=== PATIENT | female | born 1940 | race Caucasian/White ===

== ENCOUNTER 2016-11-18 12:55 | Emergency (ER) | payer OTHER ==
[~2016-11-18] VITALS: Ht 170.2 cm; Wt 93.0 kg
[~2016-11-18 12:55] MED LIST: ACETYLCYST200 MG/1 M INH; ALBUTEROL2.5 MG/3 M INH/SOL; AMOXICILLIN500 M1 PO; ANTIVERT 12.512.5 MG PO; ASPIRIN CHILDRE81 MG PO; ATIVAN 0.5MG T0.5 MG PO; AUGMENTIN 500M500 MG PO; AUGMENTIN 875 M1 TAB PO; AUGMENTIN 875875 MG PO; AVELOX400 M1 PO; AZITHROMYCIN500 M3 PO; BACITRACIN OINT30 GM EXT; COUMADIN 1 MG TA1 MG PO; COUMADIN 2 MG TA2 MG PO; COZAAR 50MG TAB50 MG PO; DULCOLAX10 M1 RC; FLOVENT HF0.11 MG/Ac INH; GLYBURIDE5 MG PO; GOOD SENSE ASP325 MG PO; LIORESAL 10MG T10 MG PO; LOSARTAN POTASS50 M1 PO; METFORMIN ER500 MG PO; METFORMIN HCL500 M4 PO; METFORMIN500 MG PO; MIRALAX17 G1 PO; Mucinex PO; NOVAPLUS V0.09 MG/Ac INH; OMEPRAZOLE20 MG PO; PERCOCET 325 MG1 TA1 PO; PERCOCET 5-3251 EACH PO; PLAVIX 75MG TAB75 MG PO; PRAVASTATIN SOD80 M2 PO; PRAVASTATIN SOD80 MG PO; PREDNISONE 20MG20 MG PO; PREDNISONE10 M2 PO; PRILOSEC OTC20 M1 PO; PRINIVIL 5MG5 MG PO; RIVA15T PO; SENNA S TABLET1 EACH PO; SYMBICORT 160/41 PUF INH; SYMBICORT 16010.2 GM INH; TESSALON PERLE100 MG PO; VENTOLIN HFA18 GM INH; VESICARE 10MG10 MG PO; VESICARE10 MG PO; VICTOZA 2-0.6 MG/0.1 SC; VICTOZA6 MG/ML SC; XARELTO15 M1 PO; XARELTO20 M2 PO; ZOFRAN 4 MG TABL4 MG PO; ZOFRAN ODT4 MG PO
[2016-11-18 14:14] LABS: ABSOLUTE BASOPHIL COUNT 0 /CUMM (0.0-0.2); ABSOLUTE EOSINOPHIL COUNT 0 /CUMM (0.0-0.7); ABSOLUTE GRANULOCYTE CT 4.7 /CUMM (1.4-6.5); ABSOLUTE MONOCYTE COUNT 0.3 /CUMM (0.10-0.60); BASOPHIL % 0.5 % (0.0-2.0); EOSINOPHIL % 0.7 % (0-5); GRANULOCYTE % 77.5 % (42.2-75.2); HEMATOCRIT 35.6 % (37-47); MEAN CORPUSCULAR HGB 19.6 PG (27.0-31.0); MEAN CORPUSCULAR HGB CONC 31.4 G/DL (33.0-37.0); MEAN CORPUSCULAR VOLUME 62.4 FL (81.0-99.0); MEAN PLATELET VOLUME 9.8 FL (7.4-10.4); PLATELET COUNT 156 /CUMM (130-400); RBC DISTRIBUTION WIDTH 14.1 % (11.5-14.5); RED BLOOD CELL CT 5.71 /CUMM (4.20-5.40); WHITE BLOOD CELL COUNT 6.1 /CUMM (4.8-10.8)
--- NOTE | 2016-11-18 14:26 | RADIOLOGY REPORT ---
EXAMINATION: XR PORTABLE CHEST CLINICAL INFORMATION: Cough, weakness COMPARISON: 08/24/2016 TECHNIQUE: Portable view of the chest was obtained. FINDINGS: Increasing opacity at the right base consistent with ongoing right basilar infiltrate. Left lung is grossly clear. There is volume loss on the right here. No failure. No effusion. IMPRESSION: Increasing right basilar infiltrate/atelectasis. No failure.
[2016-11-18 14:54] VITALS: BP 154/87
[2016-11-18] MEDS ORDERED: AUGMENTIN 875-1 EACH PO (14:54)
[2016-11-18] MEDS ORDERED: ZOFRAN ODT4 M1 SL (14:54)
--- NOTE | 2016-11-18 14:55 | ED GI/GU/ABDOMINAL COMPLAINT ---
History of Present Illness General Chief Complaint: General Adult Stated Complaint: VOMTING,LIGHTHEADED,CHEST PRESSURE Source: patient, family, old records Exam Limitations: no limitations Vital Signs & Intake/Output Vital Signs & Intake/Output Vital Signs Date Time Temp Pulse Resp B/P Pulse O2 O2 Flow FiO2 Ox Delivery Rate 11/18 1454 98.0 78 20 154/87 96 Room Air 11/18 1307 98.1 92 18 169/69 95 Room Air Allergies Coded Allergies: methylprednisolone (From Solu-Medrol) (Intermediate, HIVES AND PALPITATIONS 01/14) clove (HIVES 12/29/15) kimberli (HIVES 12/29/15) thyme (HIVES 12/29/15) hydrocodone (NAUSEA 12/29/15) ibuprofen (GI UPSET 12/29/15) lisinopril (DRY COUGH 12/29/15) nitrofurantoin (MAKES HER CRAZY 05/03/16) Uncoded Allergies: CHIVES (HIVES 01/05/16) Reconcile Medications Acetylcysteine (Acetylcysteine) (Unknown Strength) VIAL 5 ML INH BID RESPIRATORY (Reported) Albuterol Sulfate 2.5 MG/3 ML (0.083 %) VIAL.NEB 1 Vial INH/EDDIE BID RESPIRATORY (Reported) Amoxicillin/Potassium Clav (Augmentin 875-125 Tablet) 875 MG-125 MG TABLET 1 TAB PO BID pneumonia Azithromycin 500 MG TABLET 1 TAB PO Wednesday S/P PNEUMONIA (Reported ) Budesonide/Formoterol Fumarate (Symbicort 160-4.5 Mcg Inhaler) 160 MCG-4.5 MCG/ ACTUATION HFA.AER.AD 2 PUF INH PRN RESPIRATORY (Reported) Liraglutide (Victoza 2-Kuldeep) 0.6 MG/0.1 ML (18 MG/3 ML) PEN.INJCTR 1.2 MG SC DAILY DM (Reported) Losartan Potassium 50 MG TABLET 1 TAB PO DAILY BP (Reported) Metformin HCl (Metformin HCl ER) 500 MG TAB.ER.24H 2 TAB PO BID DIABETES ( Reported) Omeprazole (Prilosec) 20 MG CAPSULE.DR 1 CAP PO DAILY AC GI (Reported) Ondansetron (Zofran Odt) 4 MG TAB.RAPDIS 1 TAB SL TID nausea Pravastatin Sodium 80 MG TABLET 1 TAB PO DAILY CHOLESTEROL (Reported) Rivaroxaban (Xarelto) 20 MG TABLET 1 TAB PO DAILY PE with food Solifenacin Succinate (Vesicare) 10 MG TABLET 1 TAB PO DAILY BLADDER ( Reported) Triage Note: 76 Y/O FEMALE C/O NOT FEELING WELL SINCE THIS AM; STATES SHE WAS "FINE AFTER BREAKFAST ..WENT SHOPPING AND THEN ALL OF A SUDDEN GOT SICK". PT REPORTS EPISODES N/V AND DIZZINESS. FELT "PRESSURE" IN CHEST AFTER VOMITING. AT PRESENT, C/O CONTINUED NAUSEA. DENIES PAIN. AFEBRILE EKG COMPLETE AND SIGNED BY MD. Triage Nurses Notes Reviewed? yes LMP (ages 10-50): post menopausal ? n Is pt currently ? No Onset: Just prior to arrival Duration: minute(s):, better, constant, continues in ED Timing: recent history Quality/Severity: aching, moderate, vomiting Location: generalized abdomen Radiation: no radiation Activities at Onset: physical activity Prior Abdominal Problems: none Past Sexual History: Unobtainable at this time Modifying Factors: Improves With: rest. HPI: 1 day prior to admission patient complains of chills. Prior to admission while shopping at the grocery store he felt weak dizzy with episodes of nausea vomiting dizziness and weakness. She denies fever chest pain cough shortness of breath headache dysuria rash bleeding Past History Travel History Traveled to [place] past 21 day No Medical History Any Pertinent Medical History? 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 Other Medical Hx: Hypertension, dyslipidemia, diabetes mellitus, CHF, asthma, prior transient ischemic attack versus CVA, sigmoid diverticulosis, internal hemorrhoids, gastroesophageal reflux disease, gastritis, positional vertigo, left carpal tunnel release, hysterectomy, right knee surgery for a meniscal tear, and recent foot surgery History of MRSA: No History of VRE: No History of CDIFF: No Pneumonia Vaccine: 08/10/13 Influenza Vaccine: 08/25/16 Tetanus Vaccine: 09/23/15 Surgical History Surgical History: R WRIST,TOE, HYSTERECTOMY BLADDER,RECTUM LIFTED right knee surgery for a meniscal tear left carpal tunnel release Psychosocial History Who do you live with Patient/Self Services at Home None What is your primary language Wolof Tobacco Use: Quit >30 days ago Family History Family History, If Any: BROTHER FH: throat cancer SISTER (atrial fibrillation). FH: lung cancer FH: thyroid cancer SISTER (permanent pacemaker placement). FH: melanoma FHx: breast cancer MOTHER (coronary artery disease in her 50's s/p CABG). FH: diabetes mellitus FH: myocardial infarction FH: stroke FATHER FH: kidney disease Hx Contributory? No Review of Systems Review of Systems Constitutional: Reports: see HPI, malaise, weakness. EENTM: Reports: no symptoms. Respiratory: Reports: no symptoms. Cardiovascular: Reports: no symptoms. GI: Reports: see HPI, nausea, vomiting. Genitourinary: Reports: no symptoms. Musculoskeletal: Reports: no symptoms. Skin: Reports: no symptoms. Neurological/Psychological: Reports: no symptoms. Hematologic/Endocrine: Reports: no symptoms. Immunologic/Allergic: Reports: no symptoms. All Other Systems: Reviewed and Negative Physical Exam Physical Exam General Appearance: well developed/nourished, alert, awake, anxious, mild distress Head: atraumatic, normal appearance Eyes: Bilateral: normal appearance, PERRL, EOMI, normal inspection. Ears, Nose, Throat, Mouth: hearing grossly normal, moist mucous membrane Neck: normal inspection, supple, full range of motion, normal alignment Respiratory: chest non-tender, no respiratory distress, quiet respiration, decreased breath sounds Cardiovascular: regular rate/rhythm, normal peripheral pulses, norml femoral pulses equa Peripheral Pulses: 4+ carotid (R), 4+ carotid (L) Gastrointestinal: normal bowel sounds, soft, non-tender, no organomegaly Back: normal inspection, normal range of motion, no vertebral tenderness Extremities: normal range of motion, no ligament instability Neurologic/Psych: no motor/sensory deficits, awake, alert, oriented x 3, normal gait, normal mood/affect, respiratory coordinator II-XII nml as tested Skin: intact, normal color, warm/dry Core Measures ACS in differential dx? Yes Severe Sepsis Present: No Septic Shock Present: No Progress Differential Diagnosis: AMI, gastritis, pancreatitis Plan of Care: Orders Procedure Date/time Status Consistent Carbohydrate 3 11/18 D Active TROPONIN LEVEL 11/18 1340 Complete LIPASE 11/18 1340 Complete COMPREHENSIVE METABOLIC PANEL 11/18 1340 Complete CBC WITHOUT DIFFERENTIAL 11/18 1340 Complete EKG 11/18 1256 Active Laboratory Tests 11/18/16 1402: Anion Gap 10, Estimated GFR > 60, BUN/Creatinine Ratio 17.5, Glucose 136 H, Calcium 9.4, Total Bilirubin 0.6, AST 17, ALT 22, Alkaline Phosphatase 53, Troponin I < 0.01, Total Protein 6.4, Albumin 3.6, Globulin 2.8, Albumin/ Globulin Ratio 1.3, Lipase 35, CBC w Diff NO MAN DIFF REQ, RBC 5.71 H, MCV 62.4 L, MCH 19.6 L, RDW 14.1, MPV 9.8, Gran % 77.5 H, Lymphocytes % 17.1 L, Monocytes % 4.2, Eosinophils % 0.7, Basophils % 0.5, Absolute Granulocytes 4.7, Absolute Lymphocytes 1.0 L, Absolute Monocytes 0.3, Absolute Eosinophils 0, Absolute Basophils 0, PUBS MCHC 31.4 L Diagnostic Imaging: Viewed by Me: Radiology Read. Discussed w/RAD: Radiology Read. CXR Impression: RLL infiltrate Initial ED EKG: normal axis, normal intervals, normal p-waves, normal QRS complex, normal sinus rhythm, nonspecific ST T wave chg Prior EKG: unchanged Rhythm Strip: normal sinus rhythm Departure Departure Time of Disposition: 1451 Disposition: HOME OR SELF CARE Condition: Stable Clinical Impression Primary Impression: Pneumonia Qualifiers: Pneumonia type: due to unspecified organism Laterality: right Lung location: lower lobe of lung Qualified Code: J18.1 - Lobar pneumonia, unspecified organism Secondary Impressions: Nausea and vomiting Qualifiers: Vomiting type: unspecified Vomiting Intractability: non-intractable Qualified Code: R11.2 - Nausea with vomiting, unspecified Referrals: BUCK EUSEBIA SHOOK (PCP/Family) Departure Forms: Customer Survey General Discharge Information Prescriptions: Current Visit Scripts Ondansetron (Zofran Odt) 1 TAB SL TID #15 TAB Amoxicillin/Potassium Clav (Augmentin 875-125 Tablet) 1 TAB PO BID #20 TAB
== END 2016-11-18 16:05 ==
LOC: ERH 12:55
PROVIDERS: Emergency Medicine
DX: J18.9 Pneumonia, unspecified organism (principal); R11.2 Nausea with vomiting, unspecified; Z87.891 Personal history of nicotine dependence; R53.1 Weakness
CPT/HCPCS: 93005; 93010; 96361; 96374; J0696

== ENCOUNTER 2016-11-22 04:33 | Emergency (ER) | payer OTHER ==
[~2016-11-22] VITALS: Ht 144.8 cm; Wt 90.7 kg
[~2016-11-22 04:33] MED LIST changes: +AUGMENTIN 875-1 EACH PO; +ZOFRAN ODT4 M1 SL
[2016-11-22 05:43] LABS: ABSOLUTE BASOPHIL COUNT 0 /CUMM (0.0-0.2); ABSOLUTE EOSINOPHIL COUNT 0.1 /CUMM (0.0-0.7); ABSOLUTE GRANULOCYTE CT 4.4 /CUMM (1.4-6.5); ABSOLUTE LYMPH COUNT 1.5 /CUMM (1.2-3.4); ABSOLUTE MONOCYTE COUNT 0.5 /CUMM (0.10-0.60); BASOPHIL % 0.7 % (0.0-2.0); EOSINOPHIL % 1.8 % (0-5); HEMATOCRIT 33.3 % (37-47); MEAN CORPUSCULAR HGB 19.5 PG (27.0-31.0); MEAN CORPUSCULAR HGB CONC 30.8 G/DL (33.0-37.0); MEAN CORPUSCULAR VOLUME 63.3 FL (81.0-99.0); MEAN PLATELET VOLUME 9.7 FL (7.4-10.4); PLATELET COUNT 160 /CUMM (130-400); RBC DISTRIBUTION WIDTH 14.2 % (11.5-14.5); RED BLOOD CELL CT 5.26 /CUMM (4.20-5.40); WHITE BLOOD CELL COUNT 6.5 /CUMM (4.8-10.8)
--- NOTE | 2016-11-22 05:54 | ED CARDIAC/CP/PALPITATIONS ---
See Addendum History of Present Illness General Chief Complaint: Chest Pain Stated Complaint: BIBA, CHEST PAIN Source: patient Exam Limitations: no limitations Vital Signs & Intake/Output Vital Signs & Intake/Output Vital Signs Date Time Temp Pulse Resp B/P Pulse O2 O2 Flow FiO2 Ox Delivery Rate 11/22 0935 97.7 80 20 134/62 97 Room Air 11/22 0640 97.5 76 20 108/56 94 Room Air 11/22 0447 97.0 80 18 146/78 98 Room Air Allergies Coded Allergies: methylprednisolone (From Solu-Medrol) (Intermediate, HIVES AND PALPITATIONS 01/14) clove (HIVES 12/29/15) kimberli (HIVES 12/29/15) thyme (HIVES 12/29/15) hydrocodone (NAUSEA 12/29/15) ibuprofen (GI UPSET 12/29/15) lisinopril (DRY COUGH 12/29/15) nitrofurantoin (MAKES HER CRAZY 05/03/16) Uncoded Allergies: CHIVES (HIVES 01/05/16) Reconcile Medications Acetylcysteine (Acetylcysteine) (Unknown Strength) VIAL 5 ML INH BID RESPIRATORY (Reported) Albuterol Sulfate 2.5 MG/3 ML (0.083 %) VIAL.NEB 1 Vial INH/EDDIE BID RESPIRATORY (Reported) Azithromycin 500 MG TABLET 1 TAB PO Wednesday S/P PNEUMONIA (Reported ) Budesonide/Formoterol Fumarate (Symbicort 160-4.5 Mcg Inhaler) 160 MCG-4.5 MCG/ ACTUATION HFA.AER.AD 2 PUF INH PRN RESPIRATORY (Reported) Liraglutide (Victoza 2-Kuldeep) 0.6 MG/0.1 ML (18 MG/3 ML) PEN.INJCTR 1.2 MG SC DAILY DM (Reported) Losartan Potassium 50 MG TABLET 1 TAB PO DAILY BP (Reported) Metformin HCl (Metformin HCl ER) 500 MG TAB.ER.24H 2 TAB PO BID DIABETES ( Reported) Omeprazole (Prilosec) 20 MG CAPSULE.DR 1 CAP PO DAILY AC GI (Reported) Pravastatin Sodium 80 MG TABLET 1 TAB PO DAILY CHOLESTEROL (Reported) Rivaroxaban (Xarelto) 20 MG TABLET 1 TAB PO DAILY PE with food Solifenacin Succinate (Vesicare) 10 MG TABLET 1 TAB PO DAILY BLADDER ( Reported) Triage Note: PT BIBA COMPLAINING OF CP. PT WAS HERE A FEW DAYS AGO FOR PNEUMONIA. PT STATES SHE HAS BEEN TAKING AMOXICILLIN AND ZOFRAN PRESCRIBED. PER PT SHE WOKE UP THIS AM WITH L SIDED CHEST PAIN AND NUMBNESS IN L ARM, PT ALSO COMPLAINS OF DIARRHEA. UPON ED ARRIVAL PT ALERT, ORIENTED AND HAVING CONVERSATION. PT PLACED ON HEART MONITOR, NORMAL SINUS. O2 SAT 94% RA. Triage Nurses Notes Reviewed? yes HPI: Presents for evaluation of left chest pain radiating into the left back with associated left arm numbness that began about 3:00 this morning awakening her from sleep while at home. The pains have been sharp severe and intermittent. She was evaluated here on Wednesday and began treatment for pneumonia. She has had a mild nonproductive cough along with episodes of dizziness and dyspnea. No associated fever or leg swelling. (CHRIS SHOOK,RUBI Mejia) Past History Travel History Traveled to [place] past 21 day No Medical History Any Pertinent Medical History? 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 Other Medical Hx: Hypertension, dyslipidemia, diabetes mellitus, CHF, asthma, prior transient ischemic attack versus CVA, sigmoid diverticulosis, internal hemorrhoids, gastroesophageal reflux disease, gastritis, positional vertigo, left carpal tunnel release, hysterectomy, right knee surgery for a meniscal tear, and recent foot surgery History of MRSA: No History of VRE: No History of CDIFF: No Tetanus Vaccine: 09/23/15 Surgical History Surgical History: R WRIST,TOE, HYSTERECTOMY BLADDER,RECTUM LIFTED right knee surgery for a meniscal tear left carpal tunnel release Psychosocial History Who do you live with Patient/Self Services at Home None What is your primary language Polish Family History Family History, If Any: BROTHER FH: throat cancer SISTER (atrial fibrillation). FH: lung cancer FH: thyroid cancer SISTER (permanent pacemaker placement). FH: melanoma FHx: breast cancer MOTHER (coronary artery disease in her 50's s/p CABG). FH: diabetes mellitus FH: myocardial infarction FH: stroke FATHER FH: kidney disease Hx Contributory? No (CHRIS SHOOK,RUBI Mejia) Review of Systems Review of Systems Constitutional: Reports: no symptoms. EENTM: Reports: no symptoms. Respiratory: Reports: see HPI. Cardiovascular: Reports: no symptoms. GI: Reports: no symptoms. Genitourinary: Reports: no symptoms. Musculoskeletal: Reports: no symptoms. Skin: Reports: no symptoms. Neurological/Psychological: Reports: no symptoms. Hematologic/Endocrine: Reports: no symptoms. Immunologic/Allergic: Reports: no symptoms. All Other Systems: Reviewed and Negative (CHRIS SHOOK,RUBI Mejia) Physical Exam Physical Exam Cardiovascular: see below Comments: Gen.: Well-nourished, well-developed, no acute respiratory distress. Head: Normocephalic, atraumatic. Eyes: Normal inspection bilaterally Ears: Normal inspection bilaterally Nose: Normal inspection Throat/mouth : Moist mucosa Neck: Supple, full range of motion, no goiter Heart: Regular rate and rhythm, no murmurs rubs or gallops Lungs: Bilateral rhonchi and scattered wheezes with paroxysms of loose cough Chest: Nontender Back: Normal range of motion Abdomen: Soft, nontender, nondistended, normal bowel sounds Extremities: Normal range of motion grossly, equal radial pulses, no cyanosis clubbing or edema Neurologic: Cranial nerves grossly intact, speech is clear Skin: warm and dry Psychiatric: Calm, cooperative, no apparent delusions or hallucinations (CHRIS SHOOK,RUBI Mejia) Core Measures ACS in differential dx? Yes Severe Sepsis Present: No Septic Shock Present: No (DEYSI DESAI MD) Progress Differential Diagnosis: CHF/pulm edema, pneumonia, COPD Plan of Care: Orders Procedure Date/time Status Consistent Carbohydrate 2 11/22 L Active EKG 11/22 1015 Active TROPONIN LEVEL 11/22 0930 Complete TROPONIN LEVEL 11/22 0532 Complete LIPASE 11/22 0532 Complete COMPREHENSIVE METABOLIC PANEL 11/22 0532 Complete CBC WITHOUT DIFFERENTIAL 11/22 0532 Complete AMYLASE 11/22 0532 Complete EKG 11/22 0437 Active Laboratory Tests 11/22/16 0930: Troponin I < 0.01 11/22/16 0536: Anion Gap 8, Estimated GFR > 60, BUN/Creatinine Ratio 15.6, Glucose 185 H, Calcium 8.6, Total Bilirubin 0.3, AST 14, ALT 23, Alkaline Phosphatase 58, Troponin I < 0.01, Total Protein 5.7 L, Albumin 3.1 L, Globulin 2.6, Albumin/ Globulin Ratio 1.2, Amylase < 30 L, Lipase 33, CBC w Diff NO MAN DIFF REQ, RBC 5.26, MCV 63.3 L, MCH 19.5 L, RDW 14.2, MPV 9.7, Gran % 67.0, Lymphocytes % 23.1, Monocytes % 7.4, Eosinophils % 1.8, Basophils % 0.7, Absolute Granulocytes 4.4, Absolute Lymphocytes 1.5, Absolute Monocytes 0.5, Absolute Eosinophils 0.1, Absolute Basophils 0, PUBS MCHC 30.8 L Diagnostic Imaging: Viewed by Me: Radiology Read. Discussed w/RAD: Radiology Read. CXR Impression: There is persistent stable mild right base linear scar/ subsegmental atelectasis. No new focal infiltrate or congestive heart failure is seen. Initial ED EKG: normal axis, normal intervals, normal p-waves, normal QRS complex, normal sinus rhythm, no ST T wave changes Prior EKG: unchanged Rhythm Strip: normal sinus rhythm Comments: 2nd troponin <0.01 (DEYSI DESAI MD) Departure Departure Condition: Stable Departure Forms: Customer Survey General Discharge Information (CHRIS SHOOK,RUBI Mejia) Departure Time of Disposition: 1016 Disposition: HOME OR SELF CARE Clinical Impression Primary Impression: Chest pain syndrome Secondary Impressions: COPD (chronic obstructive pulmonary disease) Qualifiers: COPD type: unspecified COPD Qualified Code: J44.9 - Chronic obstructive pulmonary disease, unspecified Referrals: EUSEBIA BUCK MD (PCP/Family) (DEYSI DESAI MD) Critical Care Note Critical Care Note Critical Care Time: 30-74 min (40) (DEYSI DESAI MD)
--- NOTE | 2016-11-22 08:11 | RADIOLOGY REPORT ---
EXAMINATION: XR PORTABLE CHEST CLINICAL INFORMATION: Chest pain. COMPARISON: Prior chest radiographs, most recently 11/18/2016. TECHNIQUE: An AP portable upright view of the chest was obtained. FINDINGS: The heart, great vessels, pulmonary vasculature and mediastinum are stable. There is mild lateral right base linear scar/subsegmental atelectasis. This is stable from multiple prior examinations The left lung field appears clear. There is no pleural effusion or pneumothorax. No acute osseous abnormality is seen. There are degenerative changes of the shoulders. IMPRESSION: There is persistent stable mild right base linear scar/subsegmental atelectasis. No new focal infiltrate or congestive heart failure is seen.
[2016-11-22 09:35] VITALS: BP 134/62
== END 2016-11-22 10:29 ==
LOC: ERH 04:33
PROVIDERS: Emergency Medicine
DX: R07.9 Chest pain, unspecified (principal); J44.9 Chronic obstructive pulmonary disease, unspecified
CPT/HCPCS: 1263; 93005; 93010

== ENCOUNTER → 2016-12-18 | Day surgery (SDC) | payer OTHER ==
[~2016-12-18] VITALS: Ht 170.2 cm; Wt 93.0 kg
[~2016-12-18] MED LIST changes: +ASPIRIN81 M4 PO; +CIPRO500 M1 PO; +PREDNISONE20 M1 PO; +PREDNISONE50 M1 PO; +PROAIR HFA8.5 GM INH; +TYLENOL ARTHRI650 M1 PO
--- NOTE | 2016-12-19 13:44 | Operative Report ---
Operative/Inv Procedure Report Surgery Date: 12/18/16 Name of Procedure: cystocele repair with mesh, rectocele repair with mesh and urethral sling, cystoscopy Pre-Operative Diagnosis: cystocele, rectocele and CARROL Post-Operative Diagnosis: same Estimated Blood Loss: 150cc Surgeon/Horticulture/Floriculture Teacher: JUDITH SNOW MD Anesthesia: laryngeal mask airway Implants: vaginal mesh x 3 Drains: 16fr downing Complications: none Condition: stable Operative Indication: cystocele, rectocele, CARROL symptomatic and bothersome Operative/Procedure Note Note: This an operative dictation on patient Sindhu Rodriguez. Patient was identified in the holding area and consented for cystocele repair with mesh urethral sling cystoscopy and rectocele repair with mesh. All the risks benefits and alternatives of the surgery were given and all questions were answered. Patient was taken to the operating room placed on the operating table in supine position. Once timeout was performed general anesthesia was given with LMA and IV antibiotics were infused. Patient was placed in the dorsal lithotomy position. She was prepped and draped in the standard sterile fashion. Downing catheter was placed at the beginning of the surgery and the bladder was drained. The Downing was placed on the patient's abdomen. Prosser retractor was then placed for vaginal vault visualization. The cystocele portion of the surgery was started first. 1% lidocaine with epinephrine was infiltrated into the anterior vaginal wall from the bladder neck to the cervix. An incision was made and the vaginal flaps are created on the patient's right and left side taking care not to injure the bladder. Once the bladder was completely dissected free the retropubic space was entered with blunt and sharp dissection. The sacrospinous ligament was palpated on each side and cleaned. The Capio thin device was then used to place the Prolene sutures at the sacrospinous ligaments on the patient's right and left side. The Capio thin device was then used to place 2 sutures at the level of the bladder neck on the patient's right and left side as well. The Restoril mesh was then opened and used to place through the 4 Prolene sutures that was previously placed. The distal proximal portions were secured with 2-0 Vicryl suture. The mesh was then secured in place over there is Prolene sutures and tied down. This mesh was seen to be in a nice tension- free manner and reduced the cystocele nicely. The area was copiously irrigated bacitracin irrigation. The incision site was closed using running locking 2-0 Vicryl suture. Attention was then turned to the sling portion of the case. 1% lidocaine with epinephrine was infiltrated into the subcutaneous urethral region. An incision was made and the vaginal flaps are created taking care not to injure the urethra. The Altis Sling kit was then opened and used to place the sling in the patient's left and right side with the trochars provided. The sling was then tightened and was seen to be in a nice tension-free manner. Area was grossly irrigated with bacitracin irrigation and then closed with running locking 3-0 Vicryl suture. A cystoscopy was then performed. Methylene blue had been given prior to the cystoscopy at the time of the 6 spinous ligament suture placement. The bladder was globally inspected there was no mesh in the bladder or the urethra. The ureteral orifices were easily identified in the normal anatomic position. These were seen to have good ureteral reflux creating color on both sides. The bladder was emptied and the Downing was placed back into the bladder. Attention was turned to the rectocele portion of the case. The posterior vagina was infiltrated with 1% lidocaine with epinephrine. The knife was used to make an incision at the posterior fourchette. The Metzenbaum scissors then used to create the posterior vaginal flaps taking care not to injure the rectum. Periodic rectal exams were performed to ensure that the rectum was not injured. Once the rectum seal was entirely dissected free from the vaginal flaps the fascial defect was then closed using interrupted 2-0 Vicryl sutures with a piece of Acell mesh incorporated into the repair. This was seen to nicely reduced the rectocele. There were no injuries to the rectum that were appreciated. There was copiously irrigated with bacitracin irrigation. The incision site was closed using running locking 2-0 Vicryl sutures followed by 3-0 Vicryl running suture for the perineorrhaphy. The sponge and needle count were correct and of the case. Patient tolerated the procedure well. Findings: no mesh in bladder or urethra or vaginal fornices. Good blue efflux from both ureteral orifices. No bladder injury or rectgal injury. Findings: no mesh in bladder or urethra or vaginal fornices. Discharge Disposition: PACU
== END ==
LOC: STS 01:13
DX: N39.3 Stress incontinence (female) (male) (principal); N81.10 Cystocele, unspecified; N81.6 Rectocele; E11.9 Type 2 diabetes mellitus without complications; Z79.84 Long term (current) use of oral hypoglycemic drugs; E78.5 Hyperlipidemia, unspecified
CPT/HCPCS: C1771; C1781; J0131; J0690; J1100; J2250; J2405

== ENCOUNTER 2016-12-19 08:44 | Emergency (ER) | payer OTHER ==
[~2016-12-19] VITALS: Ht 170.2 cm; Wt 93.0 kg
[~2016-12-19 08:44] MED LIST changes: -ASPIRIN81 M4 PO; -CIPRO500 M1 PO; -PREDNISONE20 M1 PO; -PREDNISONE50 M1 PO; -PROAIR HFA8.5 GM INH; -TYLENOL ARTHRI650 M1 PO
[2016-12-19 08:48] VITALS: BP 102/62
--- NOTE | 2016-12-19 09:15 | ED GENERAL ADULT ---
History of Present Illness General Chief Complaint: General Adult Stated Complaint: MULI COMPLAINTS Source: patient, family Exam Limitations: no limitations Vital Signs & Intake/Output Vital Signs & Intake/Output Vital Signs Date Time Temp Pulse Resp B/P Pulse O2 O2 Flow FiO2 Ox Delivery Rate 12/19 0904 Room Air Room Air 12/19 0848 95.0 83 20 102/62 94 Room Air Room Air Allergies Coded Allergies: methylprednisolone (From Solu-Medrol) (Intermediate, HIVES AND PALPITATIONS 01/14) clove (HIVES 12/29/15) kimberli (HIVES 12/29/15) thyme (HIVES 12/29/15) hydrocodone (NAUSEA 12/29/15) ibuprofen (GI UPSET 12/29/15) lisinopril (DRY COUGH 12/29/15) nitrofurantoin (MAKES HER CRAZY 05/03/16) Uncoded Allergies: CHIVES (HIVES 01/05/16) Triage Note: PT TO ED "I HAD BLADDER SURGERY YESTERDAY, AND THEY GAVE ME A SYRINGE TO TAKE THE FLUID OUT OF THE BALLOON IN THE SIMS SO I COULD TAKE IT OUT BUT IT'S NOT WORKING". Triage Nurses Notes Reviewed? yes HPI: 76 year old woman seen for evaluation after undergoing pelvic surgery yesterday with Dr. Rowley for placement of a pelvic sling/mesh. She was discharged to home with a sims catheter and instructed to remove the catheter this morning with the syringe provided. She and her son attempted to do this but were unsuccessful for which they came to the [facility] for evaluation. Otherwise she reports that she tolerated the procedure well and reports associated pelvic pain. Additionally she denies any headache, fever, chills, chest pain, palpitations, shortness of breath, cough, nausea, vomiting, diarrhea, bloody urine. (ALEX SHOOK,ELIAN) Reconcile Medications Acetylcysteine (Acetylcysteine) (Unknown Strength) VIAL 5 ML INH BID RESPIRATORY (Reported) Albuterol Sulfate 2.5 MG/3 ML (0.083 %) VIAL.NEB 1 Vial INH/EDDIE BID RESPIRATORY (Reported) Budesonide/Formoterol Fumarate (Symbicort 160-4.5 Mcg Inhaler) 160 MCG-4.5 MCG/ ACTUATION HFA.AER.AD 2 PUF INH PRN RESPIRATORY (Reported) Liraglutide (Victoza 2-Kuldeep) 0.6 MG/0.1 ML (18 MG/3 ML) PEN.INJCTR 1.2 MG SC DAILY DM (Reported) Losartan Potassium 50 MG TABLET 1 TAB PO DAILY BP (Reported) Metformin HCl (Metformin HCl ER) 500 MG TAB.ER.24H 2 TAB PO BID DIABETES ( Reported) Omeprazole Magnesium (Prilosec Otc) 20 MG TABLET.DR 1 TAB PO DAILY GI ( Reported) Pravastatin Sodium 80 MG TABLET 1 TAB PO DAILY CHOLESTEROL (Reported) Rivaroxaban (Xarelto) 20 MG TABLET 1 TAB PO DAILY PE with food Solifenacin Succinate (Vesicare) 10 MG TABLET 1 TAB PO DAILY BLADDER ( Reported) (CHRIS SHOOK,RUBI Mejia) Past History Travel History Traveled to [place] past 21 day No Medical History Any Pertinent Medical History? 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 Other Medical Hx: Hypertension, dyslipidemia, diabetes mellitus, CHF, asthma, prior transient ischemic attack versus CVA, sigmoid diverticulosis, internal hemorrhoids, gastroesophageal reflux disease, gastritis, positional vertigo, left carpal tunnel release, hysterectomy, right knee surgery for a meniscal tear, and recent foot surgery History of MRSA: No History of VRE: No History of CDIFF: No Tetanus Vaccine: 09/23/15 Surgical History Surgical History: R WRIST,TOE, HYSTERECTOMY BLADDER,RECTUM LIFTED right knee surgery for a meniscal tear left carpal tunnel release Psychosocial History Who do you live with Patient/Self Services at Home None What is your primary language French Tobacco Use: Never used ETOH Use: denies use Illicit Drug Use: denies illicit drug use Family History Family History, If Any: BROTHER FH: throat cancer SISTER (atrial fibrillation). FH: lung cancer FH: thyroid cancer SISTER (permanent pacemaker placement). FH: melanoma FHx: breast cancer MOTHER (coronary artery disease in her 50's s/p CABG). FH: diabetes mellitus FH: myocardial infarction FH: stroke FATHER FH: kidney disease Hx Contributory? No (ALEX MD,ELIAN) Review of Systems Review of Systems Constitutional: Reports: see HPI, diaphoresis. (ELIAN JOHNSON MD) Physical Exam Physical Exam General Appearance: well developed/nourished, no apparent distress, alert, awake , comfortable Core Measures ACS in differential dx? No CVA/TIA Diagnosis: No Severe Sepsis Present: No Septic Shock Present: No (ELIAN JOHNSON MD) Progress Differential Diagnoses I considered the following diagnoses in my evaluation of the patient: recent pelvic surgery, sims catheter placement Plan of Care: Placement of Sims catheter was assessed and it appeared to be atraumatic draining clear yellow/green urine are presented of of dye from the surgical procedure. Nursing staff removed the Sims catheter without any difficulty. Patient reports relief with removal of the Sims catheter. She reports that she has a follow-up appointment with Dr. Rowley in her office in 2 weeks to assess any further intervention required and has an adequate amount of Percocet at home for pain relief associated with her recent pelvic surgery. She is to be discharged home with instruction to follow up with her previously scheduled appointment and to return to the ED or call 911 should her condition worsen or if she develops any fever or signs of infection. Initial ED EKG: none (ELIAN JOHNSON MD) Departure Departure Disposition: HOME OR SELF CARE Condition: Stable Clinical Impression Primary Impression: Problem with Sims catheter Qualifiers: Encounter type: initial encounter Qualified Code: T83.9XXA - Unspecified complication of genitourinary prosthetic device, implant and graft, initial encounter Referrals: EUSEBIA BUCK MD (PCP/Family) Additional Instructions: Follow-up with your previously scheduled appointment with Dr. Rowley in 2 weeks for further care. Call 911 or return to the ED should your clinical condition worsen or if you develop fever or signs of infection. Departure Forms: Customer Survey General Discharge Information (ELIAN JOHNSON MD) Resident Co-Sign Statement Statement: ED Attending supervision documentation- [x] I saw and evaluated the patient. I have also reviewed all the pertinent lab results and diagnostic results. I agree with the findings and the plan of care as documented in the Resident's documentation. [] I have reviewed the ED Record and agree with the Resident's documentation. [] Additions or exceptions (if any) to the Resident's note and plan are summarized below: [] (CHRIS SHOOK,RUBI Mejia) Critical Care Note Critical Care Note Critical Care Time: non-applicable (ALEX SHOOK,ELIAN)
== END 2016-12-19 09:25 ==
LOC: ERH 08:44
DX: T83.9XXA Unspecified complication of genitourinary prosthetic device, implant and graft, initial encounter (principal)

== ENCOUNTER 2016-12-21 10:49 | Emergency (ER) | payer OTHER ==
[~2016-12-21] VITALS: Ht 170.2 cm; Wt 93.0 kg
--- NOTE | 2016-12-21 11:00 | ED GENERAL ADULT ---
History of Present Illness General Chief Complaint: Dyspnea (COPD, CHF, Other) Stated Complaint: SOB/VAG BLEED S/P SURG ON WEDNESDAY Source: patient Exam Limitations: no limitations Vital Signs & Intake/Output Vital Signs & Intake/Output Vital Signs Date Time Temp Pulse Resp B/P Pulse O2 O2 Flow FiO2 Ox Delivery Rate 12/21 1530 98.9 66 18 158/67 98 Room Air 12/21 1435 98.2 66 18 180/78 95 Nasal 2.0L Cannula 12/21 1249 100 Nasal 2.0L Cannula 12/21 1103 98.1 70 24 152/67 100 Nasal 3.0L Cannula Allergies Coded Allergies: methylprednisolone (From Solu-Medrol) (Intermediate, HIVES AND PALPITATIONS 01/14) clove (HIVES 12/29/15) kimberli (HIVES 12/29/15) thyme (HIVES 12/29/15) hydrocodone (NAUSEA 12/29/15) ibuprofen (GI UPSET 12/29/15) lisinopril (DRY COUGH 12/29/15) nitrofurantoin (MAKES HER CRAZY 05/03/16) Uncoded Allergies: CHIVES (HIVES 01/05/16) Reconcile Medications Acetylcysteine (Acetylcysteine) (Unknown Strength) VIAL 5 ML INH BID RESPIRATORY (Reported) Albuterol Sulfate 2.5 MG/3 ML (0.083 %) VIAL.NEB 1 Vial INH/EDDIE BID RESPIRATORY (Reported) Budesonide/Formoterol Fumarate (Symbicort 160-4.5 Mcg Inhaler) 160 MCG-4.5 MCG/ ACTUATION HFA.AER.AD 2 PUF INH PRN RESPIRATORY (Reported) Ciprofloxacin HCl (Cipro) 500 MG TABLET 1 TAB PO BID UTI Liraglutide (Victoza 2-Kuldeep) 0.6 MG/0.1 ML (18 MG/3 ML) PEN.INJCTR 1.2 MG SC DAILY DM (Reported) Losartan Potassium 50 MG TABLET 1 TAB PO DAILY BP (Reported) Metformin HCl (Metformin HCl ER) 500 MG TAB.ER.24H 2 TAB PO BID DIABETES ( Reported) Omeprazole Magnesium (Prilosec Otc) 20 MG TABLET.DR 1 TAB PO DAILY GI ( Reported) Pravastatin Sodium 80 MG TABLET 1 TAB PO DAILY CHOLESTEROL (Reported) Rivaroxaban (Xarelto) 20 MG TABLET 1 TAB PO DAILY PE with food Solifenacin Succinate (Vesicare) 10 MG TABLET 1 TAB PO DAILY BLADDER ( Reported) Triage Nurses Notes Reviewed? yes Onset: Abrupt Duration: hour(s): Timing: recent history HPI: 12/21/16 12:23 PM 76-year-old female presents to the emergency department complaining of left lower extremity pain and swelling, rash and itching, dysuria, shortness of breath, and constipation. The patient is is status post bladder sling procedure (cystocele repair with mesh, rectocele repair with mesh and urethral sling, cystoscopy) done by Dr. Rowley in the OR at [facility] on Wednesday. Now she presents with the above complaints. The onset of the symptoms were abrupt, the duration has been since Wednesday, the severity is significant as her symptoms required her to come to the emergency department for care She admits to some vaginal bleeding. On physical examination she does have some left lower extremity swelling and tenderness. No identifiable rash was seen but she does have exacerbations. She has no obstructed stool in the rectum and she was guaiac negative. Her abdomen is soft and nontender. There is no active vaginal bleeding. Past History Travel History Traveled to [place] past 21 day No Medical History Any Pertinent Medical History? 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 Other Medical Hx: Hypertension, dyslipidemia, diabetes mellitus, CHF, asthma, prior transient ischemic attack versus CVA, sigmoid diverticulosis, internal hemorrhoids, gastroesophageal reflux disease, gastritis, positional vertigo, left carpal tunnel release, hysterectomy, right knee surgery for a meniscal tear, and recent foot surgery History of MRSA: No History of VRE: No History of CDIFF: No Tetanus Vaccine: 09/23/15 Surgical History Surgical History: R WRIST,TOE, HYSTERECTOMY BLADDER,RECTUM LIFTED right knee surgery for a meniscal tear left carpal tunnel release Psychosocial History Who do you live with Patient/Self Services at Home None What is your primary language Maori Tobacco Use: Never used ETOH Use: denies use Illicit Drug Use: denies illicit drug use Family History Family History, If Any: BROTHER FH: throat cancer SISTER (atrial fibrillation). FH: lung cancer FH: thyroid cancer SISTER (permanent pacemaker placement). FH: melanoma FHx: breast cancer MOTHER (coronary artery disease in her 50's s/p CABG). FH: diabetes mellitus FH: myocardial infarction FH: stroke FATHER FH: kidney disease Hx Contributory? No Review of Systems Review of Systems Constitutional: Denies: fever. EENTM: Denies: visual changes. Respiratory: Reports: short of breath. Cardiovascular: Denies: chest pain. GI: Reports: constipation. Denies: abdominal pain, vomiting. Genitourinary: Reports: dysuria. Musculoskeletal: Reports: back pain. Skin: Reports: rash. Neurological/Psychological: Reports: no symptoms. Hematologic/Endocrine: Reports: bleeding. Physical Exam Physical Exam General Appearance: alert, awake, anxious, mild distress Head: atraumatic, normal appearance Eyes: Bilateral: normal appearance, PERRL, EOMI. Ears, Nose, Throat: normal pharynx, normal ENT inspection Neck: normal inspection, supple Respiratory: no respiratory distress, decreased breath sounds Cardiovascular: regular rate/rhythm Peripheral Pulses: 4+ radial (R), 4+ radial (L) Gastrointestinal: non-tender Rectal: heme negative stool Back: decreased range of motion Extremities: pedal edema Neurologic/Psych: no motor/sensory deficits, awake, alert, oriented x 3 Skin: excoriations, no rash Comments: On physical exam the patient is awake alert oriented 3. Her oxygen saturation is 97% on room air. Her abdomen is soft and nontender on skin exam she does have excoriations but no definite rash she says she had urticaria and took Benadryl, rectal exam was guaiac-negative Core Measures ACS in differential dx? No CVA/TIA Diagnosis: No Severe Sepsis Present: No Septic Shock Present: No Progress Differential Diagnoses I considered the following diagnoses in my evaluation of the patient: [Adverse drug reaction, allergic reaction, UTI, pneumonia, aspiration pneumonia, pulmonary embolism, DVT, postop hemorrhage,] Plan of Care: Orders Procedure Date/time Status URINALYSIS 12/21 1257 Complete ARTERIAL BLOOD GAS (GEN) 12/21 1206 Complete CULTURE,URINE 12/21 1206 Active TROPONIN LEVEL 12/21 1206 Complete D-DIMER 12/21 1206 Complete COMPREHENSIVE METABOLIC PANEL 12/21 1206 Complete CBC WITHOUT DIFFERENTIAL 12/21 1206 Complete EKG 12/21 1051 Active Laboratory Tests 12/21/16 1300: Urinalysis LIGHT H, Urine Color GREEN H, Urine Clarity HAZY H, Urine pH 6.5, Ur Specific [place] 1.020, Urine Protein TRACE H, Urine Ketones NEG, Urine Nitrite NEG, Urine Bilirubin NEG@ICTO, Urine Urobilinogen 0.2, Ur Leukocyte Esterase NEG, Ur Microscopic SEDIMENT EXAMINED, Urine RBC 15-25 H, Urine WBC 10 -15 H, Ur Epithelial Cells FEW, Urine Mucus FEW, Urine Hemoglobin MOD H, Urine Glucose NEG 12/21/16 1230: pH 7.50 H, pCO2 33 L, pO2 135 H, HCO3 25, ABG O2 Sat (Measured) 99.0, Carboxyhemoglobin 0.3 L, O2 Concentration % 3L, O2 Delivery Method NC, Phlebotomy Draw Site LEFT RADIAL 12/21/16 1215: Anion Gap 7, Estimated GFR > 60, BUN/Creatinine Ratio 18.6, Glucose 148 H, Calcium 9.0, Total Bilirubin 0.7, AST 15, ALT 28, Alkaline Phosphatase 55, Troponin I < 0.01, Total Protein 5.8 L, Albumin 3.2 L, Globulin 2.6, Albumin/ Globulin Ratio 1.2, D-Dimer 226, CBC w Diff NO MAN DIFF REQ, RBC 5.00, MCV 63.6 L, MCH 19.8 L, RDW 13.9, MPV 9.2, Gran % 58.5, Lymphocytes % 30.8, Monocytes % 7.7, Eosinophils % 2.4, Basophils % 0.6, Absolute Granulocytes 3.2, Absolute Lymphocytes 1.7, Absolute Monocytes 0.4, Absolute Eosinophils 0.1, Absolute Basophils 0, PUBS MCHC 31.1 L Microbiology 12/21 1300 URINE ROUT: Urine Culture - RECD Initial ED EKG: NSR Prior EKG: unchanged Departure Departure Disposition: HOME OR SELF CARE Condition: Stable Clinical Impression Primary Impression: Leg cramps Secondary Impressions: Allergic reaction, Atelectasis, History of cystocele, History of rectocele, UTI (urinary tract infection) Referrals: BUCK EUSEBIA SHOOK (PCP/Family) Departure Forms: Customer Survey General Discharge Information Prescriptions: Current Visit Scripts Ciprofloxacin HCl (Cipro) 1 TAB PO BID #14 TAB Comments Chest x-ray shows atelectasis Left lower extremity ultrasound negative for DVT D-dimer was negative. Labs essentially unremarkable. EKG no acute changes. She did have pyuria and hematuria The case was discussed with the on-call urologist doctor Adriana He is in agreement with the plan. We'll treat with Cipro. Benadryl as needed for the itching. MiraLAX as needed. Return to the emergency department if worse. Critical Care Note Critical Care Note Critical Care Time: non-applicable
[2016-12-21 12:28] LABS: ABSOLUTE BASOPHIL COUNT 0 /CUMM (0.0-0.2); ABSOLUTE EOSINOPHIL COUNT 0.1 /CUMM (0.0-0.7); ABSOLUTE GRANULOCYTE CT 3.2 /CUMM (1.4-6.5); ABSOLUTE LYMPH COUNT 1.7 /CUMM (1.2-3.4); ABSOLUTE MONOCYTE COUNT 0.4 /CUMM (0.10-0.60); BASOPHIL % 0.6 % (0.0-2.0); EOSINOPHIL % 2.4 % (0-5); GRANULOCYTE % 58.5 % (42.2-75.2); HEMATOCRIT 31.8 % (37-47); MEAN CORPUSCULAR HGB 19.8 PG (27.0-31.0); MEAN CORPUSCULAR HGB CONC 31.1 G/DL (33.0-37.0); MEAN CORPUSCULAR VOLUME 63.6 FL (81.0-99.0); MEAN PLATELET VOLUME 9.2 FL (7.4-10.4); PLATELET COUNT 187 /CUMM (130-400); RBC DISTRIBUTION WIDTH 13.9 % (11.5-14.5); WHITE BLOOD CELL COUNT 5.5 /CUMM (4.8-10.8)
--- NOTE | 2016-12-21 14:03 | ULTRASOUND REPORT ---
EXAMINATION: LEFT LOWER EXTREMITY VENOUS ULTRASOUND CLINICAL INFORMATION: Left lower extremity swelling COMPARISON: None. TECHNIQUE: Doppler spectral analysis and color flow Doppler imaging was performed of the left lower extremity. Compression and augmentation maneuvers were performed. FINDINGS: The left common femoral, femoral, popliteal and calf veins were well-identified and normal. They demonstrate normal compressibility and color fill-in. A lymph node measuring 1.6 x 0.5 x 1.6 cm is present in the groin. IMPRESSION: No evidence for left lower extremity deep vein thrombosis.
--- NOTE | 2016-12-21 14:36 | RADIOLOGY REPORT ---
EXAMINATION: XR PORTABLE CHEST CLINICAL INFORMATION: Shortness of breath. Evaluate for aspiration pneumonia COMPARISON: Multiple chest x-rays most recent prior dated 11/22/2016 TECHNIQUE: Portable AP view of the chest was obtained. FINDINGS: Stable cardiomediastinal silhouette. Linear subsegmental atelectatic changes noted in the right midlung. No evidence of pneumonia. Bony thorax is intact.. IMPRESSION: Minor subsegmental atelectasis right midlung. No plain radiographic evidence of pneumonia.
[2016-12-21] MEDS ORDERED: CIPRO500 M1 PO (15:15)
[2016-12-21 15:30] VITALS: BP 158/67
== END 2016-12-21 15:32 ==
LOC: ERH 10:49
PROVIDERS: Emergency Medicine
DX: R25.2 Cramp and spasm (principal); N39.0 Urinary tract infection, site not specified; J98.11 Atelectasis; T78.40XA Allergy, unspecified, initial encounter; X58.XXXA Exposure to other specified factors, initial encounter
CPT/HCPCS: 81001; 87086; 93005; 93010; 96374; 96375; J0131; J1200

== ENCOUNTER 2017-03-30 06:29 | Inpatient (IN) | payer OTHER ==
[~2017-03-30] VITALS: Ht 170.2 cm; Wt 92.5 kg
[~2017-03-30 06:29] MED LIST changes: +CIPRO500 M1 PO
--- NOTE | 2017-03-30 06:57 | ED DYSPNEA/ASTHMA COMPLAINT ---
History of Present Illness General Chief Complaint: Abdominal Pain/Flank Pain Stated Complaint: URI SYMPTOMS,VOMITING AND ABD PAIN Source: patient, family Exam Limitations: no limitations Vital Signs & Intake/Output Vital Signs & Intake/Output Vital Signs Date Time Temp Pulse Resp B/P B/P Pulse O2 O2 Flow FiO2 Mean Ox Delivery Rate 03/30 0842 97.2 85 20 172/77 96 Room Air 03/30 0640 94 Room Air 03/30 0638 96.7 99 20 140/81 95 Room Air Allergies Coded Allergies: methylprednisolone (From Solu-Medrol) (Intermediate, HIVES AND PALPITATIONS 01/14) clove (HIVES 12/29/15) kimberli (HIVES 12/29/15) thyme (HIVES 12/29/15) hydrocodone (NAUSEA 12/29/15) ibuprofen (GI UPSET 12/29/15) lisinopril (DRY COUGH 12/29/15) nitrofurantoin (MAKES HER CRAZY 05/03/16) Uncoded Allergies: CHIVES (HIVES 01/05/16) Triage Note: PT TO ED WITH COMPLAINTS OF MID-EPIGASTRIC PAIN THAT CAME ON YESTERDAY AND SUBSIDED. PT WAS AWAKENED THIS MORNING BY THE SAME PAIN AND EXPERIENCED SOME SPITTING UP OF WHITE MUCOUS. PT ARRIVES ALERT AND ORIENTED. Triage Nurses Notes Reviewed? yes Onset: Gradual Duration: hour(s): Timing: recent history Severity: mild, moderate Activities at Onset: none Prior Episodes/Possible Cause: occasional episodes Modifying Factors: Improves With: rest. Associated Symptoms: cough, wheezing HPI: 76 yo woman, h/oe PE, on xarelto, in prior good health presents with cough and wheezing. "I woke up and I was perfectly fine... and then I threw up... and started coughing.... Now I can't stop coughing... There's a bunch of yellow phlegm that comes up..." She notes that she is on cipro for a UTI, finishing her course today. She has no fever, chills, chest pain, syncopal symptoms. She is otherwise well. (MICHAEL SHOOK,PAIGE Gudino) Reconcile Medications Acetylcysteine (Acetylcysteine) (Unknown Strength) VIAL 5 ML INH BID RESPIRATORY (Reported) Albuterol Sulfate 2.5 MG/3 ML (0.083 %) VIAL.NEB 1 Vial INH/EDDIE BID RESPIRATORY (Reported) Albuterol Sulfate (Proair Hfa) 90 MCG HFA.AER.AD 2 PUF INH Q4-6 PRN PRN DYSPNEA Amoxicillin/Potassium Clav (Augmentin 875-125 Tablet) 875 MG-125 MG TABLET 1 TAB PO BID INFECTION Budesonide/Formoterol Fumarate (Symbicort 160-4.5 Mcg Inhaler) 160 MCG-4.5 MCG/ ACTUATION HFA.AER.AD 2 PUF INH PRN RESPIRATORY (Reported) Ciprofloxacin HCl (Cipro) 500 MG TABLET 1 TAB PO BID UTI Liraglutide (Victoza 2-Kuldeep) 0.6 MG/0.1 ML (18 MG/3 ML) PEN.INJCTR 1.2 MG SC DAILY DM (Reported) Losartan Potassium 50 MG TABLET 1 TAB PO DAILY BP (Reported) Metformin HCl (Metformin HCl ER) 500 MG TAB.ER.24H 2 TAB PO BID DIABETES ( Reported) Omeprazole Magnesium (Prilosec Otc) 20 MG TABLET.DR 1 TAB PO DAILY GI ( Reported) Pravastatin Sodium 80 MG TABLET 1 TAB PO DAILY CHOLESTEROL (Reported) Prednisone 20 MG TABLET 2 TAB PO D BRONCHITIS Rivaroxaban (Xarelto) 20 MG TABLET 1 TAB PO DAILY PE with food Solifenacin Succinate (Vesicare) 10 MG TABLET 1 TAB PO DAILY BLADDER ( Reported) (RK SHOOK,[facility]) Past History Travel History Traveled to [place] past 21 day No Medical History Any Pertinent Medical History? 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 EENT: cataracts, hearing loss Cardiovascular: CHF, hypertension, hyperlipidemia Respiratory: pulmonary embolism, ASTHMA, PNEUMONIA Gastrointestinal: GERD, sigmoid diverticulosis Hepatic: NONE Renal: BLADDER SLING 2017 Musculoskeletal: osteoarthritis, FOOT SURGERY RIGHT Psychiatric: NONE Endocrine: diabetes Blood Disorders: DVT Cancer(s): NONE [employer] ATTENDANT/Reproductive: HYSTERECTOMY Other Medical Hx: Hypertension, dyslipidemia, diabetes mellitus, CHF, asthma, prior transient ischemic attack versus CVA, sigmoid diverticulosis, internal hemorrhoids, gastroesophageal reflux disease, gastritis, positional vertigo, left carpal tunnel release, hysterectomy, right knee surgery for a meniscal tear, and recent foot surgery History of MRSA: No History of VRE: No History of CDIFF: No Tetanus Vaccine: 11/23/15 Surgical History Surgical History: R WRIST,TOE, HYSTERECTOMY BLADDER,RECTUM LIFTED right knee surgery for a meniscal tear left carpal tunnel release Psychosocial History Who do you live with Patient/Self Services at Home None What is your primary language Bulgarian Tobacco Use: Never used ETOH Use: denies use Illicit Drug Use: denies illicit drug use Family History Family History, If Any: BROTHER FH: throat cancer SISTER (atrial fibrillation). FH: lung cancer FH: thyroid cancer SISTER (permanent pacemaker placement). FH: melanoma FHx: breast cancer MOTHER (coronary artery disease in her 50's s/p CABG). FH: diabetes mellitus FH: myocardial infarction FH: stroke FATHER FH: kidney disease Hx Contributory? No (MICHAEL SHOOK,PAIGE Gudino) Review of Systems Review of Systems Constitutional: Reports: no symptoms. EENTM: Reports: no symptoms. Respiratory: Reports: no symptoms. Cardiovascular: Reports: no symptoms. GI: Reports: no symptoms. Genitourinary: Reports: no symptoms. Musculoskeletal: Reports: no symptoms. Skin: Reports: no symptoms. Neurological/Psychological: Reports: no symptoms. Hematologic/Endocrine: Reports: no symptoms. Immunologic/Allergic: Reports: no symptoms. All Other Systems: Reviewed and Negative (PAIGE RODRIGUEZ MD) Physical Exam Physical Exam General Appearance: well developed/nourished, mild distress Head: atraumatic, normal appearance Eyes: Bilateral: normal appearance. Ears, Nose, Throat: normal pharynx, normal ENT inspection Neck: normal inspection, supple, full range of motion Respiratory: rhonchi Cardiovascular: regular rate/rhythm Gastrointestinal: normal bowel sounds, soft, non-tender, no organomegaly Extremities: normal inspection, normal capillary refill, normal range of motion, no edema Neurologic/Psych: no motor/sensory deficits, awake, alert, oriented x 3 Skin: intact, normal color, warm/dry Core Measures ACS in differential dx? No Severe Sepsis Present: No Septic Shock Present: No (MICHAEL SHOOK,PAIGE Gudino) Progress Differential Diagnosis: asthma, bronchitis, CHF, COPD, pneumonia Plan of Care: Orders Procedure Date/time Status Heart Healthy Diet 03/30 L Active ED Holding Orders 03/30 910 Active Admit to inpatient 03/30 910 Active Vital Signs 03/30 910 Active Code Status 05/30 0910 Active AEROSOL (GEN) 03/30 0853 Complete RT ED ORDERS 03/30 0802 Active B-TYPE NATRIURETIC PEP (BNP) 03/30 0658 Complete LOWER RESPIRATORY CULTURE 03/30 0657 Active TROPONIN LEVEL 03/30 06 Complete COMPREHENSIVE METABOLIC PANEL 03/30 649 Complete CBC WITHOUT DIFFERENTIAL 03/30 649 Complete EKG 03/30 0632 Active Laboratory Tests 03/30/17 0658: Xyi-P-Vxrqcpeczpj Pept Cancelled 03/30/17 0658: Anion Gap 10, Estimated GFR > 60, BUN/Creatinine Ratio 25.0, Glucose 188 H, Calcium 9.1, Total Bilirubin 0.4, AST 16, ALT 36, Alkaline Phosphatase 68, Troponin I < 0.01, Ypw-J-Thwnvujggnc Pept 195 H, Total Protein 6.1 L, Albumin 3.5, Globulin 2.6, Albumin/Globulin Ratio 1.3, CBC w Diff NO MAN DIFF REQ, RBC 5.66 H, MCV 63.0 L, MCH 19.3 L, RDW 13.1, MPV 9.9, Gran % 66.5, Lymphocytes % 23.9, Monocytes % 6.8, Eosinophils % 2.2, Basophils % 0.6, Absolute Granulocytes 4.3, Absolute Lymphocytes 1.5, Absolute Monocytes 0.4, Absolute Eosinophils 0.1, Absolute Basophils 0, PUBS MCHC 30.6 L Microbiology 03/30 645 LOWER RESP: Respiratory Culture - RES 03/30 645 LOWER RESP: Gram Stain - RES 7:27 AM PENDING LABS, XRAY. 9:12 AM PATIENT RECEIVED 2ND NEB. CXR NEGATIVE. AMBULATED 10 FEET AND BECAME VERY SHORT OF BREATH, O2SAT 94%, HEART RATE 120'S, INCREASED WORK OF BREATHING. D/W DR WILLAMS FOR ADMISSION. (RK SHOOK,JORDANA) Diagnostic Imaging: Viewed by Me: Radiology Read. Discussed w/RAD: Radiology Read. Initial ED EKG: normal axis, normal intervals, normal p-waves, normal QRS complex, normal sinus rhythm Hand-Off Endorsed To: JORDANA BECKMAN MD (MICHAEL SHOOK,PAIGE Gudino) CXR Impression: PATIENT: ADARSH BOYD PRESENT AGE: 76 PATIENT ACCOUNT NO: [id number] : 42 LOCATION: ER ORDERING PHYSICIAN: PAIGE RODRIGUEZ MD SERVICE DATE: 03/30/17 EXAM TYPE: RAD - XRY-CHEST XRAY, PA AND LATERAL EXAMINATION: XR CHEST CLINICAL INFORMATION: Cough. COMPARISON: Chest radiograph dated December 28, 2016. TECHNIQUE: 2 views of the chest were obtained. FINDINGS: The cardiac silhouette is stable in size and configuration. There is uncoiling of the thoracic aorta. There is right lower lobe linear atelectasis. No definite pneumonia. No pneumothorax or pleural effusion. There are degenerative changes throughout the thoracic spine. IMPRESSION: No pneumonia. Right lower lobe subsegmental atelectasis. DICTATED BY : FABIOLA PATEL MD DATE/TIME DICTATED:03/30/17750 GAS OR PETROLEUM OPERATOR:FLORI DATE/TIME TRANSCRIBED:03/30/17750 CONFIDENTIAL, DO NOT COPY WITHOUT APPROPRIATE AUTHORIZATION. <Electronically signed in Other Vendor System> SIGNED BY: FABIOLA PATEL MD 03/30/17 0759 (JORDANA BECKMAN MD) Departure Departure Condition: Stable Clinical Impression Primary Impression: Bronchitis Referrals: EUSEBIA BUCK MD (PCP/Family) Departure Forms: Customer Survey General Discharge Information (MICHAEL SHOOK,PAIGE Gudino) Departure Time of Disposition: 909 Disposition: STILL A PATIENT Additional Instructions: Take the Augmentin, prednisone and use the inhaler as directed. Please drink plenty of fluids. Follow up with your doctor in the office. Return to the ER for any changing or worsening symptoms. Prescriptions: Current Visit Scripts Amoxicillin/Potassium Clav (Augmentin 875-125 Tablet) 1 TAB PO BID #20 TAB Albuterol Sulfate (Proair Hfa) 2 PUF INH Q4-6 PRN PRN DYSPNEA #1 INHAL Prednisone 2 TAB PO D #10 TAB Admission Note Spoke With: FOUZIA WILLAMS MD Documentation of Exam: Documentation of any treatments & extenuating circumstances including Concerns Regarding Discharge (functional status, medication knowledge or non-compliance, living conditions, etc.) that warrant an admission rather than observation: [ STEROIDS, TRC/NEBS, ABX, PULMONARY CONSULT, MONITOR I/O] (JORDANA BECKMAN MD) Critical Care Note Critical Care Note Critical Care Time: non-applicable (MICHAEL SHOOK,PAIGE Gudino)
[2017-03-30] MEDS ORDERED: PREDNISONE50 M1 PO (07:03)
[2017-03-30] MEDS ORDERED: AUGMENTIN 875-1 EACH PO ×2 (07:03→08:19)
[2017-03-30] MEDS ORDERED: VENTOLIN HFA18 GM INH (07:03)
[2017-03-30 07:27] LABS: ABSOLUTE BASOPHIL COUNT 0 /CUMM (0.0-0.2); ABSOLUTE EOSINOPHIL COUNT 0.1 /CUMM (0.0-0.7); ABSOLUTE GRANULOCYTE CT 4.3 /CUMM (1.4-6.5); ABSOLUTE LYMPH COUNT 1.5 /CUMM (1.2-3.4); ABSOLUTE MONOCYTE COUNT 0.4 /CUMM (0.10-0.60); BASOPHIL % 0.6 % (0.0-2.0); EOSINOPHIL % 2.2 % (0-5); GRANULOCYTE % 66.5 % (42.2-75.2); HEMATOCRIT 35.6 % (37-47); MEAN CORPUSCULAR HGB 19.3 PG (27.0-31.0); MEAN CORPUSCULAR HGB CONC 30.6 G/DL (33.0-37.0); MEAN PLATELET VOLUME 9.9 FL (7.4-10.4); PLATELET COUNT 199 /CUMM (130-400); RBC DISTRIBUTION WIDTH 13.1 % (11.5-14.5); RED BLOOD CELL CT 5.66 /CUMM (4.20-5.40); WHITE BLOOD CELL COUNT 6.5 /CUMM (4.8-10.8)
--- NOTE | 2017-03-30 07:59 | RADIOLOGY REPORT ---
EXAMINATION: XR CHEST CLINICAL INFORMATION: Cough. COMPARISON: Chest radiograph dated December 28, 2016. TECHNIQUE: 2 views of the chest were obtained. FINDINGS: The cardiac silhouette is stable in size and configuration. There is uncoiling of the thoracic aorta. There is right lower lobe linear atelectasis. No definite pneumonia. No pneumothorax or pleural effusion. There are degenerative changes throughout the thoracic spine. IMPRESSION: No pneumonia. Right lower lobe subsegmental atelectasis.
[2017-03-30] MEDS ORDERED: PROAIR HFA8.5 GM INH (08:19)
[2017-03-30] MEDS ORDERED: PREDNISONE20 M1 PO (08:20)
[2017-03-30] MEDS ORDERED: AZITHROMYCIN500 M3 PO (09:35)
--- NOTE | 2017-03-30 10:27 | History & Physical ---
[facility] 03/30/17 1027: General Information and HPI MD Statement: I have seen and personally examined ADARSH BOYD and documented this H&P. The patient is a 76 year old F who presented with a patient stated chief complaint of [Cough, epigastric pain]. 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 Patient report that today when she woke up at 5 AM she started to have continuous productive cough of white sputum with no blood which later became yellow in color, she also feels sharp, 10 over 10, epigastric pain with no radiation. Yesterday at afternoon she experienced the same epigastric pain which few minutes and then completely resolved, today at a.m. she vomits one time of clear fluid. She reports chills but denies fever or sweating. Patient denies any change in bowel habits, however she recently had urological procedure done by Dr. Rowley, and she still have urological problem, recently she finished a course of antibiotic for UTI. Patient also reports sore throat, she denies any sick contact and there is no recent travel. She denies chest pain, dizziness, palpitation, leg swelling or pain. Allergies/Medications Allergies: Coded Allergies: methylprednisolone (From Solu-Medrol) (Intermediate, HIVES AND PALPITATIONS 01/14) clove (HIVES 12/29/15) kimberli (HIVES 12/29/15) thyme (HIVES 12/29/15) hydrocodone (NAUSEA 12/29/15) ibuprofen (GI UPSET 12/29/15) lisinopril (DRY COUGH 12/29/15) nitrofurantoin (MAKES HER CRAZY 05/03/16) Uncoded Allergies: CHIVES (HIVES 01/05/16) Home Med list Acetylcysteine (Acetylcysteine) (Unknown Strength) VIAL 5 ML INH BID RESPIRATORY (Reported) Albuterol Sulfate 2.5 MG/3 ML (0.083 %) VIAL.NEB 1 Vial INH/EDDIE BID RESPIRATORY (Reported) Albuterol Sulfate (Proair Hfa) 90 MCG HFA.AER.AD 2 PUF INH Q4-6 PRN PRN DYSPNEA Azithromycin 500 MG TABLET 500 MG PO SI SOB (Reported) PER PT LIST, TAKES FBD-IOU-LENLUY Budesonide/Formoterol Fumarate (Symbicort 160-4.5 Mcg Inhaler) 160 MCG-4.5 MCG/ ACTUATION HFA.AER.AD 2 PUF INH PRN RESPIRATORY (Reported) Liraglutide (Victoza 2-Kuldeep) 0.6 MG/0.1 ML (18 MG/3 ML) PEN.INJCTR 1.2 MG SC DAILY DM (Reported) Losartan Potassium 50 MG TABLET 1 TAB PO DAILY BP (Reported) Metformin HCl (Metformin HCl ER) 500 MG TAB.ER.24H 2 TAB PO BID DIABETES ( Reported) Omeprazole Magnesium (Prilosec Otc) 20 MG TABLET.DR 1 TAB PO DAILY GI ( Reported) Pravastatin Sodium 80 MG TABLET 1 TAB PO DAILY CHOLESTEROL (Reported) Rivaroxaban (Xarelto) 20 MG TABLET 1 TAB PO DAILY PE with food Solifenacin Succinate (Vesicare) 10 MG TABLET 1 TAB PO DAILY BLADDER ( Reported) Past History Travel History Traveled to [place] past 21 day No Medical History Neurological: TIA, vertigo, STROKE `11 RESIDUAL L. 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 EENT: cataracts, hearing loss Cardiovascular: CHF, hypertension, hyperlipidemia Respiratory: pulmonary embolism, ASTHMA, PNEUMONIA Gastrointestinal: GERD, sigmoid diverticulosis Hepatic: NONE Renal: BLADDER SLING 2017 Musculoskeletal: osteoarthritis, FOOT SURGERY RIGHT Psychiatric: NONE Endocrine: diabetes Blood Disorders: DVT Cancer(s): NONE COLD HEADER/Reproductive: HYSTERECTOMY Other Medical Hx: Hypertension, dyslipidemia, diabetes mellitus, CHF, asthma, prior transient ischemic attack versus CVA, sigmoid diverticulosis, internal hemorrhoids, gastroesophageal reflux disease, gastritis, positional vertigo, left carpal tunnel release, hysterectomy, right knee surgery for a meniscal tear, and recent foot surgery History of MRSA: No History of VRE: No History of CDIFF: No Tetanus Vaccine: 09/23/15 Surgical History Surgical History: R WRIST,TOE, HYSTERECTOMY BLADDER,RECTUM LIFTED right knee surgery for a meniscal tear left carpal tunnel release Past Family/Social History Family History Relations & Conditions if any BROTHER FH: throat cancer SISTER (atrial fibrillation). FH: lung cancer FH: thyroid cancer SISTER (permanent pacemaker placement). FH: melanoma FHx: breast cancer MOTHER (coronary artery disease in her 50's s/p CABG). FH: diabetes mellitus FH: myocardial infarction FH: stroke FATHER FH: kidney disease Psychosocial History Services at Home: None ETOH Use: denies use Illicit Drug Use: denies illicit drug use Functional Ability ADLs Independent: dressing, eating, toileting, bathing. Ambulation: independent IADLs Independent: shopping, housework, finances, food prep, telephone, transportation , medication admin. Review of Systems Review of Systems Constitutional: Reports: chills, malaise, weakness. EENTM: Reports: no symptoms. Cardiovascular: Reports: no symptoms. Respiratory: Reports: cough, short of breath. GI: Reports: abdominal pain, vomiting. Genitourinary: Reports: no symptoms. Musculoskeletal: Reports: no symptoms. Skin: Reports: no symptoms. Neurological/Psychological: Reports: no symptoms. Hematologic/Endocrine: Reports: no symptoms. Immunologic/Allergic: Reports: no symptoms. All Other Systems: Reviewed and Negative Exam & Diagnostic Data Last 24 Hrs of Vital Signs/I&O Vital Signs Date Time Temp Pulse Resp B/P B/P Pulse O2 O2 Flow FiO2 Mean Ox Delivery Rate 03/30 1125 97.8 97 20 150/70 96 Room Air 03/30 1023 97.2 97 16 162/98 97 Room Air 03/30 0845 96 03/30 0842 97.2 85 20 172/77 96 Room Air 03/30 0640 94 Room Air 03/30 0638 96.7 99 20 140/81 95 Room Air Intake & Output 03/30 1600 03/30 0800 03/30 0000 Intake Total 0 Output Total Balance 0 Intake, Oral 0 Patient 204 lb 204 lb Weight Weight Reported by Patient Reported by Patient Measurement Method Physical Exam General Appearance Alert, Oriented X3, Cooperative, Moderate Distress Skin No Rashes, No Breakdown, No Significant Lesion Skin Temp/Moisture Exam: Warm/Dry HEENT Atraumatic, PERRLA, EOMI, Mucous Membr. moist/pink Neck Supple, No JVD, No thryomegaly Lymphatic Axillary nl, Cervical nl Cardiovascular Normal S1, Normal S2, No Murmurs Lungs Decrease air entry B/L with B/L wheezing and rhonchi Abdomen Normal Bowel Sounds, Soft, Tenderness over the epigastric area and LLQ Extremities No Edema, Normal Pulses Vascular Normal Pulses, Pulses Symmetrical Last 24 Hrs of Labs/Robert: Laboratory Tests 03/30/17657: Zzc-S-Eyzitphqmnj Pept Cancelled 03/30/17657: Anion Gap 10, Estimated GFR > 60, BUN/Creatinine Ratio 25.0, Glucose 188 H, Calcium 9.1, Total Bilirubin 0.4, AST 16, ALT 36, Alkaline Phosphatase 68, Troponin I < 0.01, Smi-F-Ynpqlkbspxm Pept 195 H, Total Protein 6.1 L, Albumin 3.5, Globulin 2.6, Albumin/Globulin Ratio 1.3, CBC w Diff NO MAN DIFF REQ, RBC 5.66 H, MCV 63.0 L, MCH 19.3 L, RDW 13.1, MPV 9.9, Gran % 66.5, Lymphocytes % 23.9, Monocytes % 6.8, Eosinophils % 2.2, Basophils % 0.6, Absolute Granulocytes 4.3, Absolute Lymphocytes 1.5, Absolute Monocytes 0.4, Absolute Eosinophils 0.1, Absolute Basophils 0, PUBS MCHC 30.6 L Microbiology 03/30 645 LOWER RESP: Respiratory Culture - RES 03/30 645 LOWER RESP: Gram Stain - RES Diagnostic Data CXR Results IMPRESSION: No pneumonia. Right lower lobe subsegmental atelectasis. 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 Vitals, examiantion, labs and imaging as above Assessment: #Productive cough and B/L wheezing 2/2 asthma exacerbation, no signs or symptoms of infection #Epigastric pain: which could be 2/2 GERD #Hx. of HTN, HLD #Hx. of DM #Hx. of PE/DVT on Xarelto #Hx. of CVA with residual LT. side weakness Plan: -Will admit the patient to general medicine floor -[facility] neb -Solu-Medrol 40 mg every 6 for now, reevaluate at a.m. -Pulmonology consult with Dr. Mitchell -We'll order d-dimer to rule outs possibility of PE (low probability) -Sputum culture was sent at ED, will add urine Ligionella and Strept. -We'll continue PPI for epigastric pain -We'll continue Xarelto -We'll continue losartan, pravastatin -We'll hold on antibiotic for now as the x-ray doesn't show any infiltration and she is not spiking fever and no leukocytosis -We will hold on metformin and Victoza and we will start insulin sliding scale with Accu-Chek 3 times a day before meals at bedtime -Consistent carb 3 diet -Pain management pathway DVT prophylaxis with Xarelto Full code As Ranked By This Provider Problem List: 1. Asthma 2. CVA 3. Diabetes mellitus 4. GERD Core Measures/Miscellaneous Acute Coronary Syndrome ACS Diagnosis: No Cerebrovascular Accident CVA/TIA Diagnosis: No Congestive Heart Failure CHF Diagnosis: No Venous Thromboembolism VTE Risk Factors: Acute medical illness, Age > 40 No [facility] VTE prophylaxis d/t: No contraindications No VTE Pharm Prophylaxis d/t: No contraindications VTE Diagnosis: No VTE Type: NONE VTE Confirmed by (Test): NONE Severe Sepsis Severe Sepsis Present: No Septic Shock Septic Shock Present: No Miscellaneous Documentation Attending Case Discussed With: VIJAYA MELTON MD Primary Care Physician: EUSEBIA BUCK MD Patient sees these Specialists Level of Patient Care: General Medicine VIJAYA MELTON MD 03/30/17 1309: Attending MD Review Statement Attending Statement Attending Statement: examined this patient, discuss w/resident/PA/INSTALLMENT ACCOUNT CHECKER, agreed w/resident/PA/INSTALLMENT ACCOUNT CHECKER, reviewed EMR data (avail) Attending Assessment/Plan: 76F PMH HTN, T2DM, history of CVA, history of bilateral pulmonary embolism on Xarelto, recurrent Pseudomonal pneumonia, COPD, asthma presenting with shortness of breath, dyspnea on exertion, and cough with productive white sputum for two days. Patient feels weak but otherwise well. She is speaking in complete sentences but does appear short of breath. Exam reveals wheezing bilaterall with bilateral lower lobe rhonchi. Labs show chronic anemia. Afebrile, stable vitals. Patient recently completed course of Cipro for UTI. No evidence of pneumonia on CXR. 1. Asthma exacerbation 2. Productive cough 3. History of PE 4. History of CVA Plan - Admit to general medicine - Will start Solumedrol, monitor for adverse effects, may switch to Prednisone if not tolerated - TRC/nebulizer treatments - Hold on antibiotics for now unless febrile or positive culture - Obtain sputum culture - Pulmonary consult with Dr. Mitchell - Continue home medications - DVT PPx ADDENDUM: Patient complained of LLE weakness that started abruptly. She reports decreased sensation in the LLE. She does report pain on knee palpation. She is unable to bend the knee due to pain. Her strength is decreased at the left hip and knee, however her foot strength is intact. Patient refused reflex exam. Will obtain head CT, transfer to telemetry, neurology consult, continue ASA and statin.
[2017-03-30 11:25] VITALS: BP 150/70
--- NOTE | 2017-03-30 13:04 | Admission Certification ---
Admission Certification Certification Statement - As attending physician, I certify that at the time of - admission, based on clinical presentation, severity of - symptoms, need for further diagnostic testing and - therapeutic interventions, and risk of adverse outcomes - without in-hospital treatment, in my clinical assessment, - this patient requires an acute hospital stay for a minimum - of two nights or longer. I have also considered psychsocial - factors such as support system, advanced age, financial - issues, cognitive issues, and failed out-patient treatments, - past re-admission history, safety of patient, and lack of - compliance as applicable. Specific rationale supporting this admission is: Asthma exacerbation with severe dyspnea and tachycardia on exertion
[2017-03-30 15:25] VITALS: BP 144/80
--- NOTE | 2017-03-30 16:45 | CT SCAN REPORT ---
EXAMINATION: CT HEAD WITHOUT CONTRAST CLINICAL INFORMATION: Left-sided weakness. COMPARISON: 08/25/2016. TECHNIQUE: Contiguous axial images of the brain were obtained without IV contrast. DLP: 612 mGy-cm. FINDINGS: There are no pathologic extra-axial fluid collections. The lateral, third, fourth ventricles are mildly prominent, but age-appropriate, stable and concordant with the appearance of the sulci. There is no evidence for acute intraparenchymal hemorrhage or infarct. There is mild periventricular low-attenuation indicative of small vessel disease. There is neither mass nor mass effect. There is no shift of midline structures. The paranasal sinuses and mastoid air cells are clear. There are no osseous lesions. IMPRESSION: No evidence for acute intracranial injury. Stable age-appropriate appearance of the brain.
[2017-03-30 17:27] VITALS: BP 140/80
--- NOTE | 2017-03-30 17:32 | Event Note ---
Event Note Event Note: Situation: Called to see patient around 3:30 pm complaing of sudden onset weakness in her left lower limb with associated numbness. 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 However she was able to ambulate without assistance prior to this new weakness. Now she feels she cannot lift her left leg out of bed. She was admitted just this afternoon for a COPD exacerbation. Assessment: Physical exam General: Very anxious elderly woman, not in distress Head: atraumatic, normal appearance Eyes: PERRLA, pupils 4 mm bilaterally, EOMI, No nystagmus noted Ears, Nose, Throat: normal pharynx Neck: normal inspection, supple, full range of motion Respiratory: Bilateral scattered rhonchi Cardiovascular: Regular rate/rhythm Gastrointestinal: normal bowel sounds, soft, non-tender, no organomegaly Extremities: Normal inspection, no edema Neurologic exam: Left lower limb power 2/5, left upper limb power 4/5, no sensory deficit in bilateral lowr limbs, brisk and equal DTRs in both limbs, hypertonia/spasm noted in left leg, normal tone in right leg and both upper limbs. Skin: intact, normal color, warm/dry. Stat: CT scan of head showed no intracranial bleed or lesion. Assessment: Concern for evolving CVA Response: -Discussed with attending Dr. Baird -Transfer to telemetry for close monitoring -EKG stat -Neurochecks Q 4 hours -Aspirin 81 mg stat -Patient is on Xarelto for PE -Continue pravastatin 80 mg daily at 1700 -Urgent neurology consult
[2017-03-31 00:23] VITALS: BP 152/74
[2017-03-31 07:54] LABS: ABSOLUTE BASOPHIL COUNT 0 /CUMM (0.0-0.2); ABSOLUTE EOSINOPHIL COUNT 0.1 /CUMM (0.0-0.7); ABSOLUTE GRANULOCYTE CT 8.6 /CUMM (1.4-6.5); ABSOLUTE LYMPH COUNT 0.7 /CUMM (1.2-3.4); ABSOLUTE MONOCYTE COUNT 0.2 /CUMM (0.10-0.60); BASOPHIL % 0.2 % (0.0-2.0); EOSINOPHIL % 1.2 % (0-5); HEMATOCRIT 34.7 % (37-47); MEAN CORPUSCULAR HGB 19.5 PG (27.0-31.0); MEAN CORPUSCULAR HGB CONC 30.9 G/DL (33.0-37.0); MEAN CORPUSCULAR VOLUME 63.2 FL (81.0-99.0); MEAN PLATELET VOLUME 9.9 FL (7.4-10.4); PLATELET COUNT 218 /CUMM (130-400); RBC DISTRIBUTION WIDTH 13.4 % (11.5-14.5); RED BLOOD CELL CT 5.49 /CUMM (4.20-5.40); WHITE BLOOD CELL COUNT 9.6 /CUMM (4.8-10.8)
[2017-03-31 08:23] VITALS: BP 140/76
--- NOTE | 2017-03-31 08:25 | Cons- Neurology ---
General Information and HPI Consulting Request Date of Consult: 03/31/17 Requested By: VIJAYA MELTON MD Reason for Consult: L LE weakness Source of Information: patient, EMR History of Present Illness: 76 with a history of multiple episodes of left body sensory disturbance. Review of EMR shows that she was seen by our service for this reason in 2010, 2012, 2013, 2014 (motor deficit, received TPA), and twice in 2016. At one point left- sided hemifacial spasm was suspected but has apparently not recurred. Past brain MRIs have been unrevealing She has been on aspirin, Aggrenox, and Plavix. Most recently she has been on Xarelto but the indication appears to be due to a history of pulmonary emboli. On this admission she presented with shortness of breath and productive cough. She is being treated for an asthma exacerbation with IV Solu-Medrol and nebulizer treatment. Yesterday afternoon while she was here as an inpatient she developed sudden onset numbness extending from just below her left knee down to her foot. He states that her left knee was "banged" (reflex testing?) After which she experienced pain. She also feels as if her left knee is warm and swollen although admittedly this is hard to appreciate at this time. Allergies/Medications Allergies: Coded Allergies: methylprednisolone (From Solu-Medrol) (Intermediate, HIVES AND PALPITATIONS 01/14) clove (HIVES 12/29/15) kimberli (HIVES 12/29/15) thyme (HIVES 12/29/15) hydrocodone (NAUSEA 12/29/15) ibuprofen (GI UPSET 12/29/15) lisinopril (DRY COUGH 12/29/15) nitrofurantoin (MAKES HER CRAZY 05/03/16) Uncoded Allergies: CHIVES (HIVES 01/05/16) Home Med List: Acetylcysteine (Acetylcysteine) (Unknown Strength) VIAL 5 ML INH BID RESPIRATORY (Reported) Albuterol Sulfate 2.5 MG/3 ML (0.083 %) VIAL.NEB 1 Vial INH/EDDIE BID RESPIRATORY (Reported) Albuterol Sulfate (Proair Hfa) 90 MCG HFA.AER.AD 2 PUF INH Q4-6 PRN PRN DYSPNEA Azithromycin 500 MG TABLET 500 MG PO SI SOB (Reported) PER PT LIST, TAKES [id number] Budesonide/Formoterol Fumarate (Symbicort 160-4.5 Mcg Inhaler) 160 MCG-4.5 MCG/ ACTUATION HFA.AER.AD 2 PUF INH PRN RESPIRATORY (Reported) Liraglutide (Victoza 2-Kuldeep) 0.6 MG/0.1 ML (18 MG/3 ML) PEN.INJCTR 1.2 MG SC DAILY DM (Reported) Losartan Potassium 50 MG TABLET 1 TAB PO DAILY BP (Reported) Metformin HCl (Metformin HCl ER) 500 MG TAB.ER.24H 2 TAB PO BID DIABETES ( Reported) Omeprazole Magnesium (Prilosec Otc) 20 MG TABLET.DR 1 TAB PO DAILY GI ( Reported) Pravastatin Sodium 80 MG TABLET 1 TAB PO DAILY CHOLESTEROL (Reported) Rivaroxaban (Xarelto) 20 MG TABLET 1 TAB PO DAILY PE with food Solifenacin Succinate (Vesicare) 10 MG TABLET 1 TAB PO DAILY BLADDER ( Reported) Current Medications: Current Medications Sig/Bull Start time Last Medication Dose Route Stop Time Status Admin Acetaminophen 650 MG Q6P PRN 03/30 1100 AC PO Acetylcysteine 4 ML BID 03/30 2200 AC INH Albuterol Sulfate 3 ML BID 03/30 2200 AC INH Albuterol Sulfate 3 ML EVERY 4 HRS/AWAKE 03/30 2000 AC 03/30 INH 2052 Albuterol Sulfate 2 PUF Q4-6 PRN PRN 03/30 1130 AC INH Alprazolam 0.25 MG ONCE ONE 03/30 1645 CAN PO 03/30 1646 Aspirin 81 MG ONCE ONE 03/30 1700 DC 03/30 PO 03/30 1701 1940 Atorvastatin Calcium 80 MG ONCE ONE 03/30 1700 CAN PO 03/30 1701 Budesonide/ 2 PUF DAILY PRN 03/30 1130 AC Formoterol Fumarate INH Dexamethasone 8 MG Q6 03/30 1800 AC 03/31 Dextrose/Water 50 ML IV 0607 Guaifenesin 10 ML Q4P PRN 03/30 1045 AC PO Insulin Aspart 0 TIDAC/HS 03/31 0800 DC SC Insulin Aspart 0 TIDAC/HS 03/30 2345 AC 03/30 SC 2348 Insulin Aspart 0 TIDAC 03/30 1700 DC 03/30 SC 1411 Ipratropium [place] 2.5 ML EVERY 4 HRS/AWAKE 03/30 2000 AC 03/30 INH 2053 Lorazepam 0.5 MG ONCE ONE 03/30 1700 DC 03/30 PO 03/30 1701 1656 Losartan Potassium 50 MG DAILY 03/30 1123 AC 03/30 PO 1412 Methylprednisolone 40 MG Q6 03/30 1800 CAN IV 04/01 0000 Omeprazole 40 MG DAILY AC 03/30 1338 AC 03/31 PO 0607 Oxybutynin Chloride 5 MG BID 03/30 2200 AC 03/30 PO 2144 Pravastatin Sodium 80 MG 1700 03/30 1700 AC 03/30 PO 1656 Rivaroxaban 20 MG DAILY 03/30 1123 AC 03/30 PO 1412 Review of Systems Review of Systems: REVIEW OF SYSTEMS: (-) = negative / normal blank = not discussed Neurologic: see HPI Eyes: (-) ENT: (-) Constitutional: (-) CV: (-) Respiratory: As per HPI /Renal: (-) Musculoskeletal: (-) Skin: (-) Psychiatric: (-) Heme: (-) GI: (-) Allergy/Immune: (-) Endocrine: (-) Other: (-) Past History Travel History Traveled to [place] past 21 day No Medical History Blood Transfusion Hx: No Neurological: TIA, vertigo, STROKE `11 RESIDUAL L. 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 EENT: cataracts, hearing loss Cardiovascular: CHF, hypertension, hyperlipidemia Respiratory: pulmonary embolism, ASTHMA, PNEUMONIA Gastrointestinal: GERD, sigmoid diverticulosis Hepatic: NONE Renal: BLADDER SLING 2017 Musculoskeletal: osteoarthritis, FOOT SURGERY RIGHT Psychiatric: NONE Endocrine: diabetes Blood Disorders: DVT Cancer(s): NONE TOBACCO DIPPER/Reproductive: HYSTERECTOMY Other Medical Hx: Hypertension, dyslipidemia, diabetes mellitus, CHF, asthma, prior transient ischemic attack versus CVA, sigmoid diverticulosis, internal hemorrhoids, gastroesophageal reflux disease, gastritis, positional vertigo, left carpal tunnel release, hysterectomy, right knee surgery for a meniscal tear, and recent foot surgery Surgical History Surgical History: R WRIST,TOE, HYSTERECTOMY BLADDER,RECTUM LIFTED right knee surgery for a meniscal tear left carpal tunnel release Family History Relations & Conditions If Any: BROTHER FH: throat cancer SISTER (atrial fibrillation). FH: lung cancer FH: thyroid cancer SISTER (permanent pacemaker placement). FH: melanoma FHx: breast cancer MOTHER (coronary artery disease in her 50's s/p CABG). FH: diabetes mellitus FH: myocardial infarction FH: stroke FATHER FH: kidney disease Psychosocial History Where Do You Live? Home Services at Home: None Primary Language: Malawian Smoking Status: Former Smoker ETOH Use: denies use Illicit Drug Use: denies illicit drug use Functional Ability ADLs Independent: dressing, eating, toileting, bathing. Ambulation: independent IADLs Independent: shopping, housework, finances, food prep, telephone, transportation , medication admin. Exam & Diagnostic Data Vital Signs and I&O Vital Signs Date Time Temp Pulse Resp B/P B/P Pulse O2 O2 Flow FiO2 Mean Ox Delivery Rate 03/31 0023 98.9 111 16 152/74 95 Room Air 03/31 0000 Room Air 03/30 2055 96 Room Air 03/30 1822 Room Air Room Air 03/30 1727 97.8 94 16 140/80 93 Room Air 03/30 1700 Room Air 03/30 1600 Room Air 03/30 1525 97.8 104 20 144/80 96 Room Air 03/30 1412 97 150/70 03/30 1125 97.8 97 20 150/70 96 Room Air 03/30 1023 97.2 97 16 162/98 97 Room Air 03/30 0845 96 03/30 0842 97.2 85 20 172/77 96 Room Air Intake & Output 03/31 1600 03/31 0800 03/31 0000 Intake Total 304 240 Output Total 550 400 Balance -246 -160 Intake, IV 104 Intake, Oral 200 240 Output, Urine 550 400 Physical Exam: PHYSICAL EXAMINATION: nl = normal NT or blank = not tested GENERAL Appearance: nl Head: nl Eyes: nl ENT: nl Neck: nl Carotids: nl Lungs: nl Heart: nl Extremities: nl NEUROLOGIC MENTAL STATUS Level of consciousness: nl Orientation: nl Attention / Concentration: nl Memory: nl Fund of Knowledge: nl Speech / Language: nl NEUROLOGIC CRANIAL NERVES I: Olfaction: NT II: Optic nerves: nl Visual vogel: nl III: Pupils: nl Levator palpebrae: nl III, IV, : Ocular alignment: nl Extraocular motility: nl Pursuits/ saccades: nl V: Facial sensation: nl Masseter/Pterygoids: nl VII: Facial Motor: nl VIII: Hearing (finger rub): nl IX, X: Uvula and palate: nl XI: SCM, Upper trap.: nl XII: Tongue: nl MOTOR / NEUROMUSCULAR Bulk: nl Tone: nl Strength: Normal with the exception of left iliopsoas weakness versus pain related muscle inhibition Rapid alternating movements: nl Fine motor movements: nl Abnormal / involuntary movements: none CEREBELLAR / COORDINATION: intact SENSATION: intact to light touch, vibration, pinprick, and joint position Deep tendon reflexes symmetrically trace to absent DELGADO'S: (-) PLANTARS: flexor GAIT: Not tested Last 48 Hours of Lab Results: Laboratory Tests 03/31 03/30 03/30 0624 1320 0658 Chemistry Sodium (137 - 145 mmol/L) 138 Potassium (3.5 - 5.1 mmol/L) 4.8 Chloride (98 - 107 mmol/L) 103 Carbon Dioxide (22 - 30 mmol/L) 23 Anion Gap (5 - 16) 11 BUN (7 - 17 mg/dL) 21 H Creatinine (0.5 - 1.0 mg/dL) 0.9 Estimated GFR (>60 ml/min) > 60 BUN/Creatinine Ratio (7 - 25 %) 23.3 Qia-X-Jptxzsuuhdg Pept Cancelled Coagulation D-Dimer (70 - 232 ng/ml) 348 H Hematology CBC w Diff Pending WBC Pending RBC Pending Hgb Pending Hct Pending MCV Pending MCH Pending RDW Pending Plt Count Pending MPV Pending Gran % Pending Lymphocytes % Pending Monocytes % Pending Eosinophils % Pending Basophils % Pending Absolute Granulocytes Pending Absolute Lymphocytes Pending Absolute Monocytes Pending Absolute Eosinophils Pending Absolute Basophils Pending PUBS MCHC Pending 03/30 0658 Chemistry Sodium (137 - 145 mmol/L) 139 Potassium (3.5 - 5.1 mmol/L) 4.2 Chloride (98 - 107 mmol/L) 107 Carbon Dioxide (22 - 30 mmol/L) 22 Anion Gap (5 - 16) 10 BUN (7 - 17 mg/dL) 20 H Creatinine (0.5 - 1.0 mg/dL) 0.8 Estimated GFR (>60 ml/min) > 60 BUN/Creatinine Ratio (7 - 25 %) 25.0 Glucose (65 - 99 mg/dL) 188 H Calcium (8.4 - 10.2 mg/dL) 9.1 Total Bilirubin (0.2 - 1.3 mg/dL) 0.4 AST (14 - 36 U/L) 16 ALT (9 - 52 U/L) 36 Alkaline Phosphatase (<127 U/L) 68 Troponin I (< 0.11 ng/ml) < 0.01 [id number] Pept (<125 pg/mL) 195 H Total Protein (6.3 - 8.2 g/dL) 6.1 L Albumin (3.5 - 5.0 g/dL) 3.5 Globulin (1.9 - 4.2 gm/dL) 2.6 Albumin/Globulin Ratio (1.1 - 2.2 %) 1.3 Triglycerides (<150 mg/dL) 115 Cholesterol (<200 MG/DL) 128 LDL Cholesterol, Calc (65 - 129 mg/dL) 65 HDL Cholesterol (40 - 60 mg/dL) 40 Cholesterol/HDL Ratio (0.00 - 4.23 %) 3 Hematology CBC w Diff NO MAN DIFF REQ WBC (4.8 - 10.8 /CUMM) 6.5 RBC (4.20 - 5.40 /CUMM) 5.66 H Hgb (12.0 - 16.0 G/DL) 10.9 L Hct (37 - 47 %) 35.6 L MCV (81.0 - 99.0 FL) 63.0 L MCH (27.0 - 31.0 PG) 19.3 L RDW (11.5 - 14.5 %) 13.1 Plt Count (130 - 400 /CUMM) 199 MPV (7.4 - 10.4 FL) 9.9 Gran % (42.2 - 75.2 %) 66.5 Lymphocytes % (20.5 - 51.1 %) 23.9 Monocytes % (1.7 - 9.3 %) 6.8 Eosinophils % (0 - 5 %) 2.2 Basophils % (0.0 - 2.0 %) 0.6 Absolute Granulocytes (1.4 - 6.5 /CUMM) 4.3 Absolute Lymphocytes (1.2 - 3.4 /CUMM) 1.5 Absolute Monocytes (0.10 - 0.60 /CUMM) 0.4 Absolute Eosinophils (0.0 - 0.7 /CUMM) 0.1 Absolute Basophils (0.0 - 0.2 /CUMM) 0 PUBS MCHC (33.0 - 37.0 G/DL) 30.6 L Imaging/Other Studies: Hd CT 5-30 COMPARISON: 08/25/2016. TECHNIQUE: Contiguous axial images of the brain were obtained without IV contrast. DLP: 612 mGy-cm. FINDINGS: There are no pathologic extra-axial fluid collections. The lateral, third, fourth ventricles are mildly prominent, but age-appropriate, stable and concordant with the appearance of the sulci. There is no evidence for acute intraparenchymal hemorrhage or infarct. There is mild periventricular low-attenuation indicative of small vessel disease. There is neither mass nor mass effect. There is no shift of midline structures. The paranasal sinuses and mastoid air cells are clear. There are no osseous lesions. IMPRESSION: No evidence for acute intracranial injury. Stable age-appropriate appearance of the brain. DICTATED BY: FOUZIA IRWIN MD DATE/TIME DICTATED:03/30/178 Carotid ultrasound 05/02/2016: IMPRESSION: 1. The right internal carotid artery shows no hemodynamically significant stenosis. 2. The left internal carotid artery shows no hemodynamically significant stenosis. 3. The Doppler velocities is consistent with less than 50% stenosis. 4. The vertebral bodies are patent and show antegrade flow. Assessment/Plan Assessment: Possible TIA in a 76-year-old woman with a history of multiple TIA-like episodes affecting the left body, unremarkable carotid Doppler ultrasound in the past, has been on aspirin, Aggrenox, Plavix in the past, currently on Xarelto due to a history of pulmonary emboli, no known history of atrial fibrillation. She is also on statin therapy at home Recommendations: Add aspirin 81 mg Continue statin Check carotid ultrasound Consult physical therapy Ice/heat/analgesics when necessary left knee pain Consult Acknowledgment - Thank you for your consult request.
--- NOTE | 2017-03-31 08:34 | PN- Housestaff ---
ISAI BARRIOS 03/31/17 0818: Subjective Follow-up For: 1. Asthma exacerbation 2. Productive cough 3. History of PE 4. History of CVA Tele-Events Since Last Visit: Sinus rhythm Subjective: Reports much improved breathing. Improved cough symptoms, still bringing up phlegm. No further episodes of numbness/tingling or leg weakness. No CP,SOB, lightheadedness or dizziness. No fevers or chills. Review of Systems Constitutional: Reports: see HPI. Objective Last 24 Hrs of Vital Signs/I&O Vital Signs Date Time Temp Pulse Resp B/P B/P Pulse O2 O2 Flow FiO2 Mean Ox Delivery Rate 03/31 0023 98.9 111 16 152/74 95 Room Air 03/31 0000 Room Air 03/30 2055 96 Room Air 03/30 1822 Room Air Room Air 03/30 1727 97.8 94 16 140/80 93 Room Air 03/30 1700 Room Air 03/30 1600 Room Air 03/30 1525 97.8 104 20 144/80 96 Room Air 03/30 1412 97 150/70 03/30 1125 97.8 97 20 150/70 96 Room Air 03/30 1023 97.2 97 16 162/98 97 Room Air 03/30 0845 96 03/30 0842 97.2 85 20 172/77 96 Room Air Intake & Output 03/31 1600 03/31 0800 03/31 0000 Intake Total 304 240 Output Total 550 400 Balance -246 -160 Intake, IV 104 Intake, Oral 200 240 Output, Urine 550 400 Physical Exam General Appearance: Alert, Oriented X3, Cooperative HEENT: Atraumatic, PERRLA Cardiovascular: Regular Rate, Normal S1, Normal S2 Lungs: Clear to Auscultation, Normal Air Movement Abdomen: Normal Bowel Sounds, Soft, No Tenderness Neurological: Normal Speech, Strength at 5/5 X4 Ext (except LLE 4/5) Extremities: No Clubbing, No Cyanosis, No Edema Vascular: Normal Pulses, Pulses Symmetrical Current Medications: Current Medications Sig/Bull Start time Last Medication Dose Route Stop Time Status Admin Acetaminophen 650 MG Q6P PRN 03/30 1100 AC PO Acetylcysteine 4 ML BID 03/30 2200 AC INH Albuterol Sulfate 3 ML BID 03/30 2200 AC INH Albuterol Sulfate 3 ML EVERY 4 HRS/AWAKE 03/30 2000 AC 03/30 INH 2052 Albuterol Sulfate 2 PUF Q4-6 PRN PRN 03/30 1130 AC INH Alprazolam 0.25 MG ONCE ONE 03/30 1645 CAN PO 03/30 1646 Aspirin 81 MG ONCE ONE 03/30 1700 DC 03/30 PO 03/30 1701 1940 Atorvastatin Calcium 80 MG ONCE ONE 03/30 1700 CAN PO 03/30 1701 Budesonide/ 2 PUF DAILY PRN 03/30 1130 AC Formoterol Fumarate INH Dexamethasone 8 MG Q6 03/30 1800 AC 03/31 Dextrose/Water 50 ML IV 0607 Guaifenesin 10 ML Q4P PRN 03/30 1045 AC PO Insulin Aspart 0 TIDAC/HS 03/31 0800 DC SC Insulin Aspart 0 TIDAC/HS 03/30 2345 AC 03/30 SC 2348 Insulin Aspart 0 TIDAC 03/30 1700 DC 03/30 SC 1411 Ipratropium [place] 2.5 ML EVERY 4 HRS/AWAKE 03/30 2000 AC 03/30 INH 2052 Lorazepam 0.5 MG ONCE ONE 03/30 1700 DC 03/30 PO 03/30 1701 1656 Losartan Potassium 50 MG DAILY 03/30 1123 AC 03/30 PO 1412 Methylprednisolone 40 MG Q6 03/30 1800 CAN IV 04/01 0000 Omeprazole 40 MG DAILY AC 03/30 1338 AC 03/31 PO 0607 Oxybutynin Chloride 5 MG BID 03/30 2200 AC 03/30 PO 2144 Pravastatin Sodium 80 MG 1700 03/30 1700 AC 03/30 PO 1656 Rivaroxaban 20 MG DAILY 03/30 1123 AC 03/30 PO 1412 Last 24 Hrs of Lab/Robert Results Last 24 Hrs of Labs/Mics: Laboratory Tests 03/31/17 0624: Anion Gap 11, Estimated GFR > 60, BUN/Creatinine Ratio 23.3, CBC w Diff Pending, WBC Pending, RBC Pending, Hgb Pending, Hct Pending, MCV Pending, MCH Pending, RDW Pending, Plt Count Pending, MPV Pending, PUBS MCHC Pending 03/30/17 1320: D-Dimer 348 H Assessment/Plan Assessment: 76 year old woman with worsening breathing symptoms admitted yesterday, now with much improved breathing status with IV steroids and nebulizers. Also, had an episode of numbness/tingling and LLE weakness prompting her transfer to tele for close monitoring. 1. Asthma exacerbation: Improved. May switch to PO steroids. Mucinex ER. Continue holding abx. resp cultures pending. [facility] nebs. 2. Left knee pain: No trauma, or falls. Likely age related OA. Check knee X-ray. Tylenol 500 ATC x 8 doses, may decrease to BID thereafter. PT/OT. 3. H/o PE: Continue Xarelto. 4. ? CVA/TIA: No concerning cardiac events on monitor overnight. Continue ASA, statin. No concerning weaknesses in LLE today. Await neuro input. PT. May DC Tele post Neuro evalutaion. 5. Elevated BP: Continue to monitor, may need a low dose of anti hypertensive. Full code DVT proph adressed by Xarelto use. Problem List: 1. Hypertension Pain Ratin Pain Location: Left knee Pain Goal: Pain 4 or less Pain Plan: Tylenol ATC Tomorrow's Labs & Rationales: Not needed. PILAR SHOOK,[facility] 03/31/17 1314: Attending MD Review Statement Attending Statement Attending MD Statement: examined this patient, discuss w/resident/PA/PATTERNMAKER SAMPLE, agreed w/resident/PA/PATTERNMAKER SAMPLE, reviewed EMR data (avail), discussed with nursing, discussed with case mgmt, reviewed images, amended to note Attending Assessment/Plan: Patient seen and examined, feeling overall better. Breathing is improved. The left lower extremity is still weak but now she is able to at least move it. Vital Signs Date Time Temp Pulse Resp B/P B/P Pulse O2 O2 Flow FiO2 Mean Ox Delivery Rate 03/31 0952 95 140/76 03/31 0923 98 Room Air Room Air 03/31 0823 98.1 95 18 140/76 96 Room Air 03/31 0023 98.9 111 16 152/74 95 Room Air 03/31 0000 Room Air 03/30 2055 96 Room Air 03/30 1822 Room Air Room Air 03/30 1727 97.8 94 16 140/80 93 Room Air 03/30 1700 Room Air 03/30 1600 Room Air 03/30 1525 97.8 104 20 144/80 96 Room Air 03/30 1412 97 150/70 on exam; aox3, nad. cv; s1,s2, rrr resp; clear abd; soft, nt, bs+ ext; no edema. neuro; 4.5/5 strength in lle. Laboratory Tests 03/31 03/30 0624 1320 Chemistry Sodium (137 - 145 mmol/L) 138 Potassium (3.5 - 5.1 mmol/L) 4.8 Chloride (98 - 107 mmol/L) 103 Carbon Dioxide (22 - 30 mmol/L) 23 Anion Gap (5 - 16) 11 BUN (7 - 17 mg/dL) 21 H Creatinine (0.5 - 1.0 mg/dL) 0.9 Estimated GFR (>60 ml/min) > 60 BUN/Creatinine Ratio (7 - 25 %) 23.3 Coagulation D-Dimer (70 - 232 ng/ml) 348 H Hematology CBC w Diff NO MAN DIFF REQ WBC (4.8 - 10.8 /CUMM) 9.6 RBC (4.20 - 5.40 /CUMM) 5.49 H Hgb (12.0 - 16.0 G/DL) 10.7 L Hct (37 - 47 %) 34.7 L MCV (81.0 - 99.0 FL) 63.2 L MCH (27.0 - 31.0 PG) 19.5 L RDW (11.5 - 14.5 %) 13.4 Plt Count (130 - 400 /CUMM) 218 MPV (7.4 - 10.4 FL) 9.9 Gran % (42.2 - 75.2 %) 89.4 H Lymphocytes % (20.5 - 51.1 %) 7.3 L Monocytes % (1.7 - 9.3 %) 1.9 Eosinophils % (0 - 5 %) 1.2 Basophils % (0.0 - 2.0 %) 0.2 Absolute Granulocytes (1.4 - 6.5 /CUMM) 8.6 H Absolute Lymphocytes (1.2 - 3.4 /CUMM) 0.7 L Absolute Monocytes (0.10 - 0.60 /CUMM) 0.2 Absolute Eosinophils (0.0 - 0.7 /CUMM) 0.1 Absolute Basophils (0.0 - 0.2 /CUMM) 0 PUBS MCHC (33.0 - 37.0 G/DL) 30.9 L A/P; 76F PMH HTN, T2DM, history of CVA, history of bilateral pulmonary embolism on Xarelto, recurrent Pseudomonal pneumonia, COPD, asthma, originally admitted with acute asthma exacerbation and later on developed some weakness in the left lower extremity at concern for possible TIA/CVA. Evaluated by neurology and there is a possibility off a TIA happened yesterday. CT head negative. Patient already on Xarelto with history of PE. Neurology recommends add a baby aspirin. We'll also get carotid Doppler, echocardiogram. Keep on telemetry for another 24 hours. Please keep blood pressure in 150s to 160s range. Please do not lower the blood pressure too much. Can likely switch her to oral prednisone starting at 40 mg and doing every 2 day taper. Continue TRC nebs. DVT prophylaxis: Xarelto. PT/OT eval.
[2017-03-31 08:54] LABS: GRANULOCYTE % 89.4 % (42.2-75.2)
--- NOTE | 2017-03-31 12:59 | RADIOLOGY REPORT ---
EXAMINATION: XR KNEE, LEFT CLINICAL INFORMATION: Pain left knee. COMPARISON: Knee x-ray 02/07/2016. TECHNIQUE: Four views of the left knee. FINDINGS: The study redemonstrates the narrowing of the medial compartment of the knee joint with loss of joint space. This appears similar compared to the prior study. Marginal medial osteophytes are also seen. There is moderate narrowing of the lateral compartment of the knee joint, and there is severe narrowing of the patellofemoral joint. There are prominent patellar osteophytes. No fractures are demonstrated and there is normal alignment of the bones. No definite effusions are demonstrated on the current study. There are no radiopaque foreign bodies. IMPRESSION: 1. The study redemonstrates tricompartmental degenerative changes, similar compared to prior imaging. 2. There are no fractures or acute subluxations. 3. No large effusions are demonstrated on the current study.
[2017-03-31] MEDS ORDERED: ASPIRIN81 M4 PO (14:40)
--- NOTE | 2017-03-31 14:43 | Patient Discharge Instructions ---
Discharge Instructions General Discharge Information You were seen/treated for: COPD exacerbation Left leg weakness Watch for these problems: Worsening left leg weakness Worsenig numbness/tingling Worsening breathing status Special Instructions: Please follow-up with primary care physician in 1-2 weeks of discharge. Please follow-up with neurologist in 1-2 weeks of discharge. Please follow-up with primary doctor in 1-2 weeks of discharge. Please take Tylenol 650 mg two times a day for 5 days upon discharge, then once in the morning for 5 days and then on as needed basis thereafter. Diet Continue normal diet: No Activity Full Activity/No Limits: Yes Acute Coronary Syndrome Inclusion Criteria At DC or during hospital stay patient has or had the following: ACS DIAGNOSIS No Discharge Core Measures Meds if any: Prescribed or Continued at Discharge Meds if any: NOT Prescribed or Continued at Discharge Congestive Heart Failure Inclusion Criteria At DC or during hospital stay patient has or had the following: CHF DIAGNOSIS No Discharge Core Measures Meds if any: Prescribed or Continued at Discharge Meds if any: NOT Prescribed or Continued at Discharge Cerebrovascular accident Inclusion Criteria At DC or during hospital stay patient has or had the following: CVA/TIA Diagnosis Yes Discharge Core Measures Meds if any: Prescribed or Continued at Discharge Antithrombotic Yes Statin (required if LDL =>70) Yes Anticoagulant Yes Meds if any: NOT Prescribed or Continued at Discharge Venous thromboembolism Inclusion Criteria VTE Diagnosis No VTE Type NONE VTE Confirmed by (Test) NONE Discharge Core Measures - Per Current guidelines, there needs to be overlap - treatment for the first 5 days of Warfarin therapy. - If discharged on Warfarin prior to 5 days of - overlap therapy, the patient will need to be - assessed for post discharge needs including - *Post discharge parental anticoagulation - *Warfarin and/or parental anticoagulation education - *Follow up date to check INR post discharge At least 5 days overlap therapy as Inpatient No Meds if any: Prescribed or Continued at Discharge Note: Overlap Therapy is Warfarin and Anticoagulant Meds if any: NOT Prescribed or Continued at Discharge
[2017-03-31] MEDS ORDERED: PREDNISONE10 M2 PO (14:49)
[2017-03-31 16:11] VITALS: BP 136/74
--- NOTE | 2017-03-31 19:09 | Cons- Pulmonary ---
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 Patient report that today when she woke up at 5 AM she started to have continuous productive cough of white sputum with no blood which later became yellow in color, she also feels sharp, 10 over 10, epigastric pain with no radiation. Yesterday at afternoon she experienced the same epigastric pain which few minutes and then completely resolved, today at a.m. she vomits one time of clear fluid. She reports chills but denies fever or sweating. Patient denies any change in bowel habits, however she recently had urological procedure done by Dr. Rowley, and she still have urological problem, recently she finished a course of antibiotic for UTI. Patient also reports sore throat, she denies any sick contact and there is no recent travel. She denies chest pain, dizziness, palpitation, leg swelling or pain. Allergies/Medications Allergies: Coded Allergies: methylprednisolone (From Solu-Medrol) (Intermediate, HIVES AND PALPITATIONS 01/14) clove (HIVES 12/29/15) kimberli (HIVES 12/29/15) thyme (HIVES 12/29/15) hydrocodone (NAUSEA 12/29/15) ibuprofen (GI UPSET 12/29/15) lisinopril (DRY COUGH 12/29/15) nitrofurantoin (MAKES HER CRAZY 05/03/16) Uncoded Allergies: CHIVES (HIVES 01/05/16) Home Med List: Acetylcysteine (Acetylcysteine) (Unknown Strength) VIAL 5 ML INH BID RESPIRATORY (Reported) Albuterol Sulfate 2.5 MG/3 ML (0.083 %) VIAL.NEB 1 Vial INH/EDDIE BID RESPIRATORY (Reported) Albuterol Sulfate (Proair Hfa) 90 MCG HFA.AER.AD 2 PUF INH Q4-6 PRN PRN DYSPNEA Aspirin (Aspirin*) 81 MG TAB.CHEW 81 MG PO DAILY TIA Azithromycin 500 MG TABLET 500 MG PO SI SOB (Reported) PER PT LIST, TAKES [id number] Budesonide/Formoterol Fumarate (Symbicort 160-4.5 Mcg Inhaler) 160 MCG-4.5 MCG/ ACTUATION HFA.AER.AD 2 PUF INH PRN RESPIRATORY (Reported) Liraglutide (Victoza 2-Kuldeep) 0.6 MG/0.1 ML (18 MG/3 ML) PEN.INJCTR 1.2 MG SC DAILY DM (Reported) Losartan Potassium 50 MG TABLET 1 TAB PO DAILY BP (Reported) Metformin HCl (Metformin HCl ER) 500 MG TAB.ER.24H 2 TAB PO BID DIABETES ( Reported) Omeprazole Magnesium (Prilosec Otc) 20 MG TABLET.DR 1 TAB PO DAILY GI ( Reported) Pravastatin Sodium 80 MG TABLET 1 TAB PO DAILY CHOLESTEROL (Reported) Prednisone 10 MG TABLET 0 PO DAILY BREATHING On Take 03/31-04/01 40 MG /2-04/03 30 MG /-04/05 20 MG /6-04/07 10 MG Then Stop Rivaroxaban (Xarelto) 20 MG TABLET 1 TAB PO DAILY PE with food Solifenacin Succinate (Vesicare) 10 MG TABLET 1 TAB PO DAILY BLADDER ( Reported) Review of Systems Review of Systems Constitutional: Reports: see HPI. Past History Travel History Traveled to [place] past 21 day No Medical History Blood Transfusion Hx: No Neurological: TIA, vertigo, STROKE `11 RESIDUAL L. 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 EENT: cataracts, hearing loss Cardiovascular: CHF, hypertension, hyperlipidemia Respiratory: pulmonary embolism, ASTHMA, PNEUMONIA Gastrointestinal: GERD, sigmoid diverticulosis Hepatic: NONE Renal: BLADDER SLING 2017 Musculoskeletal: osteoarthritis, FOOT SURGERY RIGHT Psychiatric: NONE Endocrine: diabetes Blood Disorders: DVT Cancer(s): NONE COPPER PLATER/Reproductive: HYSTERECTOMY Other Medical Hx: Hypertension, dyslipidemia, diabetes mellitus, CHF, asthma, prior transient ischemic attack versus CVA, sigmoid diverticulosis, internal hemorrhoids, gastroesophageal reflux disease, gastritis, positional vertigo, left carpal tunnel release, hysterectomy, right knee surgery for a meniscal tear, and recent foot surgery Surgical History Surgical History: R WRIST,TOE, HYSTERECTOMY BLADDER,RECTUM LIFTED right knee surgery for a meniscal tear left carpal tunnel release Family History Relations & Conditions If Any: BROTHER FH: throat cancer SISTER (atrial fibrillation). FH: lung cancer FH: thyroid cancer SISTER (permanent pacemaker placement). FH: melanoma FHx: breast cancer MOTHER (coronary artery disease in her 50's s/p CABG). FH: diabetes mellitus FH: myocardial infarction FH: stroke FATHER FH: kidney disease Psychosocial History Where Do You Live? Home Services at Home: None Primary Language: Romanian Smoking Status: Former Smoker ETOH Use: denies use Illicit Drug Use: denies illicit drug use Functional Ability ADLs Independent: dressing, eating, toileting, bathing. Ambulation: independent IADLs Independent: shopping, housework, finances, food prep, telephone, transportation , medication admin. Exam & Diagnostic Data Last 24 Hrs of Vital Signs/I&O Vital Signs Date Time Temp Pulse Resp B/P B/P Pulse O2 O2 Flow FiO2 Mean Ox Delivery Rate 03/31 1611 97.5 90 18 136/74 99 Room Air 03/31 1610 98 Room Air Room Air 03/31 0952 95 140/76 03/31 0923 98 Room Air Room Air 03/31 0823 98.1 95 18 140/76 96 Room Air 03/31 0023 98.9 111 16 152/74 95 Room Air 03/31 0000 Room Air 03/30 2055 96 Room Air Intake & Output 03/31 1600 03/31 0800 03/31 0000 Intake Total 1740 304 240 Output Total 1600 550 400 Balance 140 -246 -160 Intake, IV 300 104 Intake, Oral 1440 200 240 Number 2 Bowel Movements Output, Urine 1600 550 400 Last 48 Hrs of Labs/Robert: Laboratory Tests 03/31/17 0624: Anion Gap 11, Estimated GFR > 60, BUN/Creatinine Ratio 23.3, CBC w Diff NO MAN DIFF REQ, RBC 5.49 H, MCV 63.2 L, MCH 19.5 L, RDW 13.4, MPV 9.9, Gran % 89.4 H, Lymphocytes % 7.3 L, Monocytes % 1.9, Eosinophils % 1.2, Basophils % 0.2, Absolute Granulocytes 8.6 H, Absolute Lymphocytes 0.7 L, Absolute Monocytes 0.2, Absolute Eosinophils 0.1, Absolute Basophils 0, PUBS MCHC 30.9 L 03/30/17 1320: D-Dimer 348 H 03/30/17 0658: Rfm-D-Mevhupnrgnv Pept Cancelled 03/30/17 0658: Anion Gap 10, Estimated GFR > 60, BUN/Creatinine Ratio 25.0, Glucose 188 H, Calcium 9.1, Total Bilirubin 0.4, AST 16, ALT 36, Alkaline Phosphatase 68, Troponin I < 0.01, Fzb-L-Pneqxbmzexq Pept 195 H, Total Protein 6.1 L, Albumin 3.5, Globulin 2.6, Albumin/Globulin Ratio 1.3, Triglycerides 115, Cholesterol 128, LDL Cholesterol, Calc 65, HDL Cholesterol 40, Cholesterol/HDL Ratio 3, CBC w Diff NO MAN DIFF REQ, RBC 5.66 H, MCV 63.0 L, MCH 19.3 L, RDW 13.1, MPV 9.9 , Gran % 66.5, Lymphocytes % 23.9, Monocytes % 6.8, Eosinophils % 2.2, Basophils % 0.6, Absolute Granulocytes 4.3, Absolute Lymphocytes 1.5, Absolute Monocytes 0.4, Absolute Eosinophils 0.1, Absolute Basophils 0, PUBS MCHC 30.6 L Assessment/Plan Impression/Plan: Physical Exam General Appearance: Alert, Oriented X3, Cooperative HEENT: Atraumatic, PERRLA Cardiovascular: Regular Rate, Normal S1, Normal S2 Lungs: Clear to Auscultation, Normal Air Movement Abdomen: Normal Bowel Sounds, Soft, No Tenderness Neurological: Normal Speech, Strength at 5/5 X4 Ext (except LLE 4/5) Extremities: No Clubbing, No Cyanosis, No Edema Vascular: Normal Pulses, Pulses Symmetrical This is an elderly lady with morbid obesity, probable upper airway resistance syndrome versus sleep apnea, hypertension, dyslipidemia, diabetes, significant bronchiectasis in the right middle lobe and 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 She does have bronchiectasis with previous pseudomonas colonization she also has copd with asthma and significant bronchomalacia with recurrent atelectasis especially of the right middle lobe now with lower lobe atx. She is having acute asthma and copd exacerbation. * Previous history of provoked pulmonary embolism which had resolved with multiple CTs in the past showing no pulmonary embolism now has extensive bilateral pulmonary embolism. No evidence of malignancy. No significant hereditary thrombophilia by history. No copd exacerbation at this time. * Previous lung nodules with ct chest neg in nov * Hypertension, hyperlipidemia, diabetes which appears to be relatively under control * diastolic heart disease * Knee pain and djd with prob tia REC cont steroids wean slowly IF stable will hold abx nebs atc ambulate Ok to dc soon cont xeralto will follow Consult Acknowledgment - Thank you for your consult request.
--- NOTE | 2017-03-31 22:00 | ULTRASOUND REPORT ---
EXAMINATION: DUPLEX BILATERAL CAROTID ULTRASOUND CLINICAL INFORMATION: Left-sided weakness/numbness. TIA.. COMPARISON: Carotid ultrasound 05/02/2016 TECHNIQUE: Real-time ultrasound and Doppler techniques (integrating B-mode 2D vascular images, Doppler spectral analysis and color flow Doppler imaging) were utilized to interrogate the extracranial carotid and vertebral arteries bilaterally. The degree of stenosis determined by criteria similar to NASCET. FINDINGS: Right side: 1. Mild amount of heterogeneous plaque is seen in the ECA/ICA region. 2. The common carotid artery velocity is 101 cm/s. 3. The internal carotid artery velocities are 66 cm/s systolic and 13 cm/s diastolic. 4. The external carotid artery velocity is 136 cm/s. Left side: 1. No appreciable plaque is seen in the ECA/ICA region. 2. The common carotid artery velocity is 92 cm/s. 3. The internal carotid artery velocities are 51 cm/s systolic and 12 cm/s diastolic. 4. The external carotid artery velocity is 155 cm/s. ADDITIONAL FINDINGS: 1. The vertebral arteries show antegrade flow. IMPRESSION: 1. RIGHT: Minimal, nonhemodynamically significant stenosis of the proximal right internal carotid artery corresponding to a 0-49% stenosis by velocity criteria. 2. LEFT: No significant stenosis of the proximal left internal carotid artery by velocity criteria. 3. No evidence for hemodynamically significant stenosis in the external carotid arteries.
[2017-04-01 00:50] VITALS: BP 108/60
[2017-04-01 08:07] VITALS: BP 124/70
--- NOTE | 2017-04-01 09:17 | PN- Housestaff ---
ISAI BARRIOS 04/01/17 0911: Subjective Follow-up For: 1. Asthma exacerbation 2. Productive cough 3. History of PE 4. History of CVA Tele-Events Since Last Visit: Sinus rhythm Subjective: Reports much improved breathing. Improved cough symptoms. No further episodes of numbness/tingling or leg weakness. No CP,SOB, lightheadedness or dizziness. No fevers or chills. Review of Systems Constitutional: Reports: see HPI. Objective Last 24 Hrs of Vital Signs/I&O Vital Signs Date Time Temp Pulse Resp B/P B/P Pulse O2 O2 Flow FiO2 Mean Ox Delivery Rate 04/01 0834 98 Room Air Room Air 04/01 0807 98.1 70 18 124/70 98 Room Air 04/01 0050 98.1 88 18 108/60 99 Room Air 04/01 0000 Room Air 03/31 1611 97.5 90 18 136/74 99 Room Air 03/31 1610 98 Room Air Room Air 03/31 0952 95 140/76 03/31 0923 98 Room Air Room Air Intake & Output 04/01 1600 04/01 0800 04/01 0000 Intake Total 100 720 Output Total 3 Balance 100 717 Intake, Oral 100 720 Number 0 Bowel Movements Output, Other 3 Physical Exam General Appearance: Alert, Oriented X3, Cooperative Cardiovascular: Regular Rate, Normal S1, Normal S2 Lungs: Clear to Auscultation, Normal Air Movement Abdomen: Normal Bowel Sounds, Soft, No Tenderness Neurological: Normal Speech, Strength at 5/5 X4 Ext Extremities: No Clubbing, No Cyanosis Vascular: Normal Pulses, Pulses Symmetrical Current Medications: Current Medications Sig/Bull Start time Last Medication Dose Route Stop Time Status Admin Acetaminophen 650 MG Q6 03/31 1200 AC 04/01 PO 04/02 0601 0619 Acetaminophen 650 MG Q6P PRN 03/30 1100 AC 03/31 PO 0952 Acetylcysteine 4 ML BID 03/30 2200 DC INH Albuterol Sulfate 3 ML BID 03/30 2200 DC INH Albuterol Sulfate 3 ML EVERY 4 HRS/AWAKE 03/30 2000 AC 04/01 INH 0833 Albuterol Sulfate 2 PUF Q4-6 PRN PRN 03/30 1130 AC INH Aspirin 81 MG DAILY 03/31 1310 AC 03/31 PO 1721 Budesonide/ 2 PUF DAILY PRN 03/30 1130 AC Formoterol Fumarate INH Dexamethasone 8 MG Q6 03/30 1800 DC 03/31 Dextrose/Water 50 ML IV 1212 Guaifenesin 600 MG Q12 03/31 1000 AC 03/31 PO 2116 Guaifenesin 10 ML Q4P PRN 03/30 1045 AC PO Insulin Aspart 0 TIDAC/HS 03/30 2345 AC 04/01 SC 0754 Ipratropium [place] 2.5 ML EVERY 4 HRS/AWAKE 03/30 2000 AC 04/01 INH 0833 Losartan Potassium 50 MG DAILY 03/30 1123 AC 03/31 PO 0952 Omeprazole 40 MG DAILY AC 03/30 1338 AC 04/01 PO 0620 Oxybutynin Chloride 5 MG BID 03/30 2200 AC 03/31 PO 2116 Patient Medication 1 ED .STK-MED ONE 03/31 1416 DC Teaching ED 03/31 1417 Pravastatin Sodium 80 MG 1700 03/30 1700 AC 03/31 PO 1721 Prednisone 10 MG 1600 / 1600 AC PO 04/07 1601 Prednisone 20 MG 1600 / 1600 AC PO 04/05 1601 Prednisone 30 MG 1600 /02 1600 AC PO 04/03 1601 Prednisone 40 MG 1600 03/31 1600 AC 03/31 PO 04/01 1601 2116 Prednisone 40 MG DAILY 03/31 1500 CAN PO 04/08 1459 Rivaroxaban 20 MG DAILY 03/30 1123 AC 03/31 PO 0952 Assessment/Plan Assessment: 76 year old woman with worsening breathing symptoms admitted yesterday, now with much improved breathing status with IV steroids, switched to PO and nebulizers. Also, had an episode of numbness/tingling and LLE weakness prompting her transfer to [facility] for close monitoring. 1. Asthma exacerbation: Improved. Continue PO steroid taper. Follow up with Pulm upon discharge. TR nebs. Stable for discharge. Home with PT. 2. Left knee pain: No trauma, or falls. Likely age related OA, imaging evidence suggesting the same. Tylenol 500 ATC x 4 doses, may decrease to BID thereafter, and then PRN. Home PT. 3. H/o PE: Continue Xarelto. 4. ? CVA/TIA: No concerning cardiac events on monitor overnight. Carotid US reviewed. Continue ASA, statin. No concerning weaknesses in LLE today. PT. Discharge later today. 5. Elevated BP: Improved. Full code DVT proph adressed by Xarelto use. Problem List: 1. COPD (chronic obstructive pulmonary disease) Pain Ratin Pain Location: Left knee Pain Goal: Remain pain free Pain Plan: Tylenol Tomorrow's Labs & Rationales: Not needed. PILAR SHOOK,CINDA 04/01/17 1131: Attending MD Review Statement Attending Statement Attending MD Statement: examined this patient, discuss w/resident/PA/SLABBING MACHINE OPERATOR, agreed w/resident/PA/SLABBING MACHINE OPERATOR, reviewed EMR data (avail), discussed with nursing, discussed with case mgmt, reviewed images, amended to note Attending Assessment/Plan: Patient seen and examined, feeling overall better. She worked with physical therapy today but could not do the stairs. She has a number of stairs at home and as per physical therapy, she needs to do those stairs before she will be able to go home safely. Vital Signs Date Time Temp Pulse Resp B/P B/P Pulse O2 O2 Flow FiO2 Mean Ox Delivery Rate 04/01 0956 76 124/70 04/01 0834 98 Room Air Room Air 04/01 0807 98.1 70 18 124/70 98 Room Air 04/01 0050 98.1 88 18 108/60 99 Room Air 04/01 0000 Room Air 03/31 1611 97.5 90 18 136/74 99 Room Air 03/31 1610 98 Room Air Room Air on exam; aox3, nad. cv; s1,s2, rrr resp; clear abd; soft, nt, bs+ ext; no edema. no labs today. A/P; 76F PMH HTN, T2DM, history of CVA, history of bilateral pulmonary embolism on Xarelto, recurrent Pseudomonal pneumonia, COPD, asthma, originally admitted with acute asthma exacerbation and later on developed some weakness in the left lower extremity and concern for possible TIA. Now also has steroid-induced hyperglycemia. Aspirin has been added per neurology recommendations. Patient has been followed by neurology. Carotid Doppler ultrasound does not show any significant stenosis. Echocardiogram results are pending. Continue prednisone taper. Patient has steroid-induced hyperglycemia currently. Continue the sliding scale insulin. Upon discharge, patient should be resumed back on her home oral hypoglycemics. Continue all other current medications, TRC nebs. Patient has been followed by Dr. Micthell. DVT prophylaxis:Xarelto.
--- NOTE | 2017-04-01 10:14 | Discharge Summary ---
See Addendum Visit Information Visit Dates Admission Date: 03/30/17 Discharge Date: 04/02/2017 Hospital Course Course Attending Physician: VIJAYA MELTON MD Primary Care Physician: EUSEBIA BUCK MD Hospital Course: Ms. Rodriguez with PMH TIA, CVA with residual left sided weakness, hearing loss, CHF, HTN, hyperlipidemia, GERD, osteoarthritis knees, COPD not on home oxygen, PE on Xarelto presented to the ED with chief complaint of epigastric pain and productive cough, associated with shortness of breath. At the time of admission, patient reported that she had continuous productive cough of white sputum and started experiencing sharp 10/10 epigastric pain with no radiation. Patient was admitted to general medicine floors with the primary diagnosis of asthma exacerbation. The patient was started on IV Solu-Medrol and around-the- clock total respiratory care. It was felt, given the lack of fevers and normal white count that the patient would not be started on antibiotics. Sputum culture was obtained. 1. Asthma exacerbation: Patient was started on IV steroids, later switched to by mouth prednisone taper during her stay, per her clinical improvement. Patient was given [id number] TRC nebulizers. Patient's breathing status improved significantly by the second of her admission. Patient remains stable to be discharged today and follow up with pulmonary as an outpatient. Sputum cultures remained negative and patient was watched off any antibiotics. 2. Transient ischemic attack: On the day of admission, patient started experiencing left leg numbness and tingling and weakness, that was worse in comparison to her baseline weakness. A head CT was obtained which did not show any acute pathology. The patient was transferred to telemetry for rhythm monitoring. The patient was started on aspirin, in addition to her statin and Xarelto. An ultrasound of the carotids was checked, normal. Patient will be discharged with instructions to follow-up with neurology as an outpatient. 3. Left knee pain: Left knee x-ray obtained showed degenerative changes, suggestive of degenerative osteoarthritis. Patient was given Tylenol for her pain, with optimal pain control. Patient worked with physical therapy to regain back her lost strength, and she will be discharged to home with physical therapy for further strengthening. Allergies: Coded Allergies: methylprednisolone (From Solu-Medrol) (Intermediate, HIVES AND PALPITATIONS 01/14) clove (HIVES 12/29/15) kimberli (HIVES 12/29/15) thyme (HIVES 12/29/15) hydrocodone (NAUSEA 12/29/15) ibuprofen (GI UPSET 12/29/15) lisinopril (DRY COUGH 12/29/15) nitrofurantoin (MAKES HER CRAZY 05/03/16) Uncoded Allergies: CHIVES (HIVES 01/05/16) Disposition Summary Disposition Principal Diagnosis: Acute asthma exacerbation Additional Diagnosis: Transient ischemic attack Discharge Disposition: home health services Discharge Instructions General Discharge Information Code Status: Full Code Patient's Diet: Consistent carb 3 Patient's Activity: As tolerated Follow-Up Instructions/Appts: Follow up with PCP, pulmonary, neurology as an outpatient. Medications at Discharge Discharge Medications: Continue taking these medications: Losartan Potassium (Losartan Potassium) 50 MG TABLET 1 Tablet ORAL DAILY Qty = 90 Comments: Last Taken: 08/27/16 Time: 10 AM Metformin HCl (Metformin HCl ER) 500 MG TAB.ER.24H 2 Tablet ORAL TWICE DAILY Qty = 240 Comments: NOT GIVEN IN HOSPITAL, INSULIN GIVEN Omeprazole Magnesium (Prilosec Otc) 20 MG TABLET.DR 1 Tablet ORAL DAILY Comments: DOCUMENTED PER CMR DURING PRE-SX INTERVIEW Pravastatin Sodium (Pravastatin Sodium) 80 MG TABLET 1 Tablet ORAL DAILY Comments: DOCUMENTED PER CMR DURING PRE-SX INTERVIEW Solifenacin Succinate (Vesicare) 10 MG TABLET 1 Tablet ORAL DAILY Comments: Last Taken: 08/27/16 Time: 10AM DITROPAN GIVEN SUBSTITUTION Rivaroxaban (Xarelto) 20 MG TABLET 1 Tablet ORAL DAILY Qty = 30 Instructions: with food Comments: Last Taken: 08/26/16 Time: 5 PM Acetylcysteine (Acetylcysteine) (Unknown Strength) VIAL 5 Milliliters Inhale through mouth TWICE DAILY Comments: TAKEN WITH ALBUTEROL DOCUMENTED PER CMR DURING PRE-SX INTERVIEW Albuterol Sulfate (Albuterol Sulfate) 2.5 MG/3 ML (0.083 %) VIAL.NEB 1 Vial Inhale Solution TWICE DAILY Comments: TAKES WITH ALBUTEROL DOCUMENTED PER CMR DURING PRE-SX INTERVIEW Liraglutide (Victoza 2-Kuldeep) 0.6 MG/0.1 ML (18 MG/3 ML) PEN.INJCTR 1.2 Milligram Inject into fatty tissue DAILY Comments: DOCUMENTED PER CMR DURING PRE-SX INTERVIEW Budesonide/Formoterol Fumarate (Symbicort 160-4.5 Mcg Inhaler) 160 MCG-4.5 MCG/ ACTUATION HFA.AER.AD 2 Puff Inhale through mouth as needed for RESPIRATORY Comments: DOCUMENTED PER CMR DURING PRE-SX INTERVIEW Azithromycin (Azithromycin) 500 MG TABLET 500 Milligram ORAL See Instructions Qty = 20 Instructions: PER PT LIST, TAKES [id number] Start taking the following new medications: Aspirin (Aspirin*) 81 MG TAB.CHEW 81 Milligram ORAL DAILY Days = 30 No Refills Albuterol Sulfate (Proair Hfa) 90 MCG HFA.AER.AD 2 Puff Inhale through mouth EVERY 4-6 HOURS NEEDED as needed for DYSPNEA Qty = 1 No Refills Prednisone (Prednisone) 10 MG TABLET 0 ORAL DAILY Qty = 16 No Refills Instructions: On Take 03/31-04/01 40 MG 6/2-6/ 30 MG 04/04-6 20 MG 6/6-6/ 10 MG Then Stop Copies To: RENETTA SHOOK,CARLTON Rodriguez; HANNA SHOOK,BRIANDA Mathur Attending MD Review Statement Documenting Attending: PILAR SHOOK,CINDA
--- NOTE | 2017-04-01 11:13 | PN- Neurology ---
Subjective Subjective: Still feels as if her left knee is swollen No recurrence of left lower leg numbness Ambulated with physical therapy Objective Vital Signs and I&Os Vital Signs Date Time Temp Pulse Resp B/P B/P Pulse O2 O2 Flow FiO2 Mean Ox Delivery Rate 04/01 0956 76 124/70 04/01 0834 98 Room Air Room Air 04/01 0807 98.1 70 18 124/70 98 Room Air 04/01 0050 98.1 88 18 108/60 99 Room Air 04/01 0000 Room Air 03/31 1611 97.5 90 18 136/74 99 Room Air 03/31 1610 98 Room Air Room Air Intake & Output 04/01 1600 04/01 0800 04/01 0000 03/31 1600 03/31 0800 03/31 0000 Intake Total 219 879 5397 304 240 Output Total 3 1600 550 400 Balance 100 717 140 -246 -160 Intake, IV 300 104 Intake, Oral 569 660 0918 200 240 Number 0 2 Bowel Movements Output, Other 3 Output, Urine 1600 550 400 Current Medications: Current Medications Sig/Bull Start time Last Medication Dose Route Stop Time Status Admin Acetaminophen 650 MG Q6 03/31 1200 AC 04/01 PO 04/02 0601 0619 Acetaminophen 650 MG Q6P PRN 03/30 1100 AC 03/31 PO 0952 Albuterol Sulfate 3 ML EVERY 4 HRS/AWAKE 03/30 2000 AC 04/01 INH 0833 Albuterol Sulfate 2 PUF Q4-6 PRN PRN 03/30 1130 INH Aspirin 81 MG DAILY 03/31 1310 AC 04/01 PO 0953 Budesonide/ 2 PUF DAILY PRN 03/30 1130 Formoterol Fumarate INH Dexamethasone 8 MG Q6 03/30 1800 DC 03/31 Dextrose/Water 50 ML IV 1212 Guaifenesin 600 MG Q12 03/31 1000 AC 04/01 PO 0954 Guaifenesin 10 ML Q4P PRN 03/30 1045 AC PO Insulin Aspart 0 TIDAC/HS 03/30 2345 AC 04/01 SC 0754 Ipratrop[address] [place] 2.5 ML EVERY 4 HRS/AWAKE 03/30 2000 AC 04/01 INH 0833 Losartan Potassium 50 MG DAILY 03/30 1123 AC 04/01 PO 0956 Omeprazole 40 MG DAILY AC 03/30 1338 AC 04/01 PO 0620 Oxybutynin Chloride 5 MG BID 03/30 2200 AC 04/01 PO 0953 Patient Medication 1 ED .STK-MED ONE 03/31 1416 DC Teaching ED 03/31 1417 Pravastatin Sodium 80 MG 1700 03/30 1700 AC 03/31 PO 1721 Prednisone 10 MG 1600 04/06 1600 AC PO 04/07 1601 Prednisone 20 MG 1600 04/04 1600 AC PO 04/05 1601 Prednisone 30 MG 1600 04/02 1600 AC PO 04/03 1601 Prednisone 40 MG 1600 03/31 1600 AC 03/31 PO 04/01 1601 2116 Prednisone 40 MG DAILY 03/31 1500 CAN PO 04/08 1459 Rivaroxaban 20 MG DAILY 03/30 1123 AC 04/01 PO 0954 Results Recent Imaging Studies: Carotid ultrasounds show 0-49% right internal carotid artery stenosis, no left internal carotid artery stenosis Assessment/Plan Assessment: Possible TIA in a 76-year-old woman with a history of recurrent left body numbness/weakness, multiple episodes over the past 6 years Plan: Continue baby aspirin, which was added on this admission Continue statin PT Neuro follow-up prn
[2017-04-01 17:06] VITALS: BP 110/56
--- NOTE | 2017-04-01 17:37 | ECHOCARDIOGRAM REPORT ---
ADARSH BOYD Age: 76 : 1940 Gender: F Exam Date: 03/31/2017 19:34 Exam Location: [address] Ht (in): 67 Wt (lb): 204 BSA: 2.12 BP: 136 / 74 Ordering Physician: ISAI BARRIOS MD Referring Physician: Shabbir Gonzales MD, PhD Technologist: Zora Martin [facility] [place] Room Number: [id number] Indications: STROKE Rhythm: Sinus Technical Quality: good FINDINGS Left Ventricle Normal left ventricular size, wall thickness and systolic function with no obvious regional wall motion abnormalities. Normal left ventricular diastolic filling pattern for age. The ejection fraction is visually estimated at 65%. Right Ventricle The right ventricle is normal in size and function. Right Atrium The right atrium is normal in size. Left Atrium The left atrium is normal in size. The interatrial septum is intact. Mitral Valve The mitral valve is normal in structure and function. There is trace to mild mitral regurgitation. Aortic Valve Structurally normal aortic valve without significant sclerosis or stenosis. There is no aortic regurgitation. Tricuspid Valve The tricuspid valve is normal in structure and function. There is mild tricuspid regurgitation. Pulmonary artery systolic pressure is normal. Pulmonic Valve Structurally normal pulmonic valve. There is no pulmonic regurgitation. Pericardium Normal pericardium without effusion. No pleural effusion. Great Vessels Normal aortic root dimension. The aortic arch and great vessels are well seen and are normal. CONCLUSIONS 1. Normal EF of 65%. 2. Trace to mild mitral regurgitation. 3. Mild tricuspid regurgitation. Shabbir Gonzales M.D. (Electronically Signed) Final Date: 01 April 2017 17:36 MEASUREMENTS (Male / Female) Normal Values 2D ECHO LV Diastolic Diameter PLAX 4.3 cm 4.2 - 5.9 / 3.9 - 5.3 cm LV Systolic Diameter PLAX 2.7 cm 2.1 - 4.0 cm LV Fractional Shortening PLAX 37.2 % 25 - 46 % LV Ejection Fraction 2D Teich 67.5 % IVS Diastolic Thickness 0.9 cm LVPW Diastolic Thickness 1.0 cm LV Relative Wall Thickness 0.4 RV Internal Dim ED PLAX 2.9 cm 1.9 - 3.8 cm LVOT Diameter 1.8 cm Aortic Root Diameter 2.7 cm LA Systolic Diameter LX 3.0 cm 3.0 - 4.0 / 2.7 - 3.8 cm LA Volume 47.0 cm 18 - 58 / 22 - 52 cm Ascending Aorta Diameter 2.7 cm DOPPLER AV Peak Velocity 198.0 cm/s AV Peak Gradient 15.7 mmHg AV Mean Velocity 140.0 cm/s AV Mean Gradient 9.0 mmHg AV Velocity Time Integral 44.9 cm LVOT Peak Velocity 141.0 cm/s LVOT Peak Gradient 8.0 mmHg LVOT Mean Velocity 96.9 cm/s LVOT Mean Gradient 4.0 mmHg LVOT Velocity Time Integral 29.4 cm LVOT Stroke Volume 74.8 cm AV Area Cont Eq vti 1.7 cm AV Area Cont Eq pk 1.8 cm MV Peak Velocity 137.0 cm/s MV Peak Gradient 7.5 mmHg MV Mean Velocity 85.4 cm/s MV Mean Gradient 3.0 mmHg Mitral E Point Velocity 106.0 cm/s Mitral A Point Velocity 111.0 cm/s Mitral E to A Ratio 1.0 MV PHT Velocity 129.0 cm/s MV Deceleration [place] 506.0 cm/s MV Pressure Half Time 76.5 ms MV Area PHT 2.9 cm MV Deceleration Time 198.0 ms TR Peak Velocity 261.0 cm/s TR Peak Gradient 27.2 mmHg Right Atrial Pressure 5.0 mmHg Pulmonary Artery Systolic Pressu 32.2 mmHg Right Ventricular Systolic Press 32.2 mmHg PV Peak Velocity 109.0 cm/s PV Peak Gradient 4.8 mmHg PV Mean Velocity 76.3 cm/s PV Mean Gradient 3.0 mmHg PV Velocity Time Integral 25.8 cm LV E' Lateral Velocity 9.0 cm/s Mitral E to LV E' Lateral Ratio 11.8 LV E' Septal Velocity 7.3 cm/s Mitral E to LV E' Septal Ratio 14.4
--- NOTE | 2017-04-01 21:44 | PN- Pulmonary ---
Subjective HPI/Critical Care Issues: DOing well afebrile vss chest mild crackles abd soft Objective Current Medications: Current Medications Sig/Bull Start time Last Medication Dose Route Stop Time Status Admin Acetaminophen 650 MG Q6 03/31 1200 AC 04/01 PO 04/02 0601 0619 Acetaminophen 650 MG Q6P PRN 03/30 1100 AC 03/31 PO 0952 Albuterol Sulfate 3 ML EVERY 4 HRS/AWAKE 03/30 2000 AC 04/01 INH 2015 Albuterol Sulfate 2 PUF Q4-6 PRN PRN 03/30 1130 AC INH Aspirin 81 MG DAILY 03/31 1310 AC 04/01 PO 0953 Budesonide/ 2 PUF DAILY PRN 03/30 1130 AC Formoterol Fumarate INH Guaifenesin 600 MG Q12 03/31 1000 AC 04/01 PO 0954 Guaifenesin 10 ML Q4P PRN 03/30 1045 AC PO Insulin Aspart 0 TIDAC 04/01 1700 AC 04/01 SC 1726 Insulin Aspart 4 UNITS ONCE ONE 04/01 1345 DC 04/01 SC 04/01 1346 1340 Insulin Aspart 0 TIDAC/HS 03/30 2345 DC 04/01 SC 1240 Ipratropium [place] 2.5 ML EVERY 4 HRS/AWAKE 03/30 2000 AC 04/01 INH 2015 Losartan Potassium 50 MG DAILY 03/30 1123 AC 04/01 PO 0956 Omeprazole 40 MG DAILY AC 03/30 1338 AC 04/01 PO 0620 Oxybutynin Chloride 5 MG BID 03/30 2200 AC 04/01 PO 0953 Pravastatin Sodium 80 MG 1700 03/30 1700 AC 04/01 PO 1727 Prednisone 10 MG 1600 04/06 1600 AC PO 04/07 1601 Prednisone 20 MG 1600 04/04 1600 AC PO 04/05 1601 Prednisone 30 MG 1600 04/02 1600 AC PO 04/03 1601 Prednisone 40 MG 1600 03/31 1600 DC 04/01 PO 04/01 1601 1726 Rivaroxaban 20 MG DAILY 03/30 1123 AC 04/01 PO 0954 Vital Signs & I&O Last 24 Hrs of Vitals and I&O: Vital Signs Date Time Temp Pulse Resp B/P B/P Pulse O2 O2 Flow FiO2 Mean Ox Delivery Rate 04/01 1706 97.3 77 18 110/56 97 Room Air Room Air 04/01 1625 98 Room Air 04/01 0956 76 124/70 04/01 0834 98 Room Air Room Air 04/01 0807 98.1 70 18 124/70 98 Room Air 04/01 0050 98.1 88 18 108/60 99 Room Air 04/01 0000 Room Air Intake & Output 04/01 1600 06/01 0800 06/ 0000 Intake Total 900 100 720 Output Total 3 Balance 900 100 717 Intake, Oral 900 100 720 Number 0 Bowel Movements Output, Other 3 Impression/Plan Impression/Plan Impression/Plan: Physical Exam General Appearance: Alert, Oriented X3, Cooperative HEENT: Atraumatic, PERRLA Cardiovascular: Regular Rate, Normal S1, Normal S2 Lungs: Clear to Auscultation, Normal Air Movement Abdomen: Normal Bowel Sounds, Soft, No Tenderness Neurological: Normal Speech, Strength at 5/5 X4 Ext (except LLE 4/5) Extremities: No Clubbing, No Cyanosis, No Edema Vascular: Normal Pulses, Pulses Symmetrical This is an elderly lady with morbid obesity, probable upper airway resistance syndrome versus sleep apnea, hypertension, dyslipidemia, diabetes, significant bronchiectasis in the right middle lobe and 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 She does have bronchiectasis with previous pseudomonas colonization she also has copd with asthma and significant bronchomalacia with recurrent atelectasis especially of the right middle lobe now with lower lobe atx. She is having acute asthma and copd exacerbation. * Previous history of provoked pulmonary embolism which had resolved with multiple CTs in the past showing no pulmonary embolism now has extensive bilateral pulmonary embolism. No evidence of malignancy. No significant hereditary thrombophilia by history. No copd exacerbation at this time. * Previous lung nodules with ct chest neg in nov * Hypertension, hyperlipidemia, diabetes which appears to be relatively under control * diastolic heart disease * Knee pain and djd with prob tia REC cont steroids wean slowly over 8 days IF stable will hold abx nebs atc ambulate Ok to dc soon cont xeralto will follow
[2017-04-01 23:36] VITALS: BP 124/64
[2017-04-02 08:23] VITALS: BP 124/72
[2017-04-02] MEDS ORDERED: TYLENOL ARTHRI650 M1 PO (09:23)
--- NOTE | 2017-04-02 10:23 | PN- Housestaff ---
ISAI BARRIOS 04/02/17 1021: Subjective Follow-up For: 1. Asthma exacerbation 2. Productive cough 3. History of PE 4. History of CVA Subjective: Reports much improved breathing. Improved cough symptoms. No further episodes of numbness/tingling or leg weakness. No CP,SOB, lightheadedness or dizziness. No fevers or chills. Review of Systems Constitutional: Reports: see HPI. Objective Last 24 Hrs of Vital Signs/I&O Vital Signs Date Time Temp Pulse Resp B/P B/P Pulse O2 O2 Flow FiO2 Mean Ox Delivery Rate 04/02 0930 98 Room Air Room Air 04/02 0836 64 124/72 04/02 0823 97.9 64 18 124/72 98 Room Air 06 0000 96 Room Air 04/01 2336 97.9 68 18 124/64 98 Room Air 04/01 1706 97.3 77 18 110/56 97 Room Air Room Air 04/01 1625 98 Room Air Intake & Output 04/02 1600 04/02 0800 04/02 0000 Intake Total 400 480 Output Total Balance 400 480 Intake, Oral 400 480 Physical Exam General Appearance: Alert, Oriented X3, Cooperative Cardiovascular: Regular Rate, Normal S1, Normal S2 Lungs: Clear to Auscultation, Normal Air Movement Abdomen: Normal Bowel Sounds, Soft Extremities: No Clubbing, No Cyanosis, No Edema Current Medications: Current Medications Sig/Bull Start time Last Medication Dose Route Stop Time Status Admin Acetaminophen 650 MG Q6 03/31 1200 DC 04/01 PO 04/02 0601 2155 Acetaminophen 650 MG Q6P PRN 03/30 1100 AC 04/02 PO 0836 Albuterol Sulfate 3 ML EVERY 4 HRS/AWAKE 03/30 2000 AC 04/02 INH 0929 Albuterol Sulfate 2 PUF Q4-6 PRN PRN 03/30 1130 AC INH Aspirin 81 MG DAILY 03/31 1310 AC 04/02 PO 0836 Budesonide/ 2 PUF DAILY PRN 03/30 1130 AC Formoterol Fumarate INH Guaifenesin 600 MG Q12 03/31 1000 AC 04/02 PO 0836 Guaifenesin 10 ML Q4P PRN 03/30 1045 AC PO Insulin Aspart 0 TIDAC 04/01 1700 AC 04/02 SC 0835 Insulin Aspart 4 UNITS ONCE ONE 04/01 1345 DC 04/01 SC 04/01 1346 1340 Insulin Aspart 0 TIDAC/HS 03/30 2345 DC 04/01 SC 1240 Ipratropium [place] 2.5 ML EVERY 4 HRS/AWAKE 03/30 2000 AC 04/02 INH 0929 Losartan Potassium 50 MG DAILY 03/30 1123 AC 04/02 PO 0836 Omeprazole 40 MG DAILY AC 03/30 1338 AC 04/02 PO 0836 Oxybutynin Chloride 5 MG BID 03/30 2200 AC 04/02 PO 0836 Pravastatin Sodium 80 MG 1700 03/30 1700 AC 04/01 PO 1727 Prednisone 10 MG 1600 04/06 1600 AC PO 04/07 1601 Prednisone 20 MG 1600 04/04 1600 AC PO 04/05 1601 Prednisone 30 MG 1600 04/02 1600 AC PO 04/03 1601 Prednisone 40 MG 1600 03/31 1600 DC 04/01 PO 04/01 1601 1726 Rivaroxaban 20 MG DAILY 03/30 1123 AC 04/02 PO 0835 Assessment/Plan Assessment: 76 year old woman with worsening breathing symptoms admitted yesterday, now with much improved breathing status with IV steroids, switched to PO and nebulizers. Also, had an episode of numbness/tingling and LLE weakness prompting her transfer to [facility] for close monitoring. 1. Asthma exacerbation: Improved. Continue PO steroid taper. Follow up with Pulm upon discharge. [facility] nebs. Stable for discharge. Home with PT. 2. Left knee pain: No trauma, or falls. Likely age related OA, imaging evidence suggesting the same. Tylenol 500 ATC x 4 doses, may decrease to BID thereafter, and then PRN. Home PT. 3. H/o PE: Continue Xarelto. 4. ? CVA/TIA: No concerning cardiac events on monitor overnight. Carotid US reviewed. Continue ASA, statin. No concerning weaknesses in LLE today. PT. Discharge later today. 5. Elevated BP: Improved. Full code DVT proph adressed by Xarelto use. Problem List: 1. Asthma Pain Ratin Pain Location: Left knee Pain Goal: Remain pain free Pain Plan: Tylenol Tomorrow's Labs & Rationales: Not needed PILAR SHOOK,CINDA 04/02/17 1217: Attending MD Review Statement Attending Statement Attending MD Statement: examined this patient, discuss w/resident/PA/DISTANCE LEARNING PROGRAM COORDINATOR, agreed w/resident/PA/DISTANCE LEARNING PROGRAM COORDINATOR, reviewed EMR data (avail), discussed with nursing, discussed with case mgmt, reviewed images, amended to note Attending Assessment/Plan: Patient seen and examined, overall feeling much better. Breathing has improved. Patient was able to work with physical therapy and did stairs. Breathing and oxygen saturations remained stable. Patient has been switched to oral prednisone. She is medically stable for discharge home today on a prednisone taper. Aspirin was also added for TIA episode that happened in the hospital. Patient already on high-dose statin. Patient will follow with primary care doctor, neurology and pulmonology as an outpatient.
--- NOTE | 2017-04-02 10:38 | PN- Pulmonary ---
Subjective HPI/Critical Care Issues: Reports much improved breathing. Improved cough symptoms. No further episodes of numbness/tingling or leg weakness. No CP,SOB, lightheadedness or dizziness. No fevers or chills. Review of Systems Constitutional: Reports: see HPI. Objective Current Medications: Current Medications Sig/Bull Start time Last Medication Dose Route Stop Time Status Admin Acetaminophen 650 MG Q6 03/31 1200 DC 04/01 PO 04/02 0601 2155 Acetaminophen 650 MG Q6P PRN 03/30 1100 AC 04/02 PO 0836 Albuterol Sulfate 3 ML EVERY 4 HRS/AWAKE 03/30 2000 AC 04/02 INH 0929 Albuterol Sulfate 2 PUF Q4-6 PRN PRN 03/30 1130 AC INH Aspirin 81 MG DAILY 03/31 1310 AC 04/02 PO 0836 Budesonide/ 2 PUF DAILY PRN 03/30 1130 AC Formoterol Fumarate INH Guaifenesin 600 MG Q12 03/31 1000 AC 04/02 PO 0836 Guaifenesin 10 ML Q4P PRN 03/30 1045 AC PO Insulin Aspart 0 TIDAC 04/01 1700 AC 04/02 SC 0835 Insulin Aspart 4 UNITS ONCE ONE 04/01 1345 DC 04/01 SC 04/01 1346 1340 Insulin Aspart 0 TIDAC/HS 03/30 2345 DC 04/01 SC 1240 Ipratropium [place] 2.5 ML EVERY 4 HRS/AWAKE 03/30 2000 AC 04/02 INH 0929 Losartan Potassium 50 MG DAILY 03/30 1123 AC 04/02 PO 0836 Omeprazole 40 MG DAILY AC 03/30 1338 AC 04/02 PO 0836 Oxybutynin Chloride 5 MG BID 03/30 2200 AC 04/02 PO 0836 Pravastatin Sodium 80 MG 1700 03/30 1700 AC 04/01 PO 1727 Prednisone 10 MG 1600 04/06 1600 AC PO 04/07 1601 Prednisone 20 MG 1600 04/04 1600 AC PO 04/05 1601 Prednisone 30 MG 1600 04/02 1600 AC PO 04/03 1601 Prednisone 40 MG 1600 03/31 1600 DC 04/01 PO 04/01 1601 1726 Rivaroxaban 20 MG DAILY 03/30 1123 AC 04/02 PO 0835 Vital Signs & I&O Last 24 Hrs of Vitals and I&O: Vital Signs Date Time Temp Pulse Resp B/P B/P Pulse O2 O2 Flow FiO2 Mean Ox Delivery Rate 04/02 0930 98 Room Air Room Air 04/02 0836 64 124/72 06/02 0823 97.9 64 18 124/72 98 Room Air 06/ 0000 96 Room Air 04/01 2336 97.9 68 18 124/64 98 Room Air 04/01 1706 97.3 77 18 110/56 97 Room Air Room Air 04/01 1625 98 Room Air Intake & Output 04/02 1600 /02 0800 06 0000 Intake Total 400 480 Output Total Balance 400 480 Intake, Oral 400 480 Impression/Plan Impression/Plan Impression/Plan: Physical Exam General Appearance: Alert, Oriented X3, Cooperative HEENT: Atraumatic, PERRLA Cardiovascular: Regular Rate, Normal S1, Normal S2 Lungs: Clear to Auscultation, Normal Air Movement Abdomen: Normal Bowel Sounds, Soft, No Tenderness Neurological: Normal Speech, Strength at 5/5 X4 Ext (except LLE 4/5) Extremities: No Clubbing, No Cyanosis, No Edema Vascular: Normal Pulses, Pulses Symmetrical This is an elderly lady with morbid obesity, probable upper airway resistance syndrome versus sleep apnea, hypertension, dyslipidemia, diabetes, significant bronchiectasis in the right middle lobe and 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 She does have bronchiectasis with previous pseudomonas colonization she also has copd with asthma and significant bronchomalacia with recurrent atelectasis especially of the right middle lobe now with lower lobe atx. She is having acute asthma and copd exacerbation. * Previous history of provoked pulmonary embolism which had resolved with multiple CTs in the past showing no pulmonary embolism now has extensive bilateral pulmonary embolism. No evidence of malignancy. No significant hereditary thrombophilia by history. No copd exacerbation at this time. * Previous lung nodules with ct chest neg in nov * Hypertension, hyperlipidemia, diabetes which appears to be relatively under control * diastolic heart disease * Knee pain and djd with prob tia REC cont steroids wean slowly over 7days nebs atc ambulate Ok to dc soon on home pulm meds cont xeralto will follow
[2017-04-02 16:02] VITALS: BP 112/64
== END 2017-04-02 18:12 | DRG 191 ==
LOC: DELPENDDIS → ERH 06:29 → 1NO 09:10 → ERHI 09:10 → 1NO 09:10 → ENRESERV 09:45 → ENTRNSPT 10:30 → EDTRNSPTTYP 10:54 → 2NB 11:02 → CMPTRNSPT 11:17 → 2NB 12:07 → 1NO 17:00 → ENPENDDIS 04-01 09:42 → 1NO 04-02 18:12
PROVIDERS: Pediatrics; Student in an Organized Health Care Education/Training Program; ADMIT Internal Medicine
DX: J44.1 Chronic obstructive pulmonary disease with (acute) exacerbation (principal); I69.354 Hemiplegia and hemiparesis following cerebral infarction affecting left non-dominant side; I11.0 Hypertensive heart disease with heart failure; I50.32 Chronic diastolic (congestive) heart failure; G45.9 Transient cerebral ischemic attack, unspecified; E66.01 Morbid (severe) obesity due to excess calories; I65.21 Occlusion and stenosis of right carotid artery; Z86.718 Personal history of other venous thrombosis and embolism; K21.9 Gastro-esophageal reflux disease without esophagitis; E78.5 Hyperlipidemia, unspecified; Z87.891 Personal history of nicotine dependence; Z68.31 Body mass index [BMI] 31.0-31.9, adult; M17.12 Unilateral primary osteoarthritis, left knee; Z86.711 Personal history of pulmonary embolism; E11.9 Type 2 diabetes mellitus without complications; Z79.84 Long term (current) use of oral hypoglycemic drugs
CPT/HCPCS: 1NP; 36415; 73560-LT; 82436; 87070; 93005; 93010; 93306; 97110-GO; 97116-GO; 97161-GP; 97530-GO; J1100; J2920; J3490; J7512; J7608

== ENCOUNTER 2017-11-21 11:28 | Observation (INO) | payer OTHER ==
[~2017-11-21] VITALS: Ht 165.1 cm; Wt 92.1 kg
[~2017-11-21 11:28] MED LIST changes: +ASPIRIN81 M4 PO; +DOCUSATE SODIU100 M3 PO; +ELIQUIS2.5 M1 PO; +GLIMEPIRIDE1 M1 PO; +HYDROMORPHONE HC2 M1 PO; +KEFLEX500 M1 PO; +METFORMIN HCL500 M3 PO; +PREDNISONE20 M1 PO; +PREDNISONE50 M1 PO; +PROAIR HFA8.5 GM INH; +SENNA PLUS TAB1 EACH PO; +TYLENOL ARTHRI650 M1 PO; +VESICARE5 M1 PO
--- NOTE | 2017-11-21 11:39 | ED DYSPNEA/ASTHMA COMPLAINT ---
History of Present Illness General Chief Complaint: Dyspnea (COPD, CHF, Other) Stated Complaint: BIBA, SOB Source: patient, old records, EMS Exam Limitations: no limitations Vital Signs & Intake/Output Vital Signs & Intake/Output Vital Signs Date Time Temp Pulse Resp B/P B/P Pulse O2 O2 Flow FiO2 Mean Ox Delivery Rate 11/21 1428 96.0 83 20 140/60 99 Room Air 11/21 1318 97.6 80 20 138/64 97 Room Air 11/21 1240 98 Room Air 11/21 1132 97.4 84 20 123/86 98 Room Air Allergies Coded Allergies: methylprednisolone (From Solu-Medrol) (Intermediate, HIVES AND PALPITATIONS 01/14) clove (HIVES 12/29/15) kimberli (HIVES 12/29/15) thyme (HIVES 12/29/15) hydrocodone (NAUSEA 12/29/15) ibuprofen (GI UPSET 12/29/15) lisinopril (DRY COUGH 12/29/15) nitrofurantoin (MAKES HER CRAZY 05/03/16) Uncoded Allergies: CHIVES (HIVES 01/05/16) Triage Nurses Notes Reviewed? yes Onset: Abrupt Duration: hour(s):, constant, continues in ED Timing: single episode today Severity: moderate, severe HPI: 77-year-old female comes into the emergency room for further evaluation of shortness of breath and a syncopal episode. Patient reports that she felt fine this morning when she woke up. She reports that she went to scientology and while she was at scientology she started to cough and felt she cannot catch her breath. She then proceeded to feel lightheaded and dizzy and like she was going to pass out. According to her she lost consciousness for a brief amount of time. She cannot recall exactly what happened. He denied any chest pain. Denies any fever. Nothing seems to make the symptoms better. (Mikey Molina) Reconcile Medications Aspirin (Ecotrin*) 81 MG TABLET.DR 1 TAB PO DAILY HEART/BLOOD (Reported) Budesonide/Formoterol Fumarate (Symbicort 160-4.5 Mcg Inhaler) 160 MCG-4.5 MCG/ ACTUATION HFA.AER.AD 2 PUF INH PRN ASTHMA (Reported) Glimepiride 1 MG TABLET 1 TAB PO DAILY GM (Reported) Liraglutide (Victoza 2-Kuldeep) 0.6 MG/0.1 ML (18 MG/3 ML) PEN.INJCTR 1.2 MG SC DAILY DM (Reported) Losartan Potassium 50 MG TABLET 1 TAB PO DAILY BP (Reported) Metformin HCl (Metformin HCl ER) 500 MG TAB.ER.24H 2 TAB PO BID DM (Reported) Omeprazole Magnesium (Prilosec Otc) 20 MG TABLET.DR 1 TAB PO DAILY GI ( Reported) Pravastatin Sodium 80 MG TABLET 1 TAB PO DAILY CHOLESTEROL (Reported) Rivaroxaban (Xarelto) 20 MG TABLET 1 TAB PO DAILY BLOOD THINNER (Reported) with food Solifenacin Succinate (Vesicare) 5 MG TABLET 1 TAB PO BID BLADDER (Reported) (Mag SHOOK,Kari Alfaro) Past History Travel History Traveled to [place] past 21 day No Medical History Any Pertinent Medical History? 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 Other Medical Hx: Hypertension, dyslipidemia, diabetes mellitus, CHF, asthma, prior transient ischemic attack versus CVA, sigmoid diverticulosis, internal hemorrhoids, gastroesophageal reflux disease, gastritis, positional vertigo, left carpal tunnel release, hysterectomy, right knee surgery for a meniscal tear, and recent foot surgery History of MRSA: No History of VRE: No History of CDIFF: No Tetanus Vaccine: 09/23/15 Surgical History Surgical History: R WRIST,TOE, HYSTERECTOMY BLADDER,RECTUM LIFTED right knee surgery for a meniscal tear left carpal tunnel release Psychosocial History Who do you live with Patient/Self Services at Home None What is your primary language Martiniquais Tobacco Use: Quit >30 days ago ETOH Use: denies use Illicit Drug Use: denies illicit drug use Family History Family History, If Any: BROTHER FH: throat cancer SISTER (atrial fibrillation). FH: lung cancer FH: thyroid cancer SISTER (permanent pacemaker placement). FH: melanoma FHx: breast cancer MOTHER (coronary artery disease in her 50's s/p CABG). FH: diabetes mellitus FH: myocardial infarction FH: stroke FATHER FH: kidney disease Hx Contributory? No (Mikey Moilna) Review of Systems Review of Systems Constitutional: Reports: no symptoms. EENTM: Reports: see HPI. Respiratory: Reports: see HPI. Cardiovascular: Reports: see HPI. GI: Reports: no symptoms. Genitourinary: Reports: no symptoms. Musculoskeletal: Reports: no symptoms. Skin: Reports: no symptoms. Neurological/Psychological: Reports: no symptoms. Hematologic/Endocrine: Reports: no symptoms. Immunologic/Allergic: Reports: no symptoms. All Other Systems: Reviewed and Negative (Mikey Molina) Physical Exam Physical Exam General Appearance: well developed/nourished, alert, awake, mild distress Head: atraumatic, normal appearance Eyes: Bilateral: normal appearance. Ears, Nose, Throat: normal ENT inspection, hearing grossly normal Neck: normal inspection Respiratory: no respiratory distress, wheezing Cardiovascular: regular rate/rhythm Extremities: normal inspection, no edema Neurologic/Psych: awake, alert, oriented x 3 Skin: intact, normal color Core Measures ACS in differential dx? Yes CVA/TIA Diagnosis No Sepsis Present: No Sepsis Focused Exam Completed? No (Mikey Molina) Progress Differential Diagnosis: asthma, AMI, bronchitis, costochondritis, CHF, COPD, pulmonary embolism, pneumonia, unstable angina Plan of Care: Orders Procedure Date/time Status Heart Healthy Diet 11/21 L Complete Heart Healthy Diet 11/21 D Active Patient Data 11/[address] in observation 11/21 1336 Active ED Holding Orders 11/21 1336 Active Vital Signs 11/21 1336 Active RAPID VIRAL INFLUENZA A 11/21 1336 Active Code Status 11/21 1336 Active Intake & Output 11/21 1131 Active TROPONIN LEVEL 11/21 1131 Complete COMPREHENSIVE METABOLIC PANEL 11/21 1131 Complete CBC WITHOUT DIFFERENTIAL 11/21 1131 Complete EKG 11/21 1131 Active Laboratory Tests 11/21/17 1149: Anion Gap 16, Estimated GFR > 60, BUN/Creatinine Ratio 24.4, Glucose 155 H, Calcium 9.0, Total Bilirubin 0.3, AST 14, ALT 23, Alkaline Phosphatase 81, Troponin I < 0.01, Total Protein 6.7, Albumin 3.9, Globulin 2.8, Albumin/ Globulin Ratio 1.4, CBC w Diff NO MAN DIFF REQ, RBC 5.90 H, MCV 63.4 L, MCH 19.6 L, RDW 15.3 H, MPV 9.8, Gran % 75.7 H, Lymphocytes % 17.6 L, Monocytes % 5.5, Eosinophils % 0.8, Basophils % 0.4, Absolute Granulocytes 6.4, Absolute Lymphocytes 1.5, Absolute Monocytes 0.5, Absolute Eosinophils 0.1, Absolute Basophils 0, PUBS MCHC 31.0 L Microbiology 11/21 1420 NASOPHARYN: Influenza Virus A & B Rapid Smear - RECD Diagnostic Imaging: Viewed by Me: Radiology Read. Discussed w/RAD: Radiology Read. Radiology Impression: PATIENT: ADARSH BOYD PRESENT AGE: 77 PATIENT ACCOUNT NO: [id number] : 42 LOCATION: [facility] ORDERING PHYSICIAN: Mikey SMITH SERVICE DATE: 11/21/17113 EXAM TYPE : RAD - XRY-PORTABLE CHEST XRAY EXAMINATION: XR PORTABLE CHEST CLINICAL INFORMATION: SOB. COMPARISON: None TECHNIQUE: Portable frontal view of the chest was obtained. FINDINGS: Lungs are fairly well-expanded and clear. The heart size and pulmonary vascularity is normal. There is mild spondylosis dorsal spine. No lytic process. No gross bony abnormality seen. IMPRESSION: No acute cardiopulmonary process seen. There is moderate spondylosis mid and lower dorsal spine. DICTATED BY: Sonido Glover MD DATE/TIME DICTATED:11/21/171222 CLOTH SPONGER:FLORI DATE/TIME TRANSCRIBED:11/21/171222 CONFIDENTIAL, DO NOT COPY WITHOUT APPROPRIATE AUTHORIZATION. <Electronically signed in Other Vendor System> SIGNED BY: Sonido Glover MD 11/21/171226 Initial ED EKG: normal sinus rhythm, rate (80) (Mikey Molina) Departure Departure Disposition: STILL A PATIENT Condition: Stable Clinical Impression Primary Impression: Syncope and collapse Secondary Impressions: Bronchitis Referrals: Shabbir Trevino MD (PCP/Family) Departure Forms: Customer Survey General Discharge Information (Mikey Molina) Observation Note Spoke With: Arturo Mendoza MD Physician Advisor Notified: MAG SHOOK,KARI Alfaro Place Patient In: Non-ED OBS Care Area Rationale for Observation: My rational for observation is as follows [telemetry monitoring, serial enzymes, cardiology consultation]. PA/INVESTIGATOR FRAUD Co-Sign Statement Statement: ED Attending supervision documentation- [X] I saw and evaluated the patient. I have also reviewed all the pertinent lab results and diagnostic results. I agree with the findings and the plan of care as documented in the PA's/INVESTIGATOR FRAUD's documentation. [X] I have reviewed the ED Record and agree with the PA's/INVESTIGATOR FRAUD's documentation. [] Additions or exceptions (if any) to the PAs/INVESTIGATOR FRAUD's note and plan are summarized below: ]Patient presents after a syncopal episode at [employer]ology. Patient will require telemetry observation for serial enzymes and telemetry monitoring to evaluate for potential dysrhythmia. She would benefit from a cardiology consultation. (Mag SHOOK,Kari Alfaro) Critical Care Note Critical Care Note Critical Care Time: non-applicable (Mikey Molina)
[2017-11-21 12:00] LABS: ABSOLUTE BASOPHIL COUNT 0 /CUMM (0.0-0.2); ABSOLUTE EOSINOPHIL COUNT 0.1 /CUMM (0.0-0.7); ABSOLUTE GRANULOCYTE CT 6.4 /CUMM (1.4-6.5); ABSOLUTE LYMPH COUNT 1.5 /CUMM (1.2-3.4); ABSOLUTE MONOCYTE COUNT 0.5 /CUMM (0.10-0.60); BASOPHIL % 0.4 % (0.0-2.0); EOSINOPHIL % 0.8 % (0-5); GRANULOCYTE % 75.7 % (42.2-75.2); HEMATOCRIT 37.4 % (37-47); MEAN CORPUSCULAR HGB 19.6 PG (27.0-31.0); MEAN CORPUSCULAR VOLUME 63.4 FL (81.0-99.0); MEAN PLATELET VOLUME 9.8 FL (7.4-10.4); PLATELET COUNT 143 /CUMM (130-400); RBC DISTRIBUTION WIDTH 15.3 % (11.5-14.5); WHITE BLOOD CELL COUNT 8.4 /CUMM (4.8-10.8)
[2017-11-21] MEDS ORDERED: XARELTO20 M2 PO (12:24)
[2017-11-21] MEDS ORDERED: ASPIRIN EC81 M1 PO (12:24)
[2017-11-21] MEDS ORDERED: METFORMIN HCL500 M4 PO (12:26)
--- NOTE | 2017-11-21 12:27 | RADIOLOGY REPORT ---
EXAMINATION: XR PORTABLE CHEST CLINICAL INFORMATION: SOB. COMPARISON: None TECHNIQUE: Portable frontal view of the chest was obtained. FINDINGS: Lungs are fairly well-expanded and clear. The heart size and pulmonary vascularity is normal. There is mild spondylosis dorsal spine. No lytic process. No gross bony abnormality seen. IMPRESSION: No acute cardiopulmonary process seen. There is moderate spondylosis mid and lower dorsal spine.
--- NOTE | 2017-11-21 14:29 | CT SCAN REPORT ---
EXAMINATION: CT HEAD WITHOUT CONTRAST CLINICAL INFORMATION: Syncope COMPARISON: None TECHNIQUE: Contiguous axial imaging was performed from the skull base to vertex without intravenous administration of contrast. DLP: 620 mGy-cm FINDINGS: There is no evidence of acute intracranial hemorrhage or territorial infarction. No abnormal mass effect or midline shift is seen. Quintana to white matter differentiation is well preserved. No extra-axial fluid collections are identified. The ventricles are mildly enlarged with mild prominence of cortical sulci. There is periventricular hypodensity in both cerebral hemispheres suggestive of chronic small vessel ischemic changes. The osseous structures and soft tissues are normal. The mastoid air cells and visualized portions of the paranasal sinuses are well aerated. IMPRESSION: No acute intracranial process seen.
--- NOTE | 2017-11-21 15:40 | History & Physical ---
Chester SHOOK,Oswald 11/21/17 1520: General Information and HPI MD Statement: I have seen and personally examined ADARSH BOYD and documented this H&P. The patient is a 77 year old F who presented with a patient stated chief complaint of [Syncope]. Source of Information: patient, family, old records Exam Limitations: no limitations History of Present Illness: Patient is a 77-year-old female, BIBA from the [facility] for sudden onset of shortness of breath, followed by an episode of syncope. According to the patient, she was relatively alright since last 1 week. On Wednesday after her physical therapy, she had an episode of severe vomiting which was followed by generalized weakness. She checked her blood sugar which was only 52, and she talked to her PCP for that, and he advised to stop the glimepiride at the same time. She was okay yesterday and today in the morning,till she went to the [facility]ian[facility]. She had an episode of sudden onset of severe shortness of breath which lasted for 30 seconds, which is followed by bouts of cough and complete recovery within a minute. She remained asymptomatic for a 1 minute, but later she again started having episode of severe cough, followed by shortness of breath, which was followed by blackening in front of eyes and she slipped from 1 chair to another chair. They called the EMS who brought her here to the [facility]. She denies of any fever, nausea, chest pain, palpitation, abdominal pain, urinary incontinence, increase in weight gain, swelling in both limbs. She occasionally had episodes of chills. Of note, she recently had right knee arthroplasty on September 17. She was On Eliquis since last week when they change Eliquis to Xarelto. She is going to physical therapy twice a week and every time after physical therapy, she is having Episodes of Severe Vomiting with Complete Recovery. 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 Family history-is bladder Cancer, sister lung cancer/thyroid cancer, mother - diabetes, NE, stroke, father - kidney disease Allergies/Medications Allergies: Coded Allergies: methylprednisolone (From Solu-Medrol) (Intermediate, HIVES AND PALPITATIONS 01/14) clove (HIVES 12/29/15) kimberli (HIVES 12/29/15) thyme (HIVES 12/29/15) hydrocodone (NAUSEA 12/29/15) ibuprofen (GI UPSET 12/29/15) lisinopril (DRY COUGH 12/29/15) nitrofurantoin (MAKES HER CRAZY 05/03/16) Uncoded Allergies: CHIVES (HIVES 01/05/16) Home Med list Aspirin (Ecotrin*) 81 MG TABLET.DR 1 TAB PO DAILY HEART/BLOOD (Reported) Budesonide/Formoterol Fumarate (Symbicort 160-4.5 Mcg Inhaler) 160 MCG-4.5 MCG/ ACTUATION HFA.AER.AD 2 PUF INH PRN ASTHMA (Reported) Glimepiride 1 MG TABLET 1 TAB PO DAILY GM (Reported) Liraglutide (Victoza 2-Kuldeep) 0.6 MG/0.1 ML (18 MG/3 ML) PEN.INJCTR 1.2 MG SC DAILY DM (Reported) Losartan Potassium 50 MG TABLET 1 TAB PO DAILY BP (Reported) Metformin HCl (Metformin HCl ER) 500 MG TAB.ER.24H 2 TAB PO BID DM (Reported) Omeprazole Magnesium (Prilosec Otc) 20 MG TABLET.DR 1 TAB PO DAILY GI ( Reported) Pravastatin Sodium 80 MG TABLET 1 TAB PO DAILY CHOLESTEROL (Reported) Rivaroxaban (Xarelto) 20 MG TABLET 1 TAB PO DAILY BLOOD THINNER (Reported) with food Solifenacin Succinate (Vesicare) 5 MG TABLET 1 TAB PO BID BLADDER (Reported) Observation Initial Note - I have personally examined ADARSH BOYD on 11/21/17 at 1520. The disposition of ADARSH BOYD is uncertain at this time and before a determination can be made, she requires a period of observation for the following reasons [Syncope] Past History Travel History Traveled to [place] past 21 day No Medical History Neurological: TIA, vertigo, STROKE `11 RESIDUAL L. 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 Other Medical Hx: Hypertension, dyslipidemia, diabetes mellitus, CHF, asthma, prior transient ischemic attack versus CVA, sigmoid diverticulosis, internal hemorrhoids, gastroesophageal reflux disease, gastritis, positional vertigo, left carpal tunnel release, hysterectomy, right knee surgery for a meniscal tear, and recent foot surgery History of MRSA: No History of VRE: No History of CDIFF: No Tetanus Vaccine: 09/23/15 Surgical History Surgical History: R WRIST,TOE, HYSTERECTOMY BLADDER,RECTUM LIFTED right knee surgery for a meniscal tear left carpal tunnel release Past Family/Social History Family History Relations & Conditions if any BROTHER FH: throat cancer SISTER (atrial fibrillation). FH: lung cancer FH: thyroid cancer SISTER (permanent pacemaker placement). FH: melanoma FHx: breast cancer MOTHER (coronary artery disease in her 50's s/p CABG). FH: diabetes mellitus FH: myocardial infarction FH: stroke FATHER FH: kidney disease Psychosocial History Services at Home: None Primary Language: Kazakh ETOH Use: denies use Illicit Drug Use: denies illicit drug use Functional Ability ADLs Independent: dressing, eating, toileting, bathing. Ambulation: independent IADLs Independent: shopping, housework, finances, food prep, telephone, transportation , medication admin. Review of Systems Review of Systems Constitutional: Reports: no symptoms, malaise, weakness (chills). Exam & Diagnostic Data Last 24 Hrs of Vital Signs/I&O Vital Signs Date Time Temp Pulse Resp B/P B/P Pulse O2 O2 Flow FiO2 Mean Ox Delivery Rate 11/21 1753 98.4 74 16 138/71 96 Room Air 11/21 1616 98.5 87 16 136/63 98 Room Air 11/21 1428 96.0 83 20 140/60 99 Room Air 11/21 1337 95 11/21 1318 97.6 80 20 138/64 97 Room Air 11/21 1240 98 Room Air 11/21 1132 97.4 84 20 123/86 98 Room Air Intake & Output 11/21 1600 11/21 0800 01/21 0000 Intake Total Output Total Balance Patient 92.079 kg Weight Weight Reported by Patient Measurement Method Physical Exam General Appearance Alert, Oriented X3, Cooperative, No Acute Distress Neck Supple, No JVD Cardiovascular Normal S1, Normal S2 Lungs Clear to Auscultation, Normal Air Movement Abdomen Soft, No Tenderness Neurological Normal Speech Extremities No Clubbing, No Cyanosis, No Edema, right knee, tender, swelling, erythema Vascular Normal Pulses, Pulses Symmetrical Body Front and Back (Adult) 1) Tender, swollen erythema Last 24 Hrs of Labs/Robert: Laboratory Tests 11/21/17 1149: Anion Gap 16, Estimated GFR > 60, BUN/Creatinine Ratio 24.4, Glucose 155 H, Calcium 9.0, Total Bilirubin 0.3, AST 14, ALT 23, Alkaline Phosphatase 81, Troponin I < 0.01, Total Protein 6.7, Albumin 3.9, Globulin 2.8, Albumin/ Globulin Ratio 1.4, D-Dimer High Sensitivty 317 H, CBC w Diff NO MAN DIFF REQ, RBC 5.90 H, MCV 63.4 L, MCH 19.6 L, RDW 15.3 H, MPV 9.8, Gran % 75.7 H, Lymphocytes % 17.6 L, Monocytes % 5.5, Eosinophils % 0.8, Basophils % 0.4, Absolute Granulocytes 6.4, Absolute Lymphocytes 1.5, Absolute Monocytes 0.5, Absolute Eosinophils 0.1, Absolute Basophils 0, PUBS MCHC 31.0 L Microbiology 11/21 1420 NASOPHARYN: Influenza Virus A & B Rapid Smear - COMP Diagnostic Data CXR Results Chest x-ray -did not show any acute cardiopulmonary process.There is moderate spondylosis mid and lower dorsal spine. Assessment/Plan Assessment: Patient is a 77-year-old female, BIBA from the [facility] for sudden onset of shortness of breath, followed by an episode of syncope. ED course - Vital signs at the time of presentation, temperature 97.4, pulse 84, respiratory 20, blood pressure 122/86, SPO2 98% on room air. Orthostatic vitals-blood pressure lying 130/60, blood pressure in sitting 120/70, blood pressure in standing 140/80. Blood workup showed hemoglobin 9.6, hematocrit 37.4, MCV 63.4, platelet count 143, granulocyte 75.7, sodium 135, potassium 4.5, chloride 106, anion gap 16, BUN 22, creatinine 0.9, glucose 155, troponin less than 0.01, total protein 6.7, albumin 3.9, globulin 2.8 EKG showed -will follow Flu Swab -negative for flu CT scan of the head -No acute intracranial process seen. Chest x-ray -did not show any acute cardiopulmonary process.There is moderate spondylosis mid and lower dorsal spine. Echocardiogram(04/01/2017)-LVEF 65%, mild MR, mild TR Assessment and plan - Patient presented with sudden onset of severe shortness of breath, followed by Dr. polanco. According to her, she stopped taking Symbicort, as it was not needed. We did a d-dimer, which was 317, not very conclusive. She was compliant with anticoagulant. It doesn't seems to be PE. She denies for any anorexia, diarrhea, fever, and her orthostatic blood pressure was also normal, so it to rule out dehydration. She also denies of any chest pain and troponins were negative which ruled out acute NE. We'll admit her into telemetry floor, watch for any episodes of arrhythmia, continue her home medication and start on TRC/nebulization. Syncope under evaluation, possible vasovagal * We'll observe the patient to telemetry floor * We will do serial troponins and EKG * We will consider cardiology if needed. Right knee swelling, possible septic arthritis * Blood workup did not show any evidence of infection/septicemia. We will follow off antibiotic * We will follow orthopedic recommendations * PT * Pain medication according to the pain scale History of DVT/PE * We'll continue tablet Xarelto 20 milligrams once daily. * Patient is still having IVC filter and she was told to remove the IVC filter in December. * We discussed with the orthopedics/dog catcher for further evaluation/removal of IVC filter. COPD not on home oxygen - * TRC/nebulization * Continue Symbicort as before Microcytic hypochromic anemia -AVINASH * Continue iron supplementation Type 2 diabetes - * We'll hold all oral medication. * Insulin according to the sliding scale. * Fingerstick 3 times a day/at bedtime CODE STATUS-full code. DVT prophylaxis-Xarelto Diet - heart healthy diet/type II carbohydrate diet As Ranked By This Provider Problem List: 1. History of arthroplasty of right knee 2. S/P total knee arthroplasty 3. Syncope and collapse Core Measures/Misc (07/18) Acute Coronary Syndrome ACS Diagnosis: No Congestive Heart Failure Congestive Heart Failure Diagnosis No Cerebrovascular Accident CVA/TIA Diagnosis: No VTE (View Protocol) VTE Risk Factors Age>40 No Mechanical VTE Prophylaxis d/t N/A MechProphylax Ordered No VTE Pharm Prophylaxis d/t NA PharmProphylax ordered Sepsis (View protocol) Sepsis Present: No Arturo Mendoza MD 11/21/17 2303: Attending MD Review Statement Attending Statement Attending MD Statement: examined this patient, discuss w/resident/PA/DEVELOPMENT REPRESENTATIVE, agreed w/resident/PA/DEVELOPMENT REPRESENTATIVE, discussed with family, reviewed EMR data (avail) Attending Assessment/Plan: Patient is a 77-year-old female who will be monitored in observation status due to complaints of sudden onset SOB with an episode of syncope. Happened while the patient was sitting in the [facility]. CT head negative. Rapid flu negative. CXR negative for acute CP process. Echo in 04/01/2017 - showed EF of 65%. OBS patient - initial troponins negative. Also found to have right knee swelling - ?septic joint - s/p knee replacement on Sep 2017 - follow up on orthopedic recommendations. Repeat EKG and telemetry monitoring. Consider US carotids and holter monitoring (As outpatient if needed)
[2017-11-21 21:32] VITALS: BP 150/68
[2017-11-22 06:24] VITALS: BP 150/70
[2017-11-22 07:14] VITALS: BP 142/72
--- NOTE | 2017-11-22 08:27 | PN- Housestaff ---
Assessment/Plan Assessment: Patient is a 77-year-old female, BIBA from the [facility] for sudden onset of shortness of breath, followed by an episode of syncope. ED course - Vital signs at the time of presentation, temperature 97.4, pulse 84, respiratory 20, blood pressure 122/86, SPO2 98% on room air. Orthostatic vitals-blood pressure lying 130/60, blood pressure in sitting 120/70, blood pressure in standing 140/80. Blood workup showed hemoglobin 9.6, hematocrit 37.4, MCV 63.4, platelet count 143, granulocyte 75.7, sodium 135, potassium 4.5, chloride 106, anion gap 16, BUN 22, creatinine 0.9, glucose 155, troponin less than 0.01, total protein 6.7, albumin 3.9, globulin 2.8 EKG showed -will follow Flu Swab -negative for flu CT scan of the head -No acute intracranial process seen. Chest x-ray -did not show any acute cardiopulmonary process.There is moderate spondylosis mid and lower dorsal spine. Echocardiogram(04/01/2017)-LVEF 65%, mild MR, mild TR Assessment and plan - Patient presented with sudden onset of severe shortness of breath, followed by Dr. polanco. According to her, she stopped taking Symbicort, as it was not needed. We did a d-dimer, which was 317, not very conclusive. She was compliant with anticoagulant. It doesn't seems to be PE. She denies for any anorexia, diarrhea, fever, and her orthostatic blood pressure was also normal, so it to rule out dehydration. She also denies of any chest pain and troponins were negative which ruled out acute [place]. We'll admit her into telemetry floor, watch for any episodes of arrhythmia, continue her home medication and start on TRC/nebulization. Syncope under evaluation, possible vasovagal * We'll admit the patient to telemetry floor * We will do serial troponins and EKG * We will consider cardiology if needed. Right knee swelling, possible septic arthritis * Blood workup did not show any evidence of infection/septicemia. We will follow off antibiotic * We will follow orthopedic recommendations * PT * Pain medication according to the pain scale History of DVT/PE * We'll continue tablet Xarelto 20 milligrams once daily. * Patient is still having IVC filter and she was told to remove the IVC filter in December. 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 COPD not on home oxygen - * TRC/nebulization * Continue Symbicort as before Microcytic hypochromic anemia -AVINASH * Continue iron supplementation Type 2 diabetes - * We'll hold all oral medication. * Insulin according to the sliding scale. * Fingerstick 3 times a day/at bedtime CODE STATUS-full code. DVT prophylaxis-Xarelto Diet - heart healthy diet/type II carbohydrate diet
--- NOTE | 2017-11-22 08:44 | PN- Orthopedic ---
Surgical Brief Attending Note Brief Attending Note: Patient seen us morning. Complaining of some right knee discomfort. She status post right total knee arthroplasty in [place] [address] Rojas. She's noticed swelling and pain. She denies fever or chills. She was given to the hospital for a syncopal episode. She's last seen Dr. Rojas in October. On pills and the patient awake alert and oriented. Examination right knee reveals a 1+ effusion. The knee is slightly warm to touch. She is tender to palpation medially about the knee and medial femoral condyle. She is able to passively range her motion with mild discomfort. There is no gross instability on examination of the knee. The extremity is or rest intact. There is no Swelling or erythema. Assessment status post right total knee plastic with knee swelling. I will speak with Dr. Rojas about what he would like to do as far as treatment options.
[2017-11-22 09:41] VITALS: BP 130/62
--- NOTE | 2017-11-22 10:14 | Cons- Orthopedic ---
General Information and HPI Consulting Request Date of Consult: 11/22/17 Requested By: Princess SHOOK,Kiley Rodriguez History of Present Illness: 77 yr old female with right knee pain s/p syncopal episode. patient was seated and had syncopal episode yesterday. since then patient has right knee pain. patient is approximately 2months s/p right tka. states had no issues with knee until yesterday. states can weight bear on leg no issues. no elevated wbc or fevers. Allergies/Medications Allergies: Coded Allergies: methylprednisolone (From Solu-Medrol) (Intermediate, HIVES AND PALPITATIONS 01/14) clove (HIVES 12/29/15) kimberli (HIVES 12/29/15) thyme (HIVES 12/29/15) hydrocodone (NAUSEA 12/29/15) ibuprofen (GI UPSET 12/29/15) lisinopril (DRY COUGH 12/29/15) nitrofurantoin (MAKES HER CRAZY 05/03/16) Uncoded Allergies: CHIVES (HIVES 01/05/16) Home Med List: Aspirin (Ecotrin*) 81 MG TABLET.DR 1 TAB PO DAILY HEART/BLOOD (Reported) Budesonide/Formoterol Fumarate (Symbicort 160-4.5 Mcg Inhaler) 160 MCG-4.5 MCG/ ACTUATION HFA.AER.AD 2 PUF INH PRN ASTHMA (Reported) Glimepiride 1 MG TABLET 1 TAB PO DAILY GM (Reported) Liraglutide (Victoza 2-Kuldeep) 0.6 MG/0.1 ML (18 MG/3 ML) PEN.INJCTR 1.2 MG SC DAILY DM (Reported) Losartan Potassium 50 MG TABLET 1 TAB PO DAILY BP (Reported) Metformin HCl (Metformin HCl ER) 500 MG TAB.ER.24H 2 TAB PO BID DM (Reported) Omeprazole Magnesium (Prilosec Otc) 20 MG TABLET.DR 1 TAB PO DAILY GI ( Reported) Pravastatin Sodium 80 MG TABLET 1 TAB PO DAILY CHOLESTEROL (Reported) Rivaroxaban (Xarelto) 20 MG TABLET 1 TAB PO DAILY BLOOD THINNER (Reported) with food Solifenacin Succinate (Vesicare) 5 MG TABLET 1 TAB PO BID BLADDER (Reported) Past History Medical History Blood Transfusion Hx: Yes Neurological: TIA, vertigo, STROKE `11 RESIDUAL L. 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 FH: lung cancer FH: thyroid cancer SISTER (permanent pacemaker placement). FH: melanoma FHx: breast cancer MOTHER (coronary artery disease in her 50's s/p CABG). FH: diabetes mellitus FH: myocardial infarction FH: stroke FATHER FH: kidney disease Psychosocial History Services at Home: None Primary Language: Greek Smoking Status: Former Smoker ETOH Use: denies use Illicit Drug Use: denies illicit drug use Functional Ability ADLs Independent: dressing, eating, toileting, bathing. Ambulation: independent IADLs Independent: shopping, housework, finances, food prep, telephone, transportation , medication admin. Review of Systems Review of Systems: see chart Exam & Diagnostic Data Vital Signs and I&O Vital Signs Date Time Temp Pulse Resp B/P B/P Pulse O2 O2 Flow FiO2 Mean Ox Delivery Rate 11/22 0941 63 130/62 11/22 0800 Room Air 11/22 0714 97.6 95 18 142/72 100 Room Air 11/22 0624 97.9 74 18 150/70 98 Room Air 11/21 2132 97.5 101 18 150/68 91 11/21 1843 98.7 77 16 154/82 96 Room Air 11/21 1753 98.4 74 16 138/71 96 Room Air 11/21 1616 98.5 87 16 136/63 98 Room Air 11/21 1428 96.0 83 20 140/60 99 Room Air 11/21 1337 95 11/21 1318 97.6 80 20 138/64 97 Room Air 11/21 1240 98 Room Air 11/21 1132 97.4 84 20 123/86 98 Room Air Intake & Output 11/22 0800 11/22 0000 11/21 1600 11/21 0811/21 0000 Intake Total 200 240 Output Total Balance 200 240 Intake, Oral 200 240 Patient 203 lb 203 lb Weight Weight Reported by Patient Measurement Method Physical Exam: 0-110 arom of right knee. mild warmth no erythema. incision c/d/i. tender over medial condyle. no effusion. no ligamentous instability. Assessment/Plan Assessment/Plan s/p right tka -obtain x-rays right knee ap/lat -f/u in our office as outpatient no clinical signs of septic arthritis Consult Acknowledgment - Thank you for your consult request.
--- NOTE | 2017-11-22 11:48 | Cons- Cardiology ---
General Information and HPI Consulting Request Date of Consult: 11/22/17 Requested By: Kiley Sánchez MD Reason for Consult: Syncope. Source of Information: patient, old records Exam Limitations: poor historian History of Present Illness: Mrs. 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 She states that she had been feeling well prior to going to [facility] and had breakfast with her son, but while in [facility] began to feel poorly and told her son that she thought she might pass out and shortly thereafter she slumped in her chair, but did not hit the floor as her son kept this from happening. When she "came to" she was initially unaware of her surroundings, but shortly thereafter her mental faculties returned. She also states that on several occasions last week following physical therapy, which she is undergoing for her right total knee replacement performed 2016, she became nauseated and lightheaded. When this occurred on Wednesday (11/19) she returned home at ~1:00 p.m. she took a nap and when she awakened at ~ 3:00 p.m she checked her sugar and found it to be 52 mg/dl and 42 mg/dl when she rechecked it. This prompted a call to her PCP (Shabbir Trevino M.D.) who had her change her diabetic regimen and set up an appointment with her salesforce administrator ( Juan Daniel M.D.). Cardiac catheterization was performed on 02/10/2012 following a positive imaging stress test that revealed: LM-short and patent, LAD-proximal 30% stenosis followed by luminal irregularities, LCx luminal irregularities, RCA-dominant with mid segment luminal irregularities, and EF=55%. Allergies/Medications Allergies: Coded Allergies: methylprednisolone (From Solu-Medrol) (Intermediate, HIVES AND PALPITATIONS 01/14) clove (HIVES 12/29/15) kimberli (HIVES 12/29/15) thyme (HIVES 12/29/15) hydrocodone (NAUSEA 12/29/15) ibuprofen (GI UPSET 12/29/15) lisinopril (DRY COUGH 12/29/15) nitrofurantoin (MAKES HER CRAZY 05/03/16) Uncoded Allergies: CHIVES (HIVES 01/05/16) Home Med List: Aspirin (Ecotrin*) 81 MG TABLET.DR 1 TAB PO DAILY HEART/BLOOD (Reported) Budesonide/Formoterol Fumarate (Symbicort 160-4.5 Mcg Inhaler) 160 MCG-4.5 MCG/ ACTUATION HFA.AER.AD 2 PUF INH PRN ASTHMA (Reported) Glimepiride 1 MG TABLET 1 TAB PO DAILY GM (Reported) Liraglutide (Victoza 2-Kuldeep) 0.6 MG/0.1 ML (18 MG/3 ML) PEN.INJCTR 1.2 MG SC DAILY DM (Reported) Losartan Potassium 50 MG TABLET 1 TAB PO DAILY BP (Reported) Metformin HCl (Metformin HCl ER) 500 MG TAB.ER.24H 2 TAB PO BID DM (Reported) Omeprazole Magnesium (Prilosec Otc) 20 MG TABLET.DR 1 TAB PO DAILY GI ( Reported) Pravastatin Sodium 80 MG TABLET 1 TAB PO DAILY CHOLESTEROL (Reported) Rivaroxaban (Xarelto) 20 MG TABLET 1 TAB PO DAILY BLOOD THINNER (Reported) with food Solifenacin Succinate (Vesicare) 5 MG TABLET 1 TAB PO BID BLADDER (Reported) Review of Systems Review of Systems: A 14 point system review was obtained and was noncontributory, other than as above. Past History Travel History Traveled to [place] past 21 day No Medical History Blood Transfusion Hx: Yes Neurological: TIA, vertigo, STROKE `11 RESIDUAL L. 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 FH: lung cancer FH: thyroid cancer SISTER (permanent pacemaker placement). FH: melanoma FHx: breast cancer MOTHER (coronary artery disease in her 50's s/p CABG). FH: diabetes mellitus FH: myocardial infarction FH: stroke FATHER FH: kidney disease Psychosocial History Services at Home: None Primary Language: Kinyarwanda Smoking Status: Former Smoker ETOH Use: denies use Illicit Drug Use: denies illicit drug use Functional Ability ADLs Independent: dressing, eating, toileting, bathing. Ambulation: independent IADLs Independent: shopping, housework, finances, food prep, telephone, transportation , medication admin. Exam & Diagnostic Data Vital Signs and I&O Vital Signs Date Time Temp Pulse Resp B/P B/P Pulse O2 O2 Flow FiO2 Mean Ox Delivery Rate 11/22 1039 63 130/62 11/22 0941 63 130/62 11/22 0800 Room Air 11/22 0714 97.6 95 18 142/72 100 Room Air 11/22 0624 97.9 74 18 150/70 98 Room Air 11/21 2132 97.5 101 18 150/68 91 11/21 1843 98.7 77 16 154/82 96 Room Air 11/21 1753 98.4 74 16 138/71 96 Room Air 11/21 1616 98.5 87 16 136/63 98 Room Air 11/21 1428 96.0 83 20 140/60 99 Room Air 11/21 1337 95 11/21 1318 97.6 80 20 138/64 97 Room Air 11/21 1240 98 Room Air Intake & Output 11/22 1600 11/22 0800 11/22 0000 11/21 1600 11/21 0800 11/21 0000 Intake Total 200 240 Output Total Balance 200 240 Intake, Oral 200 240 Patient 203 lb 203 lb Weight Weight Reported by Patient Measurement Method Physical Exam: Well-developed, overweight elderly female in no acute distress. Vital signs: See above. HEENT: Normocephalic, atraumatic, EOMI, slightly dry mucous membranes. Neck: No JVD, no bruits. Lungs: Clear to auscultation bilaterally. Heart: S1, S2 with a grade 1-2/6 systolic murmur best heard at the base. No gallop or rub. PMI 5th ICS at [facility]. Abdomen: Soft, nontender, positive bowel sounds. Extremities: No edema. Labs/Robert Results: Laboratory Tests 11/22 11/21 11/21 1045 1810 1149 Chemistry Sodium (137 - 145 mmol/L) Pending 145 Potassium (3.5 - 5.1 mmol/L) Pending 4.5 Chloride (98 - 107 mmol/L) Pending 106 Carbon Dioxide (22 - 30 mmol/L) Pending 23 Anion Gap (5 - 16) Pending 16 BUN (7 - 17 mg/dL) Pending 22 H Creatinine (0.5 - 1.0 mg/dL) Pending 0.9 Estimated GFR (>60 ml/min) > 60 BUN/Creatinine Ratio (7 - 25 %) Pending 24.4 Glucose (65 - 99 mg/dL) 155 H Calcium (8.4 - 10.2 mg/dL) 9.0 Iron (37 - 170 ug/dL) 43 TIBC (265 - 497 ug/dL) 381 Ferritin (11.1 - 264 ng/mL) 16.4 Total Bilirubin (0.2 - 1.3 mg/dL) 0.3 AST (14 - 36 U/L) 14 ALT (9 - 52 U/L) 23 Alkaline Phosphatase (<127 U/L) 81 Troponin I (< 0.11 ng/ml) 0.01 < 0.01 Total Protein (6.3 - 8.2 g/dL) 6.7 Albumin (3.5 - 5.0 g/dL) 3.9 Globulin (1.9 - 4.2 gm/dL) 2.8 Albumin/Globulin Ratio (1.1 - 2.2 %) 1.4 Coagulation D-Dimer High Sensitivty (0 - 243 ng/ml) 317 H Hematology CBC w Diff Pending NO MAN DIFF REQ WBC (4.8 - 10.8 /CUMM) Pending 8.4 RBC (4.20 - 5.40 /CUMM) Pending 5.90 H Hgb (12.0 - 16.0 G/DL) Pending 11.6 L Hct (37 - 47 %) Pending 37.4 MCV (81.0 - 99.0 FL) Pending 63.4 L MCH (27.0 - 31.0 PG) Pending 19.6 L RDW (11.5 - 14.5 %) Pending 15.3 H Plt Count (130 - 400 /CUMM) Pending 143 MPV (7.4 - 10.4 FL) Pending 9.8 Gran % (42.2 - 75.2 %) 75.7 H Lymphocytes % (20.5 - 51.1 %) 17.6 L Monocytes % (1.7 - 9.3 %) 5.5 Eosinophils % (0 - 5 %) 0.8 Basophils % (0.0 - 2.0 %) 0.4 Absolute Granulocytes (1.4 - 6.5 /CUMM) 6.4 Absolute Lymphocytes (1.2 - 3.4 /CUMM) 1.5 Absolute Monocytes (0.10 - 0.60 /CUMM) 0.5 Absolute Eosinophils (0.0 - 0.7 /CUMM) 0.1 Absolute Basophils (0.0 - 0.2 /CUMM) 0 PUBS MCHC (33.0 - 37.0 G/DL) Pending 31.0 L ESR Westergren Pending Diagnostic Data EKG Results 11/21/2017: Normal sinus rhythm and otherwise within normal limits. CXR Results CXR: 11/21/2017: No acute cardiopulmonary process seen. There is moderate spondylosis mid and lower dorsal spine. Other Results Carotid ultrasound (11/22/2617: No acute findings within the carotid arteries compared to 05/02/2016. No interval development of significant atherosclerotic plaque or hemodynamically significant ICA stenosis. Head CT 11/21/2017: No acute intracranial process. Assessment/Plan Assessment/Plan 77 [id number] w/ hx of COPD, recurrent PNA, GERD, OA, HTN, HLD, DM, TIA, CVA s/p thrombolytic therapy w/ residual L-sided weakness, DVT/PE on AC, LVH, mild CAD, previous "HFpEF" & syncope who presented to the ED w/ c/o SOB & syncope. Based on her prodromal symptoms one has to suspect vasovagal etiology for her presentation, especially since she has had previous episodes. Unfortunately, she also has a risk equivalent and multiple risk factors for coronary artery disease so the possibility of malignant or potentially malignant dysrhythmia has to be included in the differential diagnosis. Finally, she also had relatively recent knee surgery which precluded normal activity and has a history of pulmonary embolism so need to consider the possibility of deep venous thrombosis, even though she is on anticoagulation. Her last echocardiogram was performed on 03/31/2017 and revealed normal systolic and diastolic ventricular function and no impediment to left ventricular outflow i.e. HOCM or . Recommendations: * Telemetry admission, follow-up troponins, follow-up ECG. * Gently hydrate. * Endocrine consultation with Nadia Daniel M.D. for diabetes management. * Consider repeat echocardiogram to reassess left ventricular systolic/diastolic function, right ventricular function, estimated PA pressure, etc. * Check glycosylated hemoglobin A1c, free T4, TSH, magnesium, etc. * Exclude DVT/PE. * DVT prophylaxis. Further recommendations will follow, Thank you. Consult Acknowledgment - Thank you for your consult request. - Thank you for your consult request.
--- NOTE | 2017-11-22 14:06 | ULTRASOUND REPORT ---
EXAMINATION: US DUPLEX CAROTID AND VERTEBRAL CLINICAL INFORMATION: Syncope. Evaluate for carotid stenosis. COMPARISON: Carotid ultrasound from 05/02/2016. TECHNIQUE: Real-time ultrasound and Doppler techniques (integrating B-mode 2D vascular images, Doppler spectral analysis and color flow Doppler imaging) were utilized to interrogate the extracranial carotid and vertebral arteries bilaterally. The degree of stenosis determined by criteria similar to NASCET. FINDINGS: RIGHT VESSELS - There is normal antegrade flow within the carotid and vertebral arteries. Again noted is minimal atherosclerotic plaque of the carotid bulb. There is mild intimal thickening of the wall of the CCA. The examined vessels of the neck are widely patent. Doppler derived peak systolic velocity measurements (cm/sec) were as follows: Distal CCA: 76 ICA: 53 (with end diastolic of 19) ECA: 66 Vertebral: 80 ICA/CCA ratio is 0.7 LEFT VESSELS - There is normal antegrade flow within the carotid and vertebral arteries. There is intimal thickening of the wall of the CCA and there is no significant plaque deposition identified in the carotid bulb or proximal ICA. The examined vessels of the neck are widely patent. Doppler derived peak systolic velocity measurements (cm/sec) were as follows: Distal CCA: 60 ICA: 77 (with end diastolic of 20) ECA: 99 Vertebral: 55 ICA/CCA ratio is 1.28 IMPRESSION: No acute findings within the carotid arteries compared to 05/02/2016. No interval development of significant atherosclerotic plaque or hemodynamically significant ICA stenosis.
[2017-11-22 14:14] LABS: ABSOLUTE BASOPHIL COUNT 0 /CUMM (0.0-0.2); ABSOLUTE EOSINOPHIL COUNT 0.1 /CUMM (0.0-0.7); ABSOLUTE GRANULOCYTE CT 2.6 /CUMM (1.4-6.5); ABSOLUTE LYMPH COUNT 1.8 /CUMM (1.2-3.4); ABSOLUTE MONOCYTE COUNT 0.3 /CUMM (0.10-0.60); BASOPHIL % 0.7 % (0.0-2.0); EOSINOPHIL % 2.5 % (0-5); GRANULOCYTE % 53.5 % (42.2-75.2); HEMATOCRIT 33.2 % (37-47); MEAN CORPUSCULAR HGB 19.5 PG (27.0-31.0); MEAN CORPUSCULAR HGB CONC 30.7 G/DL (33.0-37.0); MEAN CORPUSCULAR VOLUME 63.3 FL (81.0-99.0); MEAN PLATELET VOLUME 10.2 FL (7.4-10.4); PLATELET COUNT 183 /CUMM (130-400); RBC DISTRIBUTION WIDTH 15.1 % (11.5-14.5); RED BLOOD CELL CT 5.25 /CUMM (4.20-5.40); WHITE BLOOD CELL COUNT 4.9 /CUMM (4.8-10.8)
[2017-11-22 14:35] VITALS: BP 138/70
--- NOTE | 2017-11-22 16:43 | PN-Observation ---
Garth Winchester MD,Ami 11/22/17 1633: Observation Note Observation Note _ I have personally examined ADARSH BOYD. her disposition is uncertain at this time. Before a determination can be made, she requires continued observation for the following reasons syncope. Assessment/Plan Assessment: Patient is a 77-year-old female, BIBA from the [facility] for sudden onset of shortness of breath, followed by an episode of syncope. ED course - Vital signs at the time of presentation, temperature 97.4, pulse 84, respiratory 20, blood pressure 122/86, SPO2 98% on room air. Orthostatic vitals-blood pressure lying 130/60, blood pressure in sitting 120/70, blood pressure in standing 140/80. Blood workup showed hemoglobin 9.6, hematocrit 37.4, MCV 63.4, platelet count 143, granulocyte 75.7, sodium 135, potassium 4.5, chloride 106, anion gap 16, BUN 22, creatinine 0.9, glucose 155, troponin less than 0.01, total protein 6.7, albumin 3.9, globulin 2.8 EKG showed -will follow Flu Swab -negative for flu CT scan of the head -No acute intracranial process seen. Chest x-ray -did not show any acute cardiopulmonary process.There is moderate spondylosis mid and lower dorsal spine. Echocardiogram(04/01/2017)-LVEF 65%, mild MR, mild TR Assessment and plan - Patient presented with sudden onset of severe shortness of breath, followed by Dr. polanco. According to her, she stopped taking Symbicort, as it was not needed. We did a d-dimer, which was 317, not very conclusive. She was compliant with anticoagulant. It doesn't seems to be PE. She denies for any anorexia, diarrhea, fever, and her orthostatic blood pressure was also normal, so it to rule out dehydration. She also denies of any chest pain and troponins were negative which ruled out acute MD. We'll admit her into telemetry floor, watch for any episodes of arrhythmia, continue her home medication and start on TRC/nebulization. Syncope under evaluation, possible vasovagal serial troponins and EKG were done and ACS ruled out. * extend observation in telemetry floor for another 24 hours * Follow cardiology * Repeat echo * Hb A1c, TFT Right knee swelling, possible septic arthritis Blood workup did not show any evidence of infection/septicemia. We will follow off antibiotic, ortho consulted and septic arthritis was not considered. * We will follow orthopedic recommendations * PT History of DVT/PE We'll continue tablet Xarelto 20 milligrams once daily. * Patient is still having IVC filter and she was told to remove the IVC filter in December. * Consider further evaluation/removal of IVC filter. COPD not on home oxygen - * TRC/nebulization * Continue Symbicort as before Microcytic hypochromic anemia -AVINASH * Continue iron supplementation Type 2 diabetes - * We'll hold all oral medication. * Insulin according to the sliding scale. * Fingerstick 3 times a day/at bedtime CODE STATUS-full code. DVT prophylaxis-Xarelto Diet - heart healthy diet/type II carbohydrate diet Problem List: 1. Syncope and collapse Plan: as noted above DVT/Prophylaxis: mechanical, pharmacological Subjective Follow-up For: Syncope Subjective: Patient visited today, was lying in bed comfortably in no acute distress, was alert and oriented. No fever or chills, no shortness of breathing, no chest pain, no other events. Ortho consulted and septic arthritis was ruled out. Review of Systems Constitutional: Reports: see HPI. Objective Last 24 Hrs of Vital Signs/I&O Vital Signs Date Time Temp Pulse Resp B/P B/P Pulse O2 O2 Flow FiO2 Mean Ox Delivery Rate 11/22 1435 98.0 66 20 138/70 97 Room Air 11/22 1039 63 130/62 11/22 0941 63 130/62 11/22 0800 Room Air 11/22 0714 97.6 95 18 142/72 100 Room Air 11/22 0624 97.9 74 18 150/70 98 Room Air 11/21 2132 97.5 101 18 150/68 91 11/21 1843 98.7 77 16 154/82 96 Room Air 11/21 1753 98.4 74 16 138/71 96 Room Air Intake & Output 11/22 1600 11/22 0800 11/22 0000 Intake Total 540 200 240 Output Total Balance 540 200 240 Intake, Oral 540 200 240 Patient 203 lb Weight Physical Exam General Appearance: Alert, Oriented X3, Cooperative, No Acute Distress Skin: No Significant Lesion Skin Temp/Moisture Exam: Warm/Dry Sepsis Skin Exam (color): Normal for Ethnicity HEENT: Atraumatic, EOMI, Mucous Membr. moist/pink Cardiovascular: Regular Rate, Normal S1, Normal S2 Lungs: Clear to Auscultation Abdomen: Soft, No Tenderness Neurological: Normal Speech Extremities: Right knee increased swelling Current Medications: Current Medications Sig/Bull Start time Last Medication Dose Route Stop Time Status Admin Aspirin Buffered 81 MG DAILY 11/21 1542 AC 11/22 PO 1039 Budesonide/ 2 PUF Q12 11/21 1543 AC 11/22 Formoterol Fumarate INH 1039 Ferrous Sulfate 325 MG TID 11/21 1826 AC 11/22 PO 1602 Hydromorphone HCl 1 MG ONCE ONE 11/22 0500 DC 11/22 PO 11/22 0501 0513 Hydromorphone HCl 1 MG ONCE ONE 11/21 2130 DC 11/21 PO 11/21 2130 214 Insulin Aspart 0 TIDAC 11/21 1700 AC SC Losartan Potassium 50 MG DAILY 11/22 1000 AC 11/22 PO 1039 Omeprazole 20 MG DAILY AC 11/22 0700 AC 11/22 PO 0513 Oxybutynin Chloride 5 MG BID 11/21 1544 AC 11/22 PO 1038 Pravastatin Sodium 80 MG DAILY 11/22 1000 AC 11/22 PO 1039 Rivaroxaban 20 MG DAILY 11/22 1000 AC 11/22 PO 1039 Sodium Chloride 1,000 ML Q13H 11/22 1630 AC IV Last 24 Hrs of Labs/Mics: Laboratory Tests 11/22/17 1045: Anion Gap 12, Estimated GFR > 60, BUN/Creatinine Ratio 20.0, Hemoglobin A1c Pending, Magnesium Pending, TSH Pending, Free T4 Pending, CBC w Diff MAN DIFF ORDERED, RBC 5.25, MCV 63.3 L, MCH 19.5 L, RDW 15.1 H, MPV 10.2, Gran % 53.5, Lymphocytes % 36.2, Monocytes % 7.1, Eosinophils % 2.5, Basophils % 0.7, Absolute Granulocytes 2.6, Absolute Lymphocytes 1.8, Absolute Monocytes 0.3, Absolute Eosinophils 0.1, Absolute Basophils 0, Platelet Estimate VERIFIED BY SMEAR, Hypochromic-Microcytic 2+, Poikilocytosis 1+, Anisocytosis 1+, Microcytic Cells 2+, Ovalocytes 1+, PUBS MCHC 30.7 L, ESR Westergren 8 11/21/17 1810: Iron 43, TIBC 381, Ferritin 16.4, Troponin I 0.01 Kiley Sánchez 11/22/17 1707: Attending MD Review Statement Attending Statement Attending MD Statement: examined this patient, discuss w/resident/PA/BREAKER OFF, agreed w/resident/PA/BREAKER OFF, reviewed EMR data (avail), discussed w/nursing, discussed w/ case mgmt Attending Assessment/Plan: carotid ultraousnd negative for acute abnormaility. cardio input appreciated. will see ow she does by tomorrow. if stable and no overnight events on telemetry will dc her home. pt already on xarelto for dvt /pe , will not do any further imaging as pt not a high risk for treatment failure.
--- NOTE | 2017-11-22 17:19 | RADIOLOGY REPORT ---
EXAMINATION: XR KNEE, RIGHT CLINICAL INFORMATION: Status post TKA with knee swelling COMPARISON: 10/02/2017 TECHNIQUE: Two views of the right knee. FINDINGS: There is a total right knee arthroplasty. The distal femoral component articulates appropriately with the tibial plateau and patellar components. No periprosthetic lucency or fracture. Small joint effusion noted. Mild anterior soft tissue swelling. IMPRESSION: Total right knee arthroplasty in typical positioning and alignment. Small joint effusion with mild soft tissue swelling noted.
[2017-11-22 22:15] VITALS: BP 110/70
[2017-11-23 07:39] VITALS: BP 148/66
[2017-11-23 07:51] LABS: ABSOLUTE BASOPHIL COUNT 0 /CUMM (0.0-0.2); ABSOLUTE EOSINOPHIL COUNT 0.1 /CUMM (0.0-0.7); ABSOLUTE GRANULOCYTE CT 3.1 /CUMM (1.4-6.5); ABSOLUTE LYMPH COUNT 1.4 /CUMM (1.2-3.4); ABSOLUTE MONOCYTE COUNT 0.3 /CUMM (0.10-0.60); BASOPHIL % 0.7 % (0.0-2.0); EOSINOPHIL % 1.7 % (0-5); GRANULOCYTE % 62.7 % (42.2-75.2); HEMATOCRIT 32.9 % (37-47); MEAN CORPUSCULAR HGB 19.5 PG (27.0-31.0); MEAN CORPUSCULAR VOLUME 63.1 FL (81.0-99.0); MEAN PLATELET VOLUME 10.4 FL (7.4-10.4); PLATELET COUNT 132 /CUMM (130-400); RBC DISTRIBUTION WIDTH 14.8 % (11.5-14.5); RED BLOOD CELL CT 5.22 /CUMM (4.20-5.40); WHITE BLOOD CELL COUNT 4.9 /CUMM (4.8-10.8)
--- NOTE | 2017-11-23 08:44 | PN-Observation ---
Garth Winchester MD,Ami 11/23/17 0844: Observation Note Observation Note _ I have personally examined ADARSH BOYD. her disposition is uncertain at this time. Before a determination can be made, she requires continued observation for the following reasons syncope. Assessment/Plan Assessment: Patient is a 77-year-old female, BIBA from the [facility] for sudden onset of shortness of breath, followed by an episode of syncope. ED course - Vital signs at the time of presentation, temperature 97.4, pulse 84, respiratory 20, blood pressure 122/86, SPO2 98% on room air. Orthostatic vitals-blood pressure lying 130/60, blood pressure in sitting 120/70, blood pressure in standing 140/80. Blood workup showed hemoglobin 9.6, hematocrit 37.4, MCV 63.4, platelet count 143, granulocyte 75.7, sodium 135, potassium 4.5, chloride 106, anion gap 16, BUN 22, creatinine 0.9, glucose 155, troponin less than 0.01, total protein 6.7, albumin 3.9, globulin 2.8 EKG showed -will follow Flu Swab -negative for flu CT scan of the head -No acute intracranial process seen. Chest x-ray -did not show any acute cardiopulmonary process.There is moderate spondylosis mid and lower dorsal spine. Echocardiogram(04/01/2017)-LVEF 65%, mild MR, mild TR Assessment and plan - Patient presented with sudden onset of severe shortness of breath, followed by Dr. polanco. According to her, she stopped taking Symbicort, as it was not needed. We did a d-dimer, which was 317, not very conclusive. She was compliant with anticoagulant. It doesn't seems to be PE. She denies for any anorexia, diarrhea, fever, and her orthostatic blood pressure was also normal, so it to rule out dehydration. She also denies of any chest pain and troponins were negative which ruled out acute IL. We'll admit her into telemetry floor, watch for any episodes of arrhythmia, continue her home medication and start on TRC/nebulization. Syncope under evaluation, possible vasovagal serial troponins and EKG were done and ACS ruled out. * Follow cardiology * Follow repeat echo * Hb A1c, TFT Right knee swelling, possible septic arthritis Blood workup did not show any evidence of infection/septicemia. We will follow off antibiotic, ortho consulted and septic arthritis was not considered. * We will follow orthopedic recommendations in outpatient * PT History of DVT/PE We'll continue tablet Xarelto 20 milligrams once daily. * Patient is still having IVC filter and she was told to remove the IVC filter in December. * Will continue to follow in outpatient evaluation/removal of IVC filter. COPD not on home oxygen - * TRC/nebulization * Continue Symbicort as before Microcytic hypochromic anemia -AVINASH * Continue iron supplementation Type 2 diabetes - * We'll hold all oral medication. * Insulin according to the sliding scale. * Fingerstick 3 times a day/at bedtime - will holed one of meds (Glip) considering low blood sugar on wednesday with recommendations to follow with Dr Daniel and PCP regarding restarting meds. CODE STATUS-full code. DVT prophylaxis-Xarelto Diet - heart healthy diet/type II carbohydrate diet Problem List: 1. Syncope and collapse Plan: as noted above DVT/Prophylaxis: mechanical, pharmacological Subjective Follow-up For: syncope Tele-Events Since Last Visit: nsr 60-62 Subjective: Patient visited today, was lying in bed comfortably in no acute distress, was alert and oriented. No fever or chills, no shortness of breathing, no chest pain, no other events. Ortho consulted and septic arthritis was ruled out. Magnesium level was low, could be related to PPI, was planned to discharge today with Magnesium tab. Dr Gonzales called for recommendations regarding discharge. At 3:50 materials and processes manager infromed me that Dr Gonzales's office called and talked with Nurse Mena, recommended no further interventation and current medications. Patient was then discharged with recommendations below: Please follow-up with your PCP within one week of discharge. Please follow with the orthopedic surgeon within 1 week of discharge regarding any swelling Please follow-up with your teacher tutor within 1 week of discharge regarding adjustment of your medication, please note on a few medicationS was stopped temporarily Review of Systems Constitutional: Reports: no symptoms. Objective Last 24 Hrs of Vital Signs/I&O Vital Signs Date Time Temp Pulse Resp B/P B/P Pulse O2 O2 Flow FiO2 Mean Ox Delivery Rate 11/23 0918 74 140/74 11/23 0915 74 140/74 11/23 0800 Room Air 11/23 0739 97.5 75 20 148/66 97 Room Air 11/22 2215 97.6 70 20 110/70 94 11/22 1435 98.0 66 20 138/70 97 Room Air Intake & Output 11/23 1600 11/23 0800 11/23 0000 Intake Total 700 790 Output Total Balance 700 790 Intake, IV 600 310 Intake, Oral 100 480 Physical Exam General Appearance: Alert, Oriented X3, Cooperative, No Acute Distress Skin: No Significant Lesion Skin Temp/Moisture Exam: Warm/Dry Sepsis Skin Exam (color): Normal for Ethnicity HEENT: Atraumatic, EOMI, Mucous Membr. moist/pink Cardiovascular: Regular Rate, Normal S1, Normal S2 Lungs: Clear to Auscultation Abdomen: Soft, No Tenderness Extremities: Right knee swelling mild and midl redness, scar of surgery Current Medications: Current Medications Sig/Bull Start time Last Medication Dose Route Stop Time Status Admin Aspirin Buffered 81 MG DAILY 11/21 1542 11/23 PO 0918 Budesonide/ 2 PUF Q12 11/21 1543 11/23 Formoterol Fumarate INH 0913 Ferrous Sulfate 325 MG TID 11/21 1826 AC 11/23 PO 0935 Insulin Aspart 0 TIDAC 11/21 1700 AC 11/22 SC 1757 Losartan Potassium 50 MG DAILY 11/22 1000 AC 11/23 PO 0915 Magnesium Oxide 400 MG BID 11/22 1700 11/23 PO 0916 Magnesium Sulfate 1 GM Q2H 11/23 0900 AC 11/23 Dextrose/Water 100 ML IV 11/23 1259 1141 Omeprazole 20 MG DAILY AC 11/22 0700 AC 11/23 PO 0616 Oxybutynin Chloride 5 MG BID 11/21 1544 11/23 PO 0914 Pravastatin Sodium 80 MG DAILY 11/22 1000 AC 11/23 PO 0916 Rivaroxaban 20 MG DAILY 11/22 1000 AC 11/23 PO 0916 Sodium Chloride 1,000 ML Q13H 11/22 1630 DC 11/23 IV 0640 Last 24 Hrs of Labs/Mics: Laboratory Tests 11/23/17 0705: Anion Gap 14, Estimated GFR > 60, BUN/Creatinine Ratio 21.3, Magnesium 1.2 L, CBC w Diff NO MAN DIFF REQ, RBC 5.22, MCV 63.1 L, MCH 19.5 L, RDW 14.8 H, MPV 10.4, Gran % 62.7, Lymphocytes % 27.8, Monocytes % 7.1, Eosinophils % 1.7, Basophils % 0.7, Absolute Granulocytes 3.1, Absolute Lymphocytes 1.4, Absolute Monocytes 0.3, Absolute Eosinophils 0.1, Absolute Basophils 0, PUBS MCHC 31.0 L Kiley Sánchez 11/23/17 1330: Attending MD Review Statement Attending Statement Attending MD Statement: examined this patient, discuss w/resident/PA/INFORMATION CODER, agreed w/resident/PA/INFORMATION CODER, reviewed EMR data (avail) Attending Assessment/Plan: pt seen and examined. Cardiology input appreciated. Await repeat echo results. Carotid ultrasound - no hemodynamic stenosis. Hypomagnesemia- replace aggressively. given iv and po. pt will be dced on po supplementation. if echo results are ok then plan will be to dc her . ambulate and see how she does before discharge. d/w pt the care plan.
[2017-11-23 09:18] VITALS: BP 140/74
[2017-11-23] MEDS ORDERED: MAGNESIUM OXID400 M1 PO ×2 (10:33→15:58)
--- NOTE | 2017-11-23 10:35 | PN- Cardiology ---
Subjective Subjective: * Minimal lightheadedness today. * sinus rhythm Objective Vital Signs and I&Os Vital Signs Date Time Temp Pulse Resp B/P B/P Pulse O2 O2 Flow FiO2 Mean Ox Delivery Rate 11/23 0918 74 140/74 11/23 0915 74 140/74 11/23 0800 Room Air 11/23 0739 97.5 75 20 148/66 97 Room Air 11/22 2215 97.6 70 20 110/70 94 11/22 1435 98.0 66 20 138/70 97 Room Air 11/22 1039 63 130/62 Intake & Output 11/23 1600 11/23 0800 11/23 0000 11/22 1600 11/22 0800 11/22 0000 Intake Total 700 790 540 200 240 Output Total Balance 700 790 540 200 240 Intake, IV 600 310 Intake, Oral 100 480 540 200 240 Patient 203 lb Weight Physical Exam: General: WD/WN female in NAD; alert and oriented x 3 Neck: no JVD Heart: RRR Lungs: clear bilaterally Extremities: no edema Assessment/Plan Assessment/Plan * Patient reports variable blood glucose measurements lately. If elevated she could have become dehydrated and if low she may have had a hypoglycemic reaction with nausea. As such, this patient may have experienced either dehydration or dehydration combined with a vasavagal event following her episode of nausea. No arrhythmias have been noted on telemetry. Unfortunately, I do not see orthostatic BP measurements of blood glucose upon presentation to the ER. The patient is improved after receiving saline. Continue her current dose of Losartan. Continue telemetry? Yes
--- NOTE | 2017-11-23 10:42 | Patient Discharge Instructions ---
Discharge Instructions General Discharge Information You were seen/treated for: Syncope Hypomagnesemia Watch for these problems: Increased swelling, pain, redness of the knee, severe dizziness, shortness of breathing, palpitation, chest pain, shaking or worsening of any other symptoms Special Instructions: Please follow-up with your PCP within one week of discharge. Please follow with the orthopedic surgeon within 1 week of discharge regarding any swelling Please follow-up with your die assembler within 1 week of discharge regarding adjustment of your medication, please note on a few medicationS was stopped temporarily Diet Continue normal diet: No Recommended Diet: Diabetic Activity Full Activity/No Limits: No Activity Self Limited: Yes Acute Coronary Syndrome Inclusion Criteria At DC or during hospital stay patient has or had the following: ACS DIAGNOSIS No Discharge Core Measures Meds if any: Prescribed or Continued at Discharge Meds if any: NOT Prescribed or Continued at Discharge Congestive Heart Failure Inclusion Criteria At DC or during hospital stay patient has or had the following: CHF DIAGNOSIS No Discharge Core Measures Meds if any: Prescribed or Continued at Discharge Meds if any: NOT Prescribed or Continued at Discharge Cerebrovascular accident Inclusion Criteria At DC or during hospital stay patient has or had the following: CVA/TIA Diagnosis No Discharge Core Measures Meds if any: Prescribed or Continued at Discharge Meds if any: NOT Prescribed or Continued at Discharge Venous thromboembolism Inclusion Criteria VTE Diagnosis No VTE Type NONE VTE Confirmed by (Test) NONE Discharge Core Measures - Per Current guidelines, there needs to be overlap - treatment for the first 5 days of Warfarin therapy. - If discharged on Warfarin prior to 5 days of - overlap therapy, the patient will need to be - assessed for post discharge needs including - *Post discharge parental anticoagulation - *Warfarin and/or parental anticoagulation education - *Follow up date to check INR post discharge At least 5 days overlap therapy as Inpatient No Meds if any: Prescribed or Continued at Discharge Note: Overlap Therapy is Warfarin and Anticoagulant Meds if any: NOT Prescribed or Continued at Discharge
[2017-11-23 14:27] VITALS: BP 102/66
--- NOTE | 2017-11-24 16:42 | ECHOCARDIOGRAM REPORT ---
ADARSH BOYD Age: 77 : 1940 Gender: F Exam Date: 11/22/2017 18:52 Exam Location: [place] Ht (in): 65 Wt (lb): 203 BSA: 2.09 BP: 138 / 70 Ordering Physician: Candis Campbell MD Referring Physician: Connor Montgomery MD Technologist: Zora Martin [facility] Room Number: 180-01 Indications: STRUCTURAL HEART DISEASE Rhythm: Sinus Technical Quality: Fair FINDINGS Left Ventricle Normal size left ventricle. Borderline concentric left ventricular hypertrophy. No obvious regional wall motion abnormalities. Normal left ventricular ejection fraction visually estimated at >60%. Abnormal relaxation filling pattern of the left ventricle for age (stage 1 diastolic dysfunction). Mildly increased resting left ventricular outflow tract velocity (1.4 m/s). Right Ventricle Normal right ventricular size and function. Right Atrium Normal right atrial size. Left Atrium Normal left atrial size. Mitral Valve Moderate mitral annular calcification. Mitral valve mildly thickened. Mild mitral regurgitation. Aortic Valve Aortic valve not well visualized. Diffuse mild thickening of the aortic valve cusps with mildly reduced excursion. No hemodynamically significant aortic stenosis. No aortic regurgitation. Tricuspid Valve Structurally normal aortic valve. Trace tricuspid regurgitation. Right ventricular systolic pressure estimated at 33 mmHg. Pulmonic Valve Pulmonic valve not well visualized, grossly normal. Trace pulmonic regurgitation. Pericardium No pericardial effusion. Great Vessels Normal size aortic root. Normal size inferior vena cava. CONCLUSIONS Normal size left ventricle. Borderline concentric left ventricular hypertrophy. Normal left ventricular ejection fraction visually estimated at > 60%. Abnormal relaxation filling pattern of the left ventricle for age (stage 1 diastolic dysfunction). Mildly increased resting left ventricular outflow tract velocity (1.4 m/s). Normal right ventricular size and function. Normal atrial size. Mild mitral regurgitation. Trace tricuspid regurgitation. Right ventricular systolic pressure estimated at 33 mmHg. Trace pulmonic regurgitation. Connor Montgomery M.D. (Electronically Signed) Final Date: 24 November 2017 16:42 MEASUREMENTS (Male / Female) Normal Values 2D ECHO LV Diastolic Diameter PLAX 4.1 cm 4.2 - 5.9 / 3.9 - 5.3 cm LV Systolic Diameter PLAX 2.5 cm 2.1 - 4.0 cm LV Fractional Shortening PLAX 39.0 % 25 - 46 % LV Ejection Fraction 2D Teich 69.9 % IVS Diastolic Thickness 1.1 cm LVPW Diastolic Thickness 1.1 cm LV Relative Wall Thickness 0.5 RV Internal Dim ED PLAX 3.2 cm 1.9 - 3.8 cm LVOT Diameter 2.0 cm Aortic Root Diameter 2.9 cm LA Systolic Diameter LX 3.3 cm 3.0 - 4.0 / 2.7 - 3.8 cm LA Volume 34.0 cm 18 - 58 / 22 - 52 cm Ascending Aorta Diameter 2.8 cm DOPPLER AV Peak Velocity 183.0 cm/s AV Peak Gradient 13.4 mmHg AV Mean Velocity 121.0 cm/s AV Mean Gradient 7.0 mmHg AV Velocity Time Integral 39.2 cm LVOT Peak Velocity 142.0 cm/s LVOT Peak Gradient 8.1 mmHg LVOT Mean Velocity 98.9 cm/s LVOT Mean Gradient 4.0 mmHg LVOT Velocity Time Integral 31.0 cm LVOT Stroke Volume 97.4 cm AV Area Cont Eq vti 2.5 cm AV Area Cont Eq pk 2.4 cm MV Peak Velocity 107.0 cm/s MV Peak Gradient 4.6 mmHg MV Mean Velocity 55.0 cm/s MV Mean Gradient 1.0 mmHg Mitral E Point Velocity 81.9 cm/s Mitral A Point Velocity 103.0 cm/s Mitral E to A Ratio 0.8 MV PHT Velocity 89.8 cm/s MV Deceleration Baxter 263.0 cm/s MV Pressure Half Time 102.4 ms MV Area PHT 2.1 cm MV Deceleration Time 314.0 ms TR Peak Velocity 262.0 cm/s TR Peak Gradient 27.5 mmHg Right Atrial Pressure 5.0 mmHg Pulmonary Artery Systolic Pressu 32.5 mmHg Right Ventricular Systolic Press 32.5 mmHg PV Peak Velocity 106.0 cm/s PV Peak Gradient 4.5 mmHg PV Mean Velocity 69.4 cm/s PV Mean Gradient 2.0 mmHg PV Velocity Time Integral 21.6 cm LV E' Lateral Velocity 10.4 cm/s Mitral E to LV E' Lateral Ratio 7.9 LV E' Septal Velocity 6.3 cm/s Mitral E to LV E' Septal Ratio 12.9
== END 2017-11-23 18:25 ==
LOC: ERH 11:28 → 1NO 13:36 → ERHI 13:36 → ENRESERV 18:01 → ENTRNSPT 18:38 → EDTRNSPTSTS 19:01 → EDTRNSPT 19:01 → CMPTRNSPT 19:13 → 1NO 19:20 → ENTRNSPT 11-23 18:01 → 1NO 11-23 18:25 → CMPTRNSPT 11-23 18:27
PROVIDERS: Physician Assistant Medical; Radiology Vascular & Interventional Radiology
DX: R55 Syncope and collapse (principal); E11.9 Type 2 diabetes mellitus without complications; Z79.4 Long term (current) use of insulin; J44.9 Chronic obstructive pulmonary disease, unspecified; D50.9 Iron deficiency anemia, unspecified; Z86.718 Personal history of other venous thrombosis and embolism; Z79.01 Long term (current) use of anticoagulants; M25.461 Effusion, right knee
CPT/HCPCS: 1263; 36415; 71045; 73560-RT; 82436; 87804; 87804-59; 93005; 93010; 93306; 96374; G0378; J3490

== ENCOUNTER 2017-12-27 17:04 | Inpatient (IN) | payer OTHER ==
[~2017-12-27] VITALS: Ht 165.1 cm; Wt 91.6 kg
[~2017-12-27 17:04] MED LIST changes: +ASPIRIN EC81 M1 PO; +MAGNESIUM OXID400 M1 PO
--- NOTE | 2017-12-27 17:44 | ED GENERAL ADULT ---
History of Present Illness General Chief Complaint: Abdominal Pain/Flank Pain Stated Complaint: +V,ABD PAIN,SOB Source: patient Exam Limitations: no limitations Vital Signs & Intake/Output Vital Signs & Intake/Output Vital Signs Date Time Temp Pulse Resp B/P B/P Pulse O2 O2 Flow FiO2 Mean Ox Delivery Rate 12/27 1852 98 Room Air 12/27 1850 97.4 82 20 178/70 100 Room Air 12/27 1718 97.9 73 22 214/97 99 Room Air Allergies Coded Allergies: methylprednisolone (From Solu-Medrol) (Intermediate, HIVES AND PALPITATIONS 01/14) clove (HIVES 12/29/15) kimberli (HIVES 12/29/15) thyme (HIVES 12/29/15) hydrocodone (NAUSEA 12/29/15) ibuprofen (GI UPSET 12/29/15) lisinopril (DRY COUGH 12/29/15) nitrofurantoin (MAKES HER CRAZY 05/03/16) Uncoded Allergies: CHIVES (HIVES 01/05/16) Reconcile Medications Aspirin (Ecotrin*) 81 MG TABLET.DR 1 TAB PO DAILY HEART/BLOOD (Reported) Budesonide/Formoterol Fumarate (Symbicort 160-4.5 Mcg Inhaler) 160 MCG-4.5 MCG/ ACTUATION HFA.AER.AD 2 PUF INH PRN ASTHMA (Reported) Liraglutide (Victoza 2-Kuldeep) 0.6 MG/0.1 ML (18 MG/3 ML) PEN.INJCTR 1.2 MG SC DAILY DM (Reported) Losartan Potassium 50 MG TABLET 1 TAB PO DAILY BP (Reported) Magnesium Oxide 400 MG TABLET 400 MG PO BID lOW MAGNESIUM . Metformin HCl (Metformin HCl ER) 500 MG TAB.ER.24H 2 TAB PO BID DM (Reported) Omeprazole Magnesium (Prilosec Otc) 20 MG TABLET.DR 1 TAB PO DAILY GI ( Reported) Pravastatin Sodium 80 MG TABLET 1 TAB PO DAILY CHOLESTEROL (Reported) Rivaroxaban (Xarelto) 20 MG TABLET 1 TAB PO DAILY BLOOD THINNER (Reported) with food Solifenacin Succinate (Vesicare) 5 MG TABLET 1 TAB PO BID BLADDER (Reported) Triage Note: 77F WITH N/V TODAY SINCE EATING A MEAT LOVERS OMELOETTE AT 1300. Triage Nurses Notes Reviewed? yes Onset: Gradual Duration: hour(s): (4) Timing: no prior history Injury Environment: home Severity: severe Severity Numbers: 10 No Modifying Factors: none HPI: Patient is a 77-year-old female with history of diabetes, hypertension, TIA, STROKE, presenting to the emergency department with chief complaint of severe diffuse abdominal pain that started suddenly approximately 2 PM this afternoon. Patient reports that she was not to lunch and had a meat levers omelette. Positive for episodes of emesis since then. Denies diarrhea. Pain has been constant but the severity of the pain fluctuates. No blood in the emesis. She has not taken anything for pain prior to arrival. History of similar pain in the past. Patient denying any shortness of breath or palpitations. Denies any urinary frequency urgency or dysuria. (Arelis SMITH,Erin) Past History Travel History Traveled to [place] past 21 day No Medical History Any Pertinent Medical History? 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 EENT: cataracts, hearing loss Cardiovascular: CHF, hypertension, hyperlipidemia Respiratory: pulmonary embolism, ASTHMA, PNEUMONIA Gastrointestinal: GERD, sigmoid diverticulosis Hepatic: NONE Renal: BLADDER SLING 2017 Musculoskeletal: osteoarthritis, FOOT SURGERY RIGHT RIGHT TKA Psychiatric: NONE Endocrine: diabetes Blood Disorders: DVT Cancer(s): NONE JET PILOT/Reproductive: HYSTERECTOMY Other Medical Hx: Hypertension, dyslipidemia, diabetes mellitus, CHF, asthma, prior transient ischemic attack versus CVA, sigmoid diverticulosis, internal hemorrhoids, gastroesophageal reflux disease, gastritis, positional vertigo, left carpal tunnel release, hysterectomy, right knee surgery for a meniscal tear, and recent foot surgery History of MRSA: No History of VRE: No History of CDIFF: No Influenza Vaccine: 08/01/17 Tetanus Vaccine: 09/23/15 Surgical History Surgical History: R WRIST,TOE, HYSTERECTOMY BLADDER,RECTUM LIFTED right knee surgery for a meniscal tear left carpal tunnel release Psychosocial History Who do you live with Patient/Self Services at Home None What is your primary language Icelandic Family History Family History, If Any: BROTHER FH: throat cancer SISTER (atrial fibrillation). FH: lung cancer FH: thyroid cancer SISTER (permanent pacemaker placement). FH: melanoma FHx: breast cancer MOTHER (coronary artery disease in her 50's s/p CABG). FH: diabetes mellitus FH: myocardial infarction FH: stroke FATHER FH: kidney disease Hx Contributory? No (Erin Calero) Review of Systems Review of Systems Constitutional: Reports: no symptoms. Comments Review of systems: See HPI, All other systems negative. Constitutional, no chills fever or weight loss HEENT: No visual changes no sore throat no congestion Cardiovascular: No palpitation , orthopnea or ankle swelling Skin, no jaundice no rashes Respiratory: No dyspnea cough sputum or hemoptysis GI: No diarrhea : No dysuria No hematuria Muscle skeletal: no back pain, no neck pain, Neurologic: No numbness no confusion , NO headaches Psych: No stress anxiety or depression,. Heme/endocrine: No bruising no bleeding no polyuria or polydipsia Immunology: No splenectomy or history of AIDS (Erin Calero) Physical Exam Physical Exam General Appearance: alert, awake, anxious, moderate distress Comments: OBESE person in moderate to severe distress HEENT: Pupils equally round and reactive to light and accommodation. Nose is atraumatic. External auditory canal and Tympanic membranes clear. Pharynx normal. No swelling or edema. Neck: NORMAL inspection Back: Nontender, no CVA tenderness. Cardiovascular: Regular rate and rhythms no murmurs rubs or gallops, normal JVP Respiratory: Chest nontender. No respiratory distress.breath sounds clear to auscultation bilaterally Abdomen: Soft, diffusely tender with guarding, nondistended, no appreciable organomegaly. NHYPOACTIVE bowel sounds. No ascites Extremity: No edema, no calf tenderness to palpation, normal and equal pulses. Neuro: Alert oriented x3 Skin: No appreciable rash on exposed skin, skin is warm and dry. Psych: ANXIOUS, memory and judgment is normal. Core Measures ACS in differential dx? Yes CVA/TIA Diagnosis: No Sepsis Present: No Sepsis Focused Exam Completed? No (Erin Calero) Progress Differential Diagnoses I considered the following diagnoses in my evaluation of the patient: Aortic dissection, gastritis, pancreatitis, cholecystitis, enteritis, small bowel obstruction Plan of Care: Orders Procedure Date/time Status NGT 12/27 2141 Active Add-on Test (ER Only) 12/27 2131 Active Add-on Test (ER Only) 12/27 2017 Active MAGNESIUM 12/27 182 Complete LACTIC ACID 12/27 1824 Complete Telemetry/Bed Manager 12/27 1745 Active TROPONIN LEVEL 12/27 174 Complete PARTIAL THROMBOPLASTIN TIME 12/27 174 Complete PROTHROMBIN TIME 12/27 1743 Complete LIPASE 12/27 1743 Complete COMPREHENSIVE METABOLIC PANEL 12/27 174 Complete CBC WITHOUT DIFFERENTIAL 12/27 174 Complete AMYLASE 12/27 174 Complete TYPE & SCREEN (NOT X-MATCH) 12/27 1742 Complete EKG 12/27 1707 Active Current Medications Sig/Bull Start time Last Medication Dose Stop Time Status Admin Sodium Chloride 1,000 ML BOLUS ONE 12/27 2144 AC (Normal Saline 0.9%) 12/27 2243 Sodium Chloride 1,000 ML BOLUS ONE 12/27 2144 AC 12/27 (Normal Saline 0.9%) 12/27 Laboratory Tests 12/27/17 1825: Anion Gap 8, Estimated GFR > 60, BUN/Creatinine Ratio 25.0, Glucose 136 H, Lactic Acid 1.3, Calcium 9.7, Magnesium 1.3 L, Total Bilirubin 0.4, AST 11 L, ALT 20, Alkaline Phosphatase 71, Troponin I < 0.01, Total Protein 6.3, Albumin 3.7, Globulin 2.6, Albumin/Globulin Ratio 1.4, Amylase 39, Lipase 34, PT 23.1 H , INR 2.22 H, APTT 38 H, CBC w Diff NO MAN DIFF REQ, RBC 5.80 H, MCV 62.8 L, MCH 19.0 L, MCHC 30.2 L, RDW 14.7 H, MPV 9.9, Gran % 81.0 H, Lymphocytes % 12.4 L, Monocytes % 5.2, Eosinophils % 1.0, Basophils % 0.4, Absolute Granulocytes 7.4 H, Absolute Lymphocytes 1.1 L, Absolute Monocytes 0.5, Absolute Eosinophils 0.1, Absolute Basophils 0 On arrival patient medicated with subcutaneous morphine prior to IV initiated. Patient reports moderate relief. Resting comfortably with some continuation of the pain. Pending labs at this time and imaging. Patient will go for CT of the chest abdomen and pelvis secondary to diffuse pain. 12/27/2017 9:43:50 PM just received a phone call from radiology. They report bowel obstruction in the right lower quadrant and surrounding fluid. Surgical physician surveyor's assistant in to see the patient at this time. She will consult with the on-call surgeon. Patient receiving IV hydration, patient requiring a THRID DOSE OF morphine, another dose of IV Zofran. SON INFORMED patient will likely be going to the operating room this evening. Diagnostic Imaging: Viewed by Me: CT Scan. Discussed w/RAD: CT Scan. Radiology Impression: PATIENT: ADARSH BOYD PRESENT AGE: 77 PATIENT ACCOUNT NO: [id number] : 42 LOCATION: [facility] ORDERING PHYSICIAN: Erin SMITH SERVICE DATE: 12/27/17 EXAM TYPE: CAT - CT ABD & PELVIS ANGIOGRAM; CTA CHEST-AORTIC DISSECTION EXAMINATION: CT ANGIOGRAM CHEST, ABDOMEN, AND PELVIS CLINICAL INFORMATION: Pain. Evaluate for aortic dissection. COMPARISON: No relevant prior imaging available. TECHNIQUE: Multiple axial images were obtained through the chest abdomen and pelvis were performed the administration of 100 mL of Optiray 320 intravenous contrast. Images were reviewed on a dedicated 3-D workstation. DLP: 1622.19 mGy-cm FINDINGS: Vascular: The dedicated noncontrast CT images of the chest reveal no evidence of aortic mural hemorrhage. Scattered foci of atheromatous calcification are visualized at the aortic arch apex. Origins of major aortic branches are widely patent. No evidence of aortic aneurysm and no evidence of aortic dissection. The timing of the contrast injection provides adequate opacification of the pulmonary arterial vasculature. No central luminal filling defect to suggest the presence of an acute pulmonary embolism. There is a shallow penetrating ulcer located along the right lateral aspect of the suprarenal abdominal aorta best illustrated on axial image 505 of 1031 series 4. No evidence of infrarenal abdominal aortic aneurysm or dissection. Nonvascular: There is abnormal distention of a loop of small bowel within the right lower quadrant and there is very little mural enhancement. There is inflammatory stranding within the adjacent mesenteric fat. The remainder of the small bowel is normal. There is a small sliding gastroesophageal hernia. The colon and appendix are unremarkable. There is minimal subsegmental atelectasis. No pleural effusion. The heart size is normal. No pericardial effusion. Visualized portions of the thoracic outlet including the thyroid gland are normal. There is no acute osseous finding. No acute osseous finding. Liver attenuation is homogeneous with no evidence of a hepatic parenchymal mass. Calculi layers within the gallbladder neck. Grossly no intrahepatic or extrahepatic biliary duct dilatation. The spleen and pancreas are normal. There is a 4.7 cm left adrenal mass that demonstrates macroscopic lipid characteristics best illustrated on axial image 476 of 1031. Kidneys are demonstrate symmetric corticomedullary enhancement characteristics. No hydronephrosis. No worrisome mass or calcification is visualized along the expected course of the right or left ureters. The urinary bladder is unremarkable. There is a filter within the infrarenal IVC. Numerous diverticula are visualized primarily involving the descending colon and sigmoid colon. No evidence of acute diverticulitis. Abdominal wall is intact. No mesenteric or retroperitoneal adenopathy is visualized. There is no acute osseous finding. IMPRESSION: There are findings consistent with a closed loop obstruction within the right lower quadrant. Diminished relative mural enhancement associated with this loop of distended fluid-filled bowel suggests ischemia. Normal appendix. Numerous diverticula are visualized primarily within the descending and sigmoid colon. No evidence of acute diverticulitis. Of note there is a 4.7 cm lipid density mass that appears to arise from the left adrenal gland that presumably represents an adrenal myelolipoma. The vascular component of this examination reveals no evidence of acute aortic dissection. This critical result was discussed with Erin Infante at 12/27/2017 9:30 PM and it was ascertained that the content and urgency of the report was understood at the time of direct communication. DICTATED BY: Miguel Alvares MD DATE/TIME DICTATED:12/27/172123 FIRE HYDRANT OPERATOR:FLORI DATE/TIME TRANSCRIBED:2123 CONFIDENTIAL, DO NOT COPY WITHOUT APPROPRIATE AUTHORIZATION. < Electronically signed in Other Vendor System> SIGNED BY: Miguel Alvares MD 12/27/172148 Initial ED EKG: NSR (68 BPM) Prior EKG: unchanged (Erin Calero) Departure Departure Time of Disposition: 2214 Disposition: STILL A PATIENT Condition: Stable Clinical Impression Primary Impression: Bowel obstruction Qualifiers: Intestinal obstruction type: unspecified Intestinal obstruction extent: unspecified extent Qualified Code: K56.609 - Unspecified intestinal obstruction, unspecified as to partial versus complete obstruction Referrals: Shabbir Trevino MD (PCP/Family) Departure Forms: Customer Survey General Discharge Information Admission Note Documentation of Exam: Documentation of any treatments & extenuating circumstances including Concerns Regarding Discharge (functional status, medication knowledge or non-compliance, living conditions, etc.) that warrant an admission rather than observation: OR/GI Note Spoke With: Giuseppe Hummel DO ED Treatment Decision: ADARSH BOYD requires urgent operative management or an emergent procedure that cannot be performed in the Emergency Room setting. Patient requiring emergent surgical intervention for close follow-up obstruction. Transport To: [facility] (Erin Calero) PA/[employer] Co-Sign Statement Statement: ED Attending supervision documentation- [X] I saw and evaluated the patient. I have also reviewed all the pertinent lab results and diagnostic results. I agree with the findings and the plan of care as documented in the PA's/[employer]'s documentation. [X] I have reviewed the ED Record and agree with the PA's/[employer]'s documentation. [] Additions or exceptions (if any) to the PAs/[employer]'s note and plan are summarized below: [TO OR FOR CLOSED LOOP OBSTRUCTION] (Sangita SHOOK,Roland Alfaro) Critical Care Note Critical Care Note Critical Care Time: 30-74 min (Erin Calero)
[2017-12-27 18:59] LABS: ABSOLUTE BASOPHIL COUNT 0 /CUMM (0.0-0.2); ABSOLUTE EOSINOPHIL COUNT 0.1 /CUMM (0.0-0.7); ABSOLUTE GRANULOCYTE CT 7.4 /CUMM (1.4-6.5); ABSOLUTE LYMPH COUNT 1.1 /CUMM (1.2-3.4); ABSOLUTE MONOCYTE COUNT 0.5 /CUMM (0.10-0.60); BASOPHIL % 0.4 % (0.0-2.0); HEMATOCRIT 36.4 % (37-47); MEAN CORPUSCULAR HGB CONC 30.2 G/DL (33.0-37.0); MEAN CORPUSCULAR VOLUME 62.8 FL (81.0-99.0); MEAN PLATELET VOLUME 9.9 FL (7.4-10.4); PLATELET COUNT 219 /CUMM (130-400); RBC DISTRIBUTION WIDTH 14.7 % (11.5-14.5); WHITE BLOOD CELL COUNT 9.2 /CUMM (4.8-10.8)
[2017-12-27 19:00] LABS: PT 23.1 SEC (9.4-12.5); PTT 38 SEC (25-37)
--- NOTE | 2017-12-27 21:49 | CT SCAN REPORT ---
EXAMINATION: CT ANGIOGRAM CHEST, ABDOMEN, AND PELVIS CLINICAL INFORMATION: Pain. Evaluate for aortic dissection. COMPARISON: No relevant prior imaging available. TECHNIQUE: Multiple axial images were obtained through the chest abdomen and pelvis were performed the administration of 100 mL of Optiray 320 intravenous contrast. Images were reviewed on a dedicated 3-D workstation. DLP: 1622.19 mGy-cm FINDINGS: Vascular: The dedicated noncontrast CT images of the chest reveal no evidence of aortic mural hemorrhage. Scattered foci of atheromatous calcification are visualized at the aortic arch apex. Origins of major aortic branches are widely patent. No evidence of aortic aneurysm and no evidence of aortic dissection. The timing of the contrast injection provides adequate opacification of the pulmonary arterial vasculature. No central luminal filling defect to suggest the presence of an acute pulmonary embolism. There is a shallow penetrating ulcer located along the right lateral aspect of the suprarenal abdominal aorta best illustrated on axial image 505 of 1031 series 4. No evidence of infrarenal abdominal aortic aneurysm or dissection. Nonvascular: There is abnormal distention of a loop of small bowel within the right lower quadrant and there is very little mural enhancement. There is inflammatory stranding within the adjacent mesenteric fat. The remainder of the small bowel is normal. There is a small sliding gastroesophageal hernia. The colon and appendix are unremarkable. There is minimal subsegmental atelectasis. No pleural effusion. The heart size is normal. No pericardial effusion. Visualized portions of the thoracic outlet including the thyroid gland are normal. There is no acute osseous finding. No acute osseous finding. Liver attenuation is homogeneous with no evidence of a hepatic parenchymal mass. Calculi layers within the gallbladder neck. Grossly no intrahepatic or extrahepatic biliary duct dilatation. The spleen and pancreas are normal. There is a 4.7 cm left adrenal mass that demonstrates macroscopic lipid characteristics best illustrated on axial image 476 of 1031. Kidneys are demonstrate symmetric corticomedullary enhancement characteristics. No hydronephrosis. No worrisome mass or calcification is visualized along the expected course of the right or left ureters. The urinary bladder is unremarkable. There is a filter within the infrarenal IVC. Numerous diverticula are visualized primarily involving the descending colon and sigmoid colon. No evidence of acute diverticulitis. Abdominal wall is intact. No mesenteric or retroperitoneal adenopathy is visualized. There is no acute osseous finding. IMPRESSION: There are findings consistent with a closed loop obstruction within the right lower quadrant. Diminished relative mural enhancement associated with this loop of distended fluid-filled bowel suggests ischemia. Normal appendix. Numerous diverticula are visualized primarily within the descending and sigmoid colon. No evidence of acute diverticulitis. Of note there is a 4.7 cm lipid density mass that appears to arise from the left adrenal gland that presumably represents an adrenal myelolipoma. The vascular component of this examination reveals no evidence of acute aortic dissection. This critical result was discussed with Erin Infante at 12/27/2017 9:30 PM and it was ascertained that the content and urgency of the report was understood at the time of direct communication.
--- NOTE | 2017-12-27 23:03 | History & Physical Pre-Op ---
Diya Stevens 12/27/17 9644: General Information and HPI MD Statement: I have seen and personally examined ADARSH BOYD and documented this H&P. The patient is a 77 year old F who presented with a patient stated chief complaint of [ACUTE ABD PAIN]. History of Present Illness: 77YOf WITH ACUTE ONSET SHARP CRAMPY ABDOMINAL PAIN AT 3PM. She was feeling well this am, last bm and last meal this am. Pain started acutely while sitting on the couch, says she was doubled over in pain at home and came to ED. +nausea, + vomiting. last dose xarelto this am. PSHx: vaginal hyst, prolapsed rectum repair x2 (transrectal approach), R TKR 2016 (kel) PMHX: DM (julien), hx cva/tia, hx pe/dvt on xarelto (ceferino), sp IVC filter 2016, copd (joni) pcp: song Allergies/Medications Allergies: Coded Allergies: methylprednisolone (From Solu-Medrol) (Intermediate, HIVES AND PALPITATIONS 01/14) clove (HIVES 12/29/15) kimberli (HIVES 12/29/15) thyme (HIVES 12/29/15) hydrocodone (NAUSEA 12/29/15) ibuprofen (GI UPSET 12/29/15) lisinopril (DRY COUGH 12/29/15) nitrofurantoin (MAKES HER CRAZY 05/03/16) Uncoded Allergies: CHIVES (HIVES 01/05/16) Home Med list Aspirin (Ecotrin*) 81 MG TABLET.DR 1 TAB PO DAILY HEART/BLOOD (Reported) Budesonide/Formoterol Fumarate (Symbicort 160-4.5 Mcg Inhaler) 160 MCG-4.5 MCG/ ACTUATION HFA.AER.AD 2 PUF INH PRN ASTHMA (Reported) Liraglutide (Victoza 2-Kuldeep) 0.6 MG/0.1 ML (18 MG/3 ML) PEN.INJCTR 1.2 MG SC DAILY DM (Reported) Losartan Potassium 50 MG TABLET 1 TAB PO DAILY BP (Reported) Magnesium Oxide 400 MG TABLET 400 MG PO BID lOW MAGNESIUM . Metformin HCl (Metformin HCl ER) 500 MG TAB.ER.24H 2 TAB PO BID DM (Reported) Omeprazole Magnesium (Prilosec Otc) 20 MG TABLET.DR 1 TAB PO DAILY GI ( Reported) Pravastatin Sodium 80 MG TABLET 1 TAB PO DAILY CHOLESTEROL (Reported) Rivaroxaban (Xarelto) 20 MG TABLET 1 TAB PO DAILY BLOOD THINNER (Reported) with food Solifenacin Succinate (Vesicare) 5 MG TABLET 1 TAB PO BID BLADDER (Reported) Past History Medical History Neurological: TIA, vertigo, STROKE `11 RESIDUAL L. 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 TELEMETRY/Reproductive: HYSTERECTOMY, vaginal Other Medical Hx: Hypertension, dyslipidemia, diabetes mellitus, CHF, asthma, prior transient ischemic attack versus CVA, sigmoid diverticulosis, gastroesophageal reflux disease, positional vertigo, hysterectomy, History of MRSA: No History of VRE: No History of CDIFF: No Pneumonia Vaccine: 08/01/17 Influenza Vaccine: 08/01/17 Tetanus Vaccine: 09/23/15 Surgical History Pertinent Surgical History: R WRIST,TOE, HYSTERECTOMY BLADDER,RECTUM LIFTED right knee surgery for a meniscal tear left carpal tunnel release Past Family/Social History Family History Relations & Conditions if any BROTHER FH: throat cancer SISTER (atrial fibrillation). FH: lung cancer FH: thyroid cancer SISTER (permanent pacemaker placement). FH: melanoma FHx: breast cancer MOTHER (coronary artery disease in her 50's s/p CABG). FH: diabetes mellitus FH: myocardial infarction FH: stroke FATHER FH: kidney disease Psychosocial History Services at Home None Primary Language: Tristanian Smoking Status: Former Smoker ETOH Use: denies use Illicit Drug Use: denies illicit drug use Functional Ability ADLs Independent: dressing, eating, toileting, bathing. Ambulation: independent IADLs Independent: shopping, housework, finances, food prep, telephone, transportation , medication admin. Exam & Diagnostic Data Last 24 Hrs of Vital Signs/I&O Vital Signs Date Time Temp Pulse Resp B/P B/P Pulse O2 O2 Flow FiO2 Mean Ox Delivery Rate 12/277 98.0 86 18 166/76 99 Room Air 12/27 1852 98 Room Air 12/27 1850 97.4 82 20 178/70 100 Room Air 12/27 1718 97.9 73 22 214/97 99 Room Air Physical Exam: gen- actively vomiting, hunched over in pain card- s1s2 rrr pulm- ctab abd- diffusly tender, +guarding, distended, firm mass lower abd, no incisions noted ext- calves soft nt bl Last 24 Hrs of Labs/Robert: Laboratory Tests 12/27/17 1825: Anion Gap 8, Estimated GFR > 60, BUN/Creatinine Ratio 25.0, Glucose 136 H, Lactic Acid 1.3, Calcium 9.7, Magnesium 1.3 L, Total Bilirubin 0.4, AST 11 L, ALT 20, Alkaline Phosphatase 71, Troponin I < 0.01, Total Protein 6.3, Albumin 3.7, Globulin 2.6, Albumin/Globulin Ratio 1.4, Amylase 39, Lipase 34, PT 23.1 H , INR 2.22 H, APTT 38 H, CBC w Diff NO MAN DIFF REQ, RBC 5.80 H, MCV 62.8 L, MCH 19.0 L, MCHC 30.2 L, RDW 14.7 H, MPV 9.9, Gran % 81.0 H, Lymphocytes % 12.4 L, Monocytes % 5.2, Eosinophils % 1.0, Basophils % 0.4, Absolute Granulocytes 7.4 H, Absolute Lymphocytes 1.1 L, Absolute Monocytes 0.5, Absolute Eosinophils 0.1, Absolute Basophils 0 Diagnostic Data Other Results CT: closed loop small bowel obstruction. see rads report for detail Assessment/Plan Assessment/Plan: A/P- 77yoF with closed loop obstruction, to or emergently for surgical exploration, full admission, full code. DW Dr. Hummel As Ranked By This Provider Problem List: 1. Small bowel obstruction Estephanie Giuseppe SPARROW 12/28/17 0103: Attending MD Review Statement Attending Statement Attending MD Statement: examined this patient, discuss w/resident/PA/SMOKED MEAT PREPARER, agreed w/resident/PA/SMOKED MEAT PREPARER, discussed with family, reviewed EMR data (avail), reviewed images Attending Assessment/Plan: Patient seen and examined, agree with above. Acute onset abdominal pain with N/V this afternoon, severe pain in Ed with multiple doses of narcotics w/o relief. AVSS. Abd-soft, +peritoneal signs over RLQ. Labs ok. CT scan - closed loop obstruction with a ?ischemic bowel. Given above a decision was made to perform an emergent laparotomy, NPO/IVF, and plan for OR. I did discuss that given her last dose of Xarelto was in the morning she does have an increased risk of bleeding, but given the urgency of the presentation surgical intervention is indicated despite this risk. All of this was discussed with the patient, family, and ED staff.
--- NOTE | 2017-12-27 23:06 | Admission Core Measures ---
Acute Coronary Syndrome (CM) ACS Core Measures Acute Coronary Syndrome Diagnosis No Congestive Heart Failure (NEW) CHF Core Measures Congestive Heart Failure Diagnosis No Comment history Cerebrovascular Accident (NEW) CVA Core Measures CVA/TIA Diagnosis No (history of) Venous Thromboembolism VTE Core Jayant (View Protocol) VTE Risk Factors Surgery No Mechanical VTE Prophylaxis d/t N/A MechProphylax Ordered No VTE Pharm Prophylaxis d/t NA PharmProphylax ordered Problem List As ranked by this Provider includes Assessment & Plan 1. Small bowel obstruction HOME MEDS Home Med List Aspirin (Ecotrin*) 81 MG TABLET.DR 1 TAB PO DAILY HEART/BLOOD (Reported) Budesonide/Formoterol Fumarate (Symbicort 160-4.5 Mcg Inhaler) 160 MCG-4.5 MCG/ ACTUATION HFA.AER.AD 2 PUF INH PRN ASTHMA (Reported) Liraglutide (Victoza 2-Kuldeep) 0.6 MG/0.1 ML (18 MG/3 ML) PEN.INJCTR 1.2 MG SC DAILY DM (Reported) Losartan Potassium 50 MG TABLET 1 TAB PO DAILY BP (Reported) Magnesium Oxide 400 MG TABLET 400 MG PO BID lOW MAGNESIUM Metformin HCl (Metformin HCl ER) 500 MG TAB.ER.24H 2 TAB PO BID DM (Reported) Omeprazole Magnesium (Prilosec Otc) 20 MG TABLET.DR 1 TAB PO DAILY GI ( Reported) Pravastatin Sodium 80 MG TABLET 1 TAB PO DAILY CHOLESTEROL (Reported) Rivaroxaban (Xarelto) 20 MG TABLET 1 TAB PO DAILY BLOOD THINNER (Reported) Solifenacin Succinate (Vesicare) 5 MG TABLET 1 TAB PO BID BLADDER (Reported)
--- NOTE | 2017-12-28 01:18 | Operative Report ---
Operative/Inv Procedure Report Surgery Date: 12/28/17 Name of Procedure: Exploratory laparotomy, small bowel resection, lysis of adhesions Pre-Operative Diagnosis: Adhesive SBO Post-Operative Diagnosis: Adhesive ischemic SBO Estimated Blood Loss: less than 50ml Surgeon/Marketing Strategy Manager: Giuseppe Cota Anesthesia: general endotracheal tube IV Fluids: 1500 cc Drains: None Specimens: ~50 cm small bowel Complications: None Condition: Stable Operative Indication: This is a 77-year-old female that presented to the emergency room with acute onset of abdominal pain nausea and vomiting. After appropriate workup was completed the patient was diagnosed with possible ischemic small bowel obstruction/closed loop obstruction. Patient has been in severe pain ever since presentation to the emergency room without relief with narcotics. Given the above and emergent exploratory laparotomy and possible bowel resection was discussed in detail with the patient and the patient's family. All risks including but not limited to bleeding, infection, breakdown of anastomosis, possible need for surgery, and injury to surrounding bowel were discussed in detail. The patient and the family understood everything and decided to proceed. Operative/Procedure Note Note: The patient was brought to the operating room and placed on the operating table supine position. Venodyne stockings were placed and adequate general tracheal anesthesia was obtained. Huerta catheter was inserted. The abdomen was prepped and draped in standard surgical fashion. Began the procedure by making an approximately 15 cm incision in the midline going from just above the umbilicus to just below the umbilicus. The incision was carried through the subcutaneous tissue to the fascia. The fascia was opened in the midline the entire length of the incision. Right as the fascia was opened some serosanguineous fluid was suctioned out. Small bowel was then run and as soon as we began running the small bowel was noted a segment of small bowel that appeared ischemic. The small bowel was run from the ligament of Treitz distally. Just proximal to the terminal ileum adhesions were noted to the lower anterior abdominal wall. Those adhesions were lysed using scissors and Bovie electrocautery. The small bowel was then examined and 2 small areas of serosal defects were noted and repaired using interrupted 2-0 silk suture. The rest of the small bowel was run one more time and no abnormalities were noted aside for the segment of approximately 50 cm of ischemic jejunum. The bowel was then divided proximally and distally using 60 mm huff Endo IVELISSE staple load. The mesentery was divided using LigaSure. Specimen was handed off the field. Following this a side to side jejunojejunostomy was created using 60 mm huff Endo IVELISSE staple load, the common enterotomy was closed using another 60 mm load. 2-0 silk sutures were placed in the crotch of the staple line to take tension off and a 2-0 silk suture was placed on the anterior staple line. The anastomosis was inspected and appeared intact and widely patent. No obvious bleeding from the staple line was noted. The mesentery was then closed using 2-0 silk suture in a running fashion. The small bowel was once again run from ligament of Treitz to the terminal ileum and no further adhesions were noted, no abnormalities were noted. The small bowel was then returned back into the abdominal cavity in appropriate anatomic position. Fascia was closed using #1 loop PDS suture. Skin was closed using suzanne. Sterile dressing was placed. The patient was successfully extubated and transferred to the recovery room in stable condition. The patient tolerated the procedure well with no complications. Findings: Lower midline small bowel adhesions, ~50 cm of ischemic jejunum resected, multiple small bowel and large bowel diverticula CC: Uriel SHOOK,Shabbir Gillespie
[2017-12-28 03:39] VITALS: BP 148/70
[2017-12-28 06:20] VITALS: BP 138/60
[2017-12-28 08:29] LABS: ABSOLUTE BASOPHIL COUNT 0 /CUMM (0.0-0.2); ABSOLUTE EOSINOPHIL COUNT 0 /CUMM (0.0-0.7); ABSOLUTE GRANULOCYTE CT 7.9 /CUMM (1.4-6.5); ABSOLUTE LYMPH COUNT 0.5 /CUMM (1.2-3.4); ABSOLUTE MONOCYTE COUNT 0.5 /CUMM (0.10-0.60); BASOPHIL % 0.1 % (0.0-2.0); EOSINOPHIL % 0.1 % (0-5); HEMATOCRIT 32.1 % (37-47); MEAN CORPUSCULAR HGB 19.6 PG (27.0-31.0); MEAN CORPUSCULAR HGB CONC 31.4 G/DL (33.0-37.0); MEAN CORPUSCULAR VOLUME 62.5 FL (81.0-99.0); MEAN PLATELET VOLUME 10.5 FL (7.4-10.4); PLATELET COUNT 117 /CUMM (130-400); RBC DISTRIBUTION WIDTH 14.7 % (11.5-14.5); RED BLOOD CELL CT 5.14 /CUMM (4.20-5.40); WHITE BLOOD CELL COUNT 8.9 /CUMM (4.8-10.8)
--- NOTE | 2017-12-28 11:18 | PN- General Surgery ---
Subjective Subjective: No complaints presently. NGT in place, tolerating. Huerta in place, tolerating. Denies chest pain, shortness of breath and difficulty breathing. Denies nausea. Denies flatus. Objective Vital Signs and I&Os Vital Signs Date Time Temp Pulse Resp B/P B/P Pulse O2 O2 Flow FiO2 Mean Ox Delivery Rate 12/28 0800 96 Nasal 1.0L Cannula 12/28 0620 98.0 87 20 138/60 97 Nasal 1.0L Cannula 12/28 0515 Nasal 1.0L Cannula 12/28 0339 98.0 92 20 148/70 97 Nasal 1.0L Cannula 12/27 2217 98.0 86 18 166/76 99 Room Air 12/27 1852 98 Room Air 12/27 1850 97.4 82 20 178/70 100 Room Air 12/27 1718 97.9 73 22 214/97 99 Room Air Intake & Output 12/28 1600 12/28 0800 12/28 0000 12/27 1600 12/27 0800 12/27 0000 Intake Total 400 Output Total 325 Balance 75 Intake, IV 400 Output, 25 Gastric Drainage Output, Urine 300 Patient 202 lb 202 lb Weight Weight Reported by Patient Measurement Method Physical Exam: General: Alert and oriented x3, no acute distress Cardiac: RRR, s1s2 Pulm: CTA bilaterally ABD: Softly distended, vladislav-incisional tenderness. Dressing with old blood stain, no evidence of active bleeding. No bowel sounds ausculated Extremities: Moves all extremities, distal sensation intact. Skin warm and well perfused. Bilateral calves soft and non-tender. Assessment/Plan Assessment/Plan This is a 77 year old female, POD 0, s/p elap with resection for closed loop sbo. On ngt decompression. Has history of hypomagnesium. -NPO/NGT for now -Huerta cathter today, likely dc tomorrow am -Continue IV hydration, change fluid to D5 1/2NS with 40mEq K -Add chloraseptic spray for sore throat -Can get oob if tolerates to chair -Continue iv ancef for 24 hours post op prophylaxis -IV protonix for gi ppx -Hep sub q for dvt ppx Will discuss poc with Dr. Hummel Core Measures Venous Thromboembolism VTE Risk Factors Surgery No Mechanical VTE Prophylaxis d/t N/A MechProphylax Ordered No VTE Pharm Prophylaxis d/t NA PharmProphylax ordered
[2017-12-28 15:22] VITALS: BP 124/52
[2017-12-28 22:49] VITALS: BP 124/73
[2017-12-29 06:46] VITALS: BP 140/87
--- NOTE | 2017-12-29 07:29 | PN- General Surgery ---
Subjective Subjective: Reports incisional pain improves with morphine. No flatus or bms yet. She is eager to have the ng tube removed. Voiding well s/p downing removal. Out of bed with assistance. No dizziness. No shortness of breath. No chest pains. Objective Vital Signs and I&Os Vital Signs Date Time Temp Pulse Resp B/P B/P Pulse O2 O2 Flow FiO2 Mean Ox Delivery Rate 12/29 0646 99.1 89 18 140/87 100 Nasal 1.0L Cannula 12/29 0000 Nasal 1.0L Cannula 12/28 2249 98.3 88 20 124/73 100 Nasal 2.0L Cannula 12/28 1700 100 124/52 12/28 1522 99.3 100 20 12452 98 Room Air 12/28 0800 96 Nasal 1.0L Cannula Intake & Output 12/29 0800 12/29 0000 12/28 1600 12/28 0800 12/28 0000 12/27 1600 Intake Total 1000 575 400 Output Total 475 375 350 325 Balance 525 -375 225 75 Intake, IV 1000 575 400 Number 0 Bowel Movements Output, 200 300 25 Gastric Drainage Output, Urine 275 75 350 300 Patient 202 lb 202 lb Weight Weight Reported by Patient Measurement Method Physical Exam: General - alert & oriented x 3. comfortable. no acute distress. Lungs - clear bilaterally. no w/r/r. Cardiac - s1s2. reg. Abdomen - soft. midline dressing stained but intact. ng tube with bilious drainage in cannister. expected vladislav-incisional tenderness. Extremities - warm bilaterally. no c/c/e. calves soft and nontender b/l. Current Medications: Current Medications Sig/Bull Start time Last Medication Dose Route Stop Time Status Admin Acetaminophen 1,000 MG Q6P PRN 12/28 0145 AC N/A 1 UNIT IV Cefazolin Sodium 2 GM IQ8 12/28 0800 DC 12/28 N/A 1 UNIT IV 12/28 1629 1600 Dextrose/Lactated 1,000 ML Q10H 12/28 1115 CAN Ringer's IV Dextrose/Sodium 1,000 ML .Q10H 12/28 0145 DC 12/28 Chloride IV 0153 Heparin Sodium 5,000 UNIT Q8 12/28 0600 AC 12/29 (Porcine) SC 0538 Insulin Human Regular 0 Q6 12/28 0600 AC 12/29 SC 0538 Losartan Potassium 50 MG DAILY 12/28 1000 AC PO Magnesium Sulfate 1 GM Q2H 12/28 1800 DC 12/29 Dextrose/Water 100 ML IV 12/28 2159 0257 Morphine Sulfate 2 MG Q3P PRN 12/28 0145 AC 12/28 IV 0318 Morphine Sulfate 4 MG Q3P PRN 12/28 0145 AC 12/28 IV 2111 Ondansetron HCl 4 MG Q6P PRN 12/28 0145 AC 12/28 IV 2104 Oxybutynin Chloride 2.5 MG BID 12/28 1000 AC PO Pantoprazole Sodium 40 MG DAILY 12/28 1000 AC 12/28 IV 0958 Patient Medication 1 ED ONE ONE 12/28 1715 DC 12/28 Teaching ED 12/28 1716 1747 Phenol 2 SPRAY Q2P PRN 12/28 1130 AC EXT Potassium Chloride 40 MEQ 100 MLS/HR 12/28 1115 CAN IV Potassium Chloride 40 MEQ Q10H 12/28 1115 AC 12/28 Dextrose/Sodium 1,000 ML IV 1230 Chloride Results Last 48 Hours of Labs: Laboratory Tests 12/29 12/28 0707 0700 Chemistry Sodium (137 - 145 mmol/L) Pending 140 Potassium (3.5 - 5.1 mmol/L) Pending 3.7 Chloride (98 - 107 mmol/L) Pending 106 Carbon Dioxide (22 - 30 mmol/L) Pending 24 Anion Gap (5 - 16) Pending 10 BUN (7 - 17 mg/dL) Pending 18 H Creatinine (0.5 - 1.0 mg/dL) Pending 0.7 Estimated GFR (>60 ml/min) > 60 BUN/Creatinine Ratio (7 - 25 %) Pending 25.7 H Magnesium (1.6 - 2.3 mg/dL) Pending 1.0 L Hematology CBC w Diff MAN DIFF ORDERED WBC (4.8 - 10.8 /CUMM) 8.9 RBC (4.20 - 5.40 /CUMM) 5.14 Hgb (12.0 - 16.0 G/DL) 10.1 L Hct (37 - 47 %) 32.1 L MCV (81.0 - 99.0 FL) 62.5 L MCH (27.0 - 31.0 PG) 19.6 L MCHC (33.0 - 37.0 G/DL) 31.4 L RDW (11.5 - 14.5 %) 14.7 H Plt Count (130 - 400 /CUMM) 117 L MPV (7.4 - 10.4 FL) 10.5 H Gran % (42.2 - 75.2 %) 89.0 H Lymphocytes % (20.5 - 51.1 %) 5.2 L Monocytes % (1.7 - 9.3 %) 5.6 Eosinophils % (0 - 5 %) 0.1 Basophils % (0.0 - 2.0 %) 0.1 Absolute Granulocytes (1.4 - 6.5 /CUMM) 7.9 H Segmented Neutrophils (42.2 - 75.2 %) 73 Band Neutrophils (0.0 - 5.0 %) 15 H Absolute Lymphocytes (1.2 - 3.4 /CUMM) 0.5 L Lymphocytes (20.5 - 51.1 %) 9 L Monocytes (1.7 - 9.3 %) 3 Absolute Monocytes (0.10 - 0.60 /CUMM) 0.5 Absolute Eosinophils (0.0 - 0.7 /CUMM) 0 Absolute Basophils (0.0 - 0.2 /CUMM) 0 Platelet Estimate (ADEQUATE) DECREASED Hypochromic-Microcytic 2+ Poikilocytosis 2+ Anisocytosis 2+ Microcytic Cells 2+ Ovalocytes 2+ Schistocytes 12/27 1825 Chemistry Sodium (137 - 145 mmol/L) 141 Potassium (3.5 - 5.1 mmol/L) 4.2 Chloride (98 - 107 mmol/L) 103 Carbon Dioxide (22 - 30 mmol/L) 29 Anion Gap (5 - 16) 8 BUN (7 - 17 mg/dL) 20 H Creatinine (0.5 - 1.0 mg/dL) 0.8 Estimated GFR (>60 ml/min) > 60 BUN/Creatinine Ratio (7 - 25 %) 25.0 Glucose (65 - 99 mg/dL) 136 H Lactic Acid (0.7 - 2.1 mmol/L) 1.3 Calcium (8.4 - 10.2 mg/dL) 9.7 Magnesium (1.6 - 2.3 mg/dL) 1.3 L Total Bilirubin (0.2 - 1.3 mg/dL) 0.4 AST (14 - 36 U/L) 11 L ALT (9 - 52 U/L) 20 Alkaline Phosphatase (<127 U/L) 71 Troponin I (< 0.11 ng/ml) < 0.01 Total Protein (6.3 - 8.2 g/dL) 6.3 Albumin (3.5 - 5.0 g/dL) 3.7 Globulin (1.9 - 4.2 gm/dL) 2.6 Albumin/Globulin Ratio (1.1 - 2.2 %) 1.4 Amylase (30 - 110 U/L) 39 Lipase (23 - 300 U/L) 34 Coagulation PT (9.4 - 12.5 SEC) 23.1 H INR (0.90 - 1.19) 2.22 H APTT (25 - 37 SEC) 38 H Hematology CBC w Diff NO MAN DIFF REQ WBC (4.8 - 10.8 /CUMM) 9.2 RBC (4.20 - 5.40 /CUMM) 5.80 H Hgb (12.0 - 16.0 G/DL) 11.0 L Hct (37 - 47 %) 36.4 L MCV (81.0 - 99.0 FL) 62.8 L MCH (27.0 - 31.0 PG) 19.0 L MCHC (33.0 - 37.0 G/DL) 30.2 L RDW (11.5 - 14.5 %) 14.7 H Plt Count (130 - 400 /CUMM) 219 MPV (7.4 - 10.4 FL) 9.9 Gran % (42.2 - 75.2 %) 81.0 H Lymphocytes % (20.5 - 51.1 %) 12.4 L Monocytes % (1.7 - 9.3 %) 5.2 Eosinophils % (0 - 5 %) 1.0 Basophils % (0.0 - 2.0 %) 0.4 Absolute Granulocytes (1.4 - 6.5 /CUMM) 7.4 H Absolute Lymphocytes (1.2 - 3.4 /CUMM) 1.1 L Absolute Monocytes (0.10 - 0.60 /CUMM) 0.5 Absolute Eosinophils (0.0 - 0.7 /CUMM) 0.1 Absolute Basophils (0.0 - 0.2 /CUMM) 0 Assessment/Plan Assessment/Plan This is a 77 year old female hx htn, dm, hx cva, hx pe/dvt s/p ivcf, asthma, POD #2 s/p ex lap with small bowel resection for closed loop sbo currently npo / ivf / ngt decompression, awaiting return of bowel fx continue pain medication as ordered oob/ambulation hep sc - dvt ppx ?restart xeralto soon (to clarify with ) protonix - gi ppx f/u labs will d/w Core Measures Venous Thromboembolism VTE Risk Factors Surgery No Mechanical VTE Prophylaxis d/t N/A MechProphylax Ordered No VTE Pharm Prophylaxis d/t NA PharmProphylax ordered
[2017-12-29 14:08] VITALS: BP 118/60
[2017-12-29 21:13] VITALS: BP 132/54
[2017-12-30 07:28] VITALS: BP 146/74
--- NOTE | 2017-12-30 08:16 | PN- General Surgery ---
See Addendum Subjective Subjective: Patient reports tolerating clears w/o any nausea or vomiting. She reports associated belching. She reports passing flatus and voiding spontanously. OOB to chair yesterday, denies ambulating. Denies pain. NG tube removed yesterday. Objective Vital Signs and I&Os Vital Signs Date Time Temp Pulse Resp B/P B/P Pulse O2 O2 Flow FiO2 Mean Ox Delivery Rate 12/31 835 97 146/74 12/31 727 99.7 97 18 146/74 94 Room Air 12/29 2113 98.4 90 16 132/54 97 Room Air 12/29 1600 93 Room Air 12/29 1408 98.0 91 20 118/60 93 Room Air Intake & Output 12/30 0812/30 0000 12/29 1600 12/29 0812/29 0000 Intake Total 1040 1420 1250 1000 Output Total 350 325 450 475 375 Balance 690 1095 800 525 -375 Intake, IV 800 436 198 9988 Intake, Oral 240 600 600 Output, 200 300 Gastric Drainage Output, Urine 350 325 450 275 75 Physical Exam: General - resting comfortably awake and alert in no acute distress. Lungs - CTAB, diminished at bases Cardiac - S1S2 noted Abd - soft, obese with midline dressing, stained but intact and removed. Incision closed with suzanne healing well with no signs of infection, left tanner rotary drum continuous process, exquisitely tender in mid-right upper quadrant with voluntary guarding Extremities - No edema or calf tenderness B/L Current Medications: Current Medications Sig/Bull Start time Last Medication Dose Route Stop Time Status Admin Acetaminophen 1,000 MG Q6P PRN 12/28 0145 N/A 1 UNIT IV Docusate Sodium 100 MG BID 12/29 2200 12/30 PO 0836 Heparin Sodium 5,000 UNIT Q8 12/[address] 12/29 (Porcine) SC 12/30 0000 2054 Insulin Aspart 0 TIDAC 12/29 1700 12/30 SC 0834 Insulin Human Regular 6 UNITS .STK-MED ONE 12/29 1224 DC IV 12/29 1225 Insulin Human Regular 0 Q6 12/[address] 12/29 SC 1229 Losartan Potassium 50 MG DAILY 12/28 1000 AC 12/30 PO 0836 Magnesium Sulfate 1 GM ONCE ONE 12/[address] 12/29 Dextrose/Water 100 ML IV 12/29 1344 1025 Morphine Sulfate 2 MG Q3P PRN 12/28 0145 AC 12/29 IV 1622 Morphine Sulfate 4 MG Q3P PRN 12/28 0145 12/29 IV 2345 Nystatin 1 OLIVIA BID 12/29 1217 AC 12/30 TOP 0837 Ondansetron HCl 4 MG Q6P PRN 12/28 0145 AC 12/29 IV 2345 Oxybutynin Chloride 2.5 MG BID 12/28 1000 AC 12/30 PO 0837 Pantoprazole Sodium 40 MG DAILY 12/28 1000 AC 12/30 IV 0836 Patient Medication 1 ED ONE ONE 12/29 1145 DC Teaching ED 12/29 1146 Phenol 2 SPRAY Q2P PRN 12/28 1130 AC EXT Potassium Chloride 40 MEQ Q10H 12/28 1115 12/30 Dextrose/Sodium 1,000 ML IV 0610 Chloride Rivaroxaban 20 MG DAILY 12/30 1000 AC 12/30 PO 0836 Results Last 48 Hours of Labs: Laboratory Tests 12/29 0707 Chemistry Sodium (137 - 145 mmol/L) 138 Potassium (3.5 - 5.1 mmol/L) 3.7 Chloride (98 - 107 mmol/L) 103 Carbon Dioxide (22 - 30 mmol/L) 27 Anion Gap (5 - 16) 7 BUN (7 - 17 mg/dL) 14 Creatinine (0.5 - 1.0 mg/dL) 0.7 Estimated GFR (>60 ml/min) > 60 BUN/Creatinine Ratio (7 - 25 %) 20.0 Magnesium (1.6 - 2.3 mg/dL) 1.8 Assessment/Plan Assessment/Plan 77 F POD 3 s/p ex lap with SBR for closed loop SBO with return of bowel function who is tolerating clears Cont clears Decrease IVF rate Pain medication prn Cont ISS Xeralto restarted this morning GI ppx on board Home meds restarted, except for DM meds OOB ambulation Encourage IS Will d/w Core Measures Venous Thromboembolism VTE Risk Factors Surgery No Mechanical VTE Prophylaxis d/t N/A MechProphylax Ordered No VTE Pharm Prophylaxis d/t NA PharmProphylax ordered
[2017-12-30 13:27] VITALS: BP 128/56
[2017-12-30 14:17] LABS: ABSOLUTE BASOPHIL COUNT 0 /CUMM (0.0-0.2); ABSOLUTE EOSINOPHIL COUNT 0.1 /CUMM (0.0-0.7); ABSOLUTE GRANULOCYTE CT 3.7 /CUMM (1.4-6.5); ABSOLUTE MONOCYTE COUNT 0.6 /CUMM (0.10-0.60); BASOPHIL % 0.4 % (0.0-2.0); EOSINOPHIL % 2.1 % (0-5); GRANULOCYTE % 68.3 % (42.2-75.2); HEMATOCRIT 30.3 % (37-47); MEAN CORPUSCULAR HGB 19.3 PG (27.0-31.0); MEAN CORPUSCULAR HGB CONC 30.8 G/DL (33.0-37.0); MEAN CORPUSCULAR VOLUME 62.7 FL (81.0-99.0); MEAN PLATELET VOLUME 9.8 FL (7.4-10.4); RBC DISTRIBUTION WIDTH 14.8 % (11.5-14.5); RED BLOOD CELL CT 4.84 /CUMM (4.20-5.40); WHITE BLOOD CELL COUNT 5.4 /CUMM (4.8-10.8)
[2017-12-30 14:24] LABS: PLATELET COUNT 195 /CUMM (130-400)
[2017-12-30 21:34] VITALS: BP 144/70
[2017-12-31 07:50] VITALS: BP 123/71
--- NOTE | 2017-12-31 09:13 | PN- General Surgery ---
See Addendum Subjective Subjective: Reports tolerating clears. "Hungry". Previously passing flatus, but she hasn't noticed any this morning. No bms yet. Ambulating with rolling walker. No dizziness. No shortness of breath. No chest pains. Voiding well. Eager to try food but understands the need to wait for further bowel function. Objective Vital Signs and I&Os Vital Signs Date Time Temp Pulse Resp B/P B/P Pulse O2 O2 Flow FiO2 Mean Ox Delivery Rate 12/31 0750 98.3 86 18 123/71 96 Room Air 12/30 2134 99.0 86 18 144/70 93 Room Air 12/30 1600 98.9 12/30 1327 99.2 84 20 128/56 93 Room Air 12/30 1203 100.1 Intake & Output 12/31 1600 12/31 0800 12/31 0000 12/30 1600 12/30 0800 12/30 0000 Intake Total 400 1000 1120 1040 1420 Output Total 656 562 4634 650 350 325 Balance -200 50 -150 937 518 8544 Intake, IV 400 400 400 800 820 Intake, Oral 600 720 240 600 Number 0 Bowel Movements Output, Urine 354 428 5469 650 350 325 Patient 202 lb Weight Physical Exam: General - alert & oriented x 3. out of bed to chair. no acute distress. Lungs - clear bilaterally. no w/r/r. Cardiac - s1s2. reg. Abdomen - soft. midline incision approximated with suzanne. no erythema. no exudates. expected vladislav-incisional tenderness. Extremities - warm bilaterally. no c/c/e. calves soft and nontender b/l. Current Medications: Current Medications Sig/Bull Start time Last Medication Dose Route Stop Time Status Admin Acetaminophen 1,000 MG Q6P PRN 12/28 0145 AC N/A 1 UNIT IV Budesonide/ 2 PUF DAILY 12/30 1000 AC 12/30 Formoterol Fumarate INH 1209 Docusate Sodium 100 MG BID 12/29 2200 AC 12/30 PO 2052 Insulin Aspart 0 TIDAC 12/29 1700 AC 12/31 SC 0824 Losartan Potassium 50 MG DAILY 12/28 1000 AC 12/30 PO 0836 Magnesium Oxide 400 MG BID 12/30 1000 AC 12/30 PO 2052 Metoclopramide HCl 10 MG Q8 12/30 1449 AC 12/31 IV 0548 Morphine Sulfate 2 MG Q3P PRN 12/28 0145 AC 12/31 IV 0307 Morphine Sulfate 4 MG Q3P PRN 12/28 0145 AC 12/29 IV 2345 Nystatin 1 OLIVIA BID 12/29 1217 AC 12/30 TOP 2052 Omeprazole 20 MG DAILY AC 12/31 0700 AC 12/31 PO 0548 Ondansetron HCl 4 MG Q6P PRN 12/28 0145 AC 12/29 IV 2345 Oxybutynin Chloride 2.5 MG BID 12/28 1000 AC 12/30 PO 205 Patient Medication 1 ED ONE ONE 12/30 1730 DC Teaching ED 12/30 1731 Phenol 2 SPRAY Q2P PRN 12/28 1130 AC EXT Potassium Chloride 40 MEQ Q20H 12/30 0930 AC 12/30 Dextrose/Sodium 1,000 ML IV 2056 Chloride Pravastatin Sodium 80 MG 5PM 12/30 1700 AC 12/30 PO 1626 Rivaroxaban 20 MG DAILY 12/30 1000 AC 12/30 PO 0836 Results Last 48 Hours of Labs: Laboratory Tests 12/31 12/30 0658 1325 Chemistry Sodium (137 - 145 mmol/L) 137 136 L Potassium (3.5 - 5.1 mmol/L) 5.0 4.7 Chloride (98 - 107 mmol/L) 102 101 Carbon Dioxide (22 - 30 mmol/L) 28 28 Anion Gap (5 - 16) 7 7 BUN (7 - 17 mg/dL) 8 9 Creatinine (0.5 - 1.0 mg/dL) 0.7 0.7 Estimated GFR (>60 ml/min) > 60 > 60 BUN/Creatinine Ratio (7 - 25 %) 11.4 12.9 Magnesium (1.6 - 2.3 mg/dL) 1.5 L 1.6 Hematology CBC w Diff MAN DIFF ORDERED WBC (4.8 - 10.8 /CUMM) 5.4 RBC (4.20 - 5.40 /CUMM) 4.84 Hgb (12.0 - 16.0 G/DL) 9.4 L Hct (37 - 47 %) 30.3 L MCV (81.0 - 99.0 FL) 62.7 L MCH (27.0 - 31.0 PG) 19.3 L MCHC (33.0 - 37.0 G/DL) 30.8 L RDW (11.5 - 14.5 %) 14.8 H Plt Count (130 - 400 /CUMM) 195 MPV (7.4 - 10.4 FL) 9.8 Gran % (42.2 - 75.2 %) 68.3 Lymphocytes % (20.5 - 51.1 %) 18.8 L Monocytes % (1.7 - 9.3 %) 10.4 H Eosinophils % (0 - 5 %) 2.1 Basophils % (0.0 - 2.0 %) 0.4 Absolute Granulocytes (1.4 - 6.5 /CUMM) 3.7 Absolute Lymphocytes (1.2 - 3.4 /CUMM) 1.0 L Absolute Monocytes (0.10 - 0.60 /CUMM) 0.6 Absolute Eosinophils (0.0 - 0.7 /CUMM) 0.1 Absolute Basophils (0.0 - 0.2 /CUMM) 0 Platelet Estimate (ADEQUATE) VERIFIED BY SMEAR Hypochromic-Microcytic 2+ Poikilocytosis 1+ Anisocytosis 1+ Microcytic Cells 2+ Ovalocytes 1+ 03/01 1250 Urines Urine Color (YEL,AMB,STR) YEL Urine Clarity (CLEAR) HAZY H Urine pH (5.0 - 8.0) 6.0 Ur Specific [place] (1.001 - 1.035) <= 1.005 Urine Protein (NEG,<30 MG/DL) NEG Urine Ketones (NEG) NEG Urine Nitrite (NEG) NEG Urine Bilirubin (NEG) NEG Urine Urobilinogen (0.1 - 1.0 EU/dl) 0.2 Ur Leukocyte Esterase (NEG) SMALL H Ur Microscopic SEDIMENT EXAMINED Urine RBC (0 - 5 /HPF) RARE Urine WBC (0 - 2 /HPF) 5-10 H Ur Epithelial Cells (NONE,FEW) FEW Urine Bacteria (NEG/NONE) FEW H Urine Hemoglobin (NEG) NEG Urine Glucose (N MG/DL) NEG Assessment/Plan Assessment/Plan This 77 F is poD#4 s/p ex lap with SBR for closed loop SBO, currently tolerating clears tolerating clears. d/c iv fluids oob/ambulation encouraged instruct/encourage IST f/u labs xeralto restarted yesterday consider advancing diet if passing flatus today and awaiting bm will d/w Core Measures Venous Thromboembolism VTE Risk Factors Surgery No Mechanical VTE Prophylaxis d/t N/A MechProphylax Ordered No VTE Pharm Prophylaxis d/t NA PharmProphylax ordered
[2017-12-31 14:12] VITALS: BP 142/72
[2017-12-31 22:10] VITALS: BP 124/80
[2018-01-01 05:43] VITALS: BP 118/70
--- NOTE | 2018-01-01 10:15 | PN- General Surgery ---
Subjective Subjective: Patient reports a loose BM this morning. She reports pain is well controlled. She reports ambulating. She is tolerating a full liquid diet without nausea or vomiting. She denies cough. Reports that she is using her IS. Objective Vital Signs and I&Os Vital Signs Date Time Temp Pulse Resp B/P B/P Pulse O2 O2 Flow FiO2 Mean Ox Delivery Rate 01/01 1048 76 124/74 01/01 0543 98.3 74 20 118/70 93 Room Air 12/31 2210 98.0 85 20 124/80 94 Intake & Output 01/01 1600 01/01 0800 01/01 0000 12/31 1600 12/31 0812/31 0000 Intake Total 500 991 594 2540 Output Total 450 700 349 126 1649 Balance -450 -200 20 50 -150 Intake, IV 20 150 400 400 Intake, Oral 480 720 600 Output, Urine 450 700 361 979 0981 Physical Exam: General - resting comfortably awake and alert in no acute distress. Lungs - CTAB, diminished at bases Cardiac - S1S2 noted Abd - soft, obese, nondistened, incision closed with suzanne healing well with no signs of infection, nontender throughout Extremities - No edema or calf tenderness B/L Current Medications: Current Medications Sig/Bull Start time Last Medication Dose Route Stop Time Status Admin Acetaminophen 650 MG Q4-6 PRN PRN 01/01 1345 AC PO Acetaminophen 1,000 MG Q6P PRN 12/28 0145 DC N/A 1 UNIT IV Bisacodyl 10 MG ONCE ONE 12/31 2145 DC 01/01 DE 12/31 2146 0620 Budesonide/ 2 PUF DAILY 12/30 1000 AC 01/01 Formoterol Fumarate INH 1048 Docusate Sodium 100 MG BID 12/29 2200 AC 01/01 PO 1048 Insulin Aspart 0 TIDAC 12/29 1700 AC 01/01 SC 1237 Losartan Potassium 50 MG DAILY 12/28 1000 AC 01/01 PO 1048 Magnesium Oxide 400 MG BID 12/30 1000 AC 01/01 PO 1048 Metoclopramide HCl 10 MG Q8 12/30 1449 AC 01/01 IV 1307 Morphine Sulfate 2 MG Q3P PRN 12/28 0145 DC 01/01 IV 1307 Morphine Sulfate 4 MG Q3P PRN 12/28 0145 DC 12/29 IV 2345 Nystatin 1 OLIVIA BID 12/29 1217 AC 01/01 TOP 1048 Omeprazole 20 MG DAILY AC 12/31 0700 AC 01/01 PO 0620 Ondansetron HCl 4 MG Q6P PRN 12/28 0145 AC 12/29 IV 2345 Oxybutynin Chloride 2.5 MG BID 12/28 1000 AC 01/01 PO 1048 Phenol 2 SPRAY Q2P PRN 12/28 1130 AC EXT Pravastatin Sodium 80 MG 5PM 12/30 1700 AC 12/31 PO 1551 Rivaroxaban 20 MG DAILY 12/30 1000 AC 01/01 PO 1048 Tramadol HCl 50 MG Q4-6 PRN PRN 01/01 1345 AC PO Results Last 48 Hours of Labs: Laboratory Tests 01/01 12/31 0738 0658 Chemistry Sodium (137 - 145 mmol/L) 138 137 Potassium (3.5 - 5.1 mmol/L) 4.2 5.0 Chloride (98 - 107 mmol/L) 100 102 Carbon Dioxide (22 - 30 mmol/L) 31 H 28 Anion Gap (5 - 16) 8 7 BUN (7 - 17 mg/dL) 8 8 Creatinine (0.5 - 1.0 mg/dL) 0.8 0.7 Estimated GFR (>60 ml/min) > 60 > 60 BUN/Creatinine Ratio (7 - 25 %) 10.0 11.4 Magnesium (1.6 - 2.3 mg/dL) 1.5 L 1.5 L Assessment/Plan Assessment/Plan 77 F POD 5 s/p ex lap with SBR for closed loop SBO who is recovering well with return of bowel function Advace to low residue diet Transition to non-narcotic po pain meds prn Home meds on board, including xarelto GI ppx on board Cont ISS tidac OOB ambulation Encourage IS PT recommending home PT Anticipate d/c within 1-2 days with [facility] [place] D/w Core Measures Venous Thromboembolism VTE Risk Factors Surgery No Mechanical VTE Prophylaxis d/t N/A MechProphylax Ordered No VTE Pharm Prophylaxis d/t NA PharmProphylax ordered
[2018-01-01 14:33] VITALS: BP 140/72
[2018-01-01 22:22] VITALS: BP 136/80
[2018-01-02 05:54] VITALS: BP 148/60
[2018-01-02 10:28] VITALS: BP 122/74
--- NOTE | 2018-01-02 11:08 | Patient Discharge Instructions ---
Discharge Instructions General Discharge Information You were seen/treated for: a closed loop bowel obstruction You had these procedures: exploratory laparotomy with small bowel resection Watch for these problems: nausea and vomiting fever >101 sudden increase in abdominal pain redness, swelling and/or drainage from wound Call Surgeon to remove: [place] No bath, but you may shower: Yes Other wound care: keep wound clean and dry Diet Recommended Diet: Low Residue Activity Activity Self Limited: Yes Pounds, do NOT lift more than: 10 Acute Coronary Syndrome Inclusion Criteria At DC or during hospital stay patient has or had the following: ACS DIAGNOSIS No Discharge Core Measures Meds if any: Prescribed or Continued at Discharge Meds if any: NOT Prescribed or Continued at Discharge Congestive Heart Failure Inclusion Criteria At DC or during hospital stay patient has or had the following: CHF DIAGNOSIS No Discharge Core Measures Meds if any: Prescribed or Continued at Discharge Meds if any: NOT Prescribed or Continued at Discharge Cerebrovascular accident Inclusion Criteria At DC or during hospital stay patient has or had the following: CVA/TIA Diagnosis No (history of) Discharge Core Measures Meds if any: Prescribed or Continued at Discharge Meds if any: NOT Prescribed or Continued at Discharge Venous thromboembolism Inclusion Criteria VTE Diagnosis No VTE Type NONE VTE Confirmed by (Test) NONE Discharge Core Measures - Per Current guidelines, there needs to be overlap - treatment for the first 5 days of Warfarin therapy. - If discharged on Warfarin prior to 5 days of - overlap therapy, the patient will need to be - assessed for post discharge needs including - *Post discharge parental anticoagulation - *Warfarin and/or parental anticoagulation education - *Follow up date to check INR post discharge At least 5 days overlap therapy as Inpatient No Meds if any: Prescribed or Continued at Discharge Note: Overlap Therapy is Warfarin and Anticoagulant Meds if any: NOT Prescribed or Continued at Discharge
--- NOTE | 2018-01-02 11:14 | PN- General Surgery ---
Subjective Subjective: pt in bed with no complaints. pain under control with just PO tylenol. +BM, voiding. ambulating. Denies n/v, cp/sob, and fevers. Objective Vital Signs and I&Os Vital Signs Date Time Temp Pulse Resp B/P B/P Pulse O2 O2 Flow FiO2 Mean Ox Delivery Rate 01/02 1028 65 122/74 01/02 0554 98.1 74 20 148/60 94 Room Air 01/01 2222 99.0 72 20 136/80 97 Room Air 01/01 1433 97.7 74 20 140/72 96 Room Air Intake & Output 01/02 1600 01/02 0800 01/02 0000 01/01 1600 01/01 0800 01/01 0000 Intake Total 740 750 500 Output Total 400 600 450 700 Balance -400 740 150 -450 -200 Intake, IV 20 30 20 Intake, Oral 720 720 480 Number 1 Bowel Movements Output, Urine 400 600 450 700 Physical Exam: gen-nad resp- clear cardio- rrr abd- nd, soft, nt. [place] in midline incision, no signs of infection or drainage. Assessment/Plan Assessment/Plan 77yo F SP ex lap SBR POD6 for closed loop obstruction. stable Cont low residue diet Cont PO tylenol prn abd pain. pt states she does not need any other pain meds on discharge to home Encourage ambulation and IS Rec FU with Dr Hummel as outpatient in 1 wk for staple removal DC to home today Core Measures Venous Thromboembolism VTE Risk Factors Surgery No Mechanical VTE Prophylaxis d/t N/A MechProphylax Ordered No VTE Pharm Prophylaxis d/t NA PharmProphylax ordered
== END 2018-01-02 13:50 | disposition home health service (06) | DRG 329 ==
LOC: ERH 17:04 → ER-OR 17:52 → CRI 12-28 01:10 → 2NB 12-28 01:10 → ENPENDDIS 01-02 11:27 → ENTRNSPT 01-02 13:28 → 2NB 01-02 13:50 → CMPTRNSPT 01-02 13:57
PROVIDERS: Nurse Practitioner; Physician Assistant; Physician Assistant Surgical
PROC: 0DN80ZZ Release Small Intestine, Open Approach (ICD-10-PCS; principal; 2017-12-27)
PROC: 0DBA0ZZ Excision of Jejunum, Open Approach (ICD-10-PCS; 2017-12-27)
DX: K56.50 Intestinal adhesions [bands], unspecified as to partial versus complete obstruction (principal); K55.011 Focal (segmental) acute (reversible) ischemia of small intestine; E11.8 Type 2 diabetes mellitus with unspecified complications; I69.354 Hemiplegia and hemiparesis following cerebral infarction affecting left non-dominant side; R11.10 Vomiting, unspecified; I10 Essential (primary) hypertension; Z79.84 Long term (current) use of oral hypoglycemic drugs; K21.9 Gastro-esophageal reflux disease without esophagitis; J45.909 Unspecified asthma, uncomplicated; K57.30 Diverticulosis of large intestine without perforation or abscess without bleeding; Z86.711 Personal history of pulmonary embolism; Z86.718 Personal history of other venous thrombosis and embolism
CPT/HCPCS: 2NBSP; 36415; 36592; 74174; 81001; 82436; 87086; 88307; 93005; 93010; 96372; 96374; 96375; 96376; 97110-GO; 97116-GO; 97161-GP; 97530-GO; 99291; C9399; J0131; J0690; J1200; J1644; J1815; J2274; J2405; J2765; J3010; J3490; J7042

== ENCOUNTER 2018-02-04 12:53 | Inpatient (IN) | payer OTHER ==
[~2018-02-04] VITALS: Ht 165.1 cm; Wt 90.9 kg
--- NOTE | 2018-02-04 13:49 | ED GI/GU/ABDOMINAL COMPLAINT ---
History of Present Illness General Chief Complaint: Abdominal Pain/Flank Pain Stated Complaint: ABDOMIANL PAIN,VOMITING Source: patient Exam Limitations: no limitations Allergies Coded Allergies: methylprednisolone (From Solu-Medrol) (Intermediate, HIVES AND PALPITATIONS 01/14) clove (HIVES 12/29/15) kimberli (HIVES 12/29/15) thyme (HIVES 12/29/15) hydrocodone (NAUSEA 12/29/15) ibuprofen (GI UPSET 12/29/15) lisinopril (DRY COUGH 12/29/15) nitrofurantoin (MAKES HER CRAZY 05/03/16) Uncoded Allergies: CHIVES (HIVES 01/05/16) Reconcile Medications Aspirin (Ecotrin*) 81 MG TABLET.DR 1 TAB PO DAILY HEART/BLOOD (Reported) Budesonide/Formoterol Fumarate (Symbicort 160-4.5 Mcg Inhaler) 160 MCG-4.5 MCG/ ACTUATION HFA.AER.AD 2 PUF INH PRN ASTHMA (Reported) Liraglutide (Victoza 2-Kuldeep) 0.6 MG/0.1 ML (18 MG/3 ML) PEN.INJCTR 1.2 MG SC DAILY DM (Reported) Losartan Potassium 50 MG TABLET 1 TAB PO DAILY BP (Reported) Magnesium Oxide 400 MG TABLET 400 MG PO BID lOW MAGNESIUM . Metformin HCl (Metformin HCl ER) 500 MG TAB.ER.24H 2 TAB PO BID DM (Reported) Omeprazole Magnesium (Prilosec Otc) 20 MG TABLET.DR 1 TAB PO DAILY GI ( Reported) Pravastatin Sodium 80 MG TABLET 1 TAB PO DAILY CHOLESTEROL (Reported) Rivaroxaban (Xarelto) 20 MG TABLET 1 TAB PO DAILY BLOOD THINNER (Reported) with food Solifenacin Succinate (Vesicare) 5 MG TABLET 1 TAB PO BID BLADDER (Reported) Triage Note: PT TO ED FOR SUDDEN ONSET OF ABD PAIN/VOMITING AT 1215. HAS HX OF NEED FOR EMERGENT SURGERY FOR BOWL RESECTION 1 MONTH AGO. "FEELS THE SAME THAT TIME" PT REPORTS SHARP EPIGASTRIC PAIN THAT RADIATES TO ENTIRE STOMACH. TOOK MOM AND STOOL SOFTENER AT 1200 "I THOUGHT IT WOULD HELP ME GO" REPORTS LAST BM WAS YESTERDAY AND NORMAL. Triage Nurses Notes Reviewed? yes ? n Is pt currently ? No Onset: Abrupt Duration: hour(s): Timing: single episode today Quality/Severity: severe Severity Numbers: 10 Location: epigastric Radiation: bilateral upper abdomen HPI: 77yo female with hx of bowel obstruction requiring emergent elap with bowel resection on 11/27/[address] Estephanie [facility] on [facility], presents to ED complaining of Abrupt onset abdominal pain 08/10 beginning at 1210 today. Abdominal pain described as epigastric radiating to bilateral upper abdomen. Patient also reports 3 episodes of vomiting with persistent nausea. Last bowel movement yesterday and normal, not passing flatus today. Patient describes pain as similar to previous pain last month with bowel obstruction and ischemia. Patient last ate cereal this morning. Patient denies hemoptysis, fevers, chills , urinary symptoms. (Airam SMITH,Aleta Eldridge) Vital Signs & Intake/Output Vital Signs & Intake/Output Vital Signs Date Time Temp Pulse Resp B/P B/P Pulse O2 O2 Flow FiO2 Mean Ox Delivery Rate 02/04 1940 100.5 124 16 116/57 95 Nasal 2.0L Cannula 02/04 1753 98.2 93 18 181/80 95 Room Air 02/04 1546 97.8 80 18 159/74 96 Room Air 02/04 1316 97.9 74 20 174/78 94 Room Air (Brooke SHOOK,Nj Carcamo) Past History Travel History Traveled to [place] past 21 day No Medical History Any Pertinent Medical History? 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 EENT: cataracts, hearing loss Cardiovascular: hypertension, hyperlipidemia Respiratory: pulmonary embolism, ASTHMA, PNEUMONIA Gastrointestinal: GERD, sigmoid diverticulosis SBO BOWEL RESECTION Renal: BLADDER SLING 2016 Musculoskeletal: osteoarthritis, FOOT SURGERY RIGHT RIGHT TKA Endocrine: diabetes Blood Disorders: DVT, PE FURNACE COOLER/Reproductive: HYSTERECTOMY, vaginal Other Medical Hx: Hypertension, dyslipidemia, diabetes mellitus, CHF, asthma, prior transient ischemic attack versus CVA, sigmoid diverticulosis, gastroesophageal reflux disease, positional vertigo, hysterectomy, History of MRSA: No History of VRE: No History of CDIFF: No Pneumonia Vaccine: 08/01/17 Influenza Vaccine: 08/01/17 Tetanus Vaccine: 09/23/15 Surgical History Surgical History: R WRIST,TOE, HYSTERECTOMY BLADDER,RECTUM LIFTED right knee surgery for a meniscal tear left carpal tunnel release Psychosocial History Who do you live with Patient/Self Services at Home None What is your primary language Syriac Tobacco Use: Quit >30 days ago Family History Family History, If Any: BROTHER FH: throat cancer SISTER (atrial fibrillation). FH: lung cancer FH: thyroid cancer SISTER (permanent pacemaker placement). FH: melanoma FHx: breast cancer MOTHER (coronary artery disease in her 50's s/p CABG). FH: diabetes mellitus FH: myocardial infarction FH: stroke FATHER FH: kidney disease Hx Contributory? No (Aleta Anderson) Review of Systems Review of Systems Constitutional: Reports: no symptoms. EENTM: Reports: no symptoms. Respiratory: Reports: no symptoms. Cardiovascular: Reports: no symptoms. GI: Reports: see HPI. Genitourinary: Reports: no symptoms. Musculoskeletal: Reports: no symptoms. Skin: Reports: no symptoms. Neurological/Psychological: Reports: no symptoms. Hematologic/Endocrine: Reports: no symptoms. Immunologic/Allergic: Reports: no symptoms. All Other Systems: Reviewed and Negative (Aleta Anderson) Physical Exam Physical Exam General Appearance: well developed/nourished, no apparent distress, awake, moderate distress Head: atraumatic, normal appearance Eyes: Bilateral: normal appearance. Ears, Nose, Throat, Mouth: hearing grossly normal Neck: normal inspection, supple, full range of motion Respiratory: normal breath sounds, no respiratory distress, lungs clear Cardiovascular: regular rate/rhythm Gastrointestinal: normal bowel sounds, soft, no organomegaly, epigastric, RUQ, LUQ tenderness with gaurding Back: normal inspection, normal range of motion Extremities: normal range of motion Neurologic/Psych: awake, alert, oriented x 3 Skin: intact, normal color, warm/dry Core Measures ACS in differential dx? Yes Sepsis Present: No Sepsis Focused Exam Completed? No (Aleta Anderson) Progress Differential Diagnosis: AMI, bowel obstruction, cholecystitis, gastritis, hernia , ischemic bowel, inflamm bowel dis, pancreatitis, peptic ulcer, PUD/GERD, SBO, UTI/pyelo, cholangitis, gallstone pancreatitis Diagnostic Imaging: Viewed by Me: CT Scan. Discussed w/RAD: CT Scan. Radiology Impression: PATIENT: ADARSH BOYD PRESENT AGE: 77 PATIENT ACCOUNT NO: [id number] : 42 LOCATION: [facility] ORDERING PHYSICIAN: Aleta SMITH SERVICE DATE: 02/04/188 EXAM TYPE: CAT - CT ABD & PELVIS W IV CONTRAST EXAMINATION: CT ABDOMEN AND PELVIS WITH CONTRAST CLINICAL INFORMATION: Abdominal pain COMPARISON: None TECHNIQUE: Multidetector volumetric imaging was performed of the abdomen and pelvis following IV administration of 95 mL of Omniray 320 intravenous contrast. Sagittal and coronal reformatted images were obtained on the technologist's workstation. DLP: 610.04 mGy-cm FINDINGS: LUNG BASES: Limited images of lower thorax demonstrate developing atelectasis in the right middle lobe. No pleural effusion. LIVER AND BILIARY TREE: The liver is normal in size, shape, and attenuation. No focal hepatic lesion or biliary ductal dilatation is present. Mild hepatic congestion noted. The portal vein opacifies homogeneously. GALLBLADDER: The gallbladder is distended. Calcified gallstones are seen in the dependent part of the gallbladder. There is pericholecystic fluid. There is mild dilatation of the CBD. The CBD measures about 10 mm at the level of head of pancreas. There is increased density of the contents of the CBD at the level of the ampulla, could represent CBD stone. The finding is better seen on axial image 328 from series 3. PANCREAS: Unremarkable. SPLEEN: Unremarkable. ADRENAL GLANDS: There is a 4.6 cm fat density mass arising from the left adrenal gland, can represent an adrenal myolipoma. The right adrenal gland is unremarkable. KIDNEYS AND URETERS: The kidneys are normal in size, shape, and attenuation. No hydronephrosis, hydroureter, or calculi seen. No perinephric stranding. BLADDER: Unremarkable. GASTROINTESTINAL TRACT: The loops of the small bowel and colon are not dilated. Diverticular disease of the left colon noted. No CT evidence of acute diverticulitis. The appendix is not clearly seen; however, there are no inflammatory changes in the expected position of the appendix to suggest acute appendicitis. No free air in the abdomen. ABDOMINAL WALL: No significant hernia is appreciated. LYMPH NODES: Normal. VASCULAR: Atherosclerotic calcifications of the abdominal aorta noted. An infrarenal IVC filter is in place. PELVIC VISCERA: The uterus is absent. No large adnexal mass. OSSEOUS STRUCTURES: Unremarkable. IMPRESSION: Gallstone and CBD stone with mild dilatation of the CBD and CT findings suggestive of acute cholecystitis. Clinical correlation is suggested. A 4.6 cm fat density mass arising from the left adrenal gland. 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 Colon diverticulosis without CT evidence of acute diverticulitis. DICTATED BY: Nadira Romero MD DATE/TIME DICTATED:1542 APARTMENT LOCATOR:FLORI DATE/TIME TRANSCRIBED:02/04/181542 CONFIDENTIAL, DO NOT COPY WITHOUT APPROPRIATE AUTHORIZATION. <Electronically signed in Other Vendor System> SIGNED BY: Nadira Romero MD 02/04/18 1624 Initial ED EKG: sinus rhythm @69bpm, nonspecific ST changes Prior EKG: unchanged (12/27/17) (Airam SMITH,Aleta Eldridge) Plan of Care: Orders Procedure Date/time Status Nothing by Mouth 02/05 B Active CBC WITHOUT DIFFERENTIAL 02/05 600 Active BASIC ELECTROLYTES PLUS BUN&CR 02/05 600 Active OXYGEN SETUP (GEN) 02/04 1919 Active Pathway - chart 02/04 191 Active House Staff 02/04 191 Active Patient Data 02/04 1858 Active Misc Message 02/04 184 Active ED Holding Orders 02/04 1842 Active Admit to inpatient 02/04 1842 Active Vital Signs 02/04 1842 Active Code Status 02/04 1842 Active Intake & Output 02/04 1501 Active TROPONIN LEVEL 02/04 1320 Complete PARTIAL THROMBOPLASTIN TIME 02/04 1320 Complete PROTHROMBIN TIME 02/04 1320 Complete MAGNESIUM 02/04 1320 Complete LIPASE 02/04 1320 Complete COMPREHENSIVE METABOLIC PANEL 02/04 1320 Complete CBC WITHOUT DIFFERENTIAL 02/04 1320 Complete AMYLASE 02/04 1320 Complete EKG 02/04 1254 Active VTE Mechanical Prophylaxis 02/04 UNK Active Vital Signs 02/04 UNK Active Intake & Output 02/04 UNK Active FingerStick- Glucose 02/04 UNK Active Current Medications Sig/Bull Start time Last Medication Dose Stop Time Status Admin Promethazine HCl 12.5 MG ONCE ONE 02/04 1945 AC (Phenergen) 02/04 1946 Laboratory Tests 02/04/18 1355: Anion Gap 11, Estimated GFR > 60, BUN/Creatinine Ratio 18.6, Glucose 128 H, Calcium 9.7, Magnesium 1.7, Total Bilirubin 1.1, AST 74 H, ALT 30, Alkaline Phosphatase 146 H, Troponin I < 0.01, Total Protein 7.0, Albumin 3.7, Globulin 3.3, Albumin/Globulin Ratio 1.1, Amylase 120 H, Lipase 1610 H, PT 26.2 H, INR 2.38 H, APTT 42 H, CBC w Diff NO MAN DIFF REQ, RBC 5.67 H, MCV 62.0 L, MCH 19.1 L, MCHC 30.9 L, RDW 15.0 H, MPV 9.4, Gran % 79.1 H, Lymphocytes % 12.6 L, Monocytes % 6.1, Eosinophils % 1.6, Basophils % 0.6, Absolute Granulocytes 7.7 H, Absolute Lymphocytes 1.2, Absolute Monocytes 0.6, Absolute Eosinophils 0.2, Absolute Basophils 0.[address] Sp[address] with general surgery Dr[address] Wakefield regarding this patient, he recommends ERCP prior to surgical intervention for cholecystitis, surgical PA will evaluate the patient. Spoke with Dr. Silver regarding this patient's gallstone pancreatitis, he is available this weekend for ERCP, perform procedure over the weekend if patient remains stable. He states patient does not require transfer as he is here to perform ERCP. Nj Cox MD present to see and evaluate the patient. Spoke with hospitalist Dr. Kim regarding this patient's general medicine admission. (Aleta Anderson) (Brooke SHOOK,Nj Carcamo) Departure Departure Disposition: STILL A PATIENT Condition: Stable Clinical Impression Primary Impression: Gall stone pancreatitis Secondary Impressions: Cholecystitis Referrals: Shabbir Trevino MD (PCP/Family) Departure Forms: Customer Survey General Discharge Information Admission Note Spoke With: Julio SHOOK,Esha Documentation of Exam: Documentation of any treatments & extenuating circumstances including Concerns Regarding Discharge (functional status, medication knowledge or non-compliance, living conditions, etc.) that warrant an admission rather than observation: [ Acute gallstone pancreatitis with cholecystitis and stone in common bile duct requiring GI consult and general surgery consult for ERCP, possible surgical procedure, IV pain control, IV fluids, premature discharge medically unsafe.] (Aleta Anderson) PA/ROW BOSS Co-Sign Statement Statement: ED Attending supervision documentation- [X] I saw and evaluated the patient. I have also reviewed all the pertinent lab results and diagnostic results. I agree with the findings and the plan of care as documented in the PA's/ROW BOSS's documentation. Patient presents for evaluation of abdominal pain. Physical examination reveals epigastric abdominal tenderness with voluntary guarding but no rebound. [] I have reviewed the ED Record and agree with the PA's/ROW BOSS's documentation. [] Additions or exceptions (if any) to the PAs/ROW BOSS's note and plan are summarized below: [] (Brooke SHOOK,Nj Carcamo)
[2018-02-04 14:14] LABS: ABSOLUTE BASOPHIL COUNT 0.1 /CUMM (0.0-0.2); ABSOLUTE EOSINOPHIL COUNT 0.2 /CUMM (0.0-0.7); ABSOLUTE GRANULOCYTE CT 7.7 /CUMM (1.4-6.5); ABSOLUTE LYMPH COUNT 1.2 /CUMM (1.2-3.4); ABSOLUTE MONOCYTE COUNT 0.6 /CUMM (0.10-0.60); BASOPHIL % 0.6 % (0.0-2.0); EOSINOPHIL % 1.6 % (0-5); GRANULOCYTE % 79.1 % (42.2-75.2); HEMATOCRIT 35.2 % (37-47); MEAN CORPUSCULAR HGB 19.1 PG (27.0-31.0); MEAN CORPUSCULAR HGB CONC 30.9 G/DL (33.0-37.0); MEAN PLATELET VOLUME 9.4 FL (7.4-10.4); PLATELET COUNT 289 /CUMM (130-400); RED BLOOD CELL CT 5.67 /CUMM (4.20-5.40); WHITE BLOOD CELL COUNT 9.7 /CUMM (4.8-10.8)
[2018-02-04 14:31] LABS: PT 26.2 SEC (9.4-12.5); PTT 42 SEC (25-37)
--- NOTE | 2018-02-04 16:24 | CT SCAN REPORT ---
EXAMINATION: CT ABDOMEN AND PELVIS WITH CONTRAST CLINICAL INFORMATION: Abdominal pain COMPARISON: None TECHNIQUE: Multidetector volumetric imaging was performed of the abdomen and pelvis following IV administration of 95 mL of Omniray 320 intravenous contrast. Sagittal and coronal reformatted images were obtained on the technologist's workstation. DLP: 610.04 mGy-cm FINDINGS: LUNG BASES: Limited images of lower thorax demonstrate developing atelectasis in the right middle lobe. No pleural effusion. LIVER AND BILIARY TREE: The liver is normal in size, shape, and attenuation. No focal hepatic lesion or biliary ductal dilatation is present. Mild hepatic congestion noted. The portal vein opacifies homogeneously. GALLBLADDER: The gallbladder is distended. Calcified gallstones are seen in the dependent part of the gallbladder. There is pericholecystic fluid. There is mild dilatation of the CBD. The CBD measures about 10 mm at the level of head of pancreas. There is increased density of the contents of the CBD at the level of the ampulla, could represent CBD stone. The finding is better seen on axial image 328 from series 3. PANCREAS: Unremarkable. SPLEEN: Unremarkable. ADRENAL GLANDS: There is a 4.6 cm fat density mass arising from the left adrenal gland, can represent an adrenal myolipoma. The right adrenal gland is unremarkable. KIDNEYS AND URETERS: The kidneys are normal in size, shape, and attenuation. No hydronephrosis, hydroureter, or calculi seen. No perinephric stranding. BLADDER: Unremarkable. GASTROINTESTINAL TRACT: The loops of the small bowel and colon are not dilated. Diverticular disease of the left colon noted. No CT evidence of acute diverticulitis. The appendix is not clearly seen; however, there are no inflammatory changes in the expected position of the appendix to suggest acute appendicitis. No free air in the abdomen. ABDOMINAL WALL: No significant hernia is appreciated. LYMPH NODES: Normal. VASCULAR: Atherosclerotic calcifications of the abdominal aorta noted. An infrarenal IVC filter is in place. PELVIC VISCERA: The uterus is absent. No large adnexal mass. OSSEOUS STRUCTURES: Unremarkable. IMPRESSION: Gallstone and CBD stone with mild dilatation of the CBD and CT findings suggestive of acute cholecystitis. Clinical correlation is suggested. A 4.6 cm fat density mass arising from the left adrenal gland. 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 Colon diverticulosis without CT evidence of acute diverticulitis.
--- NOTE | 2018-02-04 19:03 | History & Physical ---
[facility] General Information and HPI MD Statement: I have seen and personally examined ADARSH BOYD and documented this H&P. The patient is a 77 year old F who presented with a patient stated chief complaint of [nausea, vomiting]. 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 Patient was in her usual state of health until yesterday afternoon patient suddenly developed severe abdominal pain of 10 x 10 in intensity radiating to the level of umbilicus and to the flanks associated with 6 episodes of bilious vomiting with no blood. Patient had decreased appetite 2 days ago. She also complained of constipation 3 weeks ago which got improved by stool softeners. Patient has chronic cough with whitish sputum production. Patient's son was at the bedside told that patient had difficulty in breathing on and off yesterday. Patient has a diagnosis of COPD and asthma but doesn't use oxygen at home. Patient denies headache, loss of consciousness, fall, fever, chills, chest pain, palpitation, diarrhea. Patient recently had colon resection secondary due to small bowel obstruction in November 2017. Patient also had right knee arthroplasty in September 2017. In August 2017 patient had IVC filter placed following which patient developed pulmonary embolism initially was on Coumadin and then with recurrent PE and started on xeralto. Surgical history -hysterectomy, right knee meniscal tear repair. Family history-is bladder Cancer, sister lung cancer/thyroid cancer, mother - diabetes, CT, stroke, father - kidney disease Allergies/Medications Allergies: Coded Allergies: methylprednisolone (From Solu-Medrol) (Intermediate, HIVES AND PALPITATIONS 01/14) clove (HIVES 12/29/15) kimberli (HIVES 12/29/15) thyme (HIVES 12/29/15) hydrocodone (NAUSEA 12/29/15) ibuprofen (GI UPSET 12/29/15) lisinopril (DRY COUGH 12/29/15) nitrofurantoin (MAKES HER CRAZY 05/03/16) Uncoded Allergies: CHIVES (HIVES 01/05/16) Home Med list Aspirin (Ecotrin*) 81 MG TABLET.DR 1 TAB PO DAILY HEART/BLOOD (Reported) Budesonide/Formoterol Fumarate (Symbicort 160-4.5 Mcg Inhaler) 160 MCG-4.5 MCG/ ACTUATION HFA.AER.AD 2 PUF INH PRN ASTHMA (Reported) Liraglutide (Victoza 2-Kuldeep) 0.6 MG/0.1 ML (18 MG/3 ML) PEN.INJCTR 1.2 MG SC DAILY DM (Reported) Losartan Potassium 50 MG TABLET 1 TAB PO DAILY BP (Reported) Magnesium Oxide 400 MG TABLET 400 MG PO BID lOW MAGNESIUM . Metformin HCl (Metformin HCl ER) 500 MG TAB.ER.24H 2 TAB PO BID DM (Reported) Omeprazole Magnesium (Prilosec Otc) 20 MG TABLET.DR 1 TAB PO DAILY GI ( Reported) Pravastatin Sodium 80 MG TABLET 1 TAB PO DAILY CHOLESTEROL (Reported) Rivaroxaban (Xarelto) 20 MG TABLET 1 TAB PO DAILY BLOOD THINNER (Reported) with food Solifenacin Succinate (Vesicare) 5 MG TABLET 1 TAB PO BID BLADDER (Reported) Compliance With Home Meds: GOOD Past History Travel History Traveled to [place] past 21 day No Medical History Neurological: TIA, vertigo, STROKE `11 RESIDUAL L. 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 EENT: cataracts, hearing loss Cardiovascular: hypertension, hyperlipidemia Respiratory: pulmonary embolism, ASTHMA, PNEUMONIA Gastrointestinal: GERD, sigmoid diverticulosis SBO BOWEL RESECTION Renal: BLADDER SLING 2016 Musculoskeletal: osteoarthritis, FOOT SURGERY RIGHT RIGHT TKA Endocrine: diabetes Blood Disorders: DVT, PE SYSTEM DEVELOPMENT MANAGER/Reproductive: HYSTERECTOMY, vaginal Other Medical Hx: Hypertension, dyslipidemia, diabetes mellitus, CHF, asthma, prior transient ischemic attack versus CVA, sigmoid diverticulosis, gastroesophageal reflux disease, positional vertigo, hysterectomy, History of MRSA: No History of VRE: No History of CDIFF: No Pneumonia Vaccine: 08/01/17 Influenza Vaccine: 08/01/17 Tetanus Vaccine: 09/23/15 Surgical History Surgical History: R WRIST,TOE, HYSTERECTOMY BLADDER,RECTUM LIFTED right knee surgery for a meniscal tear left carpal tunnel release ECHO Results (as available) EF% 60 Past Family/Social History Family History Relations & Conditions if any BROTHER FH: throat cancer SISTER (atrial fibrillation). FH: lung cancer FH: thyroid cancer SISTER (permanent pacemaker placement). FH: melanoma FHx: breast cancer MOTHER (coronary artery disease in her 50's s/p CABG). FH: diabetes mellitus FH: myocardial infarction FH: stroke FATHER FH: kidney disease Psychosocial History Where do you live? Home Who Do You Live With? child Services at Home: None Primary Language: Maltese Smoking Status: Never Smoked ETOH Use: denies use Functional Ability ADLs Independent: dressing, eating, toileting, bathing. Ambulation: independent IADLs Independent: shopping, housework, finances, food prep, telephone, transportation , medication admin. Review of Systems Review of Systems Constitutional: Reports: no symptoms. Cardiovascular: Reports: no symptoms. Respiratory: Reports: no symptoms. GI: Reports: abdominal pain, nausea, vomiting. Genitourinary: Reports: no symptoms. Musculoskeletal: Reports: no symptoms. Skin: Reports: no symptoms. Neurological/Psychological: Reports: no symptoms. Exam & Diagnostic Data Last 24 Hrs of Vital Signs/I&O Vital Signs Date Time Temp Pulse Resp B/P B/P Pulse O2 O2 Flow FiO2 Mean Ox Delivery Rate 02/04 2100 98.3 116 22 135/61 95 Nasal 2.0L Cannula 02/05 2052 95 Nasal 2.0L Cannula 02/04 1940 100.5 124 16 116/57 95 Nasal 2.0L Cannula 02/04 1753 98.2 93 18 181/80 95 Room Air 02/04 1546 97.8 80 18 159/74 96 Room Air 02/04 1316 97.9 74 20 174/78 94 Room Air Intake & Output 02/05 0800 04 0000 02/04 1600 Intake Total 2100 0 Output Total 300 Balance 1800 0 Intake, IV 2100 Intake, Oral 0 Output, Urine 300 Patient 200 lb 200 lb Weight Weight Reported by Patient Reported by Patient Measurement Method Physical Exam General Appearance Alert, Oriented X3, Cooperative, No Acute Distress HEENT Atraumatic, PERRLA, EOMI Cardiovascular Regular Rate, Normal S1, Normal S2, No Murmurs Lungs Clear to Auscultation, Normal Air Movement Abdomen velez's sign Tenderness, in left upper quadrant. No free fluid. Neurological Normal Speech, Strength at 5/5 X4 Ext, Normal Tone, Sensation Intact, Cranial Nerves 3-12 NL Last 24 Hrs of Labs/Robert: Laboratory Tests 02/04/18 1355: Anion Gap 11, Estimated GFR > 60, BUN/Creatinine Ratio 18.6, Glucose 128 H, Calcium 9.7, Magnesium 1.7, Total Bilirubin 1.1, AST 74 H, ALT 30, Alkaline Phosphatase 146 H, Troponin I < 0.01, Total Protein 7.0, Albumin 3.7, Globulin 3.3, Albumin/Globulin Ratio 1.1, Triglycerides 176 H, Amylase 120 H, Lipase 1610 H, PT 26.2 H, INR 2.38 H, APTT 42 H, CBC w Diff NO MAN DIFF REQ, RBC 5.67 H, MCV 62.0 L, MCH 19.1 L, MCHC 30.9 L, RDW 15.0 H, MPV 9.4, Gran % 79.1 H, Lymphocytes % 12.6 L, Monocytes % 6.1, Eosinophils % 1.6, Basophils % 0.6, Absolute Granulocytes 7.7 H, Absolute Lymphocytes 1.2, Absolute Monocytes 0.6, Absolute Eosinophils 0.2, Absolute Basophils 0.1 Microbiology 02/04 2310 BLOOD: Blood Culture - RECD 02/04 2250 BLOOD: Blood Culture - RECD Diagnostic Data EKG Results KG sinus rhythm, heart rate 75, normal axis Other Results CT abdomen and pelvis Gallstone and CBD stone with mild dilatation of the CBD and CT findings suggestive of acute cholecystitis. Clinical correlation is suggested. A 4.6 cm fat density mass arising from the left adrenal gland. 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 Colon diverticulosis without CT evidence of acute diverticulitis. 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 Admission vitals Temperature 98.2, pulse rate 93, respiratory rate 20, blood pressure 174/78---> 181/80, pulse oximeter 95. Admission labs WAC 9.7, hemoglobin 10.9, platelet count 289, INR 2.38, amylase 120, lipase 1610 , alkaline phosphatase 146, AST 74, AST 30, glucose 128 ER treatment Morphine, IV fluids Assessment and plan 1. Acute cholecystitis 2. Gallstone pancreatitis 3. Dehydration * Admitted to general medical floor. Start the patient on IV fluids normal saline/Ringer lactate at 175 mL per hour. Patient appears dehydrated. * Patient has severe 10 x 10 pain-patient pain control with IV morphine. * Nausea-Zofran/Reglan as needed * Surgical consult placed. Patient was seen by surgical PA who suggested to keep nothing by mouth, ERCP, followed by cholecystectomy * Gallstone pancreatitis-gastroenterology consult placed to help us with further management. * Hypertension -admission blood pressure 181/80. Patient blood pressure came down to 116/60 following control of pain. Watch for blood pressure. * Hold antihypertensive medications and XARALTO * During interviewing the patient-patient developed temperature of 100.5. Hence patient was started on ceftriaxone and Flagyl to cover any intra-abdominal abscess. * If patient develops fever, severe abdominal pain, hypertension readdress the need for ICU transfer. Vitals every 4 Code-full code Diet-nothing by mouth Home medication Aspirin 81 mg Symbicort Victoza Losartan 50 mg daily magnesium oxide 400 mg twice a day metformin 500 mg 2 tablets twice a day omeprazole 20 mg daily pravastatin 80 mg daily, Zaroxolyn 20 mg, solifenacin [address] abdomen and pelvis Calcitonin CBD stone with mild agitation of the CBD and CT findings suggestive of acute cholecystitis.A 4.6 cm fat density mass arising from the left adrenal gland. 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 As Ranked By This Provider Problem List: 1. Gall stone pancreatitis 2. Cholecystitis Core Measures/Misc (07/18) Acute Coronary Syndrome ACS Diagnosis: No Congestive Heart Failure Congestive Heart Failure Diagnosis No Cerebrovascular Accident CVA/TIA Diagnosis: No VTE (View Protocol) VTE Risk Factors Age>40 No Mechanical VTE Prophylaxis d/t Other No VTE Pharm Prophylaxis d/t Other Sepsis (View protocol) Sepsis Present: No Sammi Ellington 02/04/18 1903: Resident Review Statement Resident Statement: examined this patient, discussed with general internist and physician leader, agreed with general internist and physician leader, discussed with family, reviewed EMR data (avail), discussed with nursing , discussed with case mgmt, reviewed images, amended to note Other Findings: 77-year-old female with past medical history COPD not on home oxygen, diabetes, hyperlipidemia, TIA, CVA with residual left-sided weakness, CHF, hypertension, hyperlipidemia, GERD, PE on Xarelto as well as IVC filter placed in August 2017 , nonobstructive coronary artery disease, presented to the ED with complaints of sudden onset abdominal pain, vomiting that started around noon today. She has a history of bowel surgery on November 27, [address] Malone. History is obtained from the patient's son as well as the patient however she was given a lot of IV pain medication and seemed to be a little drowsy. According to the patient's son she was in her usual state of health until this morning when the son left for work. He states that around 1215 he returned home and at the time his mother called him saying that she has been vomiting and throwing up consistently together with excruciating epigastric abdominal pain. Patient rates her pain as a 20 out of 10 states that it is bandlike across the lower half of the rib cage. She was also endorsed having about 6-8 episodes of bilious vomiting that was nonbloody. No history of fevers, diarrhea or constipation. She does endorse coughing that is not new for her and bringing up white phlegm. Of note patient had bowel surgery secondary to adhesions and had a bad foot long of her colon resected by Dr. Malone in November. She never had a colostomy placed. She follows up with Dr. Mitchell, Dr. Daniel, Dr. Gonzales, Dr. Cullen and Dr. Malone. She does endorse an episode of being constipated and taking stool softeners about 3 weeks ago. Ever since she had been fine and pooping well. Vitals at the time of admission blood pressure 181/80, respiratory rate of 18, pulse 93, afebrile saturating 95% on room air. Neck On physical exam she is alert, oriented but drowsy from the effects of her morphine. HEENT revealed PERRLA, very dry mucous membranes. Cardiovascular exam pertinent for normal S1, S2, no murmurs rubs or gallops appreciated. Chest was clear to auscultation bilaterally. Abdominal exam pertinent for abdomen that was slightly distended, soft, tender to palpation in the epigastric and left upper quadrant as well as Velez's positive. Bowel sounds were positive in all quadrants. Examination of the lower extremities revealed trace edema. Neuro exam was grossly unremarkable. Labs pertinent for normal white blood cell count of 9700, H&H of 10.9/35.2, MCV of 62, platelet count 2 89,000. Serum chemistries pertinent sodium of 140, potassium 4.1, bicarb of 26, anion gap of 11, BUN 13 with a creatinine of 0.7. Serum glucose 128. LFTs pertinent for an AST/ALT of 70/30, alk phos of 146, first of troponin negative less than 0.01, serum magnesium of 1.7 and total bilirubin of 1.1. Lipase was 1610, amylase 120. INR was 2.38. CAT scan of the abdomen and pelvis showed gallstones and CBD stone with mild dilation of the CBD and CAT scan findings suggestive for acute cholecystitis. There is also 4.6 cm fat density mass arising from the left adrenal gland could represent an adrenal myolipoma. The risk of colon diverticulosis without evidence of acute diverticulitis. EKG normal sinus rhythm with a heart rate of 66, TX interval of 152, QTC of 428 with Q waves in [address]-T changes. In the ER patient received IV Tylenol thousand milligrams 1, morphine 8 mg IV 1, 4 mg IV 2 and Zofran 4 mg IV 2, normal saline bolus of thousand mL 1. Assessment and plan Admit patient to telemetry #Acute cholecystitis Of note patient spiked a temperature of 100.4 while in the ER. We will start her on antibiotics with ceftriaxone and Flagyl, ordered blood cultures 2 We will also keep her n.p.o. for now and obtain general surgery and GI eval for morning Vitals every 4 for now. If she deteriorates further signs of cholangitis will transfer her to telemetry. Meanwhile hydration with IV fluids at 175 mL's per hour Phenergan as needed for nausea Follow-up general surgery and GI recommendations in a.m. for cholecystectomy versus ERCP Pain management with morphine 2 mg every 6 as needed IV Meanwhile will hold her blood pressure medications including losartan 50 mg daily as well as Xarelto in case he undergoes surgery will need to be off of it for at least 48 hours #History of COPD on home oxygen Continue on Symbicort #GERD Continue Protonix 40 mg IV daily next #Hyperlipidemia On pravastatin Diabetes mellitus Continue to hold metformin, Victoza and start patient on Novolin sliding scale while she is n.p.o. DVT prophylaxis Heparin 5000 international units 3 times daily subcu next Diet N.p.o. for now CODE STATUS Full code Benedicto Alexander 02/05/18 0222: Attending MD Review Statement Attending Statement Attending MD Statement: examined this patient, discuss w/resident/PA/FIRE CONTROLMAN, agreed w/resident/PA/FIRE CONTROLMAN, reviewed EMR data (avail), reviewed images, amended to note Attending Assessment/Plan: CC: Abdominal pain and vomiting PMH: CVA with residual left-sided weakness, HFpEF, DM, HTN, HLD, GERD, history of aspiration pneumonia secondary to dilated esophagus, DVT/PE, COPD, bronchiectasis,p IVC filter, S/P small bowel resection Patient came to ER for sudden onset abdominal pain started in the epigastric region, 10 over 10 in intensity, going sides of the abdomen and to worse the umbilicus, started at noontime, progressively worsening. It is associated with nausea and vomiting. Patient vomited 6 times, nonbloody, bilious. Patient denies any fever or chills at home, denies chest pain, palpitations, difficulty breathing, urinary burning or frequency. Otherwise complete ROS unremarkable. Patient had recent small bowel resection surgery, and worried about related complications. She had decreased by mouth intake since last couple of days. Vitals: T max 100.5, pulse 74, RR 20, blood pressure 174/78, saturating 94% 2 L nasal cannula. On exam: A O 3, cooperative, sleepy after pain medications, neck supple, JVD normal, no lymphadenopathy, mucosa dry, complete neuro examination unremarkable except minimally decreased strength on left upper extremity secondary to her residual weakness, no dependent edema, no obvious skin rashes or inflammation CVS: S1-S2, RRR. RS: Clear to auscultate bilaterally. Abdomen: Soft, mild distention, tender to palpate, Velez's sign positive, left upper quadrant tenderness, guarding, decreased bowel sounds, healed incision binh her previous surgery . CT abdomen and pelvis with IV contrast: Gallstone and CBD stone with mild dilatation of the CBD and CT findings suggestive of acute cholecystitis. Clinical correlation is suggested. A 4.6 cm fat density mass arising from the left adrenal gland. 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 Colon diverticulosis without CT evidence of acute diverticulitis. Assessment and plan 77-year-old female with multiple comorbidities present in ER for sudden onset severe epigastric pain, radiating to the umbilicus and to both sides more so on the right side. 6 times nonbloody, bilious vomiting associated with nausea that happened today. Patient did not have any fever or chills at home. She is extremely dehydrated on examination, right upper quadrant tenderness with Velez sign positive, guarding, she also has left upper quadrant tenderness on palpation. Pain is controlled with morphine and she is feeling a little better symptomatically. She is found to have elevated lipase. Bilirubin is 1.1, mild elevation in AST: 74, alkaline phosphatase 146. Patient has gallstone and CBD stone with dilatation and evidence of acute cholecystitis. On CT scan there is no remarkable inflammation of pancreas but given her elevated lipase that could be a possibility. This could be elevated with her vomiting as well. [place] Nailer and surgeon was called from ER. Patient needs ERCP, probably schedule tomorrow. We will hold off xeralto, empirically covered with antibiotics. Low threshold to ICU transfer if blood pressure on the lower side or fever spike or worsening of symptoms. He should be watchful with her fluids even her history of heart failure with preserved ejection fraction, patient doesn't appear to be on Lasix at home. + Acute cholecystitis with the CBD stone + Gallstone pancreatitis + History of CVA with residual left-sided weakness, HFpEF, DM, HTN, HLD, GERD, history of aspiration pneumonia secondary to dilated esophagus, DVT/PE, COPD, bronchiectasis,p IVC filter, S/P small bowel resection - Admit to general medicine - Continue aggressive hydration with normal saline at 175 mL per hour - Vitals every 4 hours - Serial abdominal exam - Nothing by mouth - Hold xeralto - Hold antihypertensives - Blood culture - Ceftriaxone and Flagyl IV - GI consult - Surgical consult - Sliding scale insulin
--- NOTE | 2018-02-04 19:50 | Cons- General Surgery ---
See Addendum Rafy SMITHSadia 02/04/18 1931: General Information and HPI Consulting Request Date of Consult: 02/04/18 Requested By: Benedicto Alexander MD Reason for Consult: gallstone pancreatitis Source of Information: patient, old records History of Present Illness: Pt is a 77 yo female with a past medical history significant for hypertension, hyperlipidemia, DVT/PE (on Xarelto), asthma, TIA/CVA, left-sided residual weakness, diabetes, and GERD, who is status post exploratory laparotomy with small bowel resection and lysis of adhesions by Dr. Hummel on 12/28/2017. She recovered well from that procedure and was subsequently discharged without complication on 01/02/2018. She presents to the ED today with complaints of severe abdominal pain 10 out of 10 since 12:15 PM, with associated nausea and several episodes of vomiting. She admits to chills and decreased appetite for the past 2 days, but denies fever. (Although she states that she "doesn't get fevers.") Workup in the ED revealed acute cholecystitis, with choledocholithiasis and gallstone pancreatitis. Surgical consultation is being requested for recommendations. Patient otherwise denies headache, dizziness, chest pain, shortness of breath, palpitations, diarrhea, constipation, rectal bleeding, oliguria. Last bowel movement was yesterday and was normal. Allergies/Medications Allergies: Coded Allergies: methylprednisolone (From Solu-Medrol) (Intermediate, HIVES AND PALPITATIONS 01/14) clove (HIVES 12/29/15) kimberli (HIVES 12/29/15) thyme (HIVES 12/29/15) hydrocodone (NAUSEA 12/29/15) ibuprofen (GI UPSET 12/29/15) lisinopril (DRY COUGH 12/29/15) nitrofurantoin (MAKES HER CRAZY 05/03/16) Uncoded Allergies: CHIVES (HIVES 01/05/16) Home Med List: Aspirin (Ecotrin*) 81 MG TABLET.DR 1 TAB PO DAILY HEART/BLOOD (Reported) Budesonide/Formoterol Fumarate (Symbicort 160-4.5 Mcg Inhaler) 160 MCG-4.5 MCG/ ACTUATION HFA.AER.AD 2 PUF INH PRN ASTHMA (Reported) Liraglutide (Victoza 2-Kuldeep) 0.6 MG/0.1 ML (18 MG/3 ML) PEN.INJCTR 1.2 MG SC DAILY DM (Reported) Losartan Potassium 50 MG TABLET 1 TAB PO DAILY BP (Reported) Magnesium Oxide 400 MG TABLET 400 MG PO BID lOW MAGNESIUM . Metformin HCl (Metformin HCl ER) 500 MG TAB.ER.24H 2 TAB PO BID DM (Reported) Omeprazole Magnesium (Prilosec Otc) 20 MG TABLET.DR 1 TAB PO DAILY GI ( Reported) Pravastatin Sodium 80 MG TABLET 1 TAB PO DAILY CHOLESTEROL (Reported) Rivaroxaban (Xarelto) 20 MG TABLET 1 TAB PO DAILY BLOOD THINNER (Reported) with food Solifenacin Succinate (Vesicare) 5 MG TABLET 1 TAB PO BID BLADDER (Reported) Past History Medical History Neurological: TIA, vertigo, STROKE `11 RESIDUAL L. 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 EENT: cataracts, hearing loss Cardiovascular: hypertension, hyperlipidemia Respiratory: pulmonary embolism, ASTHMA, PNEUMONIA Gastrointestinal: GERD, sigmoid diverticulosis SBO BOWEL RESECTION Renal: BLADDER SLING 2016 Musculoskeletal: osteoarthritis, FOOT SURGERY RIGHT RIGHT TKA Endocrine: diabetes Blood Disorders: DVT, PE DENTAL SERVICE CHIEF/Reproductive: HYSTERECTOMY, vaginal Other Medical Hx: Hypertension, dyslipidemia, diabetes mellitus, CHF, asthma, prior transient ischemic attack versus CVA, sigmoid diverticulosis, gastroesophageal reflux disease, positional vertigo, hysterectomy, Surgical History Pertinent Surgical History: R WRIST,TOE, HYSTERECTOMY BLADDER,RECTUM LIFTED right knee surgery for a meniscal tear left carpal tunnel release Family History Relations & Conditions If Any: BROTHER FH: throat cancer SISTER (atrial fibrillation). FH: lung cancer FH: thyroid cancer SISTER (permanent pacemaker placement). FH: melanoma FHx: breast cancer MOTHER (coronary artery disease in her 50's s/p CABG). FH: diabetes mellitus FH: myocardial infarction FH: stroke FATHER FH: kidney disease Psychosocial History Services at Home: None Primary Language: German Functional Ability ADLs Independent: dressing, eating, toileting, bathing. Ambulation: independent IADLs Independent: shopping, housework, finances, food prep, telephone, transportation , medication admin. Review of Systems Review of Systems: Positive for abdominal pain, nausea, several episodes of vomiting, decreased appetite, and chills. Negative for fever, headache, dizziness, chest pain, shortness of breath, palpitations, constipation, diarrhea, oliguria, dysuria, joint pain. Exam & Diagnostic Data Vital Signs and I&O Vital Signs Date Time Temp Pulse Resp B/P B/P Pulse O2 O2 Flow FiO2 Mean Ox Delivery Rate 02/04 1940 100.5 124 16 116/57 95 Nasal 2.0L Cannula 02/04 1753 98.2 93 18 181/80 95 Room Air 02/04 1546 97.8 80 18 159/74 96 Room Air 02/04 1316 97.9 74 20 174/78 94 Room Air Intake & Output 02/04 1600 02/04 0800 02/04 0000 02/03 1600 02/03 0800 02/03 0000 Intake Total 0 Output Total Balance 0 Intake, Oral 0 Patient 200 lb Weight Weight Reported by Patient Measurement Method Physical Exam: Gen.: Patient is awake and alert. She appears in distress due to pain. She is oriented 3. Cardiac: Regular. Pulmonary: Lungs are clear bilaterally. Abdomen: Soft and mildly distended. There is significant rebound tenderness throughout the abdomen, but most prominent in the right upper quadrant and epigastric areas. Positive guarding and positive Velez sign. Hypoactive bowel sounds are heard. Infraumbilical midline vertical incision remains intact. There is a small area of erythema and firmness at the superior aspect, may represent a small suture abscess. Assessment/Plan Assessment/Plan Patient is a 77-year-old female recently underwent exploratory laparotomy, small bowel resection, and lysis of adhesions for ischemic bowel. She recovered well from that surgery and now presents with gallstone pancreatitis and CT evidence of common bile duct stone. Recommendations: -Admit to the medical service. -Please keep patient nothing by mouth and provide IV fluid hydration. -Pain control as needed T cane patient comfortable as she is in significant discomfort. -Patient is on Xarelto, which will require a waiting period prior to any intervention. Please hold Xarelto. -Patient will need ERCP. GI consult is pending. -Plan for cholecystectomy after completion of ERCP. -This was discussed with Dr. Hummel, who is in agreement with the plan. Consult Acknowledgment - Thank you for your consult request. Giuseppe Hummel DO 02/05/18 1107: Assessment/Plan Consult Acknowledgment - Thank you for your consult request. Attending MD Review Statement Attending Statement Attending MD Statement: examined this patient, discuss w/resident/PA/[employer] CONSULTANT, agreed w/resident/PA/AS400 CONSULTANT, reviewed EMR data (avail), reviewed images Attending Assessment/Plan: Patient seen and examined, agree with above. Persistent abdominal pain that started acutely yesterday, +N/V. Low grade temp HR 100-110's BP ok. Appears slightly jaundiced, Abd-soft, some epigastric tenderness. Labs increase in LFTs. CT scan likely choledocholithiasis. Darlene pending but apears to have a CBD stone. At this time I believe the patient needs an ERCP to decompress/evaluate the CBD, cholecystectomy would wait till she stabilizes after the above procedure, continue to hold Xarelto, will continue to follow and re-eval for cholecystectomy timing.
[2018-02-04 21:00] VITALS: BP 135/61
[2018-02-05 02:13] VITALS: BP 163/87
--- NOTE | 2018-02-05 02:24 | Admission Certification ---
Admission Certification Certification Statement - As attending physician, I certify that at the time of - admission, based on clinical presentation, severity of - symptoms, need for further diagnostic testing and - therapeutic interventions, and risk of adverse outcomes - without in-hospital treatment, in my clinical assessment, - this patient requires an acute hospital stay for a minimum - of two nights or longer. I have also considered psychsocial - factors such as support system, advanced age, financial - issues, cognitive issues, and failed out-patient treatments, - past re-admission history, safety of patient, and lack of - compliance as applicable. Specific rationale supporting this admission is: acute cholecystitis, gallstone pancreatitis
--- NOTE | 2018-02-05 04:07 | PN- Housestaff ---
Katherine Patel MD 02/05/18 0407: Subjective Follow-up For: Gallstone with Cholecystitis Complaints: no complaints Subjective: Patient seen and examined at bedside. No overnight events. No complaints. Patient is eager to know for further management. She denies abdominal pain, nausea, vomiting, chest pain. Review of Systems Constitutional: Reports: no symptoms. Cardiovascular: Reports: no symptoms. Respiratory: Reports: no symptoms. Gastrointestinal: Reports: abdominal pain, nausea, vomiting. Genitourinary: Reports: no symptoms. Objective Last 24 Hrs of Vital Signs/I&O Vital Signs Date Time Temp Pulse Resp B/P B/P Pulse O2 O2 Flow FiO2 Mean Ox Delivery Rate 02/05 0213 99.7 111 20 163/87 94 Nasal 2.0L Cannula 02/04 2100 98.3 116 22 135/61 95 Nasal 2.0L Cannula 02/04 2052 95 Nasal 2.0L Cannula 02/04 1940 100.5 124 16 116/57 95 Nasal 2.0L Cannula 02/04 1753 98.2 93 18 181/80 95 Room Air 02/04 1546 97.8 80 18 159/74 96 Room Air 02/04 1316 97.9 74 20 174/78 94 Room Air Intake & Output 02/05 0800 02/05 0000 02/04 1600 Intake Total 2100 0 Output Total 300 Balance 1800 0 Intake, IV 2100 Intake, Oral 0 Output, Urine 300 Patient 200 lb 200 lb Weight Weight Reported by Patient Reported by Patient Measurement Method Physical Exam General Appearance: Alert, Oriented X3, Cooperative, No Acute Distress Cardiovascular: Regular Rate, Normal S1, Normal S2, No Murmurs Lungs: Clear to Auscultation Abdomen: Normal Bowel Sounds, No Hepatospenomegaly, right upper quadrant tenderness plus Neurological: Normal Gait, Normal Speech, Strength at 5/5 X4 Ext, Normal Tone, Sensation Intact Extremities: No Cyanosis, No Edema, Normal Pulses Current Medications: Current Medications Sig/Bull Start time Last Medication Dose Route Stop Time Status Admin Acetaminophen 1,000 MG Q8P PRN 02/04 2015 AC N/A 1 UNIT IV Acetaminophen 0 .STK-MED ONE 02/04 1825 DC IV Acetaminophen 1,000 MG ONCE ONE 02/04 1815 DC 02/04 N/A 1 UNIT IV 02/04 Budesonide/ 2 PUF BID 02/04 2200 AC 02/04 Formoterol Fumarate INH 2310 Ceftriaxone Sodium 1,000 MG DAILY@2100 02/04 2100 AC 04/ IV 2310 Heparin Sodium 5,000 UNIT Q8 02/05 0600 UNVr (Porcine) SC Insulin Human Regular 0 Q6 02/04 2359 AC 02/04 SC 2317 Metronidazole 500 MG IQ8 02/05 0000 AC 02/04 N/A 1 UNIT IV 2311 Morphine Sulfate 2 MG Q6P PRN 02/04 2015 AC IV Morphine Sulfate 0 .STK-MED ONE 02/04 1719 DC .ROUTE Morphine Sulfate 8 MG ONCE ONE 02/04 1715 DC 02/04 IV 02/04 1716 1718 Morphine Sulfate 4 MG ONCE ONE 02/04 1630 DC 02/04 IV 02/04 1631 1630 Morphine Sulfate 0 .STK-MED ONE 02/04 1629 DC .ROUTE Morphine Sulfate 0 .STK-MED ONE 02/04 1448 DC .ROUTE Morphine Sulfate 4 MG ONCE ONE 02/04 1415 DC 02/04 IV 02/04 1416 1500 Ondansetron HCl 4 MG ONCE ONE 02/04 1715 DC 04/06 IV 02/04 1716 1718 Ondansetron HCl 0 .STK-MED ONE 02/04 1702 DC .ROUTE Ondansetron HCl 0 .STK-MED ONE 02/04 1448 DC .ROUTE Ondansetron HCl 4 MG ONCE ONE 02/04 1415 DC 04/06 IV 02/04 1416 1500 Oxybutynin Chloride 5 MG BID 02/04 2200 AC 02/04 PO 2311 Pantoprazole Sodium 40 MG DAILY 02/05 1000 AC IV Promethazine HCl 12.5 MG ONCE ONE 02/04 194 DC 04/ IV 02/04 1946 1910 Promethazine HCl 12.5 MG Q4P PRN 02/04 194 AC 02/05 IV 02/11 1944 0209 Promethazine HCl 0 .STK-MED ONE 02/04 1820 DC .ROUTE Sodium Chloride 1,000 ML Q6H 02/05 2000 AC 02/05 IV 02/05 194 0428 Sodium Chloride 1,000 ML BOLUS ONE 02/04 1415 DC 02/04 IV 02/04 1514 1500 Last 24 Hrs of Lab/Robert Results Last 24 Hrs of Labs/Mics: Laboratory Tests 02/04/18 1355: Anion Gap 11, Estimated GFR > 60, BUN/Creatinine Ratio 18.6, Glucose 128 H, Calcium 9.7, Magnesium 1.7, Total Bilirubin 1.1, AST 74 H, ALT 30, Alkaline Phosphatase 146 H, Troponin I < 0.01, Total Protein 7.0, Albumin 3.7, Globulin 3.3, Albumin/Globulin Ratio 1.1, Triglycerides 176 H, Amylase 120 H, Lipase 1610 H, PT 26.2 H, INR 2.38 H, APTT 42 H, CBC w Diff NO MAN DIFF REQ, RBC 5.67 H, MCV 62.0 L, MCH 19.1 L, MCHC 30.9 L, RDW 15.0 H, MPV 9.4, Gran % 79.1 H, Lymphocytes % 12.6 L, Monocytes % 6.1, Eosinophils % 1.6, Basophils % 0.6, Absolute Granulocytes 7.7 H, Absolute Lymphocytes 1.2, Absolute Monocytes 0.6, Absolute Eosinophils 0.2, Absolute Basophils 0.1 Microbiology 02/04 2310 BLOOD: Blood Culture - RECD 02/04 2250 BLOOD: Blood Culture - RECD Assessment/Plan Assessment: 77 yo women with PMHx of TIA, stroke with left sided residual weakness,cataract, hearing loss, HTN, HL, GERD with dilated esophagus with posterior pharyngeal dysfunction with on and off aspiration, vertigo, DJD knee, sigmoid diverticultis ,Type -2 DM, Asthma, 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 Assessment and plan 1. Acute cholecystitis 2. Gallstone pancreatitis 3. Dehydration * Continue on IV fluids normal saline/Ringer lactate at 175 mL per hour. Patient appears mildly dehydrated. * Patient abdominal pain has improved with morphine. * Nausea-Zofran/Reglan as needed * Surgical consult placed. Patient was seen by surgical PA who suggested to keep nothing by mouth, ERCP, followed by cholecystectomy * Gallstone pancreatitis-gastroenterology consult placed to help us with further management. * Hypertension -admission blood pressure 181/80. Patient blood pressure came down to 116/60 following control of pain. Watch for low blood pressure. * Hold antihypertensive medications and XARALTO * No further episodes of fever. Continue ceftriaxone and Flagyl to cover for any infection. * If patient develops fever, severe abdominal pain, hypertension readdress the need for ICU transfer. Vitals every 4 -Full code Nothing by mouth Problem List: 1. Cholecystitis 2. Gall stone pancreatitis Pain Ratin Pain Location: none Pain Goal: Remain pain free Pain Plan: tylenol Tomorrow's Labs & Rationales: cbc,bep Esha Kim 02/05/18 1152: Attending MD Review Statement Attending Statement Attending MD Statement: examined this patient, discuss w/resident/PA/MORTICIAN INVESTIGATOR, agreed w/resident/PA/MORTICIAN INVESTIGATOR, discussed with family, reviewed EMR data (avail), discussed with nursing, discussed with case mgmt, reviewed images, amended to note Attending Assessment/Plan: Patient admitted with abdomnial pain and gallstone pancreatitis. GI consulted, NPO, IVF, monitor labs and follow GI res. GI/dvt prophyalxis full code. Family bedside.
[2018-02-05 06:58] VITALS: BP 127/63
[2018-02-05 08:53] LABS: PT 19.2 SEC (9.4-12.5)
[2018-02-05 09:04] LABS: ABSOLUTE BASOPHIL COUNT 0 /CUMM (0.0-0.2); ABSOLUTE EOSINOPHIL COUNT 0 /CUMM (0.0-0.7); ABSOLUTE LYMPH COUNT 0.2 /CUMM (1.2-3.4); ABSOLUTE MONOCYTE COUNT 0.6 /CUMM (0.10-0.60); BASOPHIL % 0 % (0.0-2.0); EOSINOPHIL % 0 % (0-5); GRANULOCYTE % 93.5 % (42.2-75.2); HEMATOCRIT 32.5 % (37-47); MEAN CORPUSCULAR HGB 19.5 PG (27.0-31.0); MEAN CORPUSCULAR HGB CONC 31.2 G/DL (33.0-37.0); MEAN CORPUSCULAR VOLUME 62.5 FL (81.0-99.0); MEAN PLATELET VOLUME 9.8 FL (7.4-10.4); PLATELET COUNT 154 /CUMM (130-400); RBC DISTRIBUTION WIDTH 15.3 % (11.5-14.5); WHITE BLOOD CELL COUNT 12.9 /CUMM (4.8-10.8)
--- NOTE | 2018-02-05 12:05 | PN- General Surgery ---
Subjective Subjective: Patient had some low-grade temps and tachycardia overnight and into the christian education director, but Overall is feeling much better now. Her pain levels are more tolerable with use of the morphine and she denies nausea and vomiting. She remains NPO with IV fluids and antibiotics. No flatus or bowel movement since admission. Otherwise denies fever, chills, headache, dizziness, chest pain, shortness of breath. Objective Vital Signs and I&Os Vital Signs Date Time Temp Pulse Resp B/P B/P Pulse O2 O2 Flow FiO2 Mean Ox Delivery Rate 02/05 0900 98.0 94 02/05 0800 95 Nasal 2.0L Cannula 02/05 0719 98.0 02/05 0658 100.2 117 20 127/63 95 Nasal 2.0L Cannula 02/05 0620 100.5 02/05 0213 99.7 111 20 163/87 94 Nasal 2.0L Cannula 02/04 2100 98.3 116 22 135/61 95 Nasal 2.0L Cannula 02/04 2052 95 Nasal 2.0L Cannula 02/04 1940 100.5 124 16 116/57 95 Nasal 2.0L Cannula 02/04 1753 98.2 93 18 181/80 95 Room Air 02/04 1546 97.8 80 18 159/74 96 Room Air Intake & Output 02/05 1600 02/05 0800 02/05 0000 02/04 1600 02/04 0800 02/04 0000 Intake Total 1400 2100 0 Output Total 400 300 Balance 1000 1800 0 Intake, IV 1400 2100 Intake, Oral 0 Output, Urine 400 300 Patient 200 lb 200 lb 200 lb Weight Weight Bed scale Reported by Patient Reported by Patient Measurement Method Physical Exam: Role: Patient is awake and alert. No acute distress. She appears mildly jaundiced. Cardiac: Regular Pulmonary: Lungs are clear bilaterally. Abdomen: Soft and mildly distended, much less versus yesterday. She has some mild tenderness in the right upper quadrant and epigastric areas, with some guarding, but no rigidity or rebound tenderness appreciated today. Results Last 48 Hours of Labs: Laboratory Tests 02/05 02/05 02/04 0734 0625 1355 Chemistry Sodium (137 - 145 mmol/L) 139 140 Potassium (3.5 - 5.1 mmol/L) 3.8 4.1 Chloride (98 - 107 mmol/L) 103 104 Carbon Dioxide (22 - 30 mmol/L) 25 26 Anion Gap (5 - 16) 11 11 BUN (7 - 17 mg/dL) 14 13 Creatinine (0.5 - 1.0 mg/dL) 0.8 0.7 Estimated GFR (>60 ml/min) > 60 > 60 BUN/Creatinine Ratio (7 - 25 %) 17.5 18.6 Glucose (65 - 99 mg/dL) 128 H Calcium (8.4 - 10.2 mg/dL) 9.7 Magnesium (1.6 - 2.3 mg/dL) 1.7 Total Bilirubin (0.2 - 1.3 mg/dL) 3.7 H 1.1 Direct Bilirubin (< 0.4 mg/dL) 3.1 H AST (14 - 36 U/L) 300 H 74 H ALT (9 - 52 U/L) 226 H 30 Alkaline Phosphatase (<127 U/L) 227 H 146 H Troponin I (< 0.11 ng/ml) < 0.01 Total Protein (6.3 - 8.2 g/dL) 5.6 L 7.0 Albumin (3.5 - 5.0 g/dL) 2.9 L 3.7 Globulin (1.9 - 4.2 gm/dL) 3.3 Albumin/Globulin Ratio (1.1 - 2.2 %) 1.1 Triglycerides (<150 mg/dL) 176 H Amylase (30 - 110 U/L) 120 H Lipase (23 - 300 U/L) 1610 H Coagulation PT (9.4 - 12.5 SEC) 19.2 H 26.2 H INR (0.90 - 1.19) 1.75 H 2.38 H APTT (25 - 37 SEC) 42 H Hematology CBC w Diff Pending NO MAN DIFF REQ WBC (4.8 - 10.8 /CUMM) Pending 9.7 RBC (4.20 - 5.40 /CUMM) Pending 5.67 H Hgb (12.0 - 16.0 G/DL) Pending 10.9 L Hct (37 - 47 %) Pending 35.2 L MCV (81.0 - 99.0 FL) Pending 62.0 L MCH (27.0 - 31.0 PG) Pending 19.1 L MCHC (33.0 - 37.0 G/DL) Pending 30.9 L RDW (11.5 - 14.5 %) Pending 15.0 H Plt Count (130 - 400 /CUMM) Pending 289 MPV (7.4 - 10.4 FL) Pending 9.4 Gran % (42.2 - 75.2 %) 79.1 H Lymphocytes % (20.5 - 51.1 %) 12.6 L Monocytes % (1.7 - 9.3 %) 6.1 Eosinophils % (0 - 5 %) 1.6 Basophils % (0.0 - 2.0 %) 0.6 Absolute Granulocytes (1.4 - 6.5 /CUMM) 7.7 H Absolute Lymphocytes (1.2 - 3.4 /CUMM) 1.2 Absolute Monocytes (0.10 - 0.60 /CUMM) 0.6 Absolute Eosinophils (0.0 - 0.7 /CUMM) 0.2 Absolute Basophils (0.0 - 0.2 /CUMM) 0.1 Assessment/Plan Assessment/Plan Patient is a 77-year-old female with a past medical history significant for diabetes, CVA/TIA, history of PE/DVT (s/p IVCF placement), and COPD, who is now hospital day #2 with all stone pancreatitis. Liver enzymes increased a fair amount overnight, which supports diagnosis of choledocholithiasis. Plan: -Continue nothing by mouth with IV fluid rehydration. -Continue IV antibiotics Rocephin and Flagyl for cholangitis. -Appreciate GI input. Patient will need ERCP, however, he will need to wait at least 1 more day for the Xarelto to wear off. -Will proceed with laparoscopic cholecystectomy after the ERCP. The timing of this will depend on patient's condition following her first procedure. -Agree with initiation of subcutaneous heparin for DVT prophylaxis. Continue use of ALPs. -Protonix for GI ppx. -Medical management per primary team. -Pt was also seen by Dr. Hummel this morning and he agrees with the plan.
--- NOTE | 2018-02-05 13:13 | Cons- Gastroenterology ---
General Information and HPI Consulting Request Date of Consult: 02/05/18 (MD JORGE/GASTROENTEROLOGY) Requested By: Benedicto Alexander MD Reason for Consult: Abdominal pain, gallstones, abnormal LFTs Source of Information: patient, old records History of Present Illness: 77-year-old white female without antecedent liver, biliary or pancreatic disease. She had recent surgery for a bowel obstruction/ischemia. Normally, she does not have pain, nausea, indigestion or irregular bowel habits. She last took Xarelto yesterday at 9 AM. In the early afternoon she developed sudden, epigastric pain with radiation bilaterally, accompanied by nausea and vomiting. The pain was persistent and she presented to the emergency room. She has had a low-grade fever. Her last bowel movement was 2 days ago, and normal. Today, her pain is minimal, her nausea resolved, and she is currently afebrile. She has not noted jaundice, dark urine; she is not short of breath, has no chest pain, diaphoresis or dizziness. Allergies/Medications Allergies: Coded Allergies: methylprednisolone (From Solu-Medrol) (Intermediate, HIVES AND PALPITATIONS 01/14) clove (HIVES 12/29/15) kimberli (HIVES 12/29/15) thyme (HIVES 12/29/15) hydrocodone (NAUSEA 12/29/15) ibuprofen (GI UPSET 12/29/15) lisinopril (DRY COUGH 12/29/15) nitrofurantoin (MAKES HER CRAZY 05/03/16) Uncoded Allergies: CHIVES (HIVES 01/05/16) Home Med List: Aspirin (Ecotrin*) 81 MG TABLET.DR 1 TAB PO DAILY HEART/BLOOD (Reported) Budesonide/Formoterol Fumarate (Symbicort 160-4.5 Mcg Inhaler) 160 MCG-4.5 MCG/ ACTUATION HFA.AER.AD 2 PUF INH PRN ASTHMA (Reported) Liraglutide (Victoza 2-Kuldeep) 0.6 MG/0.1 ML (18 MG/3 ML) PEN.INJCTR 1.2 MG SC DAILY DM (Reported) Losartan Potassium 50 MG TABLET 1 TAB PO DAILY BP (Reported) Magnesium Oxide 400 MG TABLET 400 MG PO BID lOW MAGNESIUM . Metformin HCl (Metformin HCl ER) 500 MG TAB.ER.24H 2 TAB PO BID DM (Reported) Omeprazole Magnesium (Prilosec Otc) 20 MG TABLET.DR 1 TAB PO DAILY GI ( Reported) Pravastatin Sodium 80 MG TABLET 1 TAB PO DAILY CHOLESTEROL (Reported) Rivaroxaban (Xarelto) 20 MG TABLET 1 TAB PO DAILY BLOOD THINNER (Reported) with food Solifenacin Succinate (Vesicare) 5 MG TABLET 1 TAB PO BID BLADDER (Reported) Current Medications: Current Medications Sig/Bull Start time Last Medication Dose Route Stop Time Status Admin Acetaminophen 1,000 MG Q8P PRN 02/04 2015 02/05 N/A 1 UNIT IV 0620 Acetaminophen 0 .STK-MED ONE 02/04 1825 DC IV Acetaminophen 1,000 MG ONCE ONE 02/04 1815 OR 02/04 N/A 1 UNIT IV 02/04 1829 1828 Budesonide/ 2 PUF BID 02/04 2200 02/05 Formoterol Fumarate INH 1037 Ceftriaxone Sodium 1,000 MG DAILY@2100 02/04 2100 AC 02/04 IV 2310 Heparin Sodium 5,000 UNIT Q8 02/05 0600 02/05 (Porcine) SC 0616 Insulin Human Regular 0 Q6 02/04 2359 02/05 SC 1157 Metronidazole 500 MG IQ8 02/05 0000 02/05 N/A 1 UNIT IV 0805 Morphine Sulfate 2 MG Q6P PRN 02/04 2015 IV Morphine Sulfate 0 .STK-MED ONE 02/04 1719 DC .ROUTE Morphine Sulfate 8 MG ONCE ONE 02/04 1715 DC 02/04 IV 02/04 1716 1718 Morphine Sulfate 4 MG ONCE ONE 02/04 1630 DC 02/04 IV 02/04 1631 1630 Morphine Sulfate 0 .STK-MED ONE 02/04 1629 DC .ROUTE Morphine Sulfate 0 .STK-MED ONE 02/04 1448 DC .ROUTE Morphine Sulfate 4 MG ONCE ONE 02/04 1415 DC 04/ IV 02/04 1416 1500 Ondansetron HCl 4 MG ONCE ONE 02/04 1715 DC 04/ IV 02/04 1716 1718 Ondansetron HCl 0 .STK-MED ONE 02/04 1702 DC .ROUTE Ondansetron HCl 0 .STK-MED ONE 02/04 1448 DC .ROUTE Ondansetron HCl 4 MG ONCE ONE 02/04 1415 DC 04/ IV 02/04 1416 1500 Oxybutynin Chloride 5 MG BID 02/04 2200 AC 02/05 PO 1036 Pantoprazole Sodium 40 MG DAILY 02/05 1000 AC 02/05 IV 0805 Promethazine HCl 12.5 MG ONCE ONE 02/04 1945 DC 02/04 IV 02/04 194 1910 Promethazine HCl 12.5 MG Q4P PRN 02/04 1945 AC 02/05 IV 02/12 1944 0209 Promethazine HCl 0 .STK-MED ONE 02/04 1820 DC .ROUTE Sodium Chloride 1,000 ML Q6H 02/05 2000 AC 02/05 IV 02/05 194 1158 Sodium Chloride 1,000 ML BOLUS ONE 02/04 141 DC 02/04 IV 02/04 1514 1500 Past History Travel History Traveled to [place] past 21 day No Medical History Blood Transfusion Hx: Yes Neurological: TIA, vertigo, STROKE `11 RESIDUAL L. 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 FH: lung cancer FH: thyroid cancer SISTER (permanent pacemaker placement). FH: melanoma FHx: breast cancer MOTHER (coronary artery disease in her 50's s/p CABG). FH: diabetes mellitus FH: myocardial infarction FH: stroke FATHER FH: kidney disease Psychosocial History Where Do You Live? Home Who Do You Live With? child Services at Home: None Primary Language: Latvian Smoking Status: Never Smoked ETOH Use: denies use Functional Ability ADLs Independent: dressing, eating, toileting, bathing. Ambulation: independent IADLs Independent: shopping, housework, finances, food prep, telephone, transportation , medication admin. ECHO Results (as available) EF% 60 Review of Systems Review of Systems Constitutional: Reports: fever. Denies: chills. EENTM: Denies: icterus, epistaxis. Cardiovascular: Denies: chest pain, syncope. Respiratory: Denies: cough, short of breath. GI: Reports: see HPI. Genitourinary: Denies: dysuria, hematuria. Musculoskeletal: Denies: muscle stiffness, neck pain. Skin: Denies: jaundice, lesions. Neurological/Psychological: Denies: cognitive dysfunction, headache. Hematologic/Endocrine: Denies: bruising, bleeding. Exam & Diagnostic Data Vital Signs and I&O Vital Signs Date Time Temp Pulse Resp B/P B/P Pulse O2 O2 Flow FiO2 Mean Ox Delivery Rate 02/05 0900 98.0 94 02/05 0800 95 Nasal 2.0L Cannula 02/05 0719 98.0 02/05 0658 100.2 117 20 127/63 95 Nasal 2.0L Cannula 02/05 0620 100.5 02/05 0213 99.7 111 20 163/87 94 Nasal 2.0L Cannula 02/04 2100 98.3 116 22 135/61 95 Nasal 2.0L Cannula 02/04 2052 95 Nasal 2.0L Cannula 02/04 1940 100.5 124 16 116/57 95 Nasal 2.0L Cannula 02/04 1753 98.2 93 18 181/80 95 Room Air / 1546 97.8 80 18 159/74 96 Room Air 02/04 1316 97.9 74 20 174/78 94 Room Air Intake & Output 02/05 1600 02/05 0400 02/04 1600 02/04 0400 02/03 1600 02/03 0400 Intake Total 1400 2100 0 Output Total 400 300 Balance 1000 1800 0 Intake, IV 1400 2100 Intake, Oral 0 Output, Urine 400 300 Patient 200 lb 200 lb 200 lb Weight Weight Bed scale Reported by Patient Reported by Patient Measurement Method Physical Exam: Well-developed well-nourished, in no apparent distress. Alert and oriented with normal cognition. Skin without jaundice, rash, lesion, excoriation, spider telangiectasias or palmar erythema. No adenopathy. Sclera anicteric. No oropharyngeal lesion. Neck supple without thyromegaly or mass. Heart regular rhythm. Lungs clear bilaterally. Abdomen is obese and soft, with normal bowel sounds; there is tenderness to palpation of the upper abdomen, without palpable mass or organomegaly. Extremities without clubbing, cyanosis or edema. Distal pulses intact. Results Pertinent Lab Results: Laboratory Tests 02/05 02/05 02/04 0734 0625 1355 Chemistry Sodium (137 - 145 mmol/L) 139 140 Potassium (3.5 - 5.1 mmol/L) 3.8 4.1 Chloride (98 - 107 mmol/L) 103 104 Carbon Dioxide (22 - 30 mmol/L) 25 26 Anion Gap (5 - 16) 11 11 BUN (7 - 17 mg/dL) 14 13 Creatinine (0.5 - 1.0 mg/dL) 0.8 0.7 Estimated GFR (>60 ml/min) > 60 > 60 BUN/Creatinine Ratio (7 - 25 %) 17.5 18.6 Glucose (65 - 99 mg/dL) 128 H Calcium (8.4 - 10.2 mg/dL) 9.7 Magnesium (1.6 - 2.3 mg/dL) 1.7 Total Bilirubin (0.2 - 1.3 mg/dL) 3.7 H 1.1 Direct Bilirubin (< 0.4 mg/dL) 3.1 H AST (14 - 36 U/L) 300 H 74 H ALT (9 - 52 U/L) 226 H 30 Alkaline Phosphatase (<127 U/L) 227 H 146 H Troponin I (< 0.11 ng/ml) < 0.01 Total Protein (6.3 - 8.2 g/dL) 5.6 L 7.0 Albumin (3.5 - 5.0 g/dL) 2.9 L 3.7 Globulin (1.9 - 4.2 gm/dL) 3.3 Albumin/Globulin Ratio (1.1 - 2.2 %) 1.1 Triglycerides (<150 mg/dL) 176 H Amylase (30 - 110 U/L) 120 H Lipase (23 - 300 U/L) 1610 H Coagulation PT (9.4 - 12.5 SEC) 19.2 H 26.2 H INR (0.90 - 1.19) 1.75 H 2.38 H APTT (25 - 37 SEC) 42 H Hematology CBC w Diff Pending NO MAN DIFF REQ WBC (4.8 - 10.8 /CUMM) Pending 9.7 RBC (4.20 - 5.40 /CUMM) Pending 5.67 H Hgb (12.0 - 16.0 G/DL) Pending 10.9 L Hct (37 - 47 %) Pending 35.2 L MCV (81.0 - 99.0 FL) Pending 62.0 L MCH (27.0 - 31.0 PG) Pending 19.1 L MCHC (33.0 - 37.0 G/DL) Pending 30.9 L RDW (11.5 - 14.5 %) Pending 15.0 H Plt Count (130 - 400 /CUMM) Pending 289 MPV (7.4 - 10.4 FL) Pending 9.4 Gran % (42.2 - 75.2 %) 79.1 H Lymphocytes % (20.5 - 51.1 %) 12.6 L Monocytes % (1.7 - 9.3 %) 6.1 Eosinophils % (0 - 5 %) 1.6 Basophils % (0.0 - 2.0 %) 0.6 Absolute Granulocytes (1.4 - 6.5 /CUMM) 7.7 H Absolute Lymphocytes (1.2 - 3.4 /CUMM) 1.2 Absolute Monocytes (0.10 - 0.60 /CUMM) 0.6 Absolute Eosinophils (0.0 - 0.7 /CUMM) 0.2 Absolute Basophils (0.0 - 0.2 /CUMM) 0.1 Imaging/Other Studies: Blood culture positive for gram-negative rods. CT scan of the abdomen and pelvis (done yesterday): LIVER AND BILIARY TREE: The liver is normal in size, shape, and attenuation. No focal hepatic lesion or biliary ductal dilatation is present. Mild hepatic congestion noted. The portal vein opacifies homogeneously. GALLBLADDER: The gallbladder is distended. Calcified gallstones are seen in the dependent part of the gallbladder. There is pericholecystic fluid. There is mild dilatation of the CBD. The CBD measures about 10 mm at the level of head of pancreas. There is increased density of the contents of the CBD at the level of the ampulla, could represent CBD stone. The finding is better seen on axial image 328 from series 3. PANCREAS: Unremarkable. SPLEEN: Unremarkable. ADRENAL GLANDS: There is a 4.6 cm fat density mass arising from the left adrenal gland, can represent an adrenal myolipoma. The right adrenal gland is unremarkable. GASTROINTESTINAL TRACT: The loops of the small bowel and colon are not dilated. Diverticular disease of the left colon noted. No CT evidence of acute diverticulitis. The appendix is not clearly seen; however, there are no inflammatory changes in the expected position of the appendix to suggest acute appendicitis. No free air in the abdomen. IMPRESSION: Gallstone and CBD stone with mild dilatation of the CBD and CT findings suggestive of acute cholecystitis. Clinical correlation is suggested. A 4.6 cm fat density mass arising from the left adrenal gland. 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 Colon diverticulosis without CT evidence of acute diverticulitis. Assessment/Plan Assessment/Recommendations: 77-year-old female who presents with cholangitis: acute upper abdominal pain, evidence of choledocholithiasis on CT scan, mildly elevated pancreatic enzymes, worsening LFTs including hyperbilirubinemia, and low-grade fever and gram- negative derick bacteremia. Currently, her pain has nearly resolved and she is afebrile. She has persistent upper abdominal tenderness. She will require an ERCP, but would hope to temporize on antibiotics until she has been off Xarelto for at least 48 hours. Ideally, would like to perform a single ERCP with sphincterotomy and stone extraction rather than two procedures (initial stent placement, followed by second ERCP to remove stone), and she seems stable enough at this time to wait. Nevertheless, if her condition deteriorates (worsening pain, fever, hypotension, tachycardia, change in mental status, etc), would have low threshold to move to ICU, and perform an urgent procedure. Recommendations * Continue nothing by mouth, IV fluids * Broad-spectrum antibiotics * Parenteral analgesia and antiemetics * Follow up CBC, INR, CMP tomorrow morning * Timing of ERCP will depend on clinical course; please call immediately with evidence of clinical deterioration (worsening pain, fever, hypotension, tachycardia, change in mental status, etc.) and consider transfer to ICU at that time Consult Acknowledgment - Thank you for your consult request.
[2018-02-05 14:33] VITALS: BP 96/50
--- NOTE | 2018-02-05 15:53 | ULTRASOUND REPORT ---
EXAMINATION: US ABDOMEN LIMITED CLINICAL INFORMATION: Positive Velez's sign. Cholecystitis. Assess for CBD dilatation. COMPARISON: CT abdomen pelvis . TECHNIQUE: Real-time imaging of the right upper quadrant abdominal viscera. FINDINGS: PANCREAS: Normal. LIVER: There is a degree of intrahepatic biliary ductal dilatation. No focal hepatic lesion. Hepatic contour is within normal limits. Hepatic echogenicity is normal. GALLBLADDER: There is cholelithiasis, mild pericholecystic fluid, and equivocal mural thickening/intramural edema. Per technologist, no sonographic Velez sign demonstrated during the course of the examination. COMMON BILE DUCT: Measures 0.8 cm in diameter. Choledocholithiasis demonstrated. RIGHT KIDNEY: Normal. No hydronephrosis. No renal calculi or focal parenchymal lesions. The kidney measures 11.2 cm in maximum dimension. FREE FLUID: None. IMPRESSION: Choledocholithiasis with mild biliary ductal dilatation. Cholelithiasis with mild pericholecystic fluid and equivocal mural thickening/edema. Per technologist report, no sonographic Velez sign during the course of the examination. Clinical correlation for symptoms of cholecystitis will be necessary.
[2018-02-05 18:02] VITALS: BP 118/60
[2018-02-05 23:12] VITALS: BP 128/70
[2018-02-06 06:32] VITALS: BP 148/71
[2018-02-06 08:11] LABS: ABSOLUTE BASOPHIL COUNT 0 /CUMM (0.0-0.2); ABSOLUTE EOSINOPHIL COUNT 0.2 /CUMM (0.0-0.7); ABSOLUTE GRANULOCYTE CT 9.1 /CUMM (1.4-6.5); ABSOLUTE LYMPH COUNT 0.4 /CUMM (1.2-3.4); ABSOLUTE MONOCYTE COUNT 0.4 /CUMM (0.10-0.60); BASOPHIL % 0.1 % (0.0-2.0); EOSINOPHIL % 2.2 % (0-5); GRANULOCYTE % 90.1 % (42.2-75.2); MEAN CORPUSCULAR HGB 19.1 PG (27.0-31.0); MEAN CORPUSCULAR HGB CONC 30.7 G/DL (33.0-37.0); MEAN CORPUSCULAR VOLUME 62.3 FL (81.0-99.0); MEAN PLATELET VOLUME 10.1 FL (7.4-10.4); PLATELET COUNT 140 /CUMM (130-400); RBC DISTRIBUTION WIDTH 15.3 % (11.5-14.5); RED BLOOD CELL CT 4.66 /CUMM (4.20-5.40); WHITE BLOOD CELL COUNT 10.1 /CUMM (4.8-10.8)
[2018-02-06 08:32] LABS: PT 17.7 SEC (9.4-12.5)
--- NOTE | 2018-02-06 09:08 | PN- Housestaff ---
See Addendum Subjective Follow-up For: Cholangitis Subjective: No overnight events. The patient complains of some mild abdominal pain and not being able to eat but otherwise feels okay. She had a low-grade fever yesterday but nothing overnight. She has no chest pain, shortness of breath, or other complaints. Review of Systems Constitutional: Reports: no symptoms. EENTM: Reports: no symptoms. Cardiovascular: Reports: no symptoms. Respiratory: Reports: no symptoms. Gastrointestinal: Reports: see HPI. Genitourinary: Reports: no symptoms. Musculoskeletal: Reports: no symptoms. Skin: Reports: no symptoms. Neurological/Psychological: Reports: no symptoms. Hematologic/Endocrine: Reports: no symptoms. Immunologic/Allergic: Reports: no symptoms. Objective Last 24 Hrs of Vital Signs/I&O Vital Signs Date Time Temp Pulse Resp B/P B/P Pulse O2 O2 Flow FiO2 Mean Ox Delivery Rate 02/07 632 98.4 98 20 148/71 97 Room Air 02/06 0621 95 Nasal 2.0L Cannula 02/05 2312 98.0 84 20 128/70 95 Room Air 02/05 1802 98.7 78 18 118/60 97 Room Air 02/05 1433 97.6 87 20 96/50 98 Room Air Intake & Output 02/06 1600 02/06 0800 02/06 0000 Intake Total 1400 1400 Output Total 300 300 Balance 1100 1100 Intake, IV 1400 1400 Output, Urine 300 300 Physical Exam General Appearance: Alert, Oriented X3, Cooperative, No Acute Distress Cardiovascular: Regular Rate, Normal S1, Normal S2 Lungs: Clear to Auscultation Abdomen: RUQ tenderness Extremities: No Edema, Normal Pulses, No Tenderness/Swelling Current Medications: Current Medications Sig/Bull Start time Last Medication Dose Route Stop Time Status Admin Acetaminophen 1,000 MG Q8P PRN 02/04 2015 AC 02/05 N/A 1 UNIT IV 1920 Albuterol Sulfate 3 ML ONCE ONE 02/06 630 DC 02/06 INH 02/06 631 06 Budesonide/ 2 PUF BID 02/04 2200 AC 02/05 Formoterol Fumarate INH 210 Ceftriaxone Sodium 2,000 MG DAILY@02/05 AC 02/05 IV 210 Ceftriaxone Sodium 1,000 MG DAILY@02/04 DC 02/04 IV 2310 Heparin Sodium 5,000 UNIT Q8 02/05 0600 AC 02/06 (Porcine) SC 0611 Insulin Human Regular 2 UNITS .STK-MED ONE 02/05 2351 DC IV 02/05 2352 Insulin Human Regular 2 UNITS .STK-MED ONE 02/05 1808 DC IV 02/05 1809 Insulin Human Regular 4 UNITS .STK-MED ONE 02/05 1155 DC IV 02/05 1156 Insulin Human Regular 0 Q6 02/04 2359 AC 02/06 SC 0610 Lactated Ringer's 1,000 ML Q6H 02/06 0900 UNVr IV Metronidazole 500 MG IQ8 02/05 0000 AC 02/06 N/A 1 UNIT IV 0726 Morphine Sulfate 4 MG .STK-MED ONE 02/05 210 DC IM 02/05 210 Morphine Sulfate 2 MG Q6P PRN 02/04 2015 AC 02/05 IV 2109 Oxybutynin Chloride 5 MG BID 02/04 220 AC 02/05 PO 2105 Pantoprazole Sodium 40 MG DAILY 02/05 1000 AC 02/06 IV 0726 Promethazine HCl 12.5 MG Q4P PRN 02/04 194 AC 02/05 IV 02/11 194 0209 Sodium Chloride 1,000 ML Q6H 02/05 2000 DC 02/06 IV 02/06 1924 0233 Last 24 Hrs of Lab/Robert Results Last 24 Hrs of Labs/Mics: Laboratory Tests 02/06/18 0713: Anion Gap 11, Estimated GFR > 60, BUN/Creatinine Ratio 25.7 H, PT 17.7 H, INR 1.62 H, CBC w Diff Pending, WBC Pending, RBC Pending, Hgb Pending, Hct Pending, MCV Pending, MCH Pending, MCHC Pending, RDW Pending, Plt Count Pending, MPV Pending Assessment/Plan Assessment: 77 yo women with PMHx of TIA, stroke with left sided residual weakness,cataract, hearing loss, HTN, HL, GERD with dilated esophagus with posterior pharyngeal dysfunction with on and off aspiration, vertigo, DJD knee, sigmoid diverticultis ,Type -2 DM, Asthma, 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 Assessment and plan 1. Cholangitis * Continue on IV fluids Ringer lactate at 125 mL per hour. Patient appears euvolemic. * Patient abdominal pain has improved with morphine. * Nausea-Zofran/Reglan as needed * Surgical consult placed. Patient was seen by surgical PA who suggested to keep nothing by mouth, ERCP, followed by cholecystectomy * Cholangitis-gastroenterology consult placed to help us with further management. Continue ceftriaxone and metronidazole * Hypertension -admission blood pressure 181/80. Patient blood pressure came down to 116/60 following control of pain. Watch for low blood pressure. * Hold antihypertensive medications and XARALTO * If patient develops fever, severe abdominal pain, hypertension readdress the need for ICU transfer. Vitals every 4H -Full code Nothing by mouth Problem List: 1. Cholangitis Pain Ratin Pain Location: ABD Pain Goal: Remain pain free Pain Plan: SEE A/P Tomorrow's Labs & Rationales: CBC, BEP, LFT
[2018-02-06 13:32] VITALS: BP 138/68
--- NOTE | 2018-02-06 14:51 | PN- General Surgery ---
Subjective Subjective: pt in bed, minimal abd pain at rest. denies fevers today. No Nausea/vomiting. Voiding passing flatus, no BM Denies Cp/sob Objective Vital Signs and I&Os Vital Signs Date Time Temp Pulse Resp B/P B/P Pulse O2 O2 Flow FiO2 Mean Ox Delivery Rate 02/06 1410 Room Air 02/06 1332 98.8 88 18 138/68 95 Room Air Room Air 02/06 0632 98.4 98 20 148/71 97 Room Air 02/06 0621 95 Nasal 2.0L Cannula 02/05 2312 98.0 84 20 128/70 95 Room Air 02/05 1802 98.7 78 18 118/60 97 Room Air Intake & Output 02/06 1600 02/06 0800 02/06 0000 02/05 1600 02/05 0800 02/05 0000 Intake Total 1100 1400 1400 1400 1400 2100 Output Total 500 300 300 650 400 300 Balance 600 1100 3332 429 3545 1800 Intake, IV 1100 1400 1400 1400 1400 2100 Output, Urine 500 300 300 650 400 300 Patient 200 lb 200 lb Weight Weight Bed scale Reported by Patient Measurement Method Physical Exam: gen- NAD resp-clear cardiac- RRR abd- obese, +BS, soft, tender with gaurding in RUQ and epigastric area ext- no edema Current Medications: Current Medications Sig/Bull Start time Last Medication Dose Route Stop Time Status Admin Acetaminophen 1,000 MG Q8P PRN 02/04 2015 AC 02/05 N/A 1 UNIT IV 1920 Albuterol Sulfate 3 ML Q4P PRN 02/06 1430 AC INH Albuterol Sulfate 3 ML ONCE ONE 02/06 0630 DC 02/06 INH 02/06 0631 0620 Budesonide/ 2 PUF BID 02/04 2200 AC 02/06 Formoterol Fumarate INH 0913 Ceftriaxone Sodium 2,000 MG DAILY@02/05 2100 AC 02/05 IV 2104 Ceftriaxone Sodium 1,000 MG DAILY@02/04 2100 DC 02/04 IV 2310 Heparin Sodium 5,000 UNIT Q8 02/05 0600 AC 02/06 (Porcine) SC 1404 Insulin Human Regular 2 UNITS .STK-MED ONE 02/05 2351 DC IV 02/05 2352 Insulin Human Regular 2 UNITS .STK-MED ONE 02/05 1808 DC IV 02/05 1809 Insulin Human Regular 0 Q6 04/06 2359 02/06 SC 0610 Lactated Ringer's 1,000 ML Q6H 02/06 0900 AC 02/06 IV 0911 Metronidazole 500 MG IQ8 02/05 0000 AC 02/06 N/A 1 UNIT IV 0726 Morphine Sulfate 2 MG Q6P PRN 02/06 1100 AC 02/06 IV 1100 Morphine Sulfate 4 MG .STK-MED ONE 02/05 2107 DC IM 02/06 2108 Morphine Sulfate 2 MG Q6P PRN 02/04 2015 DC 02/05 IV 210 Oxybutynin Chloride 5 MG BID 02/04 2200 AC 02/06 PO 0930 Pantoprazole Sodium 40 MG DAILY 02/05 1000 AC 02/06 IV 07 Promethazine HCl 12.5 MG Q4P PRN 02/04 194 AC 02/05 IV 02/12 1944 0209 Sodium Chloride 1,000 ML Q6H 02/05 2000 DC 02/06 IV 02/06 1924 0233 Results Last 48 Hours of Labs: Laboratory Tests 02/06 02/05 0713 0734 Chemistry Sodium (137 - 145 mmol/L) 143 Potassium (3.5 - 5.1 mmol/L) 3.8 Chloride (98 - 107 mmol/L) 109 H Carbon Dioxide (22 - 30 mmol/L) 23 Anion Gap (5 - 16) 11 BUN (7 - 17 mg/dL) 18 H Creatinine (0.5 - 1.0 mg/dL) 0.7 Estimated GFR (>60 ml/min) > 60 BUN/Creatinine Ratio (7 - 25 %) 25.7 H Total Bilirubin (0.2 - 1.3 mg/dL) 2.9 H Direct Bilirubin (< 0.4 mg/dL) 2.7 H AST (14 - 36 U/L) 122 H ALT (9 - 52 U/L) 148 H Alkaline Phosphatase (<127 U/L) 198 H Total Protein (6.3 - 8.2 g/dL) 5.2 L Albumin (3.5 - 5.0 g/dL) 2.5 L Amylase (30 - 110 U/L) 46 Lipase (23 - 300 U/L) 35 Coagulation PT (9.4 - 12.5 SEC) 17.7 H 19.2 H INR (0.90 - 1.19) 1.62 H 1.75 H Hematology CBC w Diff MAN DIFF ORDERED WBC (4.8 - 10.8 /CUMM) 10.1 RBC (4.20 - 5.40 /CUMM) 4.66 Hgb (12.0 - 16.0 G/DL) 8.9 L Hct (37 - 47 %) 29.0 L MCV (81.0 - 99.0 FL) 62.3 L MCH (27.0 - 31.0 PG) 19.1 L MCHC (33.0 - 37.0 G/DL) 30.7 L RDW (11.5 - 14.5 %) 15.3 H Plt Count (130 - 400 /CUMM) 140 MPV (7.4 - 10.4 FL) 10.1 Gran % (42.2 - 75.2 %) 90.1 H Lymphocytes % (20.5 - 51.1 %) 4.1 L Monocytes % (1.7 - 9.3 %) 3.5 Eosinophils % (0 - 5 %) 2.2 Basophils % (0.0 - 2.0 %) 0.1 Absolute Granulocytes (1.4 - 6.5 /CUMM) 9.1 H Segmented Neutrophils (42.2 - 75.2 %) 77 H Band Neutrophils (0.0 - 5.0 %) 12 H Absolute Lymphocytes (1.2 - 3.4 /CUMM) 0.4 L Lymphocytes (20.5 - 51.1 %) 6 L Monocytes (1.7 - 9.3 %) 4 Absolute Monocytes (0.10 - 0.60 /CUMM) 0.4 Eosinophils (0 - 5.0 %) 1 Absolute Eosinophils (0.0 - 0.7 /CUMM) 0.2 Absolute Basophils (0.0 - 0.2 /CUMM) 0 Poikilocytosis 2+ Basophilic Stippling 1+ Anisocytosis 2+ Microcytic Cells 3+ Ovalocytes 1+ / 0625 Chemistry Sodium (137 - 145 mmol/L) 139 Potassium (3.5 - 5.1 mmol/L) 3.8 Chloride (98 - 107 mmol/L) 103 Carbon Dioxide (22 - 30 mmol/L) 25 Anion Gap (5 - 16) 11 BUN (7 - 17 mg/dL) 14 Creatinine (0.5 - 1.0 mg/dL) 0.8 Estimated GFR (>60 ml/min) > 60 BUN/Creatinine Ratio (7 - 25 %) 17.5 Total Bilirubin (0.2 - 1.3 mg/dL) 3.7 H Direct Bilirubin (< 0.4 mg/dL) 3.1 H AST (14 - 36 U/L) 300 H ALT (9 - 52 U/L) 226 H Alkaline Phosphatase (<127 U/L) 227 H Total Protein (6.3 - 8.2 g/dL) 5.6 L Albumin (3.5 - 5.0 g/dL) 2.9 L Hematology CBC w Diff MAN DIFF ORDERED WBC (4.8 - 10.8 /CUMM) 12.9 H RBC (4.20 - 5.40 /CUMM) 5.20 Hgb (12.0 - 16.0 G/DL) 10.1 L Hct (37 - 47 %) 32.5 L MCV (81.0 - 99.0 FL) 62.5 L MCH (27.0 - 31.0 PG) 19.5 L MCHC (33.0 - 37.0 G/DL) 31.2 L RDW (11.5 - 14.5 %) 15.3 H Plt Count (130 - 400 /CUMM) 154 MPV (7.4 - 10.4 FL) 9.8 Gran % (42.2 - 75.2 %) 93.5 H Lymphocytes % (20.5 - 51.1 %) 1.6 L Monocytes % (1.7 - 9.3 %) 4.9 Eosinophils % (0 - 5 %) 0 Basophils % (0.0 - 2.0 %) 0 Absolute Granulocytes (1.4 - 6.5 /CUMM) 12.0 H Segmented Neutrophils (42.2 - 75.2 %) 68 Band Neutrophils (0.0 - 5.0 %) 22 H Absolute Lymphocytes (1.2 - 3.4 /CUMM) 0.2 L Lymphocytes (20.5 - 51.1 %) 2 L Monocytes (1.7 - 9.3 %) 6 Absolute Monocytes (0.10 - 0.60 /CUMM) 0.6 Eosinophils (0 - 5.0 %) 2 Absolute Eosinophils (0.0 - 0.7 /CUMM) 0 Absolute Basophils (0.0 - 0.2 /CUMM) 0 Hypochromic-Microcytic 1+ Poikilocytosis 2+ Anisocytosis 2+ Microcytic Cells 4+ Ovalocytes 1+ Assessment/Plan Assessment/Plan 77yo F with cholangitis and signs of choledocholithiasis. Amylase and lipase have normalized. LFTs continue to trend down. Xarelto on hold for now prior to ERCP Plan for ERCP tomorrow per GI Follow AM labs Cont NPO per GI Cont ABX Will plan for lap aj after ERCP Core Measures Venous Thromboembolism VTE Risk Factors Age>40 No Mechanical VTE Prophylaxis d/t Other No VTE Pharm Prophylaxis d/t Other
--- NOTE | 2018-02-06 16:28 | PN- Gastroenterology ---
Assessment/Plan GI Assessment/Recommendations: Cholangitis with choledocholithiasis on imaging, and gram-negative derick bacteremia: Her pain has nearly resolved and she is afebrile. She has persistent upper abdominal tenderness. Vital signs remain normal. Recommendations * Continue IV fluids * Clear liquid diet today; nothing by mouth after midnight * Continue broad spectrum antibiotics * Parenteral analgesia and antiemetics * Follow up CBC, INR, CMP tomorrow morning * ERCP planned for tomorrow * Please call immediately with evidence of clinical deterioration (worsening pain, fever, hypotension, tachycardia, change in mental status, etc.) and consider transfer to ICU at that time Subjective Subjective: Minor abdominal pain, more positional. Thirsty. No nausea or vomiting, no fever. Objective Vital Signs and I&Os Vital Signs Date Time Temp Pulse Resp B/P B/P Pulse O2 O2 Flow FiO2 Mean Ox Delivery Rate 02/06 1410 Room Air 02/06 1332 98.8 88 18 138/68 95 Room Air Room Air 02/06 0632 98.4 98 20 148/71 97 Room Air 02/06 0621 95 Nasal 2.0L Cannula 02/05 2312 98.0 84 20 128/70 95 Room Air 02/05 1802 98.7 78 18 118/60 97 Room Air Intake & Output 02/06 1600 02/06 0400 02/05 1600 02/05 0400 02/04 1600 02/04 0400 Intake Total 2500 1400 2800 2100 0 Output Total 034 416 0744 300 Balance 1700 1100 1750 1800 0 Intake, IV 2500 1400 2800 2100 Intake, Oral 0 Output, Urine 755 321 8429 300 Patient 200 lb 200 lb 200 lb Weight Weight Bed scale Reported by Patient Reported by Patient Measurement Method Physical Exam: Alert and oriented. No apparent distress. Normal cognition. Sclera icteric. No edema. Abdomen nondistended, soft, normal bowel sounds; right upper quadrant and epigastric tenderness. Current Medications: Current Medications Sig/Bull Start time Last Medication Dose Route Stop Time Status Admin Acetaminophen 1,000 MG Q8P PRN 02/04 2015 AC 02/05 N/A 1 UNIT IV 1920 Albuterol Sulfate 3 ML Q4P PRN 02/06 1430 AC INH Albuterol Sulfate 3 ML ONCE ONE 02/06 06 DC 02/06 INH 02/06 0631 0620 Budesonide/ 2 PUF BID 02/04 220 AC 02/06 Formoterol Fumarate INH 0913 Ceftriaxone Sodium 2,000 MG DAILY@02/05 2100 AC 02/05 IV 2104 Ceftriaxone Sodium 1,000 MG DAILY@2100 02/04 2100 DC 02/04 IV 2310 Heparin Sodium 5,000 UNIT Q8 02/05 0600 AC 02/06 (Porcine) SC 1404 Insulin Human Regular 2 UNITS .STK-MED ONE 02/05 2351 DC IV 02/05 2352 Insulin Human Regular 2 UNITS .STK-MED ONE 02/05 1808 DC IV 02/05 1809 Insulin Human Regular 0 Q6 02/04 2359 AC 02/06 SC 0610 Lactated Ringer's 1,000 ML Q6H 02/06 0900 AC 02/06 IV 0911 Metronidazole 500 MG IQ8 02/05 0000 AC 02/06 N/A 1 UNIT IV 0726 Morphine Sulfate 2 MG Q6P PRN 02/06 1100 AC 02/06 IV 1100 Morphine Sulfate 4 MG .STK-MED ONE 02/05 210 DC IM 02/05 210 Morphine Sulfate 2 MG Q6P PRN 02/04 2015 DC 02/05 IV 210 Oxybutynin Chloride 5 MG BID 02/04 2200 AC 02/06 PO 0930 Pantoprazole Sodium 40 MG DAILY 02/05 1000 AC 02/06 IV 0726 Promethazine HCl 12.5 MG Q4P PRN 02/04 194 AC 02/05 IV 02/11 194 0209 Sodium Chloride 1,000 ML Q6H 02/05 2000 DC 02/06 IV 02/06 1924 0233 Results Pertinent Lab Results: Laboratory Tests 02/06 02/05 0713 0734 Chemistry Sodium (137 - 145 mmol/L) 143 Potassium (3.5 - 5.1 mmol/L) 3.8 Chloride (98 - 107 mmol/L) 109 H Carbon Dioxide (22 - 30 mmol/L) 23 Anion Gap (5 - 16) 11 BUN (7 - 17 mg/dL) 18 H Creatinine (0.5 - 1.0 mg/dL) 0.7 Estimated GFR (>60 ml/min) > 60 BUN/Creatinine Ratio (7 - 25 %) 25.7 H Total Bilirubin (0.2 - 1.3 mg/dL) 2.9 H Direct Bilirubin (< 0.4 mg/dL) 2.7 H AST (14 - 36 U/L) 122 H ALT (9 - 52 U/L) 148 H Alkaline Phosphatase (<127 U/L) 198 H Total Protein (6.3 - 8.2 g/dL) 5.2 L Albumin (3.5 - 5.0 g/dL) 2.5 L Amylase (30 - 110 U/L) 46 Lipase (23 - 300 U/L) 35 Coagulation PT (9.4 - 12.5 SEC) 17.7 H 19.2 H INR (0.90 - 1.19) 1.62 H 1.75 H Hematology CBC w Diff MAN DIFF ORDERED WBC (4.8 - 10.8 /CUMM) 10.1 RBC (4.20 - 5.40 /CUMM) 4.66 Hgb (12.0 - 16.0 G/DL) 8.9 L Hct (37 - 47 %) 29.0 L MCV (81.0 - 99.0 FL) 62.3 L MCH (27.0 - 31.0 PG) 19.1 L MCHC (33.0 - 37.0 G/DL) 30.7 L RDW (11.5 - 14.5 %) 15.3 H Plt Count (130 - 400 /CUMM) 140 MPV (7.4 - 10.4 FL) 10.1 Gran % (42.2 - 75.2 %) 90.1 H Lymphocytes % (20.5 - 51.1 %) 4.1 L Monocytes % (1.7 - 9.3 %) 3.5 Eosinophils % (0 - 5 %) 2.2 Basophils % (0.0 - 2.0 %) 0.1 Absolute Granulocytes (1.4 - 6.5 /CUMM) 9.1 H Segmented Neutrophils (42.2 - 75.2 %) 77 H Band Neutrophils (0.0 - 5.0 %) 12 H Absolute Lymphocytes (1.2 - 3.4 /CUMM) 0.4 L Lymphocytes (20.5 - 51.1 %) 6 L Monocytes (1.7 - 9.3 %) 4 Absolute Monocytes (0.10 - 0.60 /CUMM) 0.4 Eosinophils (0 - 5.0 %) 1 Absolute Eosinophils (0.0 - 0.7 /CUMM) 0.2 Absolute Basophils (0.0 - 0.2 /CUMM) 0 Poikilocytosis 2+ Basophilic Stippling 1+ Anisocytosis 2+ Microcytic Cells 3+ Ovalocytes 1+ 02/05 02/04 0625 1355 Chemistry Sodium (137 - 145 mmol/L) 139 140 Potassium (3.5 - 5.1 mmol/L) 3.8 4.1 Chloride (98 - 107 mmol/L) 103 104 Carbon Dioxide (22 - 30 mmol/L) 25 26 Anion Gap (5 - 16) 11 11 BUN (7 - 17 mg/dL) 14 13 Creatinine (0.5 - 1.0 mg/dL) 0.8 0.7 Estimated GFR (>60 ml/min) > 60 > 60 BUN/Creatinine Ratio (7 - 25 %) 17.5 18.6 Glucose (65 - 99 mg/dL) 128 H Calcium (8.4 - 10.2 mg/dL) 9.7 Magnesium (1.6 - 2.3 mg/dL) 1.7 Total Bilirubin (0.2 - 1.3 mg/dL) 3.7 H 1.1 Direct Bilirubin (< 0.4 mg/dL) 3.1 H AST (14 - 36 U/L) 300 H 74 H ALT (9 - 52 U/L) 226 H 30 Alkaline Phosphatase (<127 U/L) 227 H 146 H Troponin I (< 0.11 ng/ml) < 0.01 Total Protein (6.3 - 8.2 g/dL) 5.6 L 7.0 Albumin (3.5 - 5.0 g/dL) 2.9 L 3.7 Globulin (1.9 - 4.2 gm/dL) 3.3 Albumin/Globulin Ratio (1.1 - 2.2 %) 1.1 Triglycerides (<150 mg/dL) 176 H Amylase (30 - 110 U/L) 120 H Lipase (23 - 300 U/L) 1610 H Coagulation PT (9.4 - 12.5 SEC) 26.2 H INR (0.90 - 1.19) 2.38 H APTT (25 - 37 SEC) 42 H Hematology CBC w Diff MAN DIFF ORDERED NO MAN DIFF REQ WBC (4.8 - 10.8 /CUMM) 12.9 H 9.7 RBC (4.20 - 5.40 /CUMM) 5.20 5.67 H Hgb (12.0 - 16.0 G/DL) 10.1 L 10.9 L Hct (37 - 47 %) 32.5 L 35.2 L MCV (81.0 - 99.0 FL) 62.5 L 62.0 L MCH (27.0 - 31.0 PG) 19.5 L 19.1 L MCHC (33.0 - 37.0 G/DL) 31.2 L 30.9 L RDW (11.5 - 14.5 %) 15.3 H 15.0 H Plt Count (130 - 400 /CUMM) 154 289 MPV (7.4 - 10.4 FL) 9.8 9.4 Gran % (42.2 - 75.2 %) 93.5 H 79.1 H Lymphocytes % (20.5 - 51.1 %) 1.6 L 12.6 L Monocytes % (1.7 - 9.3 %) 4.9 6.1 Eosinophils % (0 - 5 %) 0 1.6 Basophils % (0.0 - 2.0 %) 0 0.6 Absolute Granulocytes (1.4 - 6.5 /CUMM) 12.0 H 7.7 H Segmented Neutrophils (42.2 - 75.2 %) 68 Band Neutrophils (0.0 - 5.0 %) 22 H Absolute Lymphocytes (1.2 - 3.4 /CUMM) 0.2 L 1.2 Lymphocytes (20.5 - 51.1 %) 2 L Monocytes (1.7 - 9.3 %) 6 Absolute Monocytes (0.10 - 0.60 /CUMM) 0.6 0.6 Eosinophils (0 - 5.0 %) 2 Absolute Eosinophils (0.0 - 0.7 /CUMM) 0 0.2 Absolute Basophils (0.0 - 0.2 /CUMM) 0 0.1 Hypochromic-Microcytic 1+ Poikilocytosis 2+ Anisocytosis 2+ Microcytic Cells 4+ Ovalocytes 1+ Imaging/Other Studies: Ultrasound demonstrates choledocholithiasis
[2018-02-06 21:30] VITALS: BP 158/75
[2018-02-07 06:33] VITALS: BP 166/70
--- NOTE | 2018-02-07 07:14 | PN- Housestaff ---
Amanda SHOOK,Katherine 02/07/18 0713: Subjective Follow-up For: Cholangitis Gallstone pancreatitis Cholecystitis Subjective: Patient seen and examined at bedside. No overnight events. Complaints of right upper quadrant pain of 5 x 10. She denies chest pain, shortness of breath, nausea, vomiting, weakness. Review of Systems Constitutional: Reports: no symptoms. Cardiovascular: Reports: no symptoms. Respiratory: Reports: no symptoms. Gastrointestinal: Reports: no symptoms. Genitourinary: Reports: no symptoms. Objective Last 24 Hrs of Vital Signs/I&O Vital Signs Date Time Temp Pulse Resp B/P B/P Pulse O2 O2 Flow FiO2 Mean Ox Delivery Rate 02/07 0633 98.9 93 20 166/70 96 Room Air 02/06 2130 98.7 87 18 158/75 92 Room Air 02/06 2040 93 Room Air 02/06 1410 Room Air 02/06 1332 98.8 88 18 138/68 95 Room Air Room Air Intake & Output 02/07 1600 02/07 0800 02/07 0000 Intake Total 1100 700 Output Total 600 550 Balance 500 150 Intake, IV 1100 Intake, Oral 700 Number 1 Bowel Movements Output, Urine 600 550 Physical Exam General Appearance: Alert, Oriented X3, Cooperative, No Acute Distress Cardiovascular: Regular Rate, Normal S1, Normal S2, No Murmurs Lungs: rt basal wheeze Abdomen: rt upper quadr tenderness Neurological: Normal Speech, Normal Tone, Sensation Intact Extremities: No Cyanosis, No Edema, Normal Pulses Assessment/Plan Assessment: 77 yo women with PMHx of TIA, stroke with left sided residual weakness,cataract, hearing loss, HTN, HL, GERD with dilated esophagus with posterior pharyngeal dysfunction with on and off aspiration, vertigo, DJD knee, sigmoid diverticultis ,Type -2 DM, Asthma, 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 Assessment and plan 1. cholangitis with Acute cholecystitis 2. Gallstone pancreatitis 3. Dehydration- resolved * Continue on IV fluids Ringer lactate at 125 mL per hour. Pt is NPO for ERCP today. * Patient abdominal pain has improved with morphine. * Nausea-Zofran/Reglan as needed * Surgical consult placed, who has planned for cholecystectomy after ERCP. Patient PLAN - who suggested to keep nothing by mouth, ERCP, followed by cholecystectomy * Hypertension -admission blood pressure 181/80. Watch for blood pressure. * Hold antihypertensive medications and XARALTO * No further episodes of fever. Continue ceftriaxone and Flagy. Pt growing GNR in blood. * If patient develops fever, severe abdominal pain, hypotension readdress the need for ICU transfer. -Full code - Nothing by mouth Problem List: 1. Cholangitis 2. Cholecystitis 3. Gall stone pancreatitis Pain Ratin Pain Location: none Pain Goal: Remain pain free Pain Plan: morphine Tomorrow's Labs & Rationales: cbc,bep Saw SHOOK,Tiffani 02/07/18 1229: Attending MD Review Statement Attending Statement Attending MD Statement: examined this patient, discuss w/resident/PA/MINE UTILITY OPERATOR, agreed w/resident/PA/MINE UTILITY OPERATOR, reviewed EMR data (avail), discussed with nursing, discussed with case mgmt, reviewed images, amended to note Attending Assessment/Plan: Patient seen and examined, doing okay. She has some pain in the right upper quadrant only she moved to the right side. Otherwise she is comfortable. She denies being nauseous. She is scheduled for ERCP today. Vital Signs Date Time Temp Pulse Resp B/P B/P Pulse O2 O2 Flow FiO2 Mean Ox Delivery Rate 02/07 0633 98.9 93 20 166/70 96 Room Air 02/06 2130 98.7 87 18 158/75 92 Room Air 02/06 2040 93 Room Air 02/06 1410 Room Air 02/06 1332 98.8 88 18 138/68 95 Room Air Room Air on exam; aox3, nad. cv; s1,s2, rrr resp; clear abd; soft, mild tenderness ruq, bs+ ext; no edema Laboratory Tests 02/07 02/07 0749 0743 Chemistry Sodium (137 - 145 mmol/L) 137 Potassium (3.5 - 5.1 mmol/L) 3.7 Chloride (98 - 107 mmol/L) 106 Carbon Dioxide (22 - 30 mmol/L) 22 Anion Gap (5 - 16) 9 BUN (7 - 17 mg/dL) 15 Creatinine (0.5 - 1.0 mg/dL) 0.7 Estimated GFR (>60 ml/min) > 60 BUN/Creatinine Ratio (7 - 25 %) 21.4 Total Bilirubin (0.2 - 1.3 mg/dL) 2.8 H Direct Bilirubin (< 0.4 mg/dL) 2.5 H AST (14 - 36 U/L) 66 H ALT (9 - 52 U/L) 99 H Alkaline Phosphatase (<127 U/L) 303 H Total Protein (6.3 - 8.2 g/dL) 4.9 L Albumin (3.5 - 5.0 g/dL) 2.4 L Coagulation PT (9.4 - 12.5 SEC) 14.1 H INR (0.90 - 1.19) 1.29 H Hematology CBC w Diff MAN DIFF ORDERED WBC (4.8 - 10.8 /CUMM) 6.2 RBC (4.20 - 5.40 /CUMM) 4.38 Hgb (12.0 - 16.0 G/DL) 8.5 L Hct (37 - 47 %) 26.9 L MCV (81.0 - 99.0 FL) 61.4 L MCH (27.0 - 31.0 PG) 19.5 L MCHC (33.0 - 37.0 G/DL) 31.6 L RDW (11.5 - 14.5 %) 14.9 H Plt Count (130 - 400 /CUMM) 146 MPV (7.4 - 10.4 FL) 10.0 Gran % (42.2 - 75.2 %) 82.7 H Lymphocytes % (20.5 - 51.1 %) 8.9 L Monocytes % (1.7 - 9.3 %) 6.3 Eosinophils % (0 - 5 %) 2.0 Basophils % (0.0 - 2.0 %) 0.1 Absolute Granulocytes (1.4 - 6.5 /CUMM) 5.1 Segmented Neutrophils (42.2 - 75.2 %) 75 Band Neutrophils (0.0 - 5.0 %) 5 Absolute Lymphocytes (1.2 - 3.4 /CUMM) 0.5 L Lymphocytes (20.5 - 51.1 %) 10 L Monocytes (1.7 - 9.3 %) 7 Absolute Monocytes (0.10 - 0.60 /CUMM) 0.4 Eosinophils (0 - 5.0 %) 3 Absolute Eosinophils (0.0 - 0.7 /CUMM) 0.1 Absolute Basophils (0.0 - 0.2 /CUMM) 0 Platelet Estimate (ADEQUATE) VERIFIED BY SMEAR Hypochromic-Microcytic 2+ Poikilocytosis 1+ Anisocytosis 1+ Microcytic Cells 2+ Ovalocytes 1+ A/P; 77 y/o F with pmh sig for TIA, stroke with left sided residual weakness, cataract, hearing loss, HTN, HL, GERD with dilated esophagus with posterior pharyngeal dysfunction with on and off aspiration, vertigo, DJD knee, sigmoid diverticultis,Type -2 DM, Asthma, 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 Patient to go for ERCP today. Continue antibiotics. Continue IV fluids. Continue symptomatic management. After the ERCP, patient to go for laparoscopic cholecystectomy continue the rest of the management. DVT prophylaxis: Heparin subcutaneous. Of bed to chair, encourage ambulation.
[2018-02-07 08:58] LABS: PT 14.1 SEC (9.4-12.5)
[2018-02-07 09:29] LABS: ABSOLUTE BASOPHIL COUNT 0 /CUMM (0.0-0.2); ABSOLUTE EOSINOPHIL COUNT 0.1 /CUMM (0.0-0.7); ABSOLUTE GRANULOCYTE CT 5.1 /CUMM (1.4-6.5); ABSOLUTE LYMPH COUNT 0.5 /CUMM (1.2-3.4); ABSOLUTE MONOCYTE COUNT 0.4 /CUMM (0.10-0.60); BASOPHIL % 0.1 % (0.0-2.0); GRANULOCYTE % 82.7 % (42.2-75.2); HEMATOCRIT 26.9 % (37-47); MEAN CORPUSCULAR HGB 19.5 PG (27.0-31.0); MEAN CORPUSCULAR HGB CONC 31.6 G/DL (33.0-37.0); MEAN CORPUSCULAR VOLUME 61.4 FL (81.0-99.0); PLATELET COUNT 146 /CUMM (130-400); RBC DISTRIBUTION WIDTH 14.9 % (11.5-14.5); RED BLOOD CELL CT 4.38 /CUMM (4.20-5.40); WHITE BLOOD CELL COUNT 6.2 /CUMM (4.8-10.8)
--- NOTE | 2018-02-07 11:20 | Patient Discharge Instructions ---
Discharge Instructions General Discharge Information You were seen/treated for: Cholangitis, gallstone pancreatitis, cholecystitis Watch for these problems: In case of nausea, vomiting, abdominal pain, chest pain, shortness of breath please go to the nearest emergency room Special Instructions: Please follow-up with the primary care provider/grain farmer/surgeon within 1 weeks of discharge. Please continue your diabetic and low fat diet. Please discuss with your pcp regarding restarting your liraglutide (Victoza). Please avoid heavy lifting or strenous activity. Diet Continue normal diet: No Recommended Diet: Regular Activity Full Activity/No Limits: No Activity Self Limited: Yes Acute Coronary Syndrome Inclusion Criteria At DC or during hospital stay patient has or had the following: ACS DIAGNOSIS No Discharge Core Measures Meds if any: Prescribed or Continued at Discharge Meds if any: NOT Prescribed or Continued at Discharge Congestive Heart Failure Inclusion Criteria At DC or during hospital stay patient has or had the following: CHF DIAGNOSIS No Discharge Core Measures Meds if any: Prescribed or Continued at Discharge Meds if any: NOT Prescribed or Continued at Discharge Cerebrovascular accident Inclusion Criteria At DC or during hospital stay patient has or had the following: CVA/TIA Diagnosis No Discharge Core Measures Meds if any: Prescribed or Continued at Discharge Meds if any: NOT Prescribed or Continued at Discharge Venous thromboembolism Inclusion Criteria VTE Diagnosis No VTE Type NONE VTE Confirmed by (Test) NONE Discharge Core Measures - Per Current guidelines, there needs to be overlap - treatment for the first 5 days of Warfarin therapy. - If discharged on Warfarin prior to 5 days of - overlap therapy, the patient will need to be - assessed for post discharge needs including - *Post discharge parental anticoagulation - *Warfarin and/or parental anticoagulation education - *Follow up date to check INR post discharge At least 5 days overlap therapy as Inpatient No Meds if any: Prescribed or Continued at Discharge Note: Overlap Therapy is Warfarin and Anticoagulant Meds if any: NOT Prescribed or Continued at Discharge
[2018-02-07 13:39] VITALS: BP 142/86
--- NOTE | 2018-02-07 15:49 | Proc Note ERCP ---
ERCP Procedure Procedure Date: 02/07/18 GI Procedure(s): ERCP with sphincterotomy/stone oracle soa architect: Jens Silver M.D. ASA Classification: III Indications: Cholangitis Choledocholithiasis (evident on ultrasound, CT) Jaundice, gallstone pancreatitis Instrument: duodenoscope Meds Received: SEAN Patient's Tolerance: good Complications: none Procedure: The patient signed informed consent, was turned into the prone position, and was medicated. Pulse oximetry, blood pressure and cardiac monitoring were performed continuously throughout the procedure. The Olympus V duodenoscope was inserted into the mouth and advanced to the duodenum. The stomach was not examined. The duodenum and papilla were normal. The common bile duct was cannulated and opacified. The pancreatic duct was not cannulated/injected. Indomethacin 100 mg was administered per rectum. The cholangiogram demonstrated dilatation of the common bile duct and common hepatic duct, with multiple filling defects, the largest of which was approximately 1 cm. The hepatic ducts were normal. The cystic duct opacified. A complete, bloodless sphincterotomy was performed with Endocut. Using multiple sweeps of an inflated extraction balloon, approximately 6 gallstones were extracted. A final occlusion cholangiogram was negative aside from several compressible air bubbles, and a balloon sweep from bifurcation to duodenum did not deliver stones or debris. Impression: * Choledocholithiasis, treated with sphincterotomy/stone extraction Recommendations: * Continue IV antibiotics for 48 hours * May begin clear liquid diet after 7 PM tonight * No anticoagulation for at least 72 hours * Follow-up CBC and liver associated enzymes in the morning CC: Giuseppe Hummel DO; Uriel SHOOK,Shabbir Gillespie
[2018-02-07 16:51] VITALS: BP 148/64
--- NOTE | 2018-02-07 16:59 | RADIOLOGY REPORT ---
EXAMINATION: CR ABDOMEN/INTRAOPERATIVE FLUOROSCOPY/ERCP CLINICAL INDICATION: Cholangitis with choledocholithiasis. COMPARISON: Right upper quadrant ultrasound dated 02/05/2018. CT scan of the abdomen and pelvis dated 02/04/2018. TECHNIQUE/FINDINGS: Fluoroscopic equipment was dedicated to the procedure room for the performance of an ERCP. Several (14) spot films were acquired and are archived in PACS. Please refer to operative notes for procedural detail. The common bile duct was cannulated with multiple filling defects seen, consistent with choledocholithiasis. Sphincterotomy was performed and a balloon sweep was made of the common bile duct with removal of 6 stones from the duct. FLUOROSCOPY TIME: 29 seconds. IMPRESSION: Administrative dictation for intraoperative fluoroscopy and image archiving in PACS. Please refer to operative notes for details.
--- NOTE | 2018-02-07 18:01 | PN- General Surgery ---
Surgical Brief Attending Note Brief Attending Note: Doing well, pain improved. AVSS. Abd-soft, obese. Labs reviewed. s/p ERCP with sphincterotomy, plan for Lap Kisha tomorrow, F/U am labs.
[2018-02-07 21:54] VITALS: BP 135/71
[2018-02-08 07:05] VITALS: BP 151/73
--- NOTE | 2018-02-08 07:31 | PN- Housestaff ---
Subjective Follow-up For: Cholangitis/cholecystitis Choledocholithiasis status post ERCP Subjective: Patient was seen and examined today. Patient was resting comfortably in her bed. Patient denies any complaints at this time. Denies abdominal pain, nausea /vomiting, fever/chills, constipation/diarrhea. Denies chest pain, shortness of breath. Patient is currently nothing by mouth for possible cholecystectomy today. No acute events overnight. Review of Systems Constitutional: Reports: no symptoms. Cardiovascular: Reports: no symptoms. Respiratory: Reports: no symptoms. Gastrointestinal: Reports: no symptoms. Genitourinary: Reports: no symptoms. Musculoskeletal: Reports: no symptoms. Neurological/Psychological: Reports: no symptoms. Objective Last 24 Hrs of Vital Signs/I&O Vital Signs Date Time Temp Pulse Resp B/P B/P Pulse O2 O2 Flow FiO2 Mean Ox Delivery Rate 02/08 1114 97 Room Air Room Air 02/08 0705 97.5 73 20 151/73 97 Room Air 02/08 0615 98 Room Air 02/07 2154 97.6 69 20 135/71 97 Room Air 02/07 1943 95 Room Air 02/07 1651 98.3 60 18 148/64 96 Room Air Room Air 02/07 1451 94 Room Air 02/07 1339 98.0 77 20 142/86 96 Room Air Intake & Output 02/08 1600 02/08 0800 02/08 0000 Intake Total 800 800 Output Total 750 300 Balance 50 500 Intake, IV 800 800 Output, Urine 750 300 Physical Exam General Appearance: Alert, Oriented X3, Cooperative, No Acute Distress HEENT: Atraumatic, Mucous Membr. moist/pink Cardiovascular: Regular Rate, Normal S1, Normal S2 Lungs: Clear to Auscultation, Normal Air Movement Abdomen: Normal Bowel Sounds, Soft, tender to palpation in the RUQ Neurological: Normal Speech Extremities: No Clubbing, No Cyanosis, No Edema, Normal Pulses, No Tenderness/ Swelling Current Medications: Current Medications Sig/Bull Start time Last Medication Dose Route Stop Time Status Admin Acetaminophen 1,000 MG Q8P PRN 02/04 N/A 1 UNIT IV 1920 Albuterol Sulfate 3 ML Q4P PRN 02/06 1430 AC 02/08 INH 0606 Budesonide/ 2 PUF BID 02/04 220 AC 02/08 Formoterol Fumarate INH 0953 Ceftriaxone Sodium 2,000 MG DAILY@2100 04/07 2100 AC 02/07 IV 2128 Heparin Sodium 5,000 UNIT Q8 02/05 0600 DC 02/07 (Porcine) SC 0552 Insulin Human Regular 4 UNITS .STK-MED ONE 02/07 2359 DC IV 02/08 0000 Insulin Human Regular 2 UNITS .STK-MED ONE 02/07 1857 DC IV 02/07 1858 Insulin Human Regular 2 UNITS .STK-MED ONE 02/07 1204 DC IV 02/07 1205 Insulin Human Regular 0 Q6 02/04 2359 AC 02/08 SC 0617 Lactated Ringer's 1,000 ML Q6H 02/06 0900 AC 02/08 IV 0329 Metronidazole 500 MG IQ8 02/05 0000 AC 02/08 N/A 1 UNIT IV 0801 Morphine Sulfate 2 MG Q6P PRN 02/06 1100 AC 02/07 IV 0053 Oxybutynin Chloride 5 MG BID 02/04 2200 AC 02/08 PO 0953 Pantoprazole Sodium 40 MG DAILY 02/05 1000 AC 02/08 IV 0953 Patient Medication 1 ED ONE ONE 02/07 1500 [facility] Teaching ED 02/07 1501 Promethazine HCl 12.5 MG Q4P PRN 02/04 1945 AC 02/05 IV 02/11 1944 0209 Last 24 Hrs of Lab/Robert Results Last 24 Hrs of Labs/Mics: Laboratory Tests 02/08/18 0652: Anion Gap 10, Estimated GFR > 60, BUN/Creatinine Ratio 17.1, Total Bilirubin 2.4 H, Direct Bilirubin 2.0 H, AST 42 H, ALT 81 H, Alkaline Phosphatase 361 H, Total Protein 5.0 L, Albumin 2.5 L, CBC w Diff MAN DIFF ORDERED, RBC 4.46, MCV 61.0 L, MCH 19.4 L, MCHC 31.8 L, RDW 15.3 H, MPV 10.4, Gran % 56.3, Lymphocytes % 22.9, Monocytes % 15.3 H, Eosinophils % 5.5 H, Basophils % 0, Absolute Granulocytes 2.4, Absolute Lymphocytes 1.0 L, Absolute Monocytes 0.6, Absolute Eosinophils 0.2, Absolute Basophils 0, Platelet Estimate ADEQUATE, Hypochromic-Microcytic 3+, Poikilocytosis 2+, Anisocytosis 2+, Microcytic Cells 2+, Ovalocytes 2+, Schistocytes Assessment/Plan Assessment: Patient is a 77-year-old female with past medical history of TIA, stroke with left-sided residual weakness, cataract, hearing loss, hypertension, hyperlipidemia, GERD dilated esophagus with posterior pharyngeal dysfunction with on and off aspiration, vertigo, DJD knee, sigmoid diverticultis,Type -2 DM, Asthma, 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 Patient was found to have acute cholecystitis, choledocholithiasis on imaging. Patient had an ERCP and sphincterotomy performed on 02/07 with multiple stones removed. Patient today is afebrile on IV ceftriaxone and metronidazole with mild tenderness to palpation of the right upper quadrant. Patient's LFTs have improved except for a mild increase in her alkaline phosphatase. We spoke to the surgical PA and patient is likely to go for cholecystectomy later on this afternoon with Dr. Malone. Plan: - Continue IV ceftriaxone and IV metronidazole - Nothing by mouth for surgery, continue lactated Ringer's at 100 mL per hour - Continue Novolin and Accu-Cheks - Continue Protonix 40 mg IV daily - Continue Phenergan IV when necessary for nausea - Continue Symbicort and Proventil for COPD - Continue morphine and Tylenol for pain as needed - Per GI patient is to remain off anticoagulation for the next 72 hours since ERCP on 02/07 and is to remain on antibiotics for at least 48 hours. - Repeat CBC, BEP and LFTs - Continue to monitor vitals DVT prophylaxis: Alps Diet: Nothing by mouth pending surgery Code: Full code Problem List: 1. Cholecystitis 2. Cholangitis Pain Ratin Pain Location: RUQ Pain Goal: Remain pain free Pain Plan: tylenol morphine Tomorrow's Labs & Rationales: cbc- infection, anemia, s/p surgery bep- monitor electrolytes, currently NPO on fluids lfts- choledocholithiasis/ cholangitis
[2018-02-08 07:54] LABS: ABSOLUTE BASOPHIL COUNT 0 /CUMM (0.0-0.2); ABSOLUTE EOSINOPHIL COUNT 0.2 /CUMM (0.0-0.7); ABSOLUTE GRANULOCYTE CT 2.4 /CUMM (1.4-6.5); ABSOLUTE MONOCYTE COUNT 0.6 /CUMM (0.10-0.60); BASOPHIL % 0 % (0.0-2.0); EOSINOPHIL % 5.5 % (0-5); GRANULOCYTE % 56.3 % (42.2-75.2); HEMATOCRIT 27.2 % (37-47); MEAN CORPUSCULAR HGB 19.4 PG (27.0-31.0); MEAN CORPUSCULAR HGB CONC 31.8 G/DL (33.0-37.0); MEAN PLATELET VOLUME 10.4 FL (7.4-10.4); PLATELET COUNT 154 /CUMM (130-400); RBC DISTRIBUTION WIDTH 15.3 % (11.5-14.5); RED BLOOD CELL CT 4.46 /CUMM (4.20-5.40); WHITE BLOOD CELL COUNT 4.2 /CUMM (4.8-10.8)
--- NOTE | 2018-02-08 07:56 | PN- General Surgery ---
See Addendum Subjective Subjective: ERCP yesterday with sphincterotomy. Plans for OR today. Patient remains NPO with IVF. Still with slight abdominal pain to right side. Objective Vital Signs and I&Os Vital Signs Date Time Temp Pulse Resp B/P B/P Pulse O2 O2 Flow FiO2 Mean Ox Delivery Rate 02/08 705 97.5 73 20 151/73 97 Room Air 02/08 0615 98 Room Air 02/07 2154 97.6 69 20 135/71 97 Room Air 02/07 1943 95 Room Air 02/07 1651 98.3 60 18 148/64 96 Room Air Room Air 02/07 1451 94 Room Air 02/07 1339 98.0 77 20 142/86 96 Room Air Intake & Output 02/08 1600 02/08 0800 02/08 0000 02/07 1600 02/07 0800 02/07 0000 Intake Total 176 467 2282 1100 700 Output Total 750 300 350 600 550 Balance 50 500 680 500 150 Intake, IV 796 149 1395 1100 Intake, Oral 30 700 Number 1 Bowel Movements Output, Urine 750 300 350 600 550 Patient 200 lb Weight Physical Exam: Gen: AAOx3 in NAD Cor: S1+S2+ Lungs: CTA jaelyn Abd: soft, TTP RUQ/epigastric region, ND, +BS x4 Ext: no edema or calf tenderness to jaelyn lower extremities. Assessment/Plan Assessment/Plan A: 77 yo female with gallstone pancreatitis; choledocholithiasis now PPD #1 s/p ERCP with sphincterotomy; AVSS Plan: F/U am labwork. OR today for lap aj pending above. Keep NPO.
--- NOTE | 2018-02-08 11:03 | PN- Att Addend ---
Attending Addendum Attending Brief Note Patient seen and examined, doing okay. Status post ERCP with stone extraction yesterday. Patient does complain of some right upper quadrant pain but it is tolerable. Patient scheduled for laparoscopic cholecystectomy today. Vital Signs Date Time Temp Pulse Resp B/P B/P Pulse O2 O2 Flow FiO2 Mean Ox Delivery Rate 02/08 07 97.5 73 20 151/73 97 Room Air 02/08 0615 98 Room Air 02/07 2154 97.6 69 20 135/71 97 Room Air 02/07 1943 95 Room Air 02/07 1651 98.3 60 18 148/64 96 Room Air Room Air 02/07 1451 94 Room Air 02/07 1339 98.0 77 20 142/86 96 Room Air on exam; aox3, nad. cv; s1,s2, rrr resp; clear abd; soft, tender in ruq, bs+ ext; no edema Laboratory Tests 02/09 652 Chemistry Sodium (137 - 145 mmol/L) 142 Potassium (3.5 - 5.1 mmol/L) 3.9 Chloride (98 - 107 mmol/L) 106 Carbon Dioxide (22 - 30 mmol/L) 26 Anion Gap (5 - 16) 10 BUN (7 - 17 mg/dL) 12 Creatinine (0.5 - 1.0 mg/dL) 0.7 Estimated GFR (>60 ml/min) > 60 BUN/Creatinine Ratio (7 - 25 %) 17.1 Total Bilirubin (0.2 - 1.3 mg/dL) 2.4 H Direct Bilirubin (< 0.4 mg/dL) 2.0 H AST (14 - 36 U/L) 42 H ALT (9 - 52 U/L) 81 H Alkaline Phosphatase (<127 U/L) 361 H Total Protein (6.3 - 8.2 g/dL) 5.0 L Albumin (3.5 - 5.0 g/dL) 2.5 L Hematology CBC w Diff MAN DIFF ORDERED WBC (4.8 - 10.8 /CUMM) 4.2 L RBC (4.20 - 5.40 /CUMM) 4.46 Hgb (12.0 - 16.0 G/DL) 8.7 L Hct (37 - 47 %) 27.2 L MCV (81.0 - 99.0 FL) 61.0 L MCH (27.0 - 31.0 PG) 19.4 L MCHC (33.0 - 37.0 G/DL) 31.8 L RDW (11.5 - 14.5 %) 15.3 H Plt Count (130 - 400 /CUMM) 154 MPV (7.4 - 10.4 FL) 10.4 Gran % (42.2 - 75.2 %) 56.3 Lymphocytes % (20.5 - 51.1 %) 22.9 Monocytes % (1.7 - 9.3 %) 15.3 H Eosinophils % (0 - 5 %) 5.5 H Basophils % (0.0 - 2.0 %) 0 Absolute Granulocytes (1.4 - 6.5 /CUMM) 2.4 Absolute Lymphocytes (1.2 - 3.4 /CUMM) 1.0 L Absolute Monocytes (0.10 - 0.60 /CUMM) 0.6 Absolute Eosinophils (0.0 - 0.7 /CUMM) 0.2 Absolute Basophils (0.0 - 0.2 /CUMM) 0 Platelet Estimate (ADEQUATE) ADEQUATE Hypochromic-Microcytic 3+ Poikilocytosis 2+ Anisocytosis 2+ Microcytic Cells 2+ Ovalocytes 2+ Schistocytes A/P: 77 y/o F with pmh sig for TIA, stroke with left sided residual weakness, cataract, hearing loss, HTN, HL, GERD with dilated esophagus with posterior pharyngeal dysfunction with on and off aspiration, vertigo, DJD knee, sigmoid diverticultis,Type -2 DM, Asthma, 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 Patient is status post ERCP with stone extraction yesterday. Scheduled for laparoscopic cholecystectomy today. Reviewed the labs. LFTs have improved slightly compared to before. Patient is nothing by mouth and getting IV fluids. She has been kept on IV antibiotics. No anticoagulation x 72 hours from yesterday as per GI. Will continue IV abx for another 24 hours then switch to oral. DVT px; ALPS. PT can see her tomorrow.
--- NOTE | 2018-02-08 14:49 | Operative Report ---
Operative/Inv Procedure Report Surgery Date: 02/08/18 Name of Procedure: Laparoscopic cholecystectomy Pre-Operative Diagnosis: Cholelithiasis/Choledocholithiasis (cholangitis) Post-Operative Diagnosis: Same Estimated Blood Loss: less than 50ml Surgeon/Evidence Technician: Giuseppe Jacobson Anesthesia: general endotracheal tube IV Fluids: 1100 cc Drains: None Specimens: Gallbladder Complications: None Condition: Stable Operative Indication: This is a 77-year-old female who presented to the emergency room with abdominal pain. Patient was diagnosed with cholelithiasis/choledocholithiasis and had signs and symptoms of cholangitis. Patient was admitted to the hospital and underwent a subsequent ERCP with sphincterotomy. Patient did well after the procedure and a laparoscopic possible open cholecystectomy was discussed in detail. All risks including but not limited to bleeding, infection, bile leak, and injury to surrounding duct/bowel were discussed in detail. The patient understood everything and decided to proceed. Operative/Procedure Note Note: The patient was brought to the operating room and placed on the operating room table in supine position. Venodyne stockings were placed and adequate general endotracheal anesthesia was obtained. The patient was prepped and draped in standard surgical fashion. We began the procedure by making a 5 mm transverse incision in the left upper quadrant (this was done due to recent midline laparotomy). Then using a 5 mm optical trocar and a 5 mm laparoscope, the abdominal cavity was accessed. Great care was taken to go through the anterior rectus sheath, the posterior rectus sheath, and the peritoneum. Once we entered the peritoneum the abdominal cavity was insuflated to 15 mm Hg. Midline adhesions were noted, but there was plenty of room for trocar placement. A 12 mm port was placed slightle above the umbilicus and to the right away from the prior incision. A 10 mm 30 laparoscope was introduced and upon initial examination no obvious gross pathology was seen. We did note a mildly distended gallbladder in the right upper quadrant. Accessory trocars were placed, all 5 mm, one in the epigastrium and 2 in the right upper quadrant (one in the midclavicular line and one in the anterior axillary line, both 2 fingerbreadths below the costal margin). The gallbladder was grasped with the lateralmost trocar and retracted up over the liver. Using the other 2 accessory trochars the infundibulum was grasped and the peritoneum was lysed using blunt dissection and using hook electrocautery. The cystic duct and cystic artery were visualized. The common bile duct was visualized and it was away from our area of dissection. The cystic duct and artery were skeletonized and divided between clips, 3 clips to stay and one clip on the gallbladder side for the duct and 2 clips to stay and one clip on the gallbladder side for the artery. The gallbladder was dissected off the liver bed using hook electrocautery maintaining hemostasis. Prior to completely removing the gallbladder off the liver bed we examined the area of dissection no obvious bile leak or bleeding was noted, the clips appeared to be in good position. The gallbladder was completely detached from the liver bed. We switched to a 5 mm laparoscope and a 10 mm Endobag was introduced through the umbilical trocar site. The gallbladder was placed in the bag and removed through the umbilicus. The abdomen was reinsufflated. We switched back to a 10 mm laparoscope and examined our area of dissection. No obvious bile leak or bleeding was noted. The right upper quadrant was irrigated until clear. All ports were removed under direct visualization, no obvious bleeding was noted. The umbilical trocar site was closed using 0 Vicryl suture. The skin was closed using 4-0 Monocryl. Steri- Strips and dressings were placed. The patient was successfully extubated and transferred to the recovery room in stable condition. The patient tolerated the procedure well with no complications. Findings: Multiple small stones, thick gallbladder wall, + edema CC: Jens Silver MD; Uriel SHOOK,Shabbir Gillespie
[2018-02-08 16:30] VITALS: BP 138/62
--- NOTE | 2018-02-08 19:59 | PN- General Surgery ---
Subjective Subjective: Patient doing well status post return to the floor. She denies any pain at all. She denies any nausea or vomiting. She is tolerating clear liquids without any difficulty. Objective Vital Signs and I&Os Vital Signs Date Time Temp Pulse Resp B/P B/P Pulse O2 O2 Flow FiO2 Mean Ox Delivery Rate 02/08 1630 98.2 59 20 138/62 94 Room Air 02/08 1114 97 Room Air Room Air 02/08 0705 97.5 73 20 151/73 97 Room Air 02/08 0615 98 Room Air 02/07 2154 97.6 69 20 135/71 97 Room Air Intake & Output 02/08 1600 02/08 0800 02/08 0000 02/07 1600 02/07 0802/07 0000 Intake Total 797 150 4037 1100 700 Output Total 400 750 300 350 600 550 Balance -400 50 500 680 500 150 Intake, IV 424 449 3941 1100 Intake, Oral 30 700 Number 1 Bowel Movements Output, Urine 400 750 300 350 600 550 Patient 200 lb Weight Physical Exam: General: Alert, awake, in no acute distress Abdomen: Obese, soft, nondistended, nontender, incisions with bandages in place without any strikethrough, Steri-Strips in place underneath, no surrounding edema, erythema, or ecchymosis Extremities: No clubbing, cyanosis, or edema Current Medications: Current Medications Sig/Bull Start time Last Medication Dose Route Stop Time Status Admin Acetaminophen 1,000 MG Q8P PRN 02/08 154 AC N/A 1 UNIT IV Acetaminophen 1,000 MG Q8P PRN 02/04 2015 DC 02/05 N/A 1 UNIT IV 1920 Albuterol Sulfate 3 ML Q4P PRN 02/08 1545 AC INH Albuterol Sulfate 3 ML Q4P PRN 02/06 1430 DC 02/08 INH 0606 Budesonide/ 2 PUF BID 02/08 220 AC Formoterol Fumarate INH Budesonide/ 2 PUF BID 02/04 220 DC 02/08 Formoterol Fumarate INH 0953 Ceftriaxone Sodium 2,000 MG DAILY@02/08 2100 AC IV Ceftriaxone Sodium 2,000 MG DAILY@02/05 2100 DC 02/07 IV 2128 Insulin Aspart 0 TIDAC 02/09 0800 AC SC Insulin Human Regular 0 Q6 02/08 1800 CAN SC Insulin Human Regular 2 UNITS .STK-MED ONE 02/08 0616 DC IV 02/08 0617 Insulin Human Regular 4 UNITS .STK-MED ONE 02/07 2359 DC IV 02/08 0000 Insulin Human Regular 0 Q6 02/04 2359 DC 02/08 SC 1151 Lactated Ringer's 1,000 ML Q6H 02/08 2100 AC IV Lactated Ringer's 1,000 ML Q6H 02/06 0900 AC 02/08 IV 02/08 2059 1707 Metronidazole 500 MG IQ8 02/08 1600 AC 02/08 N/A 1 UNIT IV 1712 Metronidazole 500 MG IQ8 02/05 0000 DC 02/08 N/A 1 UNIT IV 02/08 1559 0801 Morphine Sulfate 2 MG Q6P PRN 02/08 1545 AC 02/08 IV 1723 Morphine Sulfate 2 MG Q6P PRN 02/06 1100 DC 02/07 IV 0053 Oxybutynin Chloride 5 MG BID 02/08 2200 AC PO Oxybutynin Chloride 5 MG BID 02/04 2200 DC 02/08 PO 0953 Oxycodone HCl 5 MG Q4 HRS NEEDED PRN 02/08 1545 AC PO Oxycodone HCl 10 MG Q4P PRN 02/08 1545 AC PO Pantoprazole Sodium 40 MG DAILY 02/09 1000 AC IV Pantoprazole Sodium 40 MG DAILY 02/05 1000 DC 02/08 IV 0953 Promethazine HCl 12.5 MG Q4P PRN 02/08 1545 AC IV 02/11 1944 Promethazine HCl 12.5 MG Q4P PRN 02/04 1945 DC 02/05 IV 02/11 1944 0209 Results Last 48 Hours of Labs: Laboratory Tests 02/08 02/07 0652 0749 Chemistry Sodium (137 - 145 mmol/L) 142 137 Potassium (3.5 - 5.1 mmol/L) 3.9 3.7 Chloride (98 - 107 mmol/L) 106 106 Carbon Dioxide (22 - 30 mmol/L) 26 22 Anion Gap (5 - 16) 10 9 BUN (7 - 17 mg/dL) 12 15 Creatinine (0.5 - 1.0 mg/dL) 0.7 0.7 Estimated GFR (>60 ml/min) > 60 > 60 BUN/Creatinine Ratio (7 - 25 %) 17.1 21.4 Total Bilirubin (0.2 - 1.3 mg/dL) 2.4 H 2.8 H Direct Bilirubin (< 0.4 mg/dL) 2.0 H 2.5 H AST (14 - 36 U/L) 42 H 66 H ALT (9 - 52 U/L) 81 H 99 H Alkaline Phosphatase (<127 U/L) 361 H 303 H Total Protein (6.3 - 8.2 g/dL) 5.0 L 4.9 L Albumin (3.5 - 5.0 g/dL) 2.5 L 2.4 L Hematology CBC w Diff MAN DIFF ORDERED MAN DIFF ORDERED WBC (4.8 - 10.8 /CUMM) 4.2 L 6.2 RBC (4.20 - 5.40 /CUMM) 4.46 4.38 Hgb (12.0 - 16.0 G/DL) 8.7 L 8.5 L Hct (37 - 47 %) 27.2 L 26.9 L MCV (81.0 - 99.0 FL) 61.0 L 61.4 L MCH (27.0 - 31.0 PG) 19.4 L 19.5 L MCHC (33.0 - 37.0 G/DL) 31.8 L 31.6 L RDW (11.5 - 14.5 %) 15.3 H 14.9 H Plt Count (130 - 400 /CUMM) 154 146 MPV (7.4 - 10.4 FL) 10.4 10.0 Gran % (42.2 - 75.2 %) 56.3 82.7 H Lymphocytes % (20.5 - 51.1 %) 22.9 8.9 L Monocytes % (1.7 - 9.3 %) 15.3 H 6.3 Eosinophils % (0 - 5 %) 5.5 H 2.0 Basophils % (0.0 - 2.0 %) 0 0.1 Absolute Granulocytes (1.4 - 6.5 /CUMM) 2.4 5.1 Segmented Neutrophils (42.2 - 75.2 %) 75 Band Neutrophils (0.0 - 5.0 %) 5 Absolute Lymphocytes (1.2 - 3.4 /CUMM) 1.0 L 0.5 L Lymphocytes (20.5 - 51.1 %) 10 L Monocytes (1.7 - 9.3 %) 7 Absolute Monocytes (0.10 - 0.60 /CUMM) 0.6 0.4 Eosinophils (0 - 5.0 %) 3 Absolute Eosinophils (0.0 - 0.7 /CUMM) 0.2 0.1 Absolute Basophils (0.0 - 0.2 /CUMM) 0 0 Platelet Estimate (ADEQUATE) ADEQUATE VERIFIED BY SMEAR Hypochromic-Microcytic 3+ 2+ Poikilocytosis 2+ 1+ Anisocytosis 2+ 1+ Microcytic Cells 2+ 2+ Ovalocytes 2+ 1+ Schistocytes 02/07 0743 Coagulation PT (9.4 - 12.5 SEC) 14.1 H INR (0.90 - 1.19) 1.29 H Recent Imaging Studies: ERCP 02/07/18: The common bile duct was cannulated with multiple filling defects seen, consistent with choledocholithiasis. Sphincterotomy was performed and a balloon sweep was made of the common bile duct with removal of 6 stones from the duct. Assessment/Plan Assessment/Plan This is a 77 yo female with a past medical history significant for hypertension, hyperlipidemia, DVT/PE (on Xarelto), asthma, TIA/CVA, left-sided residual weakness, diabetes, and GERD, who is status post exploratory laparotomy with small bowel resection and lysis of adhesions by Dr. Hummel on 12/28/2017. She recovered well from that procedure and was subsequently discharged without complication on 01/02/2018. She represented with abdominal pain and was found to have gallstone pancreatitis. PPD#1 s/p ERCP with findings of choledocholithiasis, and now POD#0 s/p Laparoscopic Cholecystectomy. 1. Clears, advance to low fat in am 2. GI/DVT Px 3. PRN analgesics and antiemetics 4. Ambulate/IS/Turn/Cough/Deep Breathe 5. D/C abx after 24 hours 6. Likely ok to restart xarelto and aspirin tomorrow 7. Will d/w Dr. Hummel Problem List: 1. Gall stone pancreatitis 2. Choledocholithiasis 3. S/P ERCP 4. S/P cholecystectomy Core Measures Venous Thromboembolism VTE Risk Factors Age>40 No Mechanical VTE Prophylaxis d/t Other No VTE Pharm Prophylaxis d/t Other
[2018-02-08 23:10] VITALS: BP 162/84
[2018-02-09 06:54] VITALS: BP 138/73
--- NOTE | 2018-02-09 07:27 | PN- Housestaff ---
Jeff SHOOK,[facility] 02/09/18 0727: Subjective Follow-up For: cholecytitis + cholangitis s/p lapcholy Subjective: No acute events overnight. Pt doing well. No pain. Requesting to be discharged home. Review of Systems Constitutional: Reports: see HPI. Objective Last 24 Hrs of Vital Signs/I&O Vital Signs Date Time Temp Pulse Resp B/P B/P Pulse O2 O2 Flow FiO2 Mean Ox Delivery Rate 02/09 1420 97.8 81 20 124/63 95 Room Air 02/09 1411 95 Room Air 02/09 1109 97.8 75 20 130/58 95 Room Air 02/09 0654 98.4 75 20 138/73 96 Room Air 02/08 2310 97.6 77 20 162/84 92 Room Air Intake & Output 02/09 1600 02/09 0800 02/09 0000 Intake Total 1800 1040 640 Output Total 550 Balance 1250 1040 640 Intake, IV 800 800 400 Intake, Oral 1000 240 240 Output, Urine 550 Physical Exam General Appearance: Alert, Oriented X3, Cooperative Cardiovascular: Regular Rate, Normal S1, Normal S2 Lungs: Clear to Auscultation, Normal Air Movement Abdomen: Normal Bowel Sounds, Soft, No Tenderness, 5 lap scars covered in bandages Extremities: 2+ radial pulses Current Medications: Current Medications Sig/Bull Start time Last Medication Dose Route Stop Time Status Admin Acetaminophen 1,000 MG Q8P PRN 02/08 1545 AC N/A 1 UNIT IV Albuterol Sulfate 3 ML Q4P PRN 02/08 1545 AC INH Budesonide/ 2 PUF BID 02/08 2200 AC 02/09 Formoterol Fumarate INH 1001 Ceftriaxone Sodium 2,000 MG DAILY@02/08 2100 AC 02/08 IV 2142 Heparin Sodium 5,000 UNIT Q8 02/10 0600 AC (Porcine) SC Insulin Aspart 0 TIDAC 02/09 0800 AC 02/09 SC 1756 Lactated Ringer's 1,000 ML Q6H 02/08 2100 DC 02/09 IV 0425 Lactated Ringer's 1,000 ML Q6H 02/06 0900 DC 02/08 IV 02/08 2059 1707 Metronidazole 500 MG IQ8 02/08 1600 AC 02/09 N/A 1 UNIT IV 1530 Morphine Sulfate 2 MG Q6P PRN 02/08 1545 AC 02/08 IV 2322 Oxybutynin Chloride 5 MG BID 02/08 2200 AC 02/09 PO 0959 Oxycodone HCl 5 MG Q4 HRS NEEDED PRN 02/08 1545 AC PO Oxycodone HCl 10 MG Q4P PRN 02/08 1545 AC PO Pantoprazole Sodium 40 MG DAILY 02/09 1000 AC 02/09 IV 1001 Promethazine HCl 12.5 MG Q4P PRN 02/08 1545 AC IV 02/11 1944 Last 24 Hrs of Lab/Robert Results Last 24 Hrs of Labs/Mics: Laboratory Tests 02/09/18 0755: Anion Gap 12, Estimated GFR > 60, BUN/Creatinine Ratio 20.0, Total Bilirubin 1.2 , Direct Bilirubin 1.1 H, AST 37 H, ALT 64 H, Alkaline Phosphatase 346 H, Total Protein 4.9 L, Albumin 2.4 L, CBC w Diff NO MAN DIFF REQ, RBC 4.84, MCV 60.3 L, MCH 19.2 L, MCHC 31.8 L, RDW 15.6 H, MPV 9.9, Gran % 74.2, Lymphocytes % 19.1 L, Monocytes % 6.6, Eosinophils % 0, Basophils % 0.1, Absolute Granulocytes 4.1, Absolute Lymphocytes 1.1 L, Absolute Monocytes 0.4, Absolute Eosinophils 0, Absolute Basophils 0 Assessment/Plan Assessment: Patient is a 77-year-old female with past medical history of TIA, stroke with left-sided residual weakness, cataract, hearing loss, hypertension, hyperlipidemia, GERD dilated esophagus with posterior pharyngeal dysfunction with on and off aspiration, vertigo, DJD knee, sigmoid diverticultis,Type -2 DM, Asthma, 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 Plan: - Per GI patient is to remain off anticoagulation for the next 72 hours since ERCP on 02/07 and is to remain on antibiotics for at least 48 hours. anticoagulation restarted for 6 AM on 02/10 - Continue/DC IV ceftriaxone and IV metronidazole per surgery -Advance diet to diabetic and low-fat -Continue follow GI recommendations -Plan for discharge tomorrow - Continue Novolin and Accu-Cheks - Continue Protonix 40 mg IV daily - Continue Phenergan IV when necessary for nausea - Continue Symbicort and Proventil for COPD - Continue morphine and Tylenol for pain as needed - Continue to monitor vitals DVT prophylaxis: Alps Code: Full code Problem List: 1. Cholangitis 2. S/P cholecystectomy Pain Ratin Pain Location: none Pain Goal: Pain 4 or less Pain Plan: pain pathway Tomorrow's Labs & Rationales: none Tiffani Spring MD 02/09/18 1207: Attending MD Review Statement Attending Statement Attending MD Statement: examined this patient, discuss w/resident/PA/LOGGING EQUIPMENT OPERATOR, agreed w/resident/PA/LOGGING EQUIPMENT OPERATOR, reviewed EMR data (avail), discussed with nursing, discussed with case mgmt, reviewed images, amended to note Attending Assessment/Plan: Patient seen and examined, overall doing well. Tolerated clear liquid diet without any problem. Patient is not nauseous. She has positive bowel sounds and passing gas. Vital Signs Date Time Temp Pulse Resp B/P B/P Pulse O2 O2 Flow FiO2 Mean Ox Delivery Rate 02/09 1109 97.8 75 20 130/58 95 Room Air 02/09 0654 98.4 75 20 138/73 96 Room Air 02/08 2310 97.6 77 20 162/84 92 Room Air 02/08 1630 98.2 59 20 138/62 94 Room Air on exam; aox3, nad. cv; s1,s2, rrr resp; clear abd; soft, nt, bs+, bandages on lap aj scars. ext; no edema Laboratory Tests 02/09 0755 Chemistry Sodium (137 - 145 mmol/L) 139 Potassium (3.5 - 5.1 mmol/L) 4.3 Chloride (98 - 107 mmol/L) 104 Carbon Dioxide (22 - 30 mmol/L) 23 Anion Gap (5 - 16) 12 BUN (7 - 17 mg/dL) 14 Creatinine (0.5 - 1.0 mg/dL) 0.7 Estimated GFR (>60 ml/min) > 60 BUN/Creatinine Ratio (7 - 25 %) 20.0 Total Bilirubin (0.2 - 1.3 mg/dL) 1.2 Direct Bilirubin (< 0.4 mg/dL) 1.1 H AST (14 - 36 U/L) 37 H ALT (9 - 52 U/L) 64 H Alkaline Phosphatase (<127 U/L) 346 H Total Protein (6.3 - 8.2 g/dL) 4.9 L Albumin (3.5 - 5.0 g/dL) 2.4 L Hematology CBC w Diff NO MAN DIFF REQ WBC (4.8 - 10.8 /CUMM) 5.5 RBC (4.20 - 5.40 /CUMM) 4.84 Hgb (12.0 - 16.0 G/DL) 9.3 L Hct (37 - 47 %) 29.2 L MCV (81.0 - 99.0 FL) 60.3 L MCH (27.0 - 31.0 PG) 19.2 L MCHC (33.0 - 37.0 G/DL) 31.8 L RDW (11.5 - 14.5 %) 15.6 H Plt Count (130 - 400 /CUMM) 167 MPV (7.4 - 10.4 FL) 9.9 Gran % (42.2 - 75.2 %) 74.2 Lymphocytes % (20.5 - 51.1 %) 19.1 L Monocytes % (1.7 - 9.3 %) 6.6 Eosinophils % (0 - 5 %) 0 Basophils % (0.0 - 2.0 %) 0.1 Absolute Granulocytes (1.4 - 6.5 /CUMM) 4.1 Absolute Lymphocytes (1.2 - 3.4 /CUMM) 1.1 L Absolute Monocytes (0.10 - 0.60 /CUMM) 0.4 Absolute Eosinophils (0.0 - 0.7 /CUMM) 0 Absolute Basophils (0.0 - 0.2 /CUMM) 0 A/P; 77 y/o F with pmh sig for TIA, stroke with left sided residual weakness, cataract, hearing loss, HTN, HL, GERD with dilated esophagus with posterior pharyngeal dysfunction with on and off aspiration, vertigo, DJD knee, sigmoid diverticultis,Type -2 DM, Asthma, 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 Patient is status post ERCP with stone extraction as well as Lap aj. Will advance that to full liquids for lunch if tolerates well then to solids for the taper. Patient was encouraged to ambulate. Continue IV antibiotics through today and will likely switch to oral tomorrow. Continue other current medications. DVT prophylaxis: ALPS.
--- NOTE | 2018-02-09 07:36 | PN- Student ---
See Addendum Froylan George 02/09/18 0729: Subjective Subjective: PATIENT FEELING WELL, NO OVERNIGHT EVENTS. NO BM, +FLATUS SINCE PROCEDURE. OOB TO COMMODE MULTIPLE TIMES, VOIDING WITHOUT DIFFICULTY. TOLERATED CLD YESTERDAY WITHOUT N/V. DENIES ABDOMINAL PAIN, CP, SOB, HEADACHE, DIZZINESS, FEVER, CHILLS Objective Objective: Vital Signs Date Time Temp Pulse Resp B/P B/P Pulse O2 O2 Flow FiO2 Mean Ox Delivery Rate 02/08 2310 97.6 77 20 162/84 92 Room Air 02/08 1630 98.2 59 20 138/62 94 Room Air 02/08 1114 97 Room Air Room Air Intake & Output 02/09 0800 02/09 0000 02/08 1600 Intake Total 1040 640 800 Output Total 800 Balance 1040 640 0 Intake, IV 800 400 800 Intake, Oral 240 240 0 Output, Urine 800 GENERAL: RESTING COMFORTABLY IN BED, NAD, ACTIVELY PARTICIPATED IN EXAM ABDOMEN: SOFTLY DISTENDED, DRESSINGS C/D/I WITHOUT SURROUNDING ERYTHEMA, NORMOACTIVE BOWEL SOUNDS IN ALL QUADRANTS, MILD INCISIONAL AND EPIGASTRIC PAIN CARDIAC: RRR, NO MRG PULM: CTAB, NO ACCESSORY MUSCLE USAGE LOWER EXTREMITIES: NO EDEMA OR ERYTHEMA, PNEUMATIC COMPRESSION DEVICES IN PLACE, NONTENDER, GROSS MOTOR AND SENSORY FUNCTION INTACT, 2+ DP PULSE B/L Laboratory Tests 02/08 02/07 0652 0749 Chemistry Sodium (137 - 145 mmol/L) 142 137 Potassium (3.5 - 5.1 mmol/L) 3.9 3.7 Chloride (98 - 107 mmol/L) 106 106 Carbon Dioxide (22 - 30 mmol/L) 26 22 Anion Gap (5 - 16) 10 9 BUN (7 - 17 mg/dL) 12 15 Creatinine (0.5 - 1.0 mg/dL) 0.7 0.7 Estimated GFR (>60 ml/min) > 60 > 60 BUN/Creatinine Ratio (7 - 25 %) 17.1 21.4 Total Bilirubin (0.2 - 1.3 mg/dL) 2.4 H 2.8 H Direct Bilirubin (< 0.4 mg/dL) 2.0 H 2.5 H AST (14 - 36 U/L) 42 H 66 H ALT (9 - 52 U/L) 81 H 99 H Alkaline Phosphatase (<127 U/L) 361 H 303 H Total Protein (6.3 - 8.2 g/dL) 5.0 L 4.9 L Albumin (3.5 - 5.0 g/dL) 2.5 L 2.4 L Hematology CBC w Diff MAN DIFF ORDERED MAN DIFF ORDERED WBC (4.8 - 10.8 /CUMM) 4.2 L 6.2 RBC (4.20 - 5.40 /CUMM) 4.46 4.38 Hgb (12.0 - 16.0 G/DL) 8.7 L 8.5 L Hct (37 - 47 %) 27.2 L 26.9 L MCV (81.0 - 99.0 FL) 61.0 L 61.4 L MCH (27.0 - 31.0 PG) 19.4 L 19.5 L MCHC (33.0 - 37.0 G/DL) 31.8 L 31.6 L RDW (11.5 - 14.5 %) 15.3 H 14.9 H Plt Count (130 - 400 /CUMM) 154 146 MPV (7.4 - 10.4 FL) 10.4 10.0 Gran % (42.2 - 75.2 %) 56.3 82.7 H Lymphocytes % (20.5 - 51.1 %) 22.9 8.9 L Monocytes % (1.7 - 9.3 %) 15.3 H 6.3 Eosinophils % (0 - 5 %) 5.5 H 2.0 Basophils % (0.0 - 2.0 %) 0 0.1 Absolute Granulocytes (1.4 - 6.5 /CUMM) 2.4 5.1 Segmented Neutrophils (42.2 - 75.2 %) 75 Band Neutrophils (0.0 - 5.0 %) 5 Absolute Lymphocytes (1.2 - 3.4 /CUMM) 1.0 L 0.5 L Lymphocytes (20.5 - 51.1 %) 10 L Monocytes (1.7 - 9.3 %) 7 Absolute Monocytes (0.10 - 0.60 /CUMM) 0.6 0.4 Eosinophils (0 - 5.0 %) 3 Absolute Eosinophils (0.0 - 0.7 /CUMM) 0.2 0.1 Absolute Basophils (0.0 - 0.2 /CUMM) 0 0 Platelet Estimate (ADEQUATE) ADEQUATE VERIFIED BY SMEAR Hypochromic-Microcytic 3+ 2+ Poikilocytosis 2+ 1+ Anisocytosis 2+ 1+ Microcytic Cells 2+ 2+ Ovalocytes 2+ 1+ Schistocytes 02/07 0743 Coagulation PT (9.4 - 12.5 SEC) 14.1 H INR (0.90 - 1.19) 1.29 H Assessment/Plan Assessment: 77 Y/O FEMALE, PMH OF DM, TIA/CVA, PE/DVT S/P IVCF, AND COPD, POD# 1 S/P LAP TAMARA. PATIENT RECOVERING WELL. PAIN WELL CONTROLLED ON CURRENT REGIMENT. TOLERATED CLD WELL YESTERDAY WITHOUT N/V. BOWEL FUNCTION RETURNING, AWAITING BM. Latesha Box 02/09/18 0826: Assessment/Plan Assessment: Agree with student assessment. Pt reported to me that she forgot to tell student that she had a small bm at midnight tonight. Continue current medical management, advance diet as tolerated.
[2018-02-09 08:34] LABS: ABSOLUTE BASOPHIL COUNT 0 /CUMM (0.0-0.2); ABSOLUTE EOSINOPHIL COUNT 0 /CUMM (0.0-0.7); ABSOLUTE GRANULOCYTE CT 4.1 /CUMM (1.4-6.5); ABSOLUTE LYMPH COUNT 1.1 /CUMM (1.2-3.4); ABSOLUTE MONOCYTE COUNT 0.4 /CUMM (0.10-0.60); BASOPHIL % 0.1 % (0.0-2.0); EOSINOPHIL % 0 % (0-5); GRANULOCYTE % 74.2 % (42.2-75.2); HEMATOCRIT 29.2 % (37-47); MEAN CORPUSCULAR HGB 19.2 PG (27.0-31.0); MEAN CORPUSCULAR HGB CONC 31.8 G/DL (33.0-37.0); MEAN PLATELET VOLUME 9.9 FL (7.4-10.4); PLATELET COUNT 167 /CUMM (130-400); RBC DISTRIBUTION WIDTH 15.6 % (11.5-14.5); RED BLOOD CELL CT 4.84 /CUMM (4.20-5.40); WHITE BLOOD CELL COUNT 5.5 /CUMM (4.8-10.8)
[2018-02-09 09:52] LABS: MEAN CORPUSCULAR VOLUME 60.3 FL (81.0-99.0)
[2018-02-09 11:09] VITALS: BP 130/58
[2018-02-09 14:20] VITALS: BP 124/63
[2018-02-09 19:00] VITALS: BP 132/60
[2018-02-09 23:00] VITALS: BP 134/56
[2018-02-10 06:29] VITALS: BP 136/862
--- NOTE | 2018-02-10 07:22 | PN- Housestaff ---
Jeff SHOOK,[facility] 02/10/18 0722: Subjective Follow-up For: cholecytitis + cholangitis s/p lapcholy Subjective: No acute transplant. Patient states that she has slight right upper quadrant pain when coughing. Review of Systems Constitutional: Reports: see HPI. Objective Last 24 Hrs of Vital Signs/I&O Vital Signs Date Time Temp Pulse Resp B/P B/P Pulse O2 O2 Flow FiO2 Mean Ox Delivery Rate 02/10 1445 98.5 75 20 159/79 95 Room Air 02/10 1058 98.0 88 20 142/78 93 Room Air 02/10 0833 99 Room Air Room Air 02/10 0629 98.1 73 18 136/862 94 02/09 2300 98.1 78 20 134/56 96 Room Air 02/09 1900 98.2 77 20 132/60 95 Room Air Intake & Output 02/10 1600 02/10 0800 02/10 0000 Intake Total 044 054 3486 Output Total 400 300 Balance 004 957 2688 Intake, IV 110 0 260 Intake, Oral 690 260 7467 Number 0 0 Bowel Movements Output, Urine 400 300 Physical Exam General Appearance: Alert, Oriented X3, Cooperative, No Acute Distress Cardiovascular: Regular Rate, Normal S1, Normal S2 Lungs: Clear to Auscultation, Normal Air Movement Abdomen: Normal Bowel Sounds, Soft, RUQ tenderness to palpation, 5 laproscopic scars, CDI Extremities: 2+ radial pulses Current Medications: Current Medications Sig/Bull Start time Last Medication Dose Route Stop Time Status Admin Acetaminophen 1,000 MG Q8P PRN 02/08 1545 AC N/A 1 UNIT IV Albuterol Sulfate 3 ML Q4P PRN 02/08 1545 AC 02/10 INH 0831 Budesonide/ 2 PUF BID 02/08 2200 02/10 Formoterol Fumarate INH 0843 Ceftriaxone Sodium 2,000 MG Q24H 02/11 1300 DC IV Ceftriaxone Sodium 2,000 MG Q24H 02/10 1300 AC 02/10 IV 1339 Ceftriaxone Sodium 2,000 MG DAILY@2100 02/08 2100 DC 02/09 IV 2049 Docusate Sodium 100 MG ONCE ONE 02/10 0745 DC 02/10 PO 02/10 0746 0844 Heparin Sodium 5,000 UNIT Q8 02/10 0600 DC 02/10 (Porcine) SC 0509 Insulin Aspart 0 TIDAC 02/09 0800 AC 02/10 SC 1639 Metronidazole 500 MG IQ8 02/08 1600 DC 02/10 N/A 1 UNIT IV 0725 Morphine Sulfate 2 MG Q6P PRN 02/08 1545 AC 02/08 IV 2322 Omeprazole 40 MG DAILY AC 02/10 0744 AC 02/10 PO 0844 Oxybutynin Chloride 5 MG BID 02/08 2200 AC 02/10 PO 0844 Oxycodone HCl 5 MG Q4 HRS NEEDED PRN 02/08 1545 AC PO Oxycodone HCl 10 MG Q4P PRN 02/08 1545 AC PO Pantoprazole Sodium 40 MG DAILY 02/09 1000 DC 02/09 IV 1001 Patient Medication 1 ED ONE ONE 02/10 1130 DC Teaching ED 02/10 1131 Polyethylene Glycol 17 GM ONCE ONE 02/10 0745 DC 02/10 PO 02/10 0746 0844 Promethazine HCl 12.5 MG Q4P PRN 02/08 1545 AC IV 02/11 1944 Rivaroxaban 20 MG DAILY 02/10 1100 AC 02/10 PO 1206 Senna 187 MG ONCE ONE 02/10 0745 DC 02/10 PO 02/10 0746 1129 Assessment/Plan Assessment: Patient is a 77-year-old female with past medical history of TIA, stroke with left-sided residual weakness, cataract, hearing loss, hypertension, hyperlipidemia, GERD dilated esophagus with posterior pharyngeal dysfunction with on and off aspiration, vertigo, DJD knee, sigmoid diverticultis,Type -2 DM, Asthma, 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 Plan: -Discharge with 1.5 days of oral metronidazole to complete a 10 day total course of ceftriaxone and metronidazole. -Will stop her Liraglutide as patient afraid of adverse effects terminal supervisor. Continued metformin. Advised to follow-up with PCP to potentially recontinuing loraglutide -Advance diet to diabetic and low-fat - Continue Protonix 40 mg IV daily - Continue Phenergan IV when necessary for nausea - Continue Symbicort and Proventil for COPD - Continue morphine and Tylenol for pain as needed - Continue to monitor vitals DVT prophylaxis: Alps Code: Full code Problem List: 1. S/P laparoscopic cholecystectomy 2. Cholangitis 3. Cholecystitis Pain Ratin Pain Location: RUQ Pain Goal: Pain 4 or less Pain Plan: pain pathway Tomorrow's Labs & Rationales: none Tiffani Spring MD 02/10/18 1350: Attending MD Review Statement Attending Statement Attending MD Statement: examined this patient, discuss w/resident/PA/DIGITAL MARKETING LEAD, agreed w/resident/PA/DIGITAL MARKETING LEAD, reviewed EMR data (avail), discussed with nursing, discussed with case mgmt, reviewed images, amended to note Attending Assessment/Plan: Patient seen and examined, overall doing much better. Tolerating her diet well. Vital signs are stable. Patient is passing gas. Medically she stable for discharge today. She will receive her last dose of ceftriaxone and will be discharged on oral Flagyl which will be finished tomorrow. Patient to follow-up with her primary care doctor, Dr. Malone as an outpatient. Other postsurgical instructions were given by the surgical PA. Patient medically stable for discharge home today.
--- NOTE | 2018-02-10 09:18 | PN- General Surgery ---
Subjective Subjective: Patient reports pain is well controlled. She is tolerating a low fat diet, passing flatus and had a BM. She is ambulating and using her incentive spirometry. She is eager to go home today. Objective Vital Signs and I&Os Vital Signs Date Time Temp Pulse Resp B/P B/P Pulse O2 O2 Flow FiO2 Mean Ox Delivery Rate 02/10 0833 99 Room Air Room Air 02/10 0629 98.1 73 18 136/862 94 02/09 2300 98.1 78 20 134/56 96 Room Air 02/09 1900 98.2 77 20 132/60 95 Room Air 02/09 1420 97.8 81 20 124/63 95 Room Air 02/09 1411 95 Room Air 02/09 1109 97.8 75 20 130/58 95 Room Air Intake & Output 02/10 1600 02/10 0800 02/10 0000 02/09 1600 02/09 0800 02/09 0000 Intake Total 240 1540 1800 1040 640 Output Total 300 550 Balance 240 1240 1250 1040 640 Intake, IV 0 260 800 800 400 Intake, Oral 240 1280 1000 240 240 Number 0 0 Bowel Movements Output, Urine 300 550 Physical Exam: Gen - awake an alert in nad Lungs - expiratory wheezing in lung bases Abd - obese, soft, nondistended, 5 lap dressings c/d/i, incisions with steris in place, no surrounding erythema, edema or drainage noted, left olegario, no rebound or guarding noted Ext - no significant edema or calf tenderness B/L Current Medications: Current Medications Sig/Bull Start time Last Medication Dose Route Stop Time Status Admin Acetaminophen 1,000 MG Q8P PRN 02/08 1545 AC N/A 1 UNIT IV Albuterol Sulfate 3 ML Q4P PRN 02/08 1545 AC 02/10 INH 0831 Budesonide/ 2 PUF BID 02/08 2200 AC 02/10 Formoterol Fumarate INH 0843 Ceftriaxone Sodium 2,000 MG DAILY@2100 02/08 2100 AC 02/09 IV 2049 Docusate Sodium 100 MG ONCE ONE 02/10 0745 DC 02/10 PO 02/10 0746 0844 Heparin Sodium 5,000 UNIT Q8 02/10 0600 AC 02/10 (Porcine) SC 0509 Insulin Aspart 0 TIDAC 02/09 0800 AC 02/10 SC 0806 Lactated Ringer's 1,000 ML Q6H 02/08 2100 DC 02/09 IV 0425 Metronidazole 500 MG IQ8 02/08 1600 AC 02/10 N/A 1 UNIT IV 0725 Morphine Sulfate 2 MG Q6P PRN 02/08 1545 AC 02/08 IV 2322 Omeprazole 40 MG DAILY AC 02/10 0744 AC 02/10 PO 0844 Oxybutynin Chloride 5 MG BID 02/08 2200 AC 02/10 PO 0844 Oxycodone HCl 5 MG Q4 HRS NEEDED PRN 02/08 1545 AC PO Oxycodone HCl 10 MG Q4P PRN 02/08 1545 AC PO Pantoprazole Sodium 40 MG DAILY 02/09 1000 DC 02/09 IV 1001 Polyethylene Glycol 17 GM ONCE ONE 02/10 0745 DC 02/10 PO 02/10 0746 0844 Promethazine HCl 12.5 MG Q4P PRN 02/08 1545 AC IV 02/11 1944 Senna 187 MG ONCE ONE 02/10 0745 DC PO 02/10 0746 Assessment/Plan Assessment/Plan 77 F a/w gallstone pancreatitis, PPD 3 s/p ERCP secondary to choledocholithiasis and POD 2 s/p lap aj who is recovering well, hyperglycemia in high 200s noted Cont ada/low fat/low residue diet Cont pain regimen May resume anticoagulation - asa, xarelto GI/DVT ppx on board Cont TRC, nebulizer txs ISS on board, increase scale Encourage ambulation, IS D/c instructions explained in detail No heavy lifting or strenous activity Please provide pain rx upon d/c All other medical management per primary team Will d/w Dr. Hummel Core Measures Venous Thromboembolism VTE Risk Factors Age>40 No Mechanical VTE Prophylaxis d/t Other No VTE Pharm Prophylaxis d/t Other
[2018-02-10 10:58] VITALS: BP 142/78
[2018-02-10] MEDS ORDERED: FLAGYL500 MG PO (11:48)
[2018-02-10 14:45] VITALS: BP 159/79
--- NOTE | 2018-02-11 16:33 | Discharge Summary ---
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 Problems: #Cholecystitis, choledocholithiasis and cholangitis currently s/p lap choly The patient initially presented with sudden onset severe epigastric pain with bilious vomiting. CT abd revealed gallstones and CBD stone with mild dilatation of the CBD. Abd US revealed choledocholithiasis with mild biliary ductal dilatation, mild pericholecystic fluid and equivocal mural thickening/edema. GI was called for who performed an ERCP with sphincterotomy and stone extraction. Surgery was consulted who performed laparoscopic cholecystectomy. 1 of 2 bottle blood cultures were positive for E. Coli. She was treated with IV ceftiraxone and metronidazole. Her initial bilirubin and hepatic panel were intially elevated and downtrended throughout admission. She was discharged with 1.5 days of oral metronidazole to complete a 10 day total course of antibiotics. She was adivised to continue a diabetic diet and with low fat. She was adivised to follow up with surgery, GI, and PCP. #Diabetes Monitored her blood sugars and covered her with novolog sliding scale. Held her metformin and liraglutide during admission. Patient was afraid of intermediate project manager adverse effects of liraglutide. We stopped the liraglutide due to patient preference and advised the patient to follow up with her pcp regarding restarting it. Her home metformin was restarted for discharge. #COPD Continued Symbicort and albuterol/nebs for COPD #Left adrenal Mass CT abd revealed a 4.6 cm fat density mass arising from the left adrenal gland. 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 Patient was advised to follow up with her PCP. #History of PE Held xarelto for surgery but restarted after surgery was finished. Also restarted aspirin for discharge #Gerd Continued omeprazole Allergies: Coded Allergies: methylprednisolone (From Solu-Medrol) (Intermediate, HIVES AND PALPITATIONS 01/14) clove (HIVES 12/29/15) kimberli (HIVES 12/29/15) thyme (HIVES 12/29/15) hydrocodone (NAUSEA 12/29/15) ibuprofen (GI UPSET 12/29/15) lisinopril (DRY COUGH 12/29/15) nitrofurantoin (MAKES HER CRAZY 05/03/16) Uncoded Allergies: CHIVES (HIVES 01/05/16) Significant Procedures: Procedure Date: 02/07/18 GI Procedure(s): ERCP with sphincterotomy/stone track supervisor: Jens Silver M.D. ASA Classification: III Indications: Cholangitis Choledocholithiasis (evident on ultrasound, CT) Jaundice, gallstone pancreatitis Instrument: duodenoscope Meds Received: MAC Patient's Tolerance: good Complications: none Procedure: The patient signed informed consent, was turned into the prone position, and was medicated. Pulse oximetry, blood pressure and cardiac monitoring were performed continuously throughout the procedure. The Olympus V duodenoscope was inserted into the mouth and advanced to the duodenum. The stomach was not examined. The duodenum and papilla were normal. The common bile duct was cannulated and opacified. The pancreatic duct was not cannulated/injected. Indomethacin 100 mg was administered per rectum. The cholangiogram demonstrated dilatation of the common bile duct and common hepatic duct, with multiple filling defects, the largest of which was approximately 1 cm. The hepatic ducts were normal. The cystic duct opacified. A complete, bloodless sphincterotomy was performed with Endocut. Using multiple sweeps of an inflated extraction balloon, approximately 6 gallstones were extracted. A final occlusion cholangiogram was negative aside from several compressible air bubbles, and a balloon sweep from bifurcation to duodenum did not deliver stones or debris. Impression: * Choledocholithiasis, treated with sphincterotomy/stone extraction Recommendations: * Continue IV antibiotics for 48 hours * May begin clear liquid diet after 7 PM tonight * No anticoagulation for at least 72 hours * Follow-up CBC and liver associated enzymes in the morning Surgery Date: 02/08/18 Name of Procedure: Laparoscopic cholecystectomy Pre-Operative Diagnosis: Cholelithiasis/Choledocholithiasis (cholangitis) Post-Operative Diagnosis: Same Estimated Blood Loss: less than 50ml Surgeon/Icu Specialist: Giuseppe Jacobson Anesthesia: general endotracheal tube IV Fluids: 1100 cc Drains: None Specimens: Gallbladder Complications: None Condition: Stable Operative Indication: This is a 77-year-old female who presented to the emergency room with abdominal pain. Patient was diagnosed with cholelithiasis/choledocholithiasis and had signs and symptoms of cholangitis. Patient was admitted to the hospital and underwent a subsequent ERCP with sphincterotomy. Patient did well after the procedure and a laparoscopic possible open cholecystectomy was discussed in detail. All risks including but not limited to bleeding, infection, bile leak, and injury to surrounding duct/bowel were discussed in detail. The patient understood everything and decided to proceed. Operative/Procedure Note Note: The patient was brought to the operating room and placed on the operating room table in supine position. Venodyne stockings were placed and adequate general endotracheal anesthesia was obtained. The patient was prepped and draped in standard surgical fashion. We began the procedure by making a 5 mm transverse incision in the left upper quadrant (this was done due to recent midline laparotomy). Then using a 5 mm optical trocar and a 5 mm laparoscope, the abdominal cavity was accessed. Great care was taken to go through the anterior rectus sheath, the posterior rectus sheath, and the peritoneum. Once we entered the peritoneum the abdominal cavity was insuflated to 15 mm Hg. Midline adhesions were noted, but there was plenty of room for trocar placement. A 12 mm port was placed slightle above the umbilicus and to the right away from the prior incision. A 10 mm 30 laparoscope was introduced and upon initial examination no obvious gross pathology was seen. We did note a mildly distended gallbladder in the right upper quadrant. Accessory trocars were placed, all 5 mm, one in the epigastrium and 2 in the right upper quadrant (one in the midclavicular line and one in the anterior axillary line, both 2 fingerbreadths below the costal margin). The gallbladder was grasped with the lateralmost trocar and retracted up over the liver. Using the other 2 accessory trochars the infundibulum was grasped and the peritoneum was lysed using blunt dissection and using hook electrocautery. The cystic duct and cystic artery were visualized. The common bile duct was visualized and it was away from our area of dissection. The cystic duct and artery were skeletonized and divided between clips, 3 clips to stay and one clip on the gallbladder side for the duct and 2 clips to stay and one clip on the gallbladder side for the artery. The gallbladder was dissected off the liver bed using hook electrocautery maintaining hemostasis. Prior to completely removing the gallbladder off the liver bed we examined the area of dissection no obvious bile leak or bleeding was noted, the clips appeared to be in good position. The gallbladder was completely detached from the liver bed. We switched to a 5 mm laparoscope and a 10 mm Endobag was introduced through the umbilical trocar site. The gallbladder was placed in the bag and removed through the umbilicus. The abdomen was reinsufflated. We switched back to a 10 mm laparoscope and examined our area of dissection. No obvious bile leak or bleeding was noted. The right upper quadrant was irrigated until clear. All ports were removed under direct visualization, no obvious bleeding was noted. The umbilical trocar site was closed using 0 Vicryl suture. The skin was closed using 4-0 Monocryl. Steri- Strips and dressings were placed. The patient was successfully extubated and transferred to the recovery room in stable condition. The patient tolerated the procedure well with no complications. Findings: Multiple small stones, thick gallbladder wall, + edema Pertinent Lab Results: EXAM TYPE: US - US-LIMITED ABDOMEN EXAMINATION: US ABDOMEN LIMITED CLINICAL INFORMATION: Positive Velez's sign. Cholecystitis. Assess for CBD dilatation. COMPARISON: CT abdomen pelvis . TECHNIQUE: Real-time imaging of the right upper quadrant abdominal viscera. FINDINGS: PANCREAS: Normal. LIVER: There is a degree of intrahepatic biliary ductal dilatation. No focal hepatic lesion. Hepatic contour is within normal limits. Hepatic echogenicity is normal. GALLBLADDER: There is cholelithiasis, mild pericholecystic fluid, and equivocal mural thickening/intramural edema. Per technologist, no sonographic Velez sign demonstrated during the course of the examination. COMMON BILE DUCT: Measures 0.8 cm in diameter. Choledocholithiasis demonstrated. RIGHT KIDNEY: Normal. No hydronephrosis. No renal calculi or focal parenchymal lesions. The kidney measures 11.2 cm in maximum dimension. FREE FLUID: None. IMPRESSION: Choledocholithiasis with mild biliary ductal dilatation. Cholelithiasis with mild pericholecystic fluid and equivocal mural thickening/edema. Per technologist report, no sonographic Velez sign during the course of the examination. Clinical correlation for symptoms of cholecystitis will be necessary. EXAM TYPE: CAT - CT ABD & PELVIS W IV CONTRAST EXAMINATION: CT ABDOMEN AND PELVIS WITH CONTRAST CLINICAL INFORMATION: Abdominal pain COMPARISON: None TECHNIQUE: Multidetector volumetric imaging was performed of the abdomen and pelvis following IV administration of 95 mL of Omniray 320 intravenous contrast. Sagittal and coronal reformatted images were obtained on the technologist's workstation. DLP: 610.04 mGy-cm FINDINGS: LUNG BASES: Limited images of lower thorax demonstrate developing atelectasis in the right middle lobe. No pleural effusion. LIVER AND BILIARY TREE: The liver is normal in size, shape, and attenuation. No focal hepatic lesion or biliary ductal dilatation is present. Mild hepatic congestion noted. The portal vein opacifies homogeneously. GALLBLADDER: The gallbladder is distended. Calcified gallstones are seen in the dependent part of the gallbladder. There is pericholecystic fluid. There is mild dilatation of the CBD. The CBD measures about 10 mm at the level of head of pancreas. There is increased density of the contents of the CBD at the level of the ampulla, could represent CBD stone. The finding is better seen on axial image 328 from series 3. PANCREAS: Unremarkable. SPLEEN: Unremarkable. ADRENAL GLANDS: There is a 4.6 cm fat density mass arising from the left adrenal gland, can represent an adrenal myolipoma. The right adrenal gland is unremarkable. KIDNEYS AND URETERS: The kidneys are normal in size, shape, and attenuation. No hydronephrosis, hydroureter, or calculi seen. No perinephric stranding. BLADDER: Unremarkable. GASTROINTESTINAL TRACT: The loops of the small bowel and colon are not dilated. Diverticular disease of the left colon noted. No CT evidence of acute diverticulitis. The appendix is not clearly seen; however, there are no inflammatory changes in the expected position of the appendix to suggest acute appendicitis. No free air in the abdomen. ABDOMINAL WALL: No significant hernia is appreciated. LYMPH NODES: Normal. VASCULAR: Atherosclerotic calcifications of the abdominal aorta noted. An infrarenal IVC filter is in place. PELVIC VISCERA: The uterus is absent. No large adnexal mass. OSSEOUS STRUCTURES: Unremarkable. IMPRESSION: Gallstone and CBD stone with mild dilatation of the CBD and CT findings suggestive of acute cholecystitis. Clinical correlation is suggested. A 4.6 cm fat density mass arising from the left adrenal gland. 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 Colon diverticulosis without CT evidence of acute diverticulitis. Disposition Summary Disposition Principal Diagnosis: Cholecystitis, choledocholithiasis and cholangitis currently s/p lap choly Additional Diagnosis: none Discharge Disposition: home or self care Discharge Instructions General Discharge Information Code Status: Full Code Patient's Diet: Diabetic and low fat Patient's Activity: No strenous Follow-Up Instructions/Appts: Please follow-up with the primary care provider/production lead/surgeon within 1 weeks of discharge. Please continue your diabetic and low fat diet. Please discuss with your pcp regarding restarting your liraglutide (Victoza). Please avoid heavy lifting or strenous activity. Medications at Discharge Discharge Medications: Stop taking the following medications: Liraglutide (Victoza 2-Kuldeep) 0.6 MG/0.1 ML (18 MG/3 ML) PEN.INJCTR Inject into fatty tissue DAILY Continue taking these medications: Losartan Potassium (Losartan Potassium) 50 MG TABLET 1 Tablet ORAL DAILY Qty = 90 Comments: NOT GIVEN IN HOSPTIAL Omeprazole Magnesium (Prilosec Otc) 20 MG TABLET. 1 Tablet ORAL DAILY Comments: Last Taken: 02/10/18 Time: 8:30 AM Pravastatin Sodium (Pravastatin Sodium) 80 MG TABLET 1 Tablet ORAL DAILY Comments: NOT GIVEN IN HOSPITAL Solifenacin Succinate (Vesicare) 5 MG TABLET 1 Tablet ORAL TWICE DAILY Comments: Last Taken: 02/10/18 Time: 8:00 AM DITROPAN 2.5 MG GIVEN Budesonide/Formoterol Fumarate (Symbicort 160-4.5 Mcg Inhaler) 160 MCG-4.5 MCG/ ACTUATION HFA.AER.AD 2 Puff Inhale through mouth as needed for ASTHMA Comments: Last Taken: 02/10/18 Time: 8:30 AM Rivaroxaban (Xarelto) 20 MG TABLET 1 Tablet ORAL DAILY Qty = 90 Instructions: with food Comments: Last Taken: 02/10/18 Time: 12:00 PM Aspirin (Ecotrin*) 81 MG TABLET. 1 Tablet ORAL DAILY Comments: NOT GIVEN IN HOSPITAL Metformin HCl (Metformin HCl ER) 500 MG TAB.ER.24H 2 Tablet ORAL TWICE DAILY Qty = 360 Comments: NOT GIVEN IN HOSPITAL Magnesium Oxide (Magnesium Oxide) 400 MG TABLET 400 Milligram ORAL TWICE DAILY Qty = 60 Instructions: . Comments: NOT GIVEN IN HOSPITAL Start taking the following new medications: Metronidazole (Flagyl) 500 MG TABLET 1 Tablet ORAL TWICE DAILY Qty = 3 No Refills Comments: Last Taken: 02/10/18 Time: 7:30 AM Copies To: Uriel SHOOK,Shabbir Gillespie
== END 2018-02-10 18:00 | DRG 417 ==
LOC: DELPENDDIS → ERH 12:53 → 2NB 18:42 → ERHI 18:42 → ENRESERV 19:34 → 2NB 20:36 → ENTRNSPT 02-08 15:46 → EDTRNSPTSTS 02-08 15:55 → EDTRNSPT 02-08 15:55 → CMPTRNSPT 02-08 16:08 → ENPENDDIS 02-10 12:01 → ENTRNSPT 02-10 17:32 → CMPTRNSPT 02-10 17:55 → 2NB 02-10 18:00
PROVIDERS: Emergency Medicine; Internal Medicine; Internal Medicine Infectious Disease; Physician Assistant Surgical; Student in an Organized Health Care Education/Training Program
PROC: 0FC98ZZ Extirpation of Matter from Common Bile Duct, Via Natural or Artificial Opening Endoscopic (ICD-10-PCS; principal; 2018-02-07)
PROC: 0F798ZZ Dilation of Common Bile Duct, Via Natural or Artificial Opening Endoscopic (ICD-10-PCS; 2018-02-07)
PROC: 0FT44ZZ Resection of Gallbladder, Percutaneous Endoscopic Approach (ICD-10-PCS; 2018-02-08)
DX: K80.32 Calculus of bile duct with acute cholangitis without obstruction (principal); K85.10 Biliary acute pancreatitis without necrosis or infection; I69.354 Hemiplegia and hemiparesis following cerebral infarction affecting left non-dominant side; I11.0 Hypertensive heart disease with heart failure; I50.32 Chronic diastolic (congestive) heart failure; E11.9 Type 2 diabetes mellitus without complications; Z86.718 Personal history of other venous thrombosis and embolism; K21.9 Gastro-esophageal reflux disease without esophagitis; M19.90 Unspecified osteoarthritis, unspecified site; Z79.01 Long term (current) use of anticoagulants; Z79.84 Long term (current) use of oral hypoglycemic drugs; Z79.82 Long term (current) use of aspirin; E78.5 Hyperlipidemia, unspecified; Z99.81 Dependence on supplemental oxygen; J44.9 Chronic obstructive pulmonary disease, unspecified
CPT/HCPCS: 2NBSP; 36415; 36592; 74177; 82436; 87040; 88304; 93005; 93010; 96361; 96365; 96366; 96375; 96376; 97116-GO; 97161-GP; C9399; J0131; J0690; J0696; J1610; J1644; J1815; J2405; J2550; J3490; J7120; Q9967

== ENCOUNTER 2018-04-19 18:40 | Emergency (ER) | payer OTHER ==
[~2018-04-19] VITALS: Ht 167.6 cm; Wt 90.7 kg
[~2018-04-19 18:40] MED LIST changes: -REGLAN10 M1 PO
--- NOTE | 2018-04-19 19:36 | ED GI/GU/ABDOMINAL COMPLAINT ---
History of Present Illness General Chief Complaint: General Adult Stated Complaint: VOMITTING S/P SURGERY Source: patient, family, old records Exam Limitations: no limitations Vital Signs & Intake/Output Vital Signs & Intake/Output Vital Signs Date Time Temp Pulse Resp B/P B/P Pulse O2 O2 Flow FiO2 Mean Ox Delivery Rate 04/19 2138 97.5 74 20 165/80 100 Aerosol Mask 04/19 2130 96 04/19 2009 Room Air 04/19 1844 97.9 77 18 145/80 94 Room Air Allergies Coded Allergies: methylprednisolone (From Solu-Medrol) (Intermediate, HIVES AND PALPITATIONS 01/14) clove (HIVES 12/29/15) kimberli (HIVES 12/29/15) thyme (HIVES 12/29/15) hydrocodone (NAUSEA 12/29/15) ibuprofen (GI UPSET 12/29/15) lisinopril (DRY COUGH 12/29/15) nitrofurantoin (MAKES HER CRAZY 05/03/16) Uncoded Allergies: CHIVES (HIVES 01/05/16) Reconcile Medications Aspirin (Ecotrin*) 81 MG TABLET.DR 1 TAB PO DAILY HEART/BLOOD (Reported) Budesonide/Formoterol Fumarate (Symbicort 160-4.5 Mcg Inhaler) 160 MCG-4.5 MCG/ ACTUATION HFA.AER.AD 2 PUF INH PRN ASTHMA (Reported) Glimepiride 1 MG TABLET 1 TAB PO QPM DM (Reported) Losartan Potassium 50 MG TABLET 1 TAB PO DAILY BP (Reported) Magnesium Oxide 400 MG TABLET 400 MG PO BID lOW MAGNESIUM . Metformin HCl (Metformin HCl ER) 500 MG TAB.ER.24H 2 TAB PO BID DM (Reported) Omeprazole Magnesium (Prilosec Otc) 20 MG TABLET.DR 1 TAB PO DAILY GI ( Reported) Ondansetron (Zofran Odt) 4 MG TAB.RAPDIS 1 TAB SL TID PRN NAUSEA Pravastatin Sodium 80 MG TABLET 1 TAB PO DAILY CHOLESTEROL (Reported) Rivaroxaban (Xarelto) 20 MG TABLET 1 TAB PO DAILY BLOOD THINNER (Reported) with food Solifenacin Succinate (Vesicare) 5 MG TABLET 1 TAB PO BID BLADDER (Reported) Triage Note: PT HAD SUGERY TODAY, STATES HAD TRIGGER FINGER REPAIRED LEFT HAND. PT STATES SHE HANDLED TOAST AND COFFEE AFTER SURGERY AND THEN WHEN SHE GOT HOME SHE BEGAN VOMITING ABOUT 1700. Triage Nurses Notes Reviewed? yes ? N Is pt currently ? No HPI: Patient had surgery earlier today for a trigger finger. During the postop. She became nauseous and vomited. Patient was subsequently sent home after drinking a attila fany. Patient got home and then continued to vomit. Patient's been unable to tolerate anything by mouth since then. Patient denies any abdominal pain. There is no diarrhea. There are no fevers or chills. Past History Travel History Traveled to [place] past 21 day No Medical History Any Pertinent Medical History? 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, vaginal Other Medical Hx: Hypertension, dyslipidemia, diabetes mellitus, CHF, asthma, prior transient ischemic attack versus CVA, sigmoid diverticulosis, gastroesophageal reflux disease, positional vertigo, hysterectomy, History of MRSA: No History of VRE: No History of CDIFF: No Influenza Vaccine: 08/01/17 Tetanus Vaccine: 09/23/15 Surgical History Surgical History: R WRIST,TOE, HYSTERECTOMY BLADDER,RECTUM LIFTED right knee surgery for a meniscal tear left carpal tunnel release Psychosocial History Who do you live with Patient/Self Services at Home None What is your primary language Martiniquais Tobacco Use: Never used ETOH Use: denies use Illicit Drug Use: denies illicit drug use Family History Family History, If Any: BROTHER FH: throat cancer SISTER (atrial fibrillation). FH: lung cancer FH: thyroid cancer SISTER (permanent pacemaker placement). FH: melanoma FHx: breast cancer MOTHER (coronary artery disease in her 50's s/p CABG). FH: diabetes mellitus FH: myocardial infarction FH: stroke FATHER FH: kidney disease Hx Contributory? No Review of Systems Review of Systems Constitutional: Reports: no symptoms. EENTM: Reports: no symptoms. Respiratory: Reports: no symptoms. Cardiovascular: Reports: no symptoms. GI: Reports: see HPI, nausea, vomiting. Genitourinary: Reports: no symptoms. Musculoskeletal: Reports: no symptoms. Skin: Reports: no symptoms. Neurological/Psychological: Reports: no symptoms. Hematologic/Endocrine: Reports: no symptoms. Immunologic/Allergic: Reports: no symptoms. All Other Systems: Reviewed and Negative Physical Exam Physical Exam General Appearance: well developed/nourished, alert, awake, mild distress Head: atraumatic, normal appearance Eyes: Bilateral: PERRL, EOMI. Ears, Nose, Throat, Mouth: hearing grossly normal, DRY MUCOSA Neck: normal inspection, supple, full range of motion Respiratory: normal breath sounds, chest non-tender, no respiratory distress, lungs clear Cardiovascular: regular rate/rhythm, normal peripheral pulses Gastrointestinal: normal bowel sounds, soft, non-tender, no organomegaly Back: normal inspection, normal range of motion Extremities: normal range of motion Neurologic/Psych: no motor/sensory deficits, awake, alert, oriented x 3, normal mood/affect Skin: intact, normal color, warm/dry Core Measures ACS in differential dx? No Sepsis Present: No Sepsis Focused Exam Completed? No Progress Differential Diagnosis: pancreatitis, MEDICATION REACTION Plan of Care: Orders Procedure Date/time Status URINALYSIS 04/19 1943 Active TROPONIN LEVEL 04/19 1943 Complete LIPASE 04/19 1943 Complete COMPREHENSIVE METABOLIC PANEL 04/19 1943 Complete CBC WITHOUT DIFFERENTIAL 04/19 1943 Complete AMYLASE 04/19 1943 Complete EKG 04/19 1943 Active Current Medications Sig/Bull Start time Last Medication Dose Stop Time Status Admin Ondansetron HCl 4 MG ONCE ONE 04/190 UNVr (Zofran) 04/19 2301 Laboratory Tests 04/19/18 2019: Anion Gap 11, Estimated GFR > 60, BUN/Creatinine Ratio 28.8 H, Glucose 199 H, Calcium 9.3, Total Bilirubin 0.3, AST 34, ALT 43, Alkaline Phosphatase 153 H, Troponin I < 0.01, Total Protein 6.5, Albumin 3.6, Globulin 2.9, Albumin/ Globulin Ratio 1.2, Amylase 49, Lipase 26, CBC w Diff NO MAN DIFF REQ, RBC 5.57 H, MCV 62.2 L, MCH 19.0 L, MCHC 30.5 L, RDW 15.3 H, MPV 9.2, Gran % 89.4 H, Lymphocytes % 9.6 L, Monocytes % 0.6 L, Eosinophils % 0.2, Basophils % 0.2, Absolute Granulocytes 4.5, Absolute Lymphocytes 0.5 L, Absolute Monocytes 0 L, Absolute Eosinophils 0, Absolute Basophils 0 Diagnostic Imaging: Viewed by Me: Radiology Read. Discussed w/RAD: Radiology Read. CXR Impression: PATIENT: ADARSH BOYD PRESENT AGE: 77 PATIENT ACCOUNT NO: [id number] : 42 LOCATION: [facility] ORDERING PHYSICIAN: Roland Quesada MD SERVICE DATE: 04/19/18 EXAM TYPE: RAD - XRY-CHEST XRAY, TWO VIEWS EXAMINATION: XR CHEST CLINICAL INFORMATION: Question aspiration. Wheezing after vomiting. COMPARISON: Chest radiograph 03/30/2017. TECHNIQUE: 2 views of the chest were obtained. FINDINGS: There are ill-defined linear markings within the lung bases that most likely represent a manifestation of subsegmental atelectasis or scar. No overt consolidative disease or effusion. No pneumothorax. The cardiac silhouette and upper mediastinal contours are normal. No acute osseous finding. IMPRESSION: Bibasilar subsegmental atelectasis or scar. No overt consolidative disease or effusion. DICTATED BY: Miguel Alvares MD DATE/TIME DICTATED:04/19/182221 PANTOGRAPH OPERATOR:FLORI DATE/ TIME TRANSCRIBED:04/19/182221 CONFIDENTIAL, DO NOT COPY WITHOUT APPROPRIATE AUTHORIZATION. <Electronically signed in Other Vendor System> SIGNED BY: Miguel Alvares MD 04/19/182226 Initial ED EKG: NSR, nonspecific ST T wave chg Prior EKG: unchanged Comments: Patient is feeling better. We'll by mouth challenge. Departure Departure Disposition: HOME OR SELF CARE Condition: Stable Clinical Impression Primary Impression: Vomiting Secondary Impressions: Wheezing Referrals: Trevino Shabbir SHOOK (PCP/Family) Additional Instructions: Return if symptoms worsen or for any concerns. Departure Forms: Customer Survey General Discharge Information Prescriptions: Current Visit Scripts Ondansetron (Zofran Odt) 1 TAB SL TID PRN NAUSEA #10 TAB
[2018-04-19 20:34] LABS: ABSOLUTE BASOPHIL COUNT 0 /CUMM (0.0-0.2); ABSOLUTE EOSINOPHIL COUNT 0 /CUMM (0.0-0.7); ABSOLUTE GRANULOCYTE CT 4.5 /CUMM (1.4-6.5); ABSOLUTE LYMPH COUNT 0.5 /CUMM (1.2-3.4); ABSOLUTE MONOCYTE COUNT 0 /CUMM (0.10-0.60); BASOPHIL % 0.2 % (0.0-2.0); EOSINOPHIL % 0.2 % (0-5); GRANULOCYTE % 89.4 % (42.2-75.2); HEMATOCRIT 34.7 % (37-47); MEAN CORPUSCULAR HGB CONC 30.5 G/DL (33.0-37.0); MEAN CORPUSCULAR VOLUME 62.2 FL (81.0-99.0); MEAN PLATELET VOLUME 9.2 FL (7.4-10.4); PLATELET COUNT 154 /CUMM (130-400); RBC DISTRIBUTION WIDTH 15.3 % (11.5-14.5); RED BLOOD CELL CT 5.57 /CUMM (4.20-5.40)
[2018-04-19 21:38] VITALS: BP 165/80
--- NOTE | 2018-04-19 22:27 | RADIOLOGY REPORT ---
EXAMINATION: XR CHEST CLINICAL INFORMATION: Question aspiration. Wheezing after vomiting. COMPARISON: Chest radiograph 03/30/2017. TECHNIQUE: 2 views of the chest were obtained. FINDINGS: There are ill-defined linear markings within the lung bases that most likely represent a manifestation of subsegmental atelectasis or scar. No overt consolidative disease or effusion. No pneumothorax. The cardiac silhouette and upper mediastinal contours are normal. No acute osseous finding. IMPRESSION: Bibasilar subsegmental atelectasis or scar. No overt consolidative disease or effusion.
[2018-04-19] MEDS ORDERED: ZOFRAN ODT4 M1 SL (22:39)
[2018-04-20] MEDS ORDERED: REGLAN10 M1 PO (18:03)
== END 2018-04-19 22:59 ==
LOC: ERH 18:40
PROVIDERS: Emergency Medicine
DX: R11.10 Vomiting, unspecified (principal); R06.2 Wheezing
CPT/HCPCS: 1263; 71046; 81001; 93005; 93010; 96374; J2405; J3101

== ENCOUNTER → 2018-04-19 | Day surgery (SDC) | payer OTHER ==
[~2018-04-19] VITALS: Ht 167.6 cm; Wt 87.5 kg
[~2018-04-19] MED LIST changes: +FLAGYL500 MG PO; +REGLAN10 M1 PO
--- NOTE | 2018-04-19 16:08 | Operative Report ---
Operative/Inv Procedure Report Surgery Date: 04/19/18 Name of Procedure: Flexor tenosynovectomy and A1 keyur excision left middle finger (left middle finger trigger release). Pre-Operative Diagnosis: Stenosing flexor tenosynovitis left middle finger (trigger finger). Post-Operative Diagnosis: Same. Estimated Blood Loss: scant Surgeon/Senior Drafter: Bud Rojas MD Anesthesia: moderate sedation, block Monitors: EKG/oxygen saturation/pressure. IV Fluids: Lactated Ringer's. Implants: None. Urine Output: None. Drains: None. Specimens: None. Microbiology: None. Tourniquet: 6 minutes at 275 mmHg. Complications: None known. Condition: Stable. Operative Indication: The patient is a 77-year-old female who developed left palmar and middle finger pain which over time progressed to lili locking of the finger. Her symptoms and clinical findings particularly over time became increasingly consistent with stenosing flexor tenosynovitis ((trigger finger). She did get several months of reasonably good symptom relief with a flexor tendon sheath steroid injection to the finger but unfortunately symptoms did eventually recur and bothered her significantly. We did discuss the risks and benefits and expected outcomes of continued attempts at nonoperative management including trying a repeat flexor tendon sheath steroid injection. We did discuss the same with respect to surgical intervention with trigger release surgery. All of the patient's questions were answered at length. She did decide that she did want to move forward with surgery on the finger aced upon her significant symptoms which were interfering with her quality of life. Surgical consent was obtained. Operative/Procedure Note Note: The patient underwent administration of a left-sided scalene block in the preop staging area. The patient was then brought to the operating room and placed on the operative table in the supine position. A dose of IV antibiotics were given for infection prophylaxis. All bony prominences were well-padded. Both legs were placed into compression sleeves to hopefully cutdown on the risk of bilateral lower extremity blood pooling and blood clot formation a propagation. A well-padded tourniquet was applied to the proximal portion of the left arm. The patient was given sedation. The left upper extremity was then prepped and draped in the usual sterile fashion. The patient's left palm was marked for a palmar approach to the middle finger A1 keyur. The skin was marked trying to stay within the patient's natural skin creases that were already present. In this case this proved to be an oblique skin marking running from a proximal radial to distal ulnar direction more or less centered over the level of the A1 keyur. After the skin was marked the extremity was exsanguinated and the pneumatic tourniquet was inflated to a pressure of 275 mmHg. The skin incision was created sharply with a scalpel. Sharp dissection was continued down through the skin and into the subcutaneous tissues. Hemostasis was achieved with a combination of manual pressure and electrocautery. Retractors were placed into the wound. We did encounter significant fluid buildup consistent with severe flexor tenosynovitis. This had a non-purulent appearance. Next under direct visualization we placed a freer elevator under the proximal margin of the A1 keyur to protect the underlying flexor tendons. Under direct visualization we excised the and entire extent of the A1 keyur making sure to avoid damage to the underlying flexor tendons and the adjacent neurovascular bundles to either side. This tissue was removed but was not sent to the lab for analysis. We now had good exposure of the flexor tendons. Again there was abundant thin fluid consistent with tenosynovitis. The general contour and appearance of the underlying flexor tendons showed some expansion with a bulbous contour located slightly proximal to the level of the proximal margin of the original A1 keyur. Each tendon was pulled independently from the wound and inspected and was in good condition other than for the distortion of the collagen as noted above. The finger was flexed and extended. We did not appreciate any passive remaining mechanical catching or locking or obvious bowstringing of the tendons. The tendons were allowed to retract back into the wound. The tourniquet was deflated and attention was directed towards closure. The wound was irrigated several times with saline. Hemostasis was achieved with a combination of manual pressure and electrocautery. The soft tissue repair consisted of direct approximation of the skin margins using 3-0 Prolene placed in interrupted simple fashion. We did infiltrate some additional cortical percent Marcaine to help with prolonged postoperative pain relief even though we had previously placed a regional block to the extremity. The wound was washed and dried. Adaptic dressing was placed over the suture line followed by sterile gauze dressings. We applied additional fluffed gauze dressings into the palm and next we wrapped a gauze wrap to hold the gauze dressings in place. We overwrapped this with Vin bandages to hold the dressings in place as well as to provide some gentle postoperative compression to the palmar wound. The patient was awakened from general anesthesia. She was transferred to the stretcher and brought to the recovery room in stable condition having tolerated the procedure well. Findings: 1) Marked flexor tenosynovitis. 2) Bulbous distortion-deformity of FDS and FDP flexor tendons under A1 keyur. Discharge Disposition: Same Day Admissions
== END ==
LOC: STS 01:59
DX: M65.332 Trigger finger, left middle finger (principal); M65.842 Other synovitis and tenosynovitis, left hand; I10 Essential (primary) hypertension; E11.9 Type 2 diabetes mellitus without complications; Z79.84 Long term (current) use of oral hypoglycemic drugs; Z86.73 Personal history of transient ischemic attack (TIA), and cerebral infarction without residual deficits; Z79.01 Long term (current) use of anticoagulants; J45.909 Unspecified asthma, uncomplicated; Z87.891 Personal history of nicotine dependence
CPT/HCPCS: C9290; J0131; J0690; J1100; J2250; J2405

== ENCOUNTER 2018-06-26 07:44 | Inpatient (IN) | payer OTHER ==
[~2018-06-26] VITALS: Ht 167.6 cm; Wt 95.8 kg
[~2018-06-26 07:44] MED LIST changes: +REGLAN10 M1 PO
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
[2018-06-26 13:14] LABS: ABSOLUTE BASOPHIL COUNT 0 /CUMM (0.0-0.2); ABSOLUTE EOSINOPHIL COUNT 0.2 /CUMM (0.0-0.7); ABSOLUTE GRANULOCYTE CT 3.3 /CUMM (1.4-6.5); ABSOLUTE LYMPH COUNT 1.5 /CUMM (1.2-3.4); ABSOLUTE MONOCYTE COUNT 0.4 /CUMM (0.10-0.60); BASOPHIL % 0.4 % (0.0-2.0); EOSINOPHIL % 2.9 % (0-5); GRANULOCYTE % 60.8 % (42.2-75.2); HEMATOCRIT 32.3 % (37-47); MEAN CORPUSCULAR HGB 19.2 PG (27.0-31.0); MEAN CORPUSCULAR HGB CONC 30.9 G/DL (33.0-37.0); MEAN CORPUSCULAR VOLUME 62.3 FL (81.0-99.0); MEAN PLATELET VOLUME 9.6 FL (7.4-10.4); PLATELET COUNT 152 /CUMM (130-400); RBC DISTRIBUTION WIDTH 16.3 % (11.5-14.5); RED BLOOD CELL CT 5.19 /CUMM (4.20-5.40); WHITE BLOOD CELL COUNT 5.4 /CUMM (4.8-10.8)
[2018-06-26 13:19] LABS: PT 13.9 SEC (9.4-12.5)
--- NOTE | 2018-06-26 14:15 | History & Physical ---
Siva Fernandez MD 06/26/18 1415: General Information and HPI History of Present Illness: 78-year-old woman with past medical history of CVA with residual left-sided weakness, hearing loss, hypertension, hyperlipidemia, GERD, DVT/PE on Xarelto, glj-wvoyjdn-decjcyztn diabetes mellitus, asthma, COPD not on home oxygen, and HFpEF (LVEF >60%) with stage I diastolic dysfunction seen for evaluation of blurred/double vision with difficulty walking and bleeding. Patient was seen in the [place] ED on 06/21/18 for evaluation of a headache after being struck in the head while shopping with a "large roll of toilet paper". She developed a headache and some nausea with dizziness after the event. She did not fall or hit her head or lose consciousness. CT head demonstrated no acute intracranial pathology. Patient was discharged home with instruction to take Tylenol as needed for headache and to follow-up with her primary care provider. Collateral information was obtained from patient's son and sister whom were present during the interview. Patient has been reportedly moving more "slowly" over the past week. She has had decreased intake of food and water during this time. This morning patient awoke around 7-8 AM with a "wet feeling" on her face for which she went to the restroom and found her face covered in blood. She informed her family who brought her to the [place] ED. In the ED patient was given Afrin nasal spray with thrombin that easily controlled the bleeding without requiring nasal packing or cautery. Presently patient states that she feels well but admits to being weak with worsening of her left-sided residual deficits. Additionally she admits to having blurred/ double vision, especially in her left vision vogel. In the past recent days she admits to having frequent urination with burning. Review of systems Otherwise she denies any headache, fever, chills, chest pain, palpitations, heartburn, shortness breath, cough, nausea, vomiting, diarrhea, constipation, abdominal pain, numbness, or new neurologic deficits. Objective Vitals-temperature 97.2-97.5, HR 62-75, RR 15-18, BP 166-167/74-85, O2 93-98% on room air Physical exam -General: Well-developed, well-nourished elderly woman in no acute distress -HEENT: NCAT, PERRLA, EOMI, anicteric sclera, moist mucous membranes -Neck: Supple, no JVD, trachea midline -Cardio: Normal S1/S2 without murmurs/scalp/rubs; regular rate and rhythm -Pulmonary: Clear to auscultation bilaterally -Abdomen: Soft, nontender, nondistended, bowel sounds intact -Neuro: Awake and alert, cranial nerves II through XII grossly intact, speech/ sensation/coordination intact, face symmetric, speech fluent, strength 5/5 in RAVI/LLE and 3/5 and RUL/RLE; gait not assessed -: No suprapubic or CVA tenderness -Extremities: Normal pulses, no edema Labs/imaging/studies -CBC: WBC 5.4, hemoglobin 10.0, hematocrit 32.3, platelet 152, MCV 62 -BMP: Sodium 139, potassium 4.5, chloride 105, CO2 28, BUN 22, creatinine 0.8, anion gap 6, glucose 180 -LFT: Within normal limits -Miscellaneous: Troponin I <0.01, INR 1.27 -EKG: Normal sinus rhythm without any ST-T wave segment changes -Echocardiogram 11/21/17: LVEF >60% without regional wall motion abnormalities and stage I diastolic dysfunction, LVOT velocity 1.4 m/s -CT head/sinus without IV contrast: 1. There are no acute intracranial findings. There is mild diffuse fine loss and there are chronic microvascular ischemic changes. 2. There are no acute maxillofacial findings. No fractures are demonstrated. Assessment 78-year-old woman with multiple medical problems significant for previous CVA with residual left-sided deficits, DVT/PE on Xarelto, and multiple cardiovascular risk factors seen for evaluation blurred/double vision and bleeding nose. Currently patient admits to feeling weak but otherwise well and denies any new neurologic symptoms other than her vague vision changes; she does admit to some mild urinary symptoms. Vital signs are significant only for elevated systolic blood pressure to 160s. Physical examination demonstrates baseline left-sided deficits with poor effort however no obvious new neurologic deficits are appreciated. Labs including CBC and serum chemistry are significant only for a chronic microcytic anemia. Troponin I is negative. CT head/sinuses without IV contrast is unremarkable. EKG demonstrates a normal sinus rhythm. Clinically patient appears to have vague neurologic symptoms suggestive more of dehydration/deconditioning than that of a new cerebrovascular event. She does have some reported gait instability with recent history of decreased p.o. intake of food and water and some vague urinary symptoms. Urinalysis demonstrates findings possibly suggestive of a UTI. Urine culture is sent and patient may require antibiotic treatment. Patient is admitted to the telemetry floor for telemetry monitoring, neuro checks, neurology consultation, aspirin/statin/ anticoagulations therapy, and PT evaluation and possible custodial facility placement. Problem list -Epistaxis -gait disturbance with worsening left residual deficits, possible recurrent TIA versus deconditioning -recent mild head trauma -burning on urination, possible UTI -History of CVA with residual left-sided deficits -Hearing loss -Hypertension -Hyperlipidemia -GERD -"Dilated esophagus" -History of DVT/PE on Xarelto -Fyy-smyhdrk-ybfcsecaj diabetes mellitus -Asthma -COPD, not on home oxygen -HFpEF Plan -Admit to telemetry floor -Telemetry monitoring -Fall precautions -Neurochecks -Accucheck TIDAC/HS -Continue home meds: Aspirin, Symbicort, magnesium, omeprazole, pravastatin, Xarelto -Hold vesicare for anticholingergic effects -Consider neurology consult if symptoms worsen -PT evaluation -check urinalysis -Pain control with acetaminophen -Regular diet -DVT prophylaxis with Xarelto -Full code Allergies/Medications Allergies: Coded Allergies: methylprednisolone (From Solu-Medrol) (Intermediate, HIVES AND PALPITATIONS ) clove (HIVES 06/26/18) kimberli (HIVES 06/26/18) thyme (HIVES 06/26/18) hydrocodone (NAUSEA 06/26/18) ibuprofen (GI UPSET 06/26/18) lisinopril (DRY COUGH 06/26/18) nitrofurantoin (MAKES HER CRAZY 06/26/18) Uncoded Allergies: CHIVES (HIVES 01/05/16) Home Med list Aspirin (Ecotrin*) 81 MG TABLET.DR 1 TAB PO DAILY HEART/BLOOD (Reported) Budesonide/Formoterol Fumarate (Symbicort 160-4.5 Mcg Inhaler) 160 MCG-4.5 MCG/ ACTUATION HFA.AER.AD 2 PUF INH PRN ASTHMA (Reported) Glimepiride 1 MG TABLET 1 TAB PO QPM DM (Reported) Losartan Potassium 50 MG TABLET 1 TAB PO DAILY BP (Reported) Magnesium Oxide 400 MG TABLET 400 MG PO BID lOW MAGNESIUM . Metformin HCl (Metformin HCl ER) 500 MG TAB.ER.24H 2 TAB PO BID DM (Reported) Omeprazole Magnesium (Prilosec Otc) 20 MG TABLET.DR 1 TAB PO DAILY GI ( Reported) Pravastatin Sodium 80 MG TABLET 1 TAB PO DAILY CHOLESTEROL (Reported) Rivaroxaban (Xarelto) 20 MG TABLET 1 TAB PO DAILY BLOOD THINNER (Reported) with food Solifenacin Succinate (Vesicare) 5 MG TABLET 1 TAB PO BID BLADDER (Reported) Past History Travel History Traveled to [place] past 21 day No Medical History Neurological: TIA, vertigo, STROKE `11 RESIDUAL L. 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 EENT: cataracts, hearing loss Cardiovascular: hypertension, hyperlipidemia Respiratory: pulmonary embolism, ASTHMA, PNEUMONIA Gastrointestinal: GERD, sigmoid diverticulosis SBO BOWEL RESECTION CHOLECYSTITIS Renal: BLADDER SLING 2016 Musculoskeletal: osteoarthritis, FOOT SURGERY RIGHT RIGHT TKA Endocrine: diabetes Blood Disorders: DVT, PE VP MARKETING/Reproductive: HYSTERECTOMY, vaginal Other Medical Hx: Hypertension, dyslipidemia, diabetes mellitus, CHF, asthma, prior transient ischemic attack versus CVA, sigmoid diverticulosis, gastroesophageal reflux disease, positional vertigo, hysterectomy, History of MRSA: No History of VRE: No History of CDIFF: No Tetanus Vaccine: 09/23/15 Surgical History Surgical History: R WRIST,TOE, HYSTERECTOMY BLADDER,RECTUM LIFTED right knee surgery for a meniscal tear left carpal tunnel release Past Family/Social History Family History Relations & Conditions if any BROTHER FH: throat cancer SISTER (atrial fibrillation). FH: lung cancer FH: thyroid cancer SISTER (permanent pacemaker placement). FH: melanoma FHx: breast cancer MOTHER (coronary artery disease in her 50's s/p CABG). FH: diabetes mellitus FH: myocardial infarction FH: stroke FATHER FH: kidney disease Psychosocial History Who Do You Live With? child Services at Home: None Primary Language: Italian Functional Ability ADLs Independent: dressing, eating, toileting, bathing. Ambulation: independent IADLs Independent: shopping, housework, finances, food prep, telephone, transportation , medication admin. Review of Systems Review of Systems Constitutional: Reports: see HPI. Exam & Diagnostic Data Last 24 Hrs of Vital Signs/I&O Vital Signs Date Time Temp Pulse Resp B/P B/P Pulse O2 O2 Flow FiO2 Mean Ox Delivery Rate 06/26 1807 98.2 60 18 140/72 97 Room Air 06/26 1630 94 Room Air 06/26 1453 98.0 61 18 176/72 98 Room Air 06/26 1351 97.8 63 18 158/69 95 Room Air 06/26 1128 97.5 62 18 166/74 98 Room Air 06/26 1120 97.2 06/26 1120 75 167/85 06/26 0750 97.2 75 15 167/85 93 Intake & Output 06/26 1600 06/26 0800 06/26 0000 Intake Total Output Total Balance Patient 93.44 kg Weight Weight Reported by Patient Measurement Method Assessment/Plan As Ranked By This Provider Problem List: 1. Epistaxis not due to trauma Core Measures/Misc (07/18) Acute Coronary Syndrome ACS Diagnosis: No Congestive Heart Failure Congestive Heart Failure Diagnosis No Cerebrovascular Accident CVA/TIA Diagnosis: No VTE (View Protocol) VTE Risk Factors Age>40 No Mechanical VTE Prophylaxis d/t N/A MechProphylax Ordered No VTE Pharm Prophylaxis d/t NA PharmProphylax ordered Sepsis (View protocol) Sepsis Present: No If YES complete Sepsis Event Note If YES complete Sepsis Event Note Jose Juan SHOOK,Justine 06/26/18 1627: Core Measures/Misc (07/18) Sepsis (View protocol) If YES complete Sepsis Event Note If YES complete Sepsis Event Note Attending MD Review Statement Attending Statement Attending MD Statement: examined this patient, discuss w/resident/PA/COFFEE MAKER SERVICER, agreed w/resident/PA/COFFEE MAKER SERVICER, discussed with family, reviewed EMR data (avail), discussed with nursing, amended to note Attending Assessment/Plan: Patient is a pleasant 78-year-old female with medical history significant for deep vein thrombosis/pulmonary embolism on anticoagulation therapy with Xarelto, stroke with residual left upper and lower extremity weakness, degenerative joint disease status post knee replacement surgery last year with residual weakness in the right leg. Her history is also significant for pyr-exqukqd-efuqrrznn diabetes mellitus, non-oxygen dependent COPD, chronic diastolic heart failure hypertension, vertigo, dilated esophagus with posterior pharyngeal dysfunction with episodes of aspiration and dyslipidemia. She sustained head trauma as reported above earlier this week. Neuroimaging earlier this week was negative. Presents today with complaints of epistaxis. This was promptly controlled in the emergency room with Afrin spray. Emergency department attempted to discharge her home however patient felt very reluctant to go home stating she was feeling increased weakness on her left side. She was then referred to the medical service for evaluation. On examination she does have decreased motor strength in the left upper and lower extremities. Her power is 3/5 in her left upper and lower extremities. She does have decreased strength of the right lower extremity however she reports this is chronic due to her degenerative joint disease. Patient and sister reports that she is usually more functional at home. She states that she participated in physical therapy at home following her knee surgery and is able to move both legs particularly the left more aggressive therapy.. CT scan of the head was negative in the emergency room. However based on her report of worsening weakness she has been hospitalized for further evaluation and management. Recommendations: -Place on observation status telemetry unit. -Her weakness is likely due to postconcussive deconditioning. Obtain a consult with the physical therapy service. -Nursing staff to mobilize patient as tolerated. -Resume her oral anticoagulation therapy since she did not have any hemodynamically significant bleeding. -May need to consider neurology evaluation if her weakness worsens.
[2018-06-26 18:07] VITALS: BP 140/72
[2018-06-26 22:05] VITALS: BP 124/64
--- NOTE | 2018-06-27 07:18 | PN- Housestaff ---
Neel Young 06/27/18 0718: Subjective Follow-up For: deconditioning vs dehydration Blurred vision epistaxis Tele-Events Since Last Visit: Patient is in normal suinus rhythm. Except for a couple of events of bradycardia running low 50s Subjective: Patient was examined bedside while she was lying down. patient said she is better, and headache is gone down with tyelenol. However she feels feels dizzy while she got up to use the bathroom. Denied Urinary symtpoms. On PT evaluation the patient had another ?syncopal episode. Review of Systems Constitutional: Denies: chills, diaphoresis, fever, malaise, weakness, unexplained weight loss. Cardiovascular: Reports: syncope. Denies: chest pain, edema, orthopena, palpitations, peripheral edema. Respiratory: Denies: cough, hemoptysis, orthopnea, short of breath, sputum production, stridor, wheezing. Gastrointestinal: Denies: abdominal pain, bloating, bloody stool, vomiting. Genitourinary: Reports: no symptoms. Objective Last 24 Hrs of Vital Signs/I&O Vital Signs Date Time Temp Pulse Resp B/P B/P Pulse O2 O2 Flow FiO2 Mean Ox Delivery Rate 06/27 0638 97.7 55 20 98 Room Air 06/27 0543 73 170/80 06/26 2205 98.4 67 18 124/64 95 Room Air 06/26 1807 98.2 60 18 140/72 97 Room Air 06/26 1800 80 132/62 06/26 1630 94 Room Air 06/26 1453 98.0 61 18 176/72 98 Room Air 06/26 1351 97.8 63 18 158/69 95 Room Air 06/26 1128 97.5 62 18 166/74 98 Room Air 06/26 1120 97.2 06/26 1120 75 167/85 06/26 0750 97.2 75 15 167/85 93 Intake & Output 06/27 0800 06/27 0000 06/26 1600 Intake Total 240 120 Output Total 650 300 Balance -410 -180 Intake, Oral 240 120 Number 0 Bowel Movements Output, Urine 650 300 Patient 201 lb Weight Weight Bed scale Measurement Method Physical Exam General Appearance: Alert, Oriented X3, Cooperative, No Acute Distress Cardiovascular: Normal S1, Normal S2, No Murmurs Lungs: Normal Air Movement Abdomen: Soft, No Tenderness Neurological: Normal Speech, Strength at 5/5 X4 Ext, Normal Tone, Sensation Intact Extremities: No Edema Other Physical Findings: Orthostatic hypotension negative Current Medications: Current Medications Sig/Bull Start time Last Medication Dose Route Stop Time Status Admin Acetaminophen 650 MG Q6P PRN 06/26 1530 AC 06/27 PO 1017 Aspirin Buffered 81 MG DAILY 06/26 1519 AC 06/27 PO 0813 Budesonide/ 2 PUF BID 06/26 2100 AC 06/27 Formoterol Fumarate INH 0814 Ferrous Gluconate 324 MG TID 06/27 0900 AC 06/27 PO 1320 Losartan Potassium 25 MG ONCE ONE 06/26 1715 DC 06/26 PO 06/26 1716 1800 Losartan Potassium 50 MG DAILY 06/26 1018 AC 06/27 PO 0543 Magnesium Oxide 400 MG BID 06/26 2100 AC 06/27 PO 0813 Metformin HCl 500 MG 0800,1700 06/26 1700 AC 06/27 PO 0813 Omeprazole 20 MG DAILY AC 06/26 1520 AC 06/27 PO 0543 Pravastatin Sodium 80 MG QPM 06/26 2100 AC 06/26 PO 2055 Rivaroxaban 20 MG DAILY 06/26 1520 AC 06/27 PO 0813 Last 24 Hrs of Lab/Robert Results Last 24 Hrs of Labs/Mics: Laboratory Tests 06/27/18 0610: Anion Gap 6, Estimated GFR > 60, BUN/Creatinine Ratio 28.8 H, Magnesium 1.6, CBC w Diff NO MAN DIFF REQ, RBC 4.96, MCV 62.1 L, MCH 19.3 L, MCHC 31.1 L, RDW 15.7 H, MPV 10.4, Gran % 57.3, Lymphocytes % 32.5, Monocytes % 6.9, Eosinophils % 2.8, Basophils % 0.5, Absolute Granulocytes 3.0, Absolute Lymphocytes 1.7, Absolute Monocytes 0.4, Absolute Eosinophils 0.1, Absolute Basophils 0 06/26/18 1533: Urine Color YEL, Urine Clarity HAZY H, Urine pH 7.0, Ur Specific [place] 1.020, Urine Protein NEG, Urine Ketones NEG, Urine Nitrite NEG, Urine Bilirubin NEG, Urine Urobilinogen 0.2, Ur Leukocyte Esterase MOD H, Ur Microscopic SEDIMENT EXAMINED, Urine RBC RARE, Urine WBC 5-10 H, Ur Epithelial Cells FEW, Urine Bacteria FEW H, Urine Mucus RARE, Urine Hemoglobin NEG, Urine Glucose NEG Microbiology 06/26 1423 URINE ROUT: Urine Culture - RES BETA STREP GROUP C Assessment/Plan Assessment: 78 year olf F with PMH HTBN, HLD, CVA with residual left-sided deficits, GERD, "Dilated esophagus" ,DVT/PE on Xarelto, COPD, HFpEF, NIDDM, was brought in for epistaxis and episode of fall , CT findings for negative for any trauma, Assessment/Problem list- -Epistaxis- resolved -gait disturbance with worsening left residual deficits, possible recurrent TIA versus deconditioning -recent mild head trauma -Obu-ebcddbr-kqsddtmji diabetes mellitus Plan -Telemetry monitoring- NAD -continue Fall precautions -Neurochecks every shift -Accucheck TIDAC/HS - UA showed -mod leukocyte esterase, and UCx- 40,000 colonies per ml of:Beta strep Group C , patient is asymptomatic and does not require any treatment as of now. - Continue home meds: Aspirin, Symbicort, magnesium, omeprazole, pravastatin, Xarelto - Hold vesicare for anticholingergic effects - Neurology consulted and ruled out any significant neurological causes. - PT evaluation- syncopal episode when the patient tried to ambulate. - f /u CBC, BEP , magnesium -Pain control with acetaminophen -DVT prophylaxis with Xarelto -Full code Problem List: 1. Epistaxis not due to trauma Pain Ratin Pain Location: None Pain Goal: Remain pain free Pain Plan: None Tomorrow's Labs & Rationales: CBC, BEP Kiley Sánchez 06/27/18 1444: Attending MD Review Statement Attending Statement Attending MD Statement: examined this patient, discuss w/resident/PA/POULTRY CUTTER, agreed w/resident/PA/POULTRY CUTTER, reviewed EMR data (avail), discussed with case mgmt Attending Assessment/Plan: Epistaxis- resolved , no more nose bleeding now. Near syncopal episodes with blurry vision and vertigo- seen by neuro today, appreciated their input. No further neurological workup. Pt had PT eval today during which she almost passed out. will cont to monitor her on tele and will have PT reeval tomorrow. Her orthostatic bp check was ok.CT head was negative too. d/w pt the care plan.
[2018-06-27 08:05] LABS: ABSOLUTE BASOPHIL COUNT 0 /CUMM (0.0-0.2); ABSOLUTE EOSINOPHIL COUNT 0.1 /CUMM (0.0-0.7); ABSOLUTE LYMPH COUNT 1.7 /CUMM (1.2-3.4); ABSOLUTE MONOCYTE COUNT 0.4 /CUMM (0.10-0.60); BASOPHIL % 0.5 % (0.0-2.0); EOSINOPHIL % 2.8 % (0-5); GRANULOCYTE % 57.3 % (42.2-75.2); HEMATOCRIT 30.8 % (37-47); MEAN CORPUSCULAR HGB 19.3 PG (27.0-31.0); MEAN CORPUSCULAR HGB CONC 31.1 G/DL (33.0-37.0); MEAN CORPUSCULAR VOLUME 62.1 FL (81.0-99.0); MEAN PLATELET VOLUME 10.4 FL (7.4-10.4); PLATELET COUNT 140 /CUMM (130-400); RBC DISTRIBUTION WIDTH 15.7 % (11.5-14.5); RED BLOOD CELL CT 4.96 /CUMM (4.20-5.40); WHITE BLOOD CELL COUNT 5.2 /CUMM (4.8-10.8)
[2018-06-27 11:11] VITALS: BP 148/80
--- NOTE | 2018-06-27 13:11 | Cons- Neurology ---
General Information and HPI Consulting Request Date of Consult: 06/27/18 Requested By: Justine Manzano MD History of Present Illness: 78-year-old female admitted with persistent dizziness and headache. This patient with multiple, stable medical problems as well as a reported stroke in the past leaving her with some residual left-sided complaints was struck on the head by a large roll of toilet paper, falling from above on 06/21/2018. There was no loss of consciousness. Soon thereafter she began to complain of headache , dizziness and weakness. She ultimately presented for medical evaluation and a CAT scan of the brain was found to be normal. She was seen by her PMD and presented a second time to the [facility] yesterday with persistent complaints. She was admitted for further evaluation and treatment. The second CT of the head again showed no acute abnormalities. The patient has also endorsed transient epistaxis which is now controlled. 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 Allergies/Medications Allergies: Coded Allergies: methylprednisolone (From Solu-Medrol) (Intermediate, HIVES AND PALPITATIONS ) clove (HIVES 06/26/18) kimberli (HIVES 06/26/18) thyme (HIVES 06/26/18) hydrocodone (NAUSEA 06/26/18) ibuprofen (GI UPSET 06/26/18) lisinopril (DRY COUGH 06/26/18) nitrofurantoin (MAKES HER CRAZY 06/26/18) Uncoded Allergies: CHIVES (HIVES 01/05/16) Home Med List: Aspirin (Ecotrin*) 81 MG TABLET.DR 1 TAB PO DAILY HEART/BLOOD (Reported) Budesonide/Formoterol Fumarate (Symbicort 160-4.5 Mcg Inhaler) 160 MCG-4.5 MCG/ ACTUATION HFA.AER.AD 2 PUF INH PRN ASTHMA (Reported) Glimepiride 1 MG TABLET 1 TAB PO QPM DM (Reported) Losartan Potassium 50 MG TABLET 1 TAB PO DAILY BP (Reported) Magnesium Oxide 400 MG TABLET 400 MG PO BID lOW MAGNESIUM . Metformin HCl (Metformin HCl ER) 500 MG TAB.ER.24H 2 TAB PO BID DM (Reported) Omeprazole Magnesium (Prilosec Otc) 20 MG TABLET.DR 1 TAB PO DAILY GI ( Reported) Pravastatin Sodium 80 MG TABLET 1 TAB PO DAILY CHOLESTEROL (Reported) Rivaroxaban (Xarelto) 20 MG TABLET 1 TAB PO DAILY BLOOD THINNER (Reported) with food Solifenacin Succinate (Vesicare) 5 MG TABLET 1 TAB PO BID BLADDER (Reported) Review of Systems Review of Systems: Notable for dizziness, blurred vision, headache and imbalance. There was questionable diplopia. There is been no dysarthria, dysphagia, chest pain, vomiting or joint inflammation, fever, chills, rash. Past History Travel History Traveled to [place] past 21 day No Medical History Blood Transfusion Hx: Yes Neurological: TIA, vertigo, STROKE `11 RESIDUAL L. 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 FH: lung cancer FH: thyroid cancer SISTER (permanent pacemaker placement). FH: melanoma FHx: breast cancer MOTHER (coronary artery disease in her 50's s/p CABG). FH: diabetes mellitus FH: myocardial infarction FH: stroke FATHER FH: kidney disease Psychosocial History Who Do You Live With? child Services at Home: None Primary Language: Estonian Smoking Status: Former Smoker Functional Ability ADLs Independent: dressing, eating, toileting, bathing. Ambulation: independent IADLs Independent: shopping, housework, finances, food prep, telephone, transportation , medication admin. Exam & Diagnostic Data Vital Signs and I&O Vital Signs Date Time Temp Pulse Resp B/P B/P Pulse O2 O2 Flow FiO2 Mean Ox Delivery Rate 06/27 1111 66 148/80 06/27 0800 94 Room Air Room Air 06/27 0638 97.7 55 20 98 Room Air 06/27 0543 73 170/80 06/26 2205 98.4 67 18 124/64 95 Room Air 06/26 1807 98.2 60 18 140/72 97 Room Air 06/26 1800 80 132/62 06/26 1630 94 Room Air 06/26 1453 98.0 61 18 176/72 98 Room Air 06/26 1351 97.8 63 18 158/69 95 Room Air Intake & Output 06/27 1600 06/27 0800 06/27 0000 Intake Total 240 120 Output Total 650 300 Balance -410 -180 Intake, Oral 240 120 Number 0 Bowel Movements Output, Urine 650 300 Patient 201 lb Weight Weight Bed scale Measurement Method Elderly white female in no acute distress. The head was normocephalic and atraumatic. Higher cortical function was grossly intact. Speech was fluent. Pupils were equal and reactive. Extraocular movements were full. There was no nystagmus. There was no field cut to finger confrontation. Face was symmetric. Tongue was midline; there was no dysarthria. Motor examination showed no drift of the upper extremities. There was no gross lateralizing weakness. Deep tendon reflexes were symmetric. Plantar responses were flexor. Fine finger movements and rapid alternating movements performed normally. Sensory examination was normal to light touch and cortical sensory function. The patient stood up with a narrow base however became dizzy and her gait was not further evaluated. Assessment/Plan Assessment: The patient is now one week status post closed head trauma with secondary postconcussive symptomatology and post traumatic vertigo. Her examination is essentially normal without evidence of nystagmus, ophthalmoparesis or appendicular ataxia. CT scan 2 showed no intracranial injury. Recommendations: I am optimistic that she will improve with further passage of time. We would merely endorse brief physical and occupational therapy. No further neurodiagnostic studies are currently anticipated. We would be happy to see her in the office setting upon discharge from hospital should she remain persistently symptomatic. Consult Acknowledgment - Thank you for your consult request.
--- NOTE | 2018-06-27 13:15 | Patient Discharge Instructions ---
Discharge Instructions General Discharge Information You were seen/treated for: Epistaxis closed head trauma Watch for these problems: future bleeding/ epistais, dizziness, syncope Special Instructions: Please follow-up with your PCP within a week of discharge. Please follow-up with the neurologist within a month of discharge for further evaluation and management of the blurry vision. Please take the medication as advised. Please take all fall precautions. You need physical therapy as an outpatient. Diet Continue normal diet: Yes Recommended Diet: Regular Acute Coronary Syndrome Inclusion Criteria At DC or during hospital stay patient has or had the following: ACS DIAGNOSIS No Discharge Core Measures Meds if any: Prescribed or Continued at Discharge Meds if any: NOT Prescribed or Continued at Discharge Congestive Heart Failure Inclusion Criteria At DC or during hospital stay patient has or had the following: CHF DIAGNOSIS No Discharge Core Measures Meds if any: Prescribed or Continued at Discharge Meds if any: NOT Prescribed or Continued at Discharge Cerebrovascular accident Inclusion Criteria At DC or during hospital stay patient has or had the following: CVA/TIA Diagnosis No Discharge Core Measures Meds if any: Prescribed or Continued at Discharge Meds if any: NOT Prescribed or Continued at Discharge Venous thromboembolism Inclusion Criteria VTE Diagnosis No VTE Type NONE VTE Confirmed by (Test) NONE Discharge Core Measures - Per Current guidelines, there needs to be overlap - treatment for the first 5 days of Warfarin therapy. - If discharged on Warfarin prior to 5 days of - overlap therapy, the patient will need to be - assessed for post discharge needs including - *Post discharge parental anticoagulation - *Warfarin and/or parental anticoagulation education - *Follow up date to check INR post discharge At least 5 days overlap therapy as Inpatient No Meds if any: Prescribed or Continued at Discharge Note: Overlap Therapy is Warfarin and Anticoagulant Meds if any: NOT Prescribed or Continued at Discharge
[2018-06-27 14:54] VITALS: BP 126/62
[2018-06-27 22:28] VITALS: BP 140/72
[2018-06-28 06:00] VITALS: BP 136/68
[2018-06-28 08:00] VITALS: BP 146/80
--- NOTE | 2018-06-28 08:12 | PN- Housestaff ---
See Addendum Subjective Follow-up For: Dehydration Blurred vision epistaxis Subjective: Afebrile overnight. Patient is seen and examined in bed this morning. Patient states she feels good this morning and denies any episodes of chest pain or shortness of breath overnight. Patient states she worked with PT yesterday and is looking forward to a follow up PT treatment today to decide whether she can go to home or STR. Patient otherwise denies any fevers, chills, n/v, diarrhea, and constipation. Review of Systems Constitutional: Reports: see HPI. Objective Last 24 Hrs of Vital Signs/I&O Vital Signs Date Time Temp Pulse Resp B/P B/P Pulse O2 O2 Flow FiO2 Mean Ox Delivery Rate 06/28 0902 70 146/80 06/28 0600 97.8 70 18 136/68 97 Room Air 06/27 2228 97.8 70 16 140/72 95 Room Air 06/27 2200 Room Air 06/27 1454 97.6 75 20 126/62 98 Room Air Intake & Output 06/28 1600 06/28 0800 06/28 0000 Intake Total Output Total 500 400 Balance -500 -400 Output, Urine 500 400 Patient 211 lb Weight Weight Bed scale Measurement Method Physical Exam General Appearance: Alert, Oriented X3, Cooperative, No Acute Distress Skin: No Rashes, No Breakdown HEENT: Atraumatic Neck: Supple, No JVD Cardiovascular: Regular Rate, Normal S1, Normal S2 Lungs: Clear to Auscultation Neurological: Normal Speech Extremities: No Edema, Normal Pulses Assessment/Plan Assessment: Head CT - 1. There are no acute intracranial findings. There is mild diffuse fine loss and there are chronic microvascular ischemic changes. 2. There are no acute maxillofacial findings. No fractures are demonstrated. 78 YO F with PMH HTBN, HLD, CVA with residual left-sided deficits, GERD, "Dilated esophagus" ,DVT/PE on Xarelto, COPD, HFpEF, NIDDM, was brought in for epistaxis and episode of fall , CT findings for negative for any trauma. Assessment/Problem list- -Epistaxis- resolved -gait disturbance with worsening left residual deficits, possible recurrent TIA versus deconditioning -recent mild head trauma -Ttk-[id number] diabetes mellitus #Falls, unsteady gait -Telemetry monitoring- NAD -continue Fall precautions -Neurochecks every shift -Accucheck TIDAC/HS - UA showed -mod leukocyte esterase, and UCx- 40,000 colonies per ml of:Beta strep Group C , patient is asymptomatic and does not require any treatment as of now. - Neurology consulted and ruled out any significant neurological causes. - PT evaluation- syncopal episode when the patient tried to ambulate; patient re -evaluated 06/28 and recommend home physical therapy - Magnesium followed, 1.6 -> 1.7, within normal range -Pain control with acetaminophen #Home medications - Continue home meds: Aspirin, Symbicort, magnesium, omeprazole, pravastatin, Xarelto - Hold vesicare for anticholingergic effects DVT prophylaxis with Xarelto Full code Problem List: 1. Epistaxis not due to trauma 2. Gait abnormality Pain Ratin Pain Location: NA Pain Goal: Remain pain free Pain Plan: NA Tomorrow's Labs & Rationales: none
[2018-06-28 09:02] VITALS: BP 146/80
--- NOTE | 2018-06-28 11:38 | Discharge Summary ---
Visit Information Visit Dates Admission Date: 06/26/18 Discharge Date: 06/28/18 Hospital Course Course Attending Physician: Justine Manzano MD Primary Care Physician: Shabbir Trevino MD Hospital Course: 78-year-old woman with multiple medical problems significant for previous CVA with residual left-sided deficits, DVT/PE on Xarelto, and multiple cardiovascular risk factors seen for evaluation blurred/double vision and bleeding nose. Patient admitted to feeling weak but otherwise well and denied any new neurologic symptoms other than her vague vision changes; she does admit to some mild urinary symptoms. Vital signs are significant only for elevated systolic blood pressure to 160s. Physical examination demonstrates baseline left-sided deficits with poor effort however no obvious new neurologic deficits are appreciated. Labs including CBC and serum chemistry are significant only for a chronic microcytic anemia. Troponin I is negative. CT head/sinuses without IV contrast is unremarkable. EKG demonstrates a normal sinus rhythm. Clinically patient appeared to have vague neurologic symptoms suggestive more of dehydration/deconditioning than that of a new cerebrovascular event. She does have some reported gait instability with recent history of decreased p.o. intake of food and water and some vague urinary symptoms. Urinalysis demonstrates findings possibly suggestive of a UTI. Urine culture is sent and patient may require antibiotic treatment. Patient is admitted to the telemetry floor for telemetry monitoring, neuro checks, neurology consultation, aspirin/statin/ anticoagulations therapy, and PT evaluation and possible longterm facility placement. Problem list -Epistaxis -gait disturbance with worsening left residual deficits, possible recurrent TIA versus deconditioning -recent mild head trauma -burning on urination, possible UTI -History of CVA with residual left-sided deficits -Hearing loss -Hypertension -Hyperlipidemia -GERD -"Dilated esophagus" -History of DVT/PE on Xarelto -Dcb-fdzizhz-tqhlfhonj diabetes mellitus -Asthma -COPD, not on home oxygen -HFpEF #Gait disturbance, falls -Admitted to telemetry floor for monitoring -Fall precautions -Neurochecks -Accucheck TIDAC/HS -Continued home medications including Aspirin, Symbicort, magnesium, omeprazole, pravastatin, Xarelto -Hold vesicare for anticholingergic effects -Consider neurology consult if symptoms worsen -PT evaluation; PT recommend home physical therapy, patient preferred to go home vs. STR; discharged home with home PT from final recommendation from PT -Pain control with acetaminophen Allergies: Coded Allergies: methylprednisolone (From Solu-Medrol) (Intermediate, HIVES AND PALPITATIONS ) clove (HIVES 06/26/18) kimberli (HIVES 06/26/18) thyme (HIVES 06/26/18) hydrocodone (NAUSEA 06/26/18) ibuprofen (GI UPSET 06/26/18) lisinopril (DRY COUGH 06/26/18) nitrofurantoin (MAKES HER CRAZY 06/26/18) Uncoded Allergies: CHIVES (HIVES 01/05/16) Significant Procedures: Head CT - 1. There are no acute intracranial findings. There is mild diffuse fine loss and there are chronic microvascular ischemic changes. 2. There are no acute maxillofacial findings. No fractures are demonstrated. Disposition Summary Disposition Principal Diagnosis: Epistaxis Gait disturbance Additional Diagnosis: Hx. of CVA with residual left-sided deficits Discharge Disposition: home or self care Discharge Instructions General Discharge Information Code Status: Full Code Patient's Diet: regular Patient's Activity: ad amanda Follow-Up Instructions/Appts: Please follow up with your PCP within a week. Please continue to take your home medications. Medications at Discharge Discharge Medications: Continue taking these medications: Losartan Potassium (Losartan Potassium) 50 MG TABLET 1 Tablet ORAL DAILY Qty = 90 Comments: Last Taken: 06/28/18 Time: 9:00 AM Omeprazole Magnesium (Prilosec Otc) 20 MG TABLET.DR [place] Tablet ORAL DAILY Comments: Last Taken: 06/28/18 Time: 7:00 AM Pravastatin Sodium (Pravastatin Sodium) 80 MG TABLET 1 Tablet ORAL DAILY Comments: Last Taken: 06/27/18 Time: 9:00 AM Solifenacin Succinate (Vesicare) 5 MG TABLET 1 Tablet ORAL TWICE DAILY Comments: NOT GIVEN Budesonide/Formoterol Fumarate (Symbicort 160-4.5 Mcg Inhaler) 160 MCG-4.5 MCG/ ACTUATION HFA.AER.AD 2 Puff Inhale through mouth as needed for ASTHMA Comments: Last Taken: 06/28/18 Time: 9:00 AM Rivaroxaban (Xarelto) 20 MG TABLET 1 Tablet ORAL DAILY Qty = 90 Instructions: with food Comments: Last Taken: 06/28/18 Time: 9:00 AM Aspirin (Ecotrin*) 81 MG TABLET.DR 1 Tablet ORAL DAILY Comments: Last Taken: 06/28/18 Time: 9:00 AM Metformin HCl (Metformin HCl ER) 500 MG TAB.ER.24H 2 Tablet ORAL TWICE DAILY Qty = 360 Comments: Last Taken: 06/28/18 Time: 9:00 AM Magnesium Oxide (Magnesium Oxide) 400 MG TABLET 400 Milligram ORAL TWICE DAILY Qty = 60 Instructions: . Comments: Last Taken: 06/28/18 Time: 9:00 AM Glimepiride (Glimepiride) 1 MG TABLET 1 Tablet ORAL Every night Qty = 90 Comments: NOT GIVEN IN HOSPITAL Copies To: Uriel SHOOK,Shabbir Gillespie Attending MD Review Statement Documenting Attending: Princess SHOOK,Kiley Rodriguez
[2018-06-28] MEDS ORDERED: FERROUS GLUCON324 M2 PO (12:51)
== END 2018-06-28 14:10 | disposition home health service (06) | DRG 151 ==
LOC: ERH 07:44 → ERHI 12:29 → 1NO 12:29 → ENRESERV 13:34 → ENTRNSPT 16:02 → 1NO 16:23 → CMPTRNSPT 16:36 → ENPENDDIS 06-28 12:50 → ENTRNSPT 06-28 13:42 → EDTRNSPT 06-28 13:49 → EDTRNSPTSTS 06-28 13:49 → EDTRNSPT 06-28 14:03 → 1NO 06-28 14:10 → CMPTRNSPT 06-28 14:13
PROVIDERS: Internal Medicine Interventional Cardiology; Student in an Organized Health Care Education/Training Program
DX: R04.0 Epistaxis (principal); I69.354 Hemiplegia and hemiparesis following cerebral infarction affecting left non-dominant side; I50.32 Chronic diastolic (congestive) heart failure; D68.32 Hemorrhagic disorder due to extrinsic circulating anticoagulants; F07.81 Postconcussional syndrome; Z86.711 Personal history of pulmonary embolism; Z79.01 Long term (current) use of anticoagulants; I10 Essential (primary) hypertension; I11.0 Hypertensive heart disease with heart failure; E11.9 Type 2 diabetes mellitus without complications; Z79.84 Long term (current) use of oral hypoglycemic drugs; J44.9 Chronic obstructive pulmonary disease, unspecified; T45.515A Adverse effect of anticoagulants, initial encounter; H91.90 Unspecified hearing loss, unspecified ear; E78.5 Hyperlipidemia, unspecified; K21.9 Gastro-esophageal reflux disease without esophagitis; Z86.718 Personal history of other venous thrombosis and embolism; Z88.6 Allergy status to analgesic agent; Z88.5 Allergy status to narcotic agent; Z90.710 Acquired absence of both cervix and uterus; H26.9 Unspecified cataract; Z96.651 Presence of right artificial knee joint; E86.0 Dehydration
CPT/HCPCS: 1NP; 36592; 81001; 82436; 87086; 87147; 93005; 93010; 97110-GO; 97116-GO; 97161-GP; J3490

== ENCOUNTER 2018-07-12 10:34 | Emergency (ER) | payer OTHER ==
[~2018-07-12] VITALS: Ht 167.6 cm; Wt 95.3 kg
[~2018-07-12 10:34] MED LIST changes: +FERROUS GLUCON324 M2 PO
[2018-07-12 10:40] VITALS: BP 137/87
--- NOTE | 2018-07-12 11:07 | ED GENERAL ADULT ---
History of Present Illness General Chief Complaint: General Adult Stated Complaint: NOSE RECHECK Source: patient Exam Limitations: no limitations Vital Signs & Intake/Output Vital Signs & Intake/Output Vital Signs Date Time Temp Pulse Resp B/P B/P Pulse O2 O2 Flow FiO2 Mean Ox Delivery Rate 07/12 1040 97.0 82 20 137/87 97 Room Air Allergies Coded Allergies: methylprednisolone (From Solu-Medrol) (Intermediate, HIVES AND PALPITATIONS ) clove (HIVES 06/26/18) kimberli (HIVES 06/26/18) thyme (HIVES 06/26/18) hydrocodone (NAUSEA 06/26/18) ibuprofen (GI UPSET 06/26/18) lisinopril (DRY COUGH 06/26/18) nitrofurantoin (MAKES HER CRAZY 06/26/18) Uncoded Allergies: CHIVES (HIVES 01/05/16) Reconcile Medications Amoxicillin/Potassium Clav (Augmentin 875-125 Tablet) 875 MG-125 MG TABLET 1 TAB PO BID infection prevention Aspirin (Ecotrin*) 81 MG TABLET.DR 1 TAB PO DAILY HEART/BLOOD (Reported) Budesonide/Formoterol Fumarate (Symbicort 160-4.5 Mcg Inhaler) 160 MCG-4.5 MCG/ ACTUATION HFA.AER.AD 2 PUF INH PRN ASTHMA (Reported) Ferrous Gluconate 324 MG (38 MG IRON) TABLET 1 TAB PO TID PRN iron deficiency anemia Glimepiride 1 MG TABLET 1 TAB PO QPM DM (Reported) Losartan Potassium 50 MG TABLET 1 TAB PO DAILY BP (Reported) Magnesium Oxide 400 MG TABLET 400 MG PO BID lOW MAGNESIUM . Metformin HCl (Metformin HCl ER) 500 MG TAB.ER.24H 2 TAB PO BID DM (Reported) Omeprazole Magnesium (Prilosec Otc) 20 MG TABLET.DR 1 TAB PO DAILY GI ( Reported) Pravastatin Sodium 80 MG TABLET 1 TAB PO DAILY CHOLESTEROL (Reported) Rivaroxaban (Xarelto) 20 MG TABLET 1 TAB PO DAILY BLOOD THINNER (Reported) with food Solifenacin Succinate (Vesicare) 5 MG TABLET 1 TAB PO BID BLADDER (Reported) Triage Note: PT TO ED FOR RHINO ROCKET REMOVAL. PLACED YESTERDAY. Triage Nurses Notes Reviewed? yes HPI: 78-year-old female with history of extensive medical conditions including PE on Xarelto presenting for removal of left-sided nasal tampon which was placed yesterday in the setting of 1 day of epistaxis. Patient reports no ongoing bleeding and denies any symptoms. She is well-appearing on arrival. Past History Travel History Traveled to [place] past 21 day No Medical History Any Pertinent Medical History? 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: HYSTERECTOMY, vaginal Other Medical Hx: Hypertension, dyslipidemia, diabetes mellitus, CHF, asthma, prior transient ischemic attack versus CVA, sigmoid diverticulosis, gastroesophageal reflux disease, positional vertigo, hysterectomy, History of MRSA: No History of VRE: No History of CDIFF: No Tetanus Vaccine: 09/23/15 Surgical History Surgical History: R WRIST,TOE, HYSTERECTOMY BLADDER,RECTUM LIFTED right knee surgery for a meniscal tear left carpal tunnel release Psychosocial History Who do you live with Patient/Self Services at Home None What is your primary language Fijian Tobacco Use: Quit >30 days ago ETOH Use: denies use Illicit Drug Use: denies illicit drug use Family History Family History, If Any: BROTHER FH: throat cancer SISTER (atrial fibrillation). FH: lung cancer FH: thyroid cancer SISTER (permanent pacemaker placement). FH: melanoma FHx: breast cancer MOTHER (coronary artery disease in her 50's s/p CABG). FH: diabetes mellitus FH: myocardial infarction FH: stroke FATHER FH: kidney disease Hx Contributory? No Review of Systems Review of Systems Constitutional: Reports: no symptoms. All Other Systems: Reviewed and Negative Physical Exam Physical Exam General Appearance: well developed/nourished, no apparent distress, alert, comfortable Comments: Well-appearing elderly female, no acute distress. HEENT exam unremarkable apart from left-sided nasal tampon. Cardiopulmonary, abdominal, extremity, neurologic exams all within normal limits. Skin warm and dry. Core Measures ACS in differential dx? No CVA/TIA Diagnosis: No Sepsis Present: No Sepsis Focused Exam Completed? No Progress Differential Diagnoses I considered the following diagnoses in my evaluation of the patient: Resolved epistaxis, low suspicion for acute coagulopathy, posterior bleed. Doubt hemorrhagic shock. Low suspicion for concomitant infectious process. Plan of Care: Nasal tampon removed after removal of air, no bleeding on reassessment. Patient well-appearing, discharged home with return precautions and follow-up instructions. Initial ED EKG: none Departure Departure Time of Disposition: 1114 Disposition: HOME OR SELF CARE Condition: Stable Clinical Impression Primary Impression: Encounter for removal of nasal packing Referrals: Trevino Shabbir SHOOK (PCP/Family) Additional Instructions: Thank you for coming to [facility] today. As we discussed, please start taking your anticoagulant medication again starting tomorrow morning. Return to the hospital if you develop bleeding or any other concerning symptoms such as lightheadedness, headache, fever, chills, chest pain, shortness of breath. Departure Forms: Customer Survey General Discharge Information Critical Care Note Critical Care Note Critical Care Time: non-applicable
== END 2018-07-12 11:42 ==
LOC: ERH 10:34
DX: Z48.00 Encounter for change or removal of nonsurgical wound dressing (principal)